=== PATIENT | male | born 1945 | race Caucasian/White ===

== ENCOUNTER → 2016-12-24 | Outpatient (CLI) | payer OTHER ==
[~2016-12-24] MED LIST: ALBU1NEB10 INH; AMLO2.5T PO; ASPI81TA28 PO; ATOR-26 PO; BISA10SU5 RE; CHOL1TAB42 PO; CLC6 PO; DOCU100C31 PO; FIBE1CHW PO; FLUO20CA35 PO; FLUO40CA8 PO; FLUV100T2 PO; GLIP2.5T11 PO; HYDR-4716 PO; LACT10CA3 PO; LAMO200T38 PO; LISI5TAB PO; MAGN250T3 PO; METO-217 PO; MULT-506 PO; NRN600 PO; OLAN1TAB64 PO; OXGN; PANT1TAB48 PO; SULF800T23 PO; TIMO1SOL6 OP; TIOTCAP INH
--- NOTE | 2016-12-24 14:16 | DIAGNOSTIC IMAGING REPORT ---
CHEST 2 VIEWS ROUTINE HISTORY: 71 years-old Male J43.9 Pulmonary [id number] emphysema. COMPARISON: Chest radiograph 12/01/2014 TECHNIQUE: PA and lateral views of the chest FINDINGS: Cardiac silhouette is mildly enlarged, unchanged. There is atherosclerosis of the aorta. No pneumothorax, pleural effusion, focal airspace consolidation or overt pulmonary edema. Lungs are mildly hyperinflated and hyperlucent suggesting emphysema. The bones of the chest are grossly intact. IMPRESSION: No acute cardiopulmonary process. The above report was generated using voice recognition software. It may contain grammatical, syntax or spelling errors. Electronically signed by: Trever Sequeira M.D. 12/24/2016 2:15 PM Dictated Date/Time: 12/24/2016 2:14 PM
== END | disposition home or self-care (01) ==
LOC: C.RAD1850 13:46
PROVIDERS: ATTEND Physician Assistant
DX: J43.9 Emphysema, unspecified (principal)

== ENCOUNTER → 2017-01-21 | Outpatient (CLI) | payer OTHER ==
[~2017-01-21] MED LIST changes: +LAMO200T35 PO; -LAMO200T38 PO; +PANT1TAB3 PO; -PANT1TAB48 PO
[2017-01-21 15:46] LABS: BLOOD UREA NITROGEN 27 mg/dl (7-18); BUN/CREATININE RATIO 21.6 (10-20); CREATININE 1.26 mg/dl (0.60-1.40)
[2017-01-21 15:50] LABS: PROSTATE SPECIFIC ANTIGEN 0.144 ng/ml (0.000-4.000)
== END | disposition home or self-care (01) ==
LOC: C.LAB 14:26
PROVIDERS: ATTEND Urology
DX: N40.1 Benign prostatic hyperplasia with lower urinary tract symptoms (principal); N40.0 Benign prostatic hyperplasia without lower urinary tract symptoms; N39.0 Urinary tract infection, site not specified; N28.1 Cyst of kidney, acquired

== ENCOUNTER 2017-08-26 16:17 | Inpatient (IN) | payer MEDICARE, OTHER ==
[~2017-08-26] VITALS: Ht 185.4 cm; Wt 94.1 kg
--- NOTE | 2017-08-26 16:30 | EMERGENCY ROOM VISIT NOTE ---
History Report prepared by Norberto: Radha Baird Under the Supervision of: Dr. Ana Alejandre D.O. 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 He was brought to the ED via EMS. EMS reports the patient's family was trying to help him into the car to get him to the hospital when he fell over, landing on his back. He reports he has fallen in the past from confusion due to his history of schizoaffective disorder. The patient states he has experienced difficulty breathing since waking this morning. He is 86% on room air in the ED and has a history of emphysema and COPD. He notes he wears 3L NC at home. He has a Spiriva inhaler at home that he uses in the morning. He also admits to a recent intermittently productive cough and the chills. He denies any recent abdominal pain or diarrhea, but states he had diarrhea last week. He denies any recent sick contacts. 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 A total of 10 systems reviewed and were otherwise negative. Past Medical & Surgical Medical Problems: (1) C. difficile diarrhea (2) CAD (coronary artery disease) (3) COPD, severe (4) Diabetes (5) Dyslipidemia (6) GERD (gastroesophageal reflux disease) (7) Gout (8) Hypoxia (9) Neurogenic bladder (10) Schizoaffective disorder (11) SIRS (systemic inflammatory response syndrome) Surgical Problems: (1) History of appendectomy (2) Hx of cardiac catheterization (3) Hx of cataract surgery Family History Diabetes mellitus FH: lung disease FH: stroke FHx: heart disease Social History Smoking Status: Former Smoker Alcohol Use: none Drug Use: none Marital Status: Housing Status: lives with significant other Occupation Status: disabled Current/Historical Medications Scheduled Amlodipine (Norvasc), 5 MG PO DAILY Aspirin (Aspirin Ec), 81 MG PO QPM Atorvastatin (Lipitor), 80 MG PO QPM Finasteride (Finasteride), 5 MG PO QAM Fluoxetine (Prozac), 20 MG PO QAM Fluoxetine (Prozac), 40 MG PO QAM Gabapentin (Gabapentin), 600 MG PO BID Home O2 Therapy (Oxygen), 3 LITER NA UD Lactobacillus-Inulin (Culturelle), 1 CAP PO QAM Lamotrigine (Lamictal), 200 MG PO QAM Lisinopril (Prinivil), 5 MG PO QAM Losartan Potassium (Losartan Potassium), 25 MG PO QAM Magnesium (Magnesium 250 mg), 250 MG PO BID Metoprolol Tartrate (Lopressor), 25 MG PO QPM Olanzapine (Zyprexa), 30 MG PO QPM Pantoprazole (Protonix), 40 MG PO QAM Tamsulosin HCl (Tamsulosin HCl), 0.4 MG PO QPM Timolol Maleate (Timolol 0.5% Oph Soln 15 Ml), 1 DROP OPB QAM Tiotropium [place] (Spiriva Respimat), 1 DOSE INH QAM Scheduled PRN Albuterol Sulf (Proventil 0.083% 2.5MG/3ML), 3 ML INH 3-4 X DAILY PRN for SOB/ Wheezing Allergies Coded Allergies: No Known Allergies (Unverified , 08/26/17) Physical Exam Vital Signs Date Time Temp Pulse Resp B/P (MAP) Pulse Ox O2 Delivery O2 Flow Rate FiO2 08/26/17 17:51 39.5 08/26/17 16:47 76 08/26/17 16:38 37.2 72 26 198/94 96 Nasal Cannula 4.0 08/26/17 16:38 86 Room Air 08/26/17 16:26 37.2 78 26 206/87 86 Room Air Physical Exam GENERAL: alert, ill appearing, tremulous, well nourished, no distress, non- toxic EYE EXAM: normal conjunctiva, PERRL and EOM's grossly intact OROPHARYNX: no exudate, no erythema, lips, buccal mucosa, and tongue normal and mucous membranes are dry NECK: supple, no nuchal rigidity, no adenopathy, non-tender LUNGS: Clear to auscultation. Normal chest wall mechanics. No wheezes, rhonchi or rails. HEART: no murmurs, S1 normal and S2 normal ABDOMEN: abdomen soft, non-tender, normo-active bowel sounds, no masses, no rebound or guarding. BACK: Back is symmetrical on inspection and there is no deformity, no midline tenderness, no CVA tenderness. SKIN: no rashes and no bruising UPPER EXTREMITIES: upper extremities are grossly normal. LOWER EXTREMITIES: Trace bilateral pitting edema. NEURO EXAM: Normal sensorium, cranial nerves II-XII grossly intact, normal speech, no gross weakness of arms, no gross weakness of legs. Medical Decision & Procedures ER Provider Diagnostic Interpretation: Radiology results have been interpreted by the radiologist and reviewed by me. CHEST ONE VIEW PORTABLE HISTORY: 72 years-old Male fever acute fever COMPARISON: Chest radiographs 12/24/2016 TECHNIQUE: Portable AP view of the chest FINDINGS: Cardiac silhouette is enlarged. Calcification of the aorta. There is mild pulmonary vascular congestion without overt pulmonary edema. Prominence of the mediastinum is noted. There is no pneumothorax, pleural effusion or overt pulmonary edema. Subsegmental right basilar opacities. Degenerative changes of the shoulders and spine. IMPRESSION: 1. Cardiomegaly with mild pulmonary vascular congestion. 2. Subsegmental right basilar opacities suggest atelectasis or pneumonitis. The above report was generated using voice recognition software. It may contain grammatical, syntax or spelling errors. Electronically signed by: Trever Sequeira M.D. 08/26/2017 4:52 PM Laboratory Results 08/26/17 17:33 Red Blood Count 4.67, Mean Corpuscular Volume 84.6, Mean Corpuscular Hemoglobin 27.2, Mean Corpuscular Hemoglobin Concent 32.2, Mean Platelet Volume 9.8, Neutrophils (%) (Auto) 88.6, Lymphocytes (%) (Auto) 4.9, Monocytes (%) (Auto) 4.4, Eosinophils (%) (Auto) 1.7, Basophils (%) (Auto) 0.2, Neutrophils # (Auto) 9.58, Lymphocytes # (Auto) 0.53, Monocytes # (Auto) 0.47, Eosinophils # (Auto) 0.18, Basophils # (Auto) 0.02 08/26/17 17:33 Test 08/26/17 16:44 08/26/17 17:33 08/26/17 17:40 Urine Color YELLOW Urine Appearance CLOUDY (CLEAR) Urine pH 8.0 (4.5-7.5) Urine Specific [place] 1.019 (1.000-1.030) Urine Protein 2+ (NEG) Urine Glucose (UA) TRACE (NEG) Urine Ketones NEG (NEG) Urine Occult Blood TRACE (NEG) Urine Nitrite NEG (NEG) Urine Bilirubin NEG (NEG) Urine Urobilinogen NEG (NEG) Urine Leukocyte Esterase NEG (NEG) Urine WBC (Auto) 1-5 /hpf (0-5) Urine RBC (Auto) 0-4 /hpf (0-4) Urine Hyaline Casts (Auto) 1-5 /lpf (0-5) Urine Epithelial Cells (Auto) 5-10 /lpf (0-5) Urine Bacteria (Auto) NEG (NEG) White Blood Count 10.80 K/uL (4.8-10.8) Red Blood Count 4.67 M/uL (4.7-6.1) Hemoglobin 12.7 g/dL (14.0-18.0) Hematocrit 39.5 % (42-52) Mean Corpuscular Volume 84.6 fL (80-100) Mean Corpuscular Hemoglobin 27.2 pg (25-34) Mean Corpuscular Hemoglobin Concent 32.2 g/dl (32-36) Platelet Count 167 K/uL (130-400) Mean Platelet Volume 9.8 fL (7.4-10.4) Neutrophils (%) (Auto) 88.6 % Lymphocytes (%) (Auto) 4.9 % Monocytes (%) (Auto) 4.4 % Eosinophils (%) (Auto) 1.7 % Basophils (%) (Auto) 0.2 % Neutrophils # (Auto) 9.58 K/uL (1.4-6.5) Lymphocytes # (Auto) 0.53 K/uL (1.2-3.4) Monocytes # (Auto) 0.47 K/uL (0.11-0.59) Eosinophils # (Auto) 0.18 K/uL (0-0.5) Basophils # (Auto) 0.02 K/uL (0-0.2) RDW Standard Deviation 50.4 fL (36.4-46.3) RDW Coefficient of Variation 16.5 % (11.5-14.5) Immature Granulocyte % (Auto) 0.2 % Immature Granulocyte # (Auto) 0.02 K/uL (0.00-0.02) Prothrombin Time 10.7 SECONDS (9.0-12.0) Prothromb Time International Ratio 1.0 (0.9-1.1) Activated Partial Thromboplast Time 26.1 SECONDS (21.0-31.0) Partial Thromboplastin Ratio 1.0 Anion Gap 7.0 mmol/L (3-11) Est Creatinine Clear Calc Drug Dose 65.7 ml/min Estimated GFR () 65.8 Estimated GFR (Non- 56.8 BUN/Creatinine Ratio 19.4 (10-20) Calcium Level 9.5 mg/dl (8.5-10.1) Magnesium Level 2.3 mg/dl (1.8-2.4) Total Bilirubin 0.6 mg/dl (0.2-1) Aspartate Amino Transf (AST/SGOT) 43 U/L (15-37) Alanine Aminotransferase (ALT/SGPT) 42 U/L (12-78) Alkaline Phosphatase 141 U/L (45-117) Total Protein 8.3 gm/dl (6.4-8.2) Albumin 3.5 gm/dl (3.4-5.0) Globulin 4.8 gm/dl (2.5-4.0) Albumin/Globulin Ratio 0.7 (0.9-2) Bedside Lactic Acid Venous 0.72 mmol/L (0.90-1.70) Laboratory results per my review. Medications Administered Medications (Trade) Dose Ordered Sig/Nancy Route Start Time Stop Time Status Last Admin Dose Admin Sodium Chloride 1,000 ml @ 999 mls/hr Q1H1M STAT IV 08/26/17 16:36 08/26/17 17:36 DC 08/26/17 16:36 999 MLS/HR Vancomycin HCl 2250 mg/Sodium Chloride 545 ml @ 200 mls/hr 1800 ONCE IV 08/26/17 18:00 08/26/17 20:43 DC 08/26/17 18:09 200 MLS/HR Cefepime HCl 1000 mg/Dextrose 111 ml @ 200 mls/hr NOW STAT IV 08/26/17 17:43 08/26/17 18:16 DC 08/26/17 18:04 200 MLS/HR Acetaminophen (Tylenol Tab) 1,000 mg NOW STAT PO 08/26/17 17:44 08/26/17 17:45 DC 08/26/17 17:56 1,000 MG Albuterol/ Ipratropium (Duoneb) 3 ml NOW STAT INH 08/26/17 18:27 08/26/17 18:28 DC 08/26/17 19:01 3 ML Methylprednisolone Sodium Succinate (Solu-Medrol IV) 60 mg NOW STAT IV 08/26/17 18:30 08/26/17 18:31 DC 08/26/17 19:01 60 MG ECG Per My Interpretation Indication: weakness Rate (beats per minute): 73 Rhythm: sinus rhythm Findings: no acute ischemic change, other (Artifact noted, normal axis, normal intervals) ED Course 1619: The patient was evaluated in room C7. A complete history and physical exam was performed. 1635: I spoke to the patients . She states he has had shaking chills all morning. He has been falling more than usual and was unable to get up earlier today. He has been more confused today and stating things that do not make sense. This is usually indicative of a severe infection, like a UTI or pneumonia in the patient, both of which he has had before. 1636: NSS 1000 ml @ 999 mls/hr IV. 1740: I reevaluated the patient. He is still hypertensive and is now febrile. IV team has gotten a line. 1743: Cefepime HCl 1000 mg/Dextrose 111 ml @ 200 mls/hr IV. 1744: Tylenol 1000 mg PO. 1800: Vancomycin HCl 2250 mg/Sodium Chloride 545 ml @ 200 mls/hr IV. 1825: I reevaluated the patient. He is updated on his results so far. 1827: DuoNeb 3 ml INH. 1830: Solu-Medrol 60 mg IV. 1832: I discussed the patients case with Angie Carrington PA-C, [facility] Hospitalist. The patient will be further evaluated. 1835: I reevaluated the patient. I discussed my recommendation he remain in the hospital for further evaluation and management and he and his verbalized complete understanding and agreement. Medical Decision Differential Diagnosis includes but is not limited to dehydration, stroke, anemia, hypoglycemia, hyponatremia, hypernatremia, urinary tract infection, pneumonia, bronchitis, sepsis, gastroenteritis, additional abdominal pathology, metabolic abnormalities and infections. Patient here ill-appearing on presentation with productive sounding cough, and requiring slightly more oxygen at 4 L/min than his usual home O2 of 3 L/min. Patient's tremors I feel most likely Reiger's, as he eventually developed a fever. While patient's labs are reassuring, and concern that this may be the early evolution of bacteremia/sepsis. No focal consolidation noted on chest x- ray, although patient with prior history of COPD/emphysema and at risk for respiratory infection. Urine unremarkable. Patient with no other GI symptoms to warrant additional GI imaging at this time. Do not suspect acute vascular pathology. Patient's describes transient confusion earlier today which could be secondary to his infection also. I do not suspect CVA. I do not suspect meningitis/encephalitis. Patient without any headaches, dizziness, vision changes. Patient with increased generalized weakness and fatigue today, complains of worsening shortness of breath and cough. Patient hemodynamically stable throughout, hypertension noted although improved. IV fluids were ordered and cultures drawn. Broad-spectrum antibiotics ordered at this time given unclear etiology of fever and likely evolving infection. Rapid strep negative. No recent skin changes and no evidence of sacral decubitus ulcer noted on exam. Patient and made aware of all results were agreeable with plan. Medication Reconcilliation Current Medication List: was personally reviewed by me Blood Pressure Screening Patient's blood pressure: Elevated blood pressure Blood pressure disposition: Referred to PCP (The patients elevated blood pressure will be further managed by the inpatient hospital medicine team) Consults Time Called: 1831 Consulting Physician: [facility] Returned Call: 1831 I discussed the patients case with Angie Carrington [facility]C, [facility]. The patient will be further evaluated. Impression Primary Impression: Fever Additional Impressions: Cough Dehydration Fall Hypertension Generalized weakness Scribe Attestation The scribe's documentation has been prepared under my direction and personally reviewed by me in its entirety. I confirm that the note above accurately reflects all work, treatment, procedures, and medical decision making performed by me. Departure Information Dispostion Being Evaluated By Hospitalist Referrals Clau Batista DO (PCP) Problem Qualifiers Primary Impression: Fever Fever type: unspecified Qualified Codes: R50.9 - Fever, unspecified Additional Impressions: Fall Encounter type: initial encounter Qualified Codes: W19.XXXA - Unspecified fall, initial encounter Hypertension Hypertension type: essential hypertension Qualified Codes: I10 - Essential ( primary) hypertension
[2017-08-26] MEDS ORDERED: SODIUM CHLORIDE 0.9% 1000ML 1,000 ML IV STA (16:36)
--- NOTE | 2017-08-26 16:53 | DIAGNOSTIC IMAGING REPORT ---
CHEST ONE VIEW PORTABLE HISTORY: 72 years-old Male fever acute fever COMPARISON: Chest radiographs 12/24/2016 TECHNIQUE: Portable AP view of the chest FINDINGS: Cardiac silhouette is enlarged. Calcification of the aorta. There is mild pulmonary vascular congestion without overt pulmonary edema. Prominence of the mediastinum is noted. There is no pneumothorax, pleural effusion or overt pulmonary edema. Subsegmental right basilar opacities. Degenerative changes of the shoulders and spine. IMPRESSION: 1. Cardiomegaly with mild pulmonary vascular congestion. 2. Subsegmental right basilar opacities suggest atelectasis or pneumonitis. The above report was generated using voice recognition software. It may contain grammatical, syntax or spelling errors. Electronically signed by: Trever Sequeira M.D. 08/26/2017 4:52 PM Dictated Date/Time: 08/26/2017 4:50 PM
[2017-08-26] MEDS ORDERED: LPR25 PO (17:11)
[2017-08-26] MEDS ORDERED: TIOT1SPR INH (17:11)
[2017-08-26] MEDS ORDERED: CZR25 PO (17:11)
[2017-08-26] MEDS ORDERED: FLM4 PO (17:11)
[2017-08-26] MEDS ORDERED: PRS5 PO (17:11)
[2017-08-26] MEDS ORDERED: TMPOPS15 OPB (17:11)
[2017-08-26] MEDS ORDERED: ALBINS/ INH (17:11)
[2017-08-26] MEDS ORDERED: CEFEPIME IV 1,000 MG in DEXTROSE 5% 100ML 100 ML IV STA (17:43)
[2017-08-26] MEDS ORDERED: ACETAMINOPHEN 500 MG TAB PO STA (17:44)
[2017-08-26] MEDS ORDERED: VANCOMYCIN CONSULT ACTIVE PRN ×2 (17:45→19:52)
[2017-08-26 17:47] LABS: BASO % 0.2 %; BASO ABS # 0.02 K/uL (0-0.2); EOS % 1.7 %; EOS ABS # 0.18 K/uL (0-0.5); HEMATOCRIT 39.5 % (42-52); HEMOGLOBIN 12.7 g/dL (14.0-18.0); IG# 0.02 K/uL (0.00-0.02); LYMPH % 4.9 %; LYMPH ABS # 0.53 K/uL (1.2-3.4); MEAN CELL VOLUME 84.6 fL (80-100); MEAN CORPUSCULAR HEMOGLOBIN 27.2 pg (25-34); MEAN CORPUSCULAR HGB CONC 32.2 g/dl (32-36); MEAN PLATELET VOLUME 9.8 fL (7.4-10.4); MONO % 4.4 %; MONO ABS # 0.47 K/uL (0.11-0.59); NEUT % 88.6 %; NEUT ABS # 9.58 K/uL (1.4-6.5); PLATELET COUNT 167 K/uL (130-400); RED CELL DISTRIBUTION WIDTH CV 16.5 % (11.5-14.5); RED CELL DISTRIBUTION WIDTH SD 50.4 fL (36.4-46.3)
[2017-08-26 17:56] LABS: PTT PATIENT 26.1 SECONDS (21.0-31.0)
[2017-08-26] MEDS ORDERED: VANCOMYCIN IV 2,250 MG in SODIUM CHLORIDE 0.9% 500ML 500 ML IV ONE (18:00)
[2017-08-26 18:07] LABS: ALBUMIN 3.5 gm/dl (3.4-5.0); CALCIUM 9.5 mg/dl (8.5-10.1); CREATININE 1.25 mg/dl (0.60-1.40); POTASSIUM 3.9 mmol/L (3.5-5.1); TOTAL PROTEIN 8.3 gm/dl (6.4-8.2)
[2017-08-26] MEDS ORDERED: ALBUT/IPRATROP 3MG/0.5MG NEB 3 ML VIAL INH STA (18:27)
--- NOTE | 2017-08-26 18:28 | DIAGNOSTIC IMAGING REPORT ---
HEAD WITHOUT CONTRAST (CT) CLINICAL HISTORY: 72 years-old Male with trauma. Acute head injury with trauma TECHNIQUE: Multiple axial CT images of the head were obtained without contrast. A dose lowering technique was utilized adhering to the principles of ALARA. CT DOSE: 1289.87 mGy.cm COMPARISON: CT head 11/03/2014. FINDINGS: No acute intracranial hemorrhage, midline shift, intracranial mass, hydrocephalus, territorial ischemia or abnormal extra-axial collection. Age-related involutional changes. Moderate degree of low-attenuation about the white matter suggests chronic microvascular ischemic changes. The calvarium is intact. Mild polypoid mucosal thickening of the right maxillary sinus. Soft tissues and orbits are within normal limits. IMPRESSION: No acute intracranial abnormality or calvarial fracture. The above report was generated using voice recognition software. It may contain grammatical, syntax or spelling errors. Electronically signed by: Trever Sequeira M.D. 08/26/2017 6:27 PM Dictated Date/Time: 08/26/2017 6:25 PM
[2017-08-26] MEDS ORDERED: METHYLPREDNISOLONE 125 MG VIAL IV STA (18:30)
--- NOTE | 2017-08-26 18:32 | DIAGNOSTIC IMAGING REPORT ---
CERVICAL SPINE W/O CLINICAL HISTORY: 72 years-old Male with trauma. Acute neck pain status post trauma with fall COMPARISON: CT head of same day. TECHNIQUE: Multiple axial CT images of the cervical spine were obtained without contrast. A dose lowering technique was utilized adhering to the principles of ALARA. FINDINGS: Mildly demineralized appearance of the bones. Reversal the normal cervical lordosis with kyphotic curvature centered at C3-C4. 3 mm anterolisthesis C3 on C4 is likely on a degenerative basis. Partial bony fusion of the facets at T2-C3 and C3-C4. Severe multilevel intervertebral disc space narrowing, facet arthropathy with spondylitic spurring and posterior annular disc bulging. These changes result in varying degrees of neuroforaminal narrowing. There is no definite high-grade central canal stenosis. Evaluation of the central canal and neuroforamina is better assessed by MRI. No acute fracture or subluxation is identified. The mastoid air cells and middle ear cavities appear clear. Atherosclerosis about the bilateral carotid vasculature. Imaged lung apices are clear with emphysematous changes. Enlarged heterogeneous thyroid suggests multinodular morphology. Soft tissues are within normal limits. IMPRESSION: No acute cervical spine fracture or subluxation. The above report was generated using voice recognition software. It may contain grammatical, syntax or spelling errors. Electronically signed by: Trever Sequeira M.D. 08/26/2017 6:30 PM Dictated Date/Time: 08/26/2017 6:27 PM
[2017-08-26] MEDS ORDERED: POLYETHYLENE (MIRALAX) 17 GM PACK PO PRN (19:30)
[2017-08-26] MEDS ORDERED: ONDANSETRON INJ 2 MG/ML 2 ML VIAL IV PRN (19:30)
[2017-08-26] MEDS ORDERED: NITROGLYCERIN 0.4 MG SL PER TAB CHARGE SL PRN (19:30)
[2017-08-26] MEDS ORDERED: ACETAMINOPHEN 325 MG TAB PO PRN (19:30)
[2017-08-26] MEDS ORDERED: AMLO5TAB3 PO (19:42)
[2017-08-26 19:56] VITALS: Ht 185.4 cm; Wt 94.1 kg
[2017-08-26] MEDS: ALBUT/IPRATROP 3MG/0.5MG NEB 3 ML VIAL INH SCH (20:00)
[2017-08-26] MEDS ORDERED: CARBOHYDRATES FOR HYPOGLYCEMIA PO PRN (20:30)
[2017-08-26] MEDS ORDERED: DEXTROSE 50% 50 ML SYR IV PRN (20:30)
[2017-08-26] MEDS ORDERED: GLUCOSE 10 TABS/TUBE PO PRN (20:30)
[2017-08-26] MEDS ORDERED: GLUCAGON FOR INJ 1 MG VIAL SQ PRN (20:30)
[2017-08-26] MEDS ORDERED: GLUCOSE 40% GEL 15 GM TUBE PO PRN (20:30)
--- NOTE | 2017-08-26 20:41 | History and Physical ---
History & Physical Date & Time of Service: Aug 26, 2017 at 19:45 Chief Complaint: Confusion, Fall, Sob Primary Care Physician: Clau Batista DO History of Present Illness Source: patient, spouse, clinic records, hospital records Pt is 72 y/o M with PMH COPD on 3L O2, HTN, dyslipidemia, DM II, CAD S/P stents x 2, MUKUL, CKD II, BPH, schizoaffective disorder presented to ER with complaint of weakness and chills. Reports this morning with generalized weakness, fatigue , chills, and rigors. Some nausea no vomiting. He states was feeling so weak today that he fell. Denies any injury. States yesterday started with cough productive of beige colored mucus. Reports some shortness of breath today. Patient states has not had to use albuterol nebulizers. Follows with [facility] pulmonology. States this afternoon noticed patient with some confusion which is new. Reported history sepsis and pneumonia in the past. Reported history MRSA. Denies insect bite, rashes, ill contacts, recent travel. Denies diaphoresis, D/C, PARIKH, dizziness, syncope, vision changes, neck pain, CP, orthopnea, palpitations, hematemesis, sore throat, choking, otalgia, rhinorrhea, abdominal pain, paresthesias, extremity edema, urinary symptoms, weight loss. Past Medical/Surgical History Medical Problems: (1) C. difficile diarrhea Status: Resolved (2) CAD (coronary artery disease) Permanent Comment: s/p PTCA in 1997 and 2000 1997 - stent placed but details unknown 2000 - stent to LAD Status: Chronic (3) COPD, severe Status: Chronic (4) Diabetes Status: Chronic (5) Dyslipidemia Status: Chronic (6) GERD (gastroesophageal reflux disease) Status: Chronic (7) Gout Status: Chronic (8) Neurogenic bladder Status: Chronic (9) Schizoaffective disorder Status: Chronic Surgical Problems: (1) History of appendectomy Status: Chronic (2) Hx of cardiac catheterization Permanent Comment: stents x 2 Status: Resolved (3) Hx of cataract surgery Status: Chronic Family History Diabetes mellitus FH: lung disease FH: stroke FHx: heart disease Social History Smoking Status: Former Smoker (Smoked 3 PPD x 40 years, quit 2004) Smokeless Tobacco Use: No Alcohol Use: none Drug Use: none Marital Status: Housing status: lives with family, long term Occupational Status: disabled Immunizations History of Influenza Vaccine: Yes Influenza Vaccine Date: Oct 26, 2014 History of Tetanus Vaccine?: Yes Tetanus Immunization Date: Nov 15, 2008 History of Pneumococcal: Yes Pneumococcal Date: June 12, 2014 Allergies Coded Allergies: No Known Allergies (Unverified , 08/26/17) Home Medications Scheduled Amlodipine (Norvasc), 5 MG PO DAILY Aspirin (Aspirin Ec), 81 MG PO QPM Atorvastatin (Lipitor), 80 MG PO QPM Finasteride (Finasteride), 5 MG PO QAM Fluoxetine (Prozac), 20 MG PO QAM Fluoxetine (Prozac), 40 MG PO QAM Gabapentin (Gabapentin), 600 MG PO BID Home O2 Therapy (Oxygen), 3 LITER NA UD Lactobacillus-Inulin (Culturelle), 1 CAP PO QAM Lamotrigine (Lamictal), 200 MG PO QAM Lisinopril (Prinivil), 5 MG PO QAM Losartan Potassium (Losartan Potassium), 25 MG PO QAM Magnesium (Magnesium 250 mg), 250 MG PO BID Metoprolol Tartrate (Lopressor), 25 MG PO QPM Olanzapine (Zyprexa), 30 MG PO QPM Pantoprazole (Protonix), 40 MG PO QAM Tamsulosin HCl (Tamsulosin HCl), 0.4 MG PO QPM Timolol Maleate (Timolol 0.5% Oph Soln 15 Ml), 1 DROP OPB QAM Tiotropium [place] (Spiriva Respimat), 1 DOSE INH QAM Scheduled PRN Albuterol Sulf (Proventil 0.083% 2.5MG/3ML), 3 ML INH 3-4 X DAILY PRN for SOB/ Wheezing Review of Systems See HPI for pertinent positives & negatives. All other systems reviewed and were otherwise negative Physical Exam Vital Signs Date Time Temp Pulse Resp B/P (MAP) Pulse Ox O2 Delivery O2 Flow Rate FiO2 08/26/17 17:51 39.5 08/26/17 16:47 76 08/26/17 16:38 37.2 72 26 198/94 96 Nasal Cannula 4.0 08/26/17 16:38 86 Room Air 08/26/17 16:26 37.2 78 26 206/87 86 Room Air General Appearance: + pertinent finding (Overweight, ill appearing, appears uncomfortable) Head: normocephalic, atraumatic Eyes: normal inspection, PERRL, EOMI, sclerae normal ENT: hearing grossly normal, pharynx normal, + pertinent finding (dry mucous membranes) Neck: supple, trachea midline Respiratory/Chest: + pertinent finding (Resp: 26, no accessory muscle usage, able to speak in sentences, coarse breath sounds & rhonchi throughout,) Cardiovascular: regular rate, rhythm, no murmur, normal peripheral pulses Abdomen/GI: normal bowel sounds, non tender, soft Back: no CVA tenderness Extremities/Musculoskelatal: no calf tenderness, normal capillary refill, no pedal edema Neurologic/Psych: alert (lethargic, oriented to person, place, confused on time ) Skin: + pertinent finding (hot, dry) Diagnostics Laboratory Results Results Past 24 Hours Test 08/26/17 16:44 08/26/17 17:33 08/26/17 17:40 Range/Units Urine Color YELLOW Urine Appearance CLOUDY CLEAR Urine pH 8.0 4.5-7.5 Urine Specific [place] 1.019 1.000-1.030 Urine Protein 2+ NEG Urine Glucose (UA) TRACE NEG Urine Ketones NEG NEG Urine Occult Blood TRACE NEG Urine Nitrite NEG NEG Urine Bilirubin NEG NEG Urine Urobilinogen NEG NEG Urine Leukocyte Esterase NEG NEG Urine WBC (Auto) 1-5 0-5 /hpf Urine RBC (Auto) 0-4 0-4 /hpf Urine Hyaline Casts (Auto) 1-5 0-5 /lpf Urine Epithelial Cells (Auto) 5-10 0-5 /lpf Urine Bacteria (Auto) NEG NEG White Blood Count 10.80 4.8-10.8 K/uL Red Blood Count 4.67 4.7-6.1 M/uL Hemoglobin 12.7 14.0-18.0 g/dL Hematocrit 39.5 42-52 % Mean Corpuscular Volume 84.6 80-100 fL Mean Corpuscular Hemoglobin 27.2 25-34 pg Mean Corpuscular Hemoglobin Concent 32.2 32-36 g/dl Platelet Count 167 130-400 K/uL Mean Platelet Volume 9.8 7.4-10.4 fL Neutrophils (%) (Auto) 88.6 % Lymphocytes (%) (Auto) 4.9 % Monocytes (%) (Auto) 4.4 % Eosinophils (%) (Auto) 1.7 % Basophils (%) (Auto) 0.2 % Neutrophils # (Auto) 9.58 1.4-6.5 K/uL Lymphocytes # (Auto) 0.53 1.2-3.4 K/uL Monocytes # (Auto) 0.47 0.11-0.59 K/uL Eosinophils # (Auto) 0.18 0-0.5 K/uL Basophils # (Auto) 0.02 0-0.2 K/uL RDW Standard Deviation 50.4 36.4-46.3 fL RDW Coefficient of Variation 16.5 11.5-14.5 % Immature Granulocyte % (Auto) 0.2 % Immature Granulocyte # (Auto) 0.02 0.00-0.02 K/uL Prothrombin Time 10.7 9.0-12.0 SECONDS Prothromb Time International Ratio 1.0 0.9-1.1 Activated Partial Thromboplast Time 26.1 21.0-31.0 SECONDS Partial Thromboplastin Ratio 1.0 Sodium Level 137 136-145 mmol/L Potassium Level 3.9 3.5-5.1 mmol/L Chloride Level 105 98-107 mmol/L Carbon Dioxide Level 25 21-32 mmol/L Anion Gap 7.0 3-11 mmol/L Blood Urea Nitrogen 24 7-18 mg/dl Creatinine 1.25 0.60-1.40 mg/dl Est Creatinine Clear Calc Drug Dose 65.7 ml/min Estimated GFR () 65.8 Estimated GFR (Non- 56.8 BUN/Creatinine Ratio 19.4 10-20 Random Glucose 118 70-99 mg/dl Calcium Level 9.5 8.5-10.1 mg/dl Magnesium Level 2.3 1.8-2.4 mg/dl Total Bilirubin 0.6 0.2-1 mg/dl Aspartate Amino Transf (AST/SGOT) 43 15-37 U/L Alanine Aminotransferase (ALT/SGPT) 42 12-78 U/L Alkaline Phosphatase 141 45-117 U/L Total Protein 8.3 6.4-8.2 gm/dl Albumin 3.5 3.4-5.0 gm/dl Globulin 4.8 2.5-4.0 gm/dl Albumin/Globulin Ratio 0.7 0.9-2 Bedside Lactic Acid Venous 0.72 0.90-1.70 mmol/L Microbiology Results 7/19/18 Blood Culture, Received Pending 08/26/17 Blood Culture, Received Pending 08/26/17 Group A Streptococcus Screen - Final, Resulted SPECIMEN NEGATIVE FOR GROUP A BETA ST... 08/26/17 Group A Streptococcus Screen (MARLEN), Resulted Pending Diagnostic Radiology CXR: IMPRESSION: 1. Cardiomegaly with mild pulmonary vascular congestion. 2. Subsegmental right basilar opacities suggest atelectasis or pneumonitis. CT HEAD: IMPRESSION: No acute intracranial abnormality or calvarial fracture. CT C SPINE: IMPRESSION: No acute cervical spine fracture or subluxation. Impression Assessment and Plan Pt is 72 y/o M with PMH COPD on 3L O2, HTN, dyslipidemia, DM II, CAD S/P stents x 2, MUKUL, CKD II, BPH, schizoaffective disorder presented to ER with complaint of weakness and chills, rigors, cough today. SIRS DEHYDRATION Possible pneumonia In ER temp to 39.5C, P: 78, R: 26, BP: 206/87 down to 163/70. Initially 86% on RA, pt is 3L oxygen dependent, up to 90-96% on 4L. WBC: 10.8, POC lactic acid: 0.72, UA unremarkable, CXR:Cardiomegaly with mild pulmonary vascular congestion , Subsegmental right basilar opacities suggest atelectasis or pneumonitis. Patient was given DuoNeb, 1L NSS, cefepime, vancomycin, solumedrol 60mg IV, Tylenol -Pending blood cultures -IVF -Cefepime, vancomycin -Supplemental O2 per protocol -DuoNeb's -Solu-Medrol 40 mg IV twice daily -cbc, prp in am COPD - OXYGEN DEPENDENT Possible COPD exacerbation 3L oxygen NC continuous at home -supplemental O2 -solumedrol 40mg BID -consider pulmonology consult if no improvements GENERALIZED WEAKNESS/FALL fall secondary to weakness probable secondary to underlying illness. CT head and c-spine no acute changes -PT/OT CAD S/P STENT X 2 Denies CP -continue ASA, statin, metoprolol DM II Not on meds currently diet controlled -HA1c in am -BSG AC HS -Novolog sliding scale per protocol HTN Pt initially BP: 206/87 down to 163/70 -med list includes both lisinopril and losartan -hold lisinopril, continue losartan, amlodipine, metoprolol with holding parameters SCHIZOAFFECTIVE DISORDER Mood stable -Lamictal level pending -continue Prozac, Lamictal, Zyprexa MUKUL Pt reports in past used bipap, now uses CPAP HS CKD II Cr: 1.2 (approximate baseline) -monitor renal functions -avoid nephrotoxic agents when possible CHRONIC ANEMIA Hgb: 12.7 (at baseline) -monitor H&H DYSLIPIDEMIA -continue statin GERD -continue PPI BPH -continue flomax, finasteride BLE NEUROPATHY -continue gabapentin DVT Prophylaxis -heparin SQ Admit tele Full Code as per discussion with pt and Follows with Dr Batista for routine care Pt was seen with Dr Garcia. See addendum Attending addendum: The patient was seen and examined in ER He has multiple medical problems as mentioned above including COPD, history of MRSA, sleep apnea, schizoaffective disorder and chronic kidney disease He was noted to have weakness, fall and shortness of breath Was found to have temperature of more than 39F in the ER and chest x-ray did show possible basilar pneumonia He was feeling better during my examination On examination Minimal shortness of breath at rest Hemodynamically stable Chest-decreased breath sounds both sites with bibasilar crackles and wheezing anteriorly Heart-regular Abdomen-benign, nontender, bowel sounds present Extremities-no edema [employer] CRATING-alert, awake and oriented Generally weak but no focal neuro deficit Admission labs and imaging studies reviewed Has pneumonia and possible exacerbation of COPD Broad-spectrum antibiotics were started in the ER and will continue for now Agree with assessment and plan as outlined above. Dr. Darrick Garcia Resuscitation Status VTE Prophylaxis Will order VTE Prophylaxis: Yes Additional Copies To Clau Batista,DO
[2017-08-26] MEDS ORDERED: METOPROLOL TARTRATE 25 MG TAB PO SCH (21:00)
--- NOTE | 2017-08-26 21:14 | Pharmacy Progress Note ---
Pharmacy Abx Initial Consult Date of Service Aug 26, 2017. Pharmacy Dosing Scope Date of Consult: 08/26/17 Consultation requested by: Angie Calle [facility] is consulted to initiate Vancomycin IV dosing therapy, order appropriate labs and adjust drug dose/frequency. Subjective The patient is a 72 year old male admitted on Aug 26, 2017 at 19:29. Objective Height (Feet): 6 Height (Inches): 1.00 Weight (Kilograms): 100.700 Vital Signs (Past 12Hrs) Vital Signs Past 12 Hours Date Time Temp Pulse Resp B/P (MAP) Pulse Ox O2 Delivery O2 Flow Rate FiO2 08/26/17 20:04 37.2 67 24 106/66 91 08/26/17 19:56 Nasal Cannula 08/26/17 17:51 39.5 08/26/17 16:47 76 08/26/17 16:38 37.2 72 26 198/94 96 Nasal Cannula 4.0 08/26/17 16:38 86 Room Air 08/26/17 16:26 37.2 78 26 206/87 86 Room Air Lab Results (24Hrs) Laboratory Tests (24 Hours) Test 08/26/17 17:33 White Blood Count 10.80 K/uL (4.8-10.8) Red Blood Count 4.67 M/uL (4.7-6.1) L Hemoglobin 12.7 g/dL (14.0-18.0) L Hematocrit 39.5 % (42-52) L Mean Corpuscular Volume 84.6 fL (80-100) Mean Corpuscular Hemoglobin 27.2 pg (25-34) Mean Corpuscular Hemoglobin Concent 32.2 g/dl (32-36) Platelet Count 167 K/uL (130-400) Mean Platelet Volume 9.8 fL (7.4-10.4) Neutrophils (%) (Auto) 88.6 % Lymphocytes (%) (Auto) 4.9 % Monocytes (%) (Auto) 4.4 % Eosinophils (%) (Auto) 1.7 % Basophils (%) (Auto) 0.2 % Neutrophils # (Auto) 9.58 K/uL (1.4-6.5) H Lymphocytes # (Auto) 0.53 K/uL (1.2-3.4) L Monocytes # (Auto) 0.47 K/uL (0.11-0.59) Eosinophils # (Auto) 0.18 K/uL (0-0.5) Basophils # (Auto) 0.02 K/uL (0-0.2) Micro Results Date/Time Source Procedure Growth Status 08/26/17 17:33 Blood Blood Culture Pending Received 08/26/17 17:18 Blood Blood Culture Pending Received 08/26/17 00:00 Throat Group A Streptococcus Screen - Final SPECIMEN NEGATIVE FOR GROUP A BETA ST... Resulted 08/26/17 00:00 Throat Group A Streptococcus Screen (MARLEN) Pending Resulted Assessment & Plan Assessment 72 year old male with possible Pneumonia. Plan Vancomycin IV * Loading dose: 2250 mg (22.5 mg/kg) IV x 1 given in ED * Maintenance dose: Vancomycin 1500 mg IV (15 mg/kg) every 18 hours * Estimated P'kinetics: ke = 0.058 /hr, t1/2 = 12 hrs, Vd = 0.7 L/kg * Goal trough level for Pneumonia: 15 to 20 mcg/mL * Trough level ordered for 08/28/17 before dose at 1800 Pharmacy will continue to follow and will adjust dose/frequency as necessary. Thank you.
[2017-08-26] MEDS: INSULIN ASPART 100 UNITS/ML 3 ML PEN SC SCH (21:44)
[2017-08-26] MEDS: TAMSULOSIN HCL 0.4 MG CAP PO SCH (22:35)
[2017-08-26] MEDS: HEPARIN SOD 5000 UNIT/0.5 ML CARP SQ SCH (22:35)
[2017-08-26] MEDS: ASPIRIN 81 MG ECTAB PO SCH (22:36)
[2017-08-26] MEDS: GABAPENTIN 600 MG TAB PO SCH (22:36)
[2017-08-26] MEDS: ATORVASTATIN 40 MG TAB PO SCH (22:36)
[2017-08-26] MEDS: OLANZAPINE 10 MG TAB PO SCH (22:37)
[2017-08-26 22:55] VITALS: PULSE 58; O2SAT 92
[2017-08-27] VITALS (12 sets, daily range): BP systolic 119–153; BP diastolic 69–76; PULSE 47–58; TEMP 36.3–36.7; O2SAT 92–96
[2017-08-27] MEDS: CEFEPIME IV 2,000 MG in SYRINGE 7.5 ML IV SCH ×2 (05:23→17:47)
[2017-08-27] MEDS: METHYLPREDNISOLONE IV 40 MG in SYRINGE 0 ML IV SCH ×2 (05:23→17:46)
[2017-08-27] MEDS: HEPARIN SOD 5000 UNIT/0.5 ML CARP SQ SCH ×3 (05:28→20:52)
[2017-08-27] MEDS: SODIUM CHLORIDE 0.9% 1000ML 1,000 ML IV SCH ×2 (05:43→09:05)
[2017-08-27] MEDS: VANCOMYCIN IV 1,500 MG in SODIUM CHLORIDE 0.9% 500ML 500 ML IV SCH (05:43)
[2017-08-27 07:01] LABS: HEMATOCRIT 37.3 % (42-52); HEMOGLOBIN 11.9 g/dL (14.0-18.0); IG# 0.03 K/uL (0.00-0.02); LYMPH % 3.8 %; LYMPH ABS # 0.48 K/uL (1.2-3.4); MEAN CORPUSCULAR HEMOGLOBIN 27.1 pg (25-34); MEAN CORPUSCULAR HGB CONC 31.9 g/dl (32-36); MEAN PLATELET VOLUME 9.8 fL (7.4-10.4); MONO % 3.4 %; MONO ABS # 0.42 K/uL (0.11-0.59); NEUT % 92.6 %; PLATELET COUNT 176 K/uL (130-400); RED CELL DISTRIBUTION WIDTH CV 16.6 % (11.5-14.5); RED CELL DISTRIBUTION WIDTH SD 51.5 fL (36.4-46.3); WHITE BLOOD COUNT 12.53 K/uL (4.8-10.8)
[2017-08-27] MEDS: ALBUT/IPRATROP 3MG/0.5MG NEB 3 ML VIAL INH SCH ×4 (07:16→19:03)
[2017-08-27 07:23] LABS: HEMOGLOBIN A1C 6.5 % (4.5-5.6)
[2017-08-27] MEDS: TIMOLOL MALEATE 0.5% OP SOLN 5 ML BTL OPB SCH (07:33)
[2017-08-27] MEDS: LOSARTAN POTASSIUM 25 MG TAB PO SCH (07:34)
[2017-08-27] MEDS: PANTOprazole SOD 40 MG TAB PO SCH (07:34)
[2017-08-27] MEDS: GABAPENTIN 600 MG TAB PO SCH ×2 (07:34→20:45)
[2017-08-27] MEDS: MAGNESIUM OXIDE 400 MG TAB PO SCH ×2 (07:34→20:45)
[2017-08-27] MEDS: FLUOXETINE HCL 20 MG CAP PO SCH (07:35)
[2017-08-27] MEDS: FINASTERIDE 5 MG TAB PO SCH (07:35)
[2017-08-27] MEDS: AMLODIPINE BESYLATE 5 MG TAB PO SCH (07:35)
[2017-08-27 07:36] LABS: CALCIUM 9.2 mg/dl (8.5-10.1); CREATININE 1.24 mg/dl (0.60-1.40); POTASSIUM 3.5 mmol/L (3.5-5.1)
[2017-08-27] MEDS: INSULIN ASPART 100 UNITS/ML 3 ML PEN SC SCH ×4 (07:43→20:54)
[2017-08-27] MEDS ORDERED: LISINOPRIL 5 MG TAB PO SCH (09:00)
[2017-08-27] MEDS ORDERED: FLUOXETINE HCL 20 MG CAP PO SCH (09:00)
--- NOTE | 2017-08-27 10:27 | Progress Note ---
Internal Med Progress Note Date of Service: Aug 27, 2017. Provider Documentation: SUBJECTIVE: Seen and examined at bedside States SOB is improving Still has cough with brownish expectoration Confusion seemed to have resolved Has generalized weakness and tires easily Denies chest pain, dizziness Reports chronic bradycardia No other complaints Fever resolved OBJECTIVE: Vital Signs-as noted below Physical Exam: General Appearance:Moderately built and nourished, no apparent distress Head: normocephalic, Atraumatic Eyes: normal inspection, EOMI, PERRL Neck: supple, Trachea midline Respiratory/Chest: Decreased breath sounds, CTA Cardiovascular: S1, S2, No murmur, +Bradycardia Abdomen/GI:Soft, Non tender, Bowel sounds present Extremities/Musculoskelatal:normal inspection, no edema Neurologic/Psych:AAOX3, grossly no focal neurological deficits Skin: normal color, warm Lab data as noted below. ASSESSMENT & PLAN: Patient is a 72 yr male with PMH COPD on 3L O2 at baseline, HTN, dyslipidemia, DM II, CAD S/P stents x 2, MUKUL, CKD II, BPH, schizoaffective disorder presented to ER with complaint of weakness and chills, rigors, cough. SIRS Possible Sepsis Dehydration Pneumonia/Bronchitis Mild COPD exacerbation Chronic Hypoxic respiratory failure Continue cefepime, vancomycin Continue solumedrol, Nebs Normal Lactate levels Blood cultures pending Gentle IVF Continue supplemental O2 Generalized weakness/Fall secondary to above Imaging: No acute findings PT/OT CAD S/P Stent X 2 Denies CP continue ASA, statin metoprolol held 2/2 bradycardia (Discussed with Cardiology) Bradycardia likely multifactorial: 2/2 conduction abnormalities noted on prior ECHO, respiratory issues and BB DM II Diet controlled HA1c:6.5 Continue ISS Monitor BGs HTN continue losartan, amlodipine metoprolol held Lisinopril discontinued as patient already on losartan Schizoaffective Disorder Mood stable Lamictal level pending continue Prozac, Lamictal, Zyprexa MUKUL CPAP QHS CKD II Cr: 1.2 (approximate baseline) monitor renal functions avoid nephrotoxic agents when possible Chronic Anemia Hgb at baseline monitor H&H Dyslipidemia continue statin GERD continue PPI BPH continue flomax, finasteride Peripheral Neuropathy continue gabapentin DVT Px Heparin SQ Code Status Full Code Disposition: Monitor in Telemetry Follows with Dr Batista for routine care Vital Signs: Date Time Temp Pulse Resp B/P (MAP) Pulse Ox O2 Delivery O2 Flow Rate FiO2 7/20/18 11:34 36.3 52 19 119/69 (86) 96 Nasal Cannula 3.0 08/27/17 11:21 53 16 92 Nasal Cannula 3.0 08/27/17 08:00 Nasal Cannula 3.0 08/27/17 07:52 36.7 51 18 135/76 (95) 94 Nasal Cannula 3.0 08/27/17 07:16 55 14 95 BiPAP/CPAP 4.0 08/27/17 05:17 47 93 4.0 08/27/17 03:09 36.5 49 20 150/75 (100) 95 CPAP 08/27/17 01:54 53 93 4.0 08/27/17 00:10 36.7 53 17 123/69 (87) 92 Room Air 08/27/17 00:01 CPAP 4.0 08/26/17 22:55 58 92 4.0 08/26/17 20:04 37.2 67 24 106/66 91 08/26/17 19:56 Nasal Cannula 08/26/17 17:51 39.5 08/26/17 16:47 76 08/26/17 16:38 37.2 72 26 198/94 96 Nasal Cannula 4.0 08/26/17 16:38 86 Room Air 08/26/17 16:26 37.2 78 26 206/87 86 Room Air Lab Results: Results Past 24 Hours Test 08/26/17 16:44 08/26/17 17:33 08/26/17 17:40 08/26/17 20:49 Range/Units Urine Color YELLOW Urine Appearance CLOUDY CLEAR Urine pH 8.0 4.5-7.5 Urine Specific [place] 1.019 1.000-1.030 Urine Protein 2+ NEG Urine Glucose (UA) TRACE NEG Urine Ketones NEG NEG Urine Occult Blood TRACE NEG Urine Nitrite NEG NEG Urine Bilirubin NEG NEG Urine Urobilinogen NEG NEG Urine Leukocyte Esterase NEG NEG Urine WBC (Auto) 1-5 0-5 /hpf Urine RBC (Auto) 0-4 0-4 /hpf Urine Hyaline Casts (Auto) 1-5 0-5 /lpf Urine Epithelial Cells (Auto) 5-10 0-5 /lpf Urine Bacteria (Auto) NEG NEG White Blood Count 10.80 4.8-10.8 K/uL Red Blood Count 4.67 4.7-6.1 M/uL Hemoglobin 12.7 14.0-18.0 g/dL Hematocrit 39.5 42-52 % Mean Corpuscular Volume 84.6 80-100 fL Mean Corpuscular Hemoglobin 27.2 25-34 pg Mean Corpuscular Hemoglobin Concent 32.2 32-36 g/dl Platelet Count 167 130-400 K/uL Mean Platelet Volume 9.8 7.4-10.4 fL Neutrophils (%) (Auto) 88.6 % Lymphocytes (%) (Auto) 4.9 % Monocytes (%) (Auto) 4.4 % Eosinophils (%) (Auto) 1.7 % Basophils (%) (Auto) 0.2 % Neutrophils # (Auto) 9.58 1.4-6.5 K/uL Lymphocytes # (Auto) 0.53 1.2-3.4 K/uL Monocytes # (Auto) 0.47 0.11-0.59 K/uL Eosinophils # (Auto) 0.18 0-0.5 K/uL Basophils # (Auto) 0.02 0-0.2 K/uL RDW Standard Deviation 50.4 36.4-46.3 fL RDW Coefficient of Variation 16.5 11.5-14.5 % Immature Granulocyte % (Auto) 0.2 % Immature Granulocyte # (Auto) 0.02 0.00-0.02 K/uL Prothrombin Time 10.7 9.0-12.0 SECONDS Prothromb Time International Ratio 1.0 0.9-1.1 Activated Partial Thromboplast Time 26.1 21.0-31.0 SECONDS Partial Thromboplastin Ratio 1.0 Sodium Level 137 136-145 mmol/L Potassium Level 3.9 3.5-5.1 mmol/L Chloride Level 105 98-107 mmol/L Carbon Dioxide Level 25 21-32 mmol/L Anion Gap 7.0 3-11 mmol/L Blood Urea Nitrogen 24 7-18 mg/dl Creatinine 1.25 0.60-1.40 mg/dl Est Creatinine Clear Calc Drug Dose 65.7 ml/min Estimated GFR () 65.8 Estimated GFR (Non- 56.8 BUN/Creatinine Ratio 19.4 10-20 Random Glucose 118 70-99 mg/dl Calcium Level 9.5 8.5-10.1 mg/dl Magnesium Level 2.3 1.8-2.4 mg/dl Total Bilirubin 0.6 0.2-1 mg/dl Aspartate Amino Transf (AST/SGOT) 43 15-37 U/L Alanine Aminotransferase (ALT/SGPT) 42 12-78 U/L Alkaline Phosphatase 141 45-117 U/L Total Protein 8.3 6.4-8.2 gm/dl Albumin 3.5 3.4-5.0 gm/dl Globulin 4.8 2.5-4.0 gm/dl Albumin/Globulin Ratio 0.7 0.9-2 Bedside Lactic Acid Venous 0.72 0.90-1.70 mmol/L Bedside Glucose 136 70-99 mg/dl Test 08/27/17 06:38 08/27/17 07:29 08/27/17 11:22 Range/Units White Blood Count 12.53 4.8-10.8 K/uL Red Blood Count 4.39 4.7-6.1 M/uL Hemoglobin 11.9 14.0-18.0 g/dL Hematocrit 37.3 42-52 % Mean Corpuscular Volume 85.0 80-100 fL Mean Corpuscular Hemoglobin 27.1 25-34 pg Mean Corpuscular Hemoglobin Concent 31.9 32-36 g/dl Platelet Count 176 130-400 K/uL Mean Platelet Volume 9.8 7.4-10.4 fL Neutrophils (%) (Auto) 92.6 % Lymphocytes (%) (Auto) 3.8 % Monocytes (%) (Auto) 3.4 % Eosinophils (%) (Auto) 0.0 % Basophils (%) (Auto) 0.0 % Neutrophils # (Auto) 11.60 1.4-6.5 K/uL Lymphocytes # (Auto) 0.48 1.2-3.4 K/uL Monocytes # (Auto) 0.42 0.11-0.59 K/uL Eosinophils # (Auto) 0.00 0-0.5 K/uL Basophils # (Auto) 0.00 0-0.2 K/uL RDW Standard Deviation 51.5 36.4-46.3 fL RDW Coefficient of Variation 16.6 11.5-14.5 % Immature Granulocyte % (Auto) 0.2 % Immature Granulocyte # (Auto) 0.03 0.00-0.02 K/uL Sodium Level 139 136-145 mmol/L Potassium Level 3.5 3.5-5.1 mmol/L Chloride Level 108 98-107 mmol/L Carbon Dioxide Level 27 21-32 mmol/L Anion Gap 4.0 3-11 mmol/L Blood Urea Nitrogen 25 7-18 mg/dl Creatinine 1.24 0.60-1.40 mg/dl Est Creatinine Clear Calc Drug Dose 65.5 ml/min Estimated GFR () 66.4 Estimated GFR (Non- 57.3 BUN/Creatinine Ratio 20.3 10-20 Random Glucose 187 70-99 mg/dl Estimated Average Glucose 140 mg/dl Hemoglobin A1c 6.5 4.5-5.6 % Calcium Level 9.2 8.5-10.1 mg/dl Magnesium Level 2.6 1.8-2.4 mg/dl Bedside Glucose 170 195 70-99 mg/dl Microbiology Results 08/26/17 Blood Culture, Received Pending 08/26/17 Blood Culture, Received Pending 08/26/17 MRSA DNA Surveillance Screen - Final, Complete Specimen Negative for MRSA by DNA Probe
--- NOTE | 2017-08-27 11:52 | Clinical Documentation Query ---
CLINICAL DOCUMENTATION QUERY Dr. FOOTE, In your clinical opinion is this patient being managed for: ( x ) early Sepsis, POA ( ) SIRS due to a noninfectious source (please identify source) ( ) Not Agree ( ) Other explanation of clinical findings (No explanation is considered a No Response) ( ) Unable to determine ( ) Need to Discuss (Phone CDS or qliq) (No discussion is considered a No Response) The medical record reflects the following clinical findings, treatment, and risk factors. Clinical Indicators: 72 yo male presenting with pneumonia/bronchitis. Pt reported he was experiencing chills at home and rigors documented by ER provider. Family had reported pt also with confusion prior to ER visit. Pt developed temp of 39.5 and was tachypneic. H/P and progress notes indicate SIRS. Treatment:1L NSS bolus, IV vancomycin, IV cefepime, APAP, nebs, IV solumedrol, blood cultures, monitor labs, O2 support Risk Factors: age, COPD, DM II, MUKUL, CKD stage II With ICD 10 coding rules, SIRS with an identified infectious source is no longer synonymous with Sepsis. The only 2 coding options for SIRS are: SIRS due to a noninfectious source SIRS due to a noninfectious source with acute organ dysfunction In your clinical opinion is this patient being managed for: (x ) Chronic hypoxic respiratory failure ( ) Not Agree ( ) Other explanation of clinical findings (No explanation is considered a No Response) ( ) Unable to determine ( ) Need to Discuss (Phone CDS or qliq) (No discussion is considered a No Response) The medical record reflects the following clinical findings, treatment, and risk factors. Clinical Indicators: 72 yo male presenting with increased dyspnea, found to have mild COPD exac, pneumonia/bronchitis. Documentation indicates pt wears chronic home O2 support. Treatment: chronic management includes proventil, O2 support, and spiriva Risk Factors: COPD, MUKUL, CAD Please clarify and document your clinical opinion in the progress notes and discharge summary. Terms such as "probable", "suspected", "likely", "questionable", "possible", or "still to be ruled out" are acceptable. IF IN AGREEMENT, YOU MUST DOCUMENT ABOVE DIAGNOSTIC STATEMENT IN DAILY PROGRESS NOTES AND DISCHARGE SUMMARY. This document is not part of the patient's record. Thank You, Yudi Lynne RN [phone]
[2017-08-27] MEDS: ASPIRIN 81 MG ECTAB PO SCH (20:44)
[2017-08-27] MEDS: TAMSULOSIN HCL 0.4 MG CAP PO SCH (20:44)
[2017-08-27] MEDS: ATORVASTATIN 40 MG TAB PO SCH (20:45)
[2017-08-27] MEDS: OLANZAPINE 10 MG TAB PO SCH (20:46)
[2017-08-28] VITALS (11 sets, daily range): BP systolic 136–171; BP diastolic 68–82; PULSE 57–75; TEMP 36.5–37.1; O2SAT 91–95
[2017-08-28] MEDS: VANCOMYCIN IV 1,500 MG in SODIUM CHLORIDE 0.9% 500ML 500 ML IV SCH (00:27)
[2017-08-28] MEDS: CEFEPIME IV 2,000 MG in SYRINGE 7.5 ML IV SCH ×2 (05:56→17:11)
[2017-08-28] MEDS: HEPARIN SOD 5000 UNIT/0.5 ML CARP SQ SCH ×3 (06:00→21:02)
[2017-08-28] MEDS: METHYLPREDNISOLONE IV 40 MG in SYRINGE 0 ML IV SCH (06:04)
[2017-08-28 06:17] LABS: HEMATOCRIT 35.8 % (42-52); HEMOGLOBIN 11.8 g/dL (14.0-18.0); IG# 0.04 K/uL (0.00-0.02); LYMPH % 4.1 %; LYMPH ABS # 0.57 K/uL (1.2-3.4); MEAN CELL VOLUME 84.8 fL (80-100); MEAN PLATELET VOLUME 10.2 fL (7.4-10.4); MONO % 5.8 %; MONO ABS # 0.81 K/uL (0.11-0.59); NEUT % 89.8 %; NEUT ABS # 12.47 K/uL (1.4-6.5); PLATELET COUNT 198 K/uL (130-400); RED CELL DISTRIBUTION WIDTH CV 16.8 % (11.5-14.5); RED CELL DISTRIBUTION WIDTH SD 51.6 fL (36.4-46.3); WHITE BLOOD COUNT 13.89 K/uL (4.8-10.8)
[2017-08-28] MEDS: ALBUT/IPRATROP 3MG/0.5MG NEB 3 ML VIAL INH SCH ×4 (06:52→19:22)
[2017-08-28 06:56] LABS: CALCIUM 9.2 mg/dl (8.5-10.1); CREATININE 1.16 mg/dl (0.60-1.40)
[2017-08-28] MEDS: TIMOLOL MALEATE 0.5% OP SOLN 5 ML BTL OPB SCH (08:24)
[2017-08-28] MEDS: LOSARTAN POTASSIUM 25 MG TAB PO SCH (08:24)
[2017-08-28] MEDS: GABAPENTIN 600 MG TAB PO SCH ×2 (08:24→20:56)
[2017-08-28] MEDS: PANTOprazole SOD 40 MG TAB PO SCH (08:24)
[2017-08-28] MEDS: FINASTERIDE 5 MG TAB PO SCH (08:25)
[2017-08-28] MEDS: AMLODIPINE BESYLATE 5 MG TAB PO SCH (08:27)
[2017-08-28] MEDS: MAGNESIUM OXIDE 400 MG TAB PO SCH ×2 (08:27→20:57)
[2017-08-28] MEDS: FLUOXETINE HCL 20 MG CAP PO SCH (08:27)
[2017-08-28] MEDS: INSULIN ASPART 100 UNITS/ML 3 ML PEN SC SCH ×4 (08:36→20:59)
--- NOTE | 2017-08-28 10:47 | Progress Note ---
Internal Med Progress Note Date of Service: Aug 28, 2017. Provider Documentation: SUBJECTIVE: Seen and examined at bedside Doing much better today SOB, cough improving Confusion resolved Denies chest pain, dizziness No other complaints OBJECTIVE: Vital Signs-as noted below Physical Exam: General Appearance:Moderately built and nourished, no apparent distress Head: normocephalic, Atraumatic Eyes: normal inspection, EOMI, PERRL Neck: supple, Trachea midline Respiratory/Chest: Decreased breath sounds, CTA Cardiovascular: S1, S2, No murmur Abdomen/GI:Soft, Non tender, Bowel sounds present Extremities/Musculoskelatal:normal inspection, no edema Neurologic/Psych:AAOX3, grossly no focal neurological deficits Skin: normal color, warm Lab data as noted below. ASSESSMENT & PLAN: Patient is a 72 yr male with PMH COPD on 3L O2 at baseline, HTN, dyslipidemia, DM II, CAD S/P stents x 2, MUKUL, CKD II, BPH, schizoaffective disorder presented to ER with complaint of weakness and chills, rigors, cough. SIRS Possible Sepsis Dehydration Pneumonia/Bronchitis Mild COPD exacerbation Chronic Hypoxic respiratory failure Continue cefepime, vancomycin DC solumedrol Start Prednisone Continue Nebs Normal Lactate levels Blood cultures: No growth DC IVF Continue supplemental O2 Generalized weakness/Fall secondary to above Imaging: No acute findings PT/OT CAD S/P Stent X 2 Denies CP continue ASA, statin Discontinue metoprolol 2/2 bradycardia (Discussed with Cardiology) Bradycardia likely multifactorial: 2/2 conduction abnormalities noted on prior ECHO, respiratory issues and BB DM II Diet controlled HA1c:6.5 Continue ISS Monitor BGs HTN continue losartan, amlodipine metoprolol discontinued Lisinopril discontinued as patient already on losartan Schizoaffective Disorder Mood stable Lamictal level pending continue Prozac, Lamictal, Zyprexa MUKUL CPAP QHS CKD II Cr: 1.2 (approximate baseline) monitor renal functions avoid nephrotoxic agents when possible Chronic Anemia Hgb at baseline monitor H&H Dyslipidemia continue statin GERD continue PPI BPH continue flomax, finasteride Peripheral Neuropathy continue gabapentin DVT Px Heparin SQ Code Status Full Code Disposition: Monitor in Telemetry Follows with Dr Batista for routine care Vital Signs: Date Time Temp Pulse Resp B/P (MAP) Pulse Ox O2 Delivery O2 Flow Rate FiO2 08/28/17 08:30 Nasal Cannula 3.0 08/28/17 07:43 36.5 64 20 156/68 (97) 91 Nasal Cannula 3.0 08/28/17 06:52 57 16 92 Nasal Cannula 3.0 08/28/17 04:00 Nasal Cannula 4.0 08/28/17 03:35 36.8 66 20 162/78 (106) 93 Nasal Cannula 4.0 08/28/17 00:08 36.5 58 20 156/75 (102) 91 Nasal Cannula 4.0 08/27/17 20:35 Nasal Cannula 3.0 08/27/17 20:05 36.6 56 18 146/72 (96) 92 Nasal Cannula 3.0 08/27/17 19:05 58 16 92 Nasal Cannula 2.0 08/27/17 15:43 36.4 54 20 153/71 (98) 93 Nasal Cannula 2.0 08/27/17 15:20 55 16 94 Nasal Cannula 2.5 08/27/17 11:34 36.3 52 19 119/69 (86) 96 Nasal Cannula 3.0 08/27/17 11:21 53 16 92 Nasal Cannula 3.0 Lab Results: Results Past 24 Hours Test 08/27/17 11:22 08/27/17 16:22 08/27/17 20:51 08/28/17 05:53 Range/Units Bedside Glucose 195 199 184 70-99 mg/dl White Blood Count 13.89 4.8-10.8 K/uL Red Blood Count 4.22 4.7-6.1 M/uL Hemoglobin 11.8 14.0-18.0 g/dL Hematocrit 35.8 42-52 % Mean Corpuscular Volume 84.8 80-100 fL Mean Corpuscular Hemoglobin 28.0 25-34 pg Mean Corpuscular Hemoglobin Concent 33.0 32-36 g/dl Platelet Count 198 130-400 K/uL Mean Platelet Volume 10.2 7.4-10.4 fL Neutrophils (%) (Auto) 89.8 % Lymphocytes (%) (Auto) 4.1 % Monocytes (%) (Auto) 5.8 % Eosinophils (%) (Auto) 0.0 % Basophils (%) (Auto) 0.0 % Neutrophils # (Auto) 12.47 1.4-6.5 K/uL Lymphocytes # (Auto) 0.57 1.2-3.4 K/uL Monocytes # (Auto) 0.81 0.11-0.59 K/uL Eosinophils # (Auto) 0.00 0-0.5 K/uL Basophils # (Auto) 0.00 0-0.2 K/uL RDW Standard Deviation 51.6 36.4-46.3 fL RDW Coefficient of Variation 16.8 11.5-14.5 % Immature Granulocyte % (Auto) 0.3 % Immature Granulocyte # (Auto) 0.04 0.00-0.02 K/uL Sodium Level 142 136-145 mmol/L Potassium Level 3.5-5.1 mmol/L Chloride Level 111 98-107 mmol/L Carbon Dioxide Level 25 21-32 mmol/L Anion Gap 6.0 3-11 mmol/L Blood Urea Nitrogen 29 7-18 mg/dl Creatinine 1.16 0.60-1.40 mg/dl Est Creatinine Clear Calc Drug Dose 70.1 ml/min Estimated GFR () 72.0 Estimated GFR (Non- 62.1 BUN/Creatinine Ratio 24.7 10-20 Random Glucose 160 70-99 mg/dl Calcium Level 9.2 8.5-10.1 mg/dl Test 08/28/17 07:16 08/28/17 07:35 Range/Units Potassium Level 3.8 3.5-5.1 mmol/L Bedside Glucose 172 70-99 mg/dl
[2017-08-28] MEDS ORDERED: VANCOMYCIN TROUGH ONE (17:30)
[2017-08-28] MEDS: ATORVASTATIN 40 MG TAB PO SCH (20:56)
[2017-08-28] MEDS: OLANZAPINE 10 MG TAB PO SCH (20:57)
[2017-08-28] MEDS: ASPIRIN 81 MG ECTAB PO SCH (20:58)
[2017-08-28] MEDS: TAMSULOSIN HCL 0.4 MG CAP PO SCH (20:58)
[2017-08-29] VITALS (10 sets, daily range): BP systolic 151–179; BP diastolic 74–91; PULSE 58–69; TEMP 36.3–37.1; O2SAT 90–94
[2017-08-29 06:23] LABS: BASO % 0.1 %; BASO ABS # 0.01 K/uL (0-0.2); EOS % 0.1 %; EOS ABS # 0.01 K/uL (0-0.5); HEMATOCRIT 35.8 % (42-52); HEMOGLOBIN 11.4 g/dL (14.0-18.0); IG# 0.07 K/uL (0.00-0.02); LYMPH % 8.8 %; LYMPH ABS # 1.04 K/uL (1.2-3.4); MEAN CELL VOLUME 84.8 fL (80-100); MEAN CORPUSCULAR HGB CONC 31.8 g/dl (32-36); MEAN PLATELET VOLUME 10.4 fL (7.4-10.4); MONO % 8.2 %; MONO ABS # 0.96 K/uL (0.11-0.59); NEUT % 82.2 %; NEUT ABS # 9.67 K/uL (1.4-6.5); PLATELET COUNT 211 K/uL (130-400); RED CELL DISTRIBUTION WIDTH CV 17.1 % (11.5-14.5); RED CELL DISTRIBUTION WIDTH SD 52.4 fL (36.4-46.3); WHITE BLOOD COUNT 11.76 K/uL (4.8-10.8)
[2017-08-29] MEDS: HEPARIN SOD 5000 UNIT/0.5 ML CARP SQ SCH ×3 (06:32→20:57)
[2017-08-29] MEDS: CEFEPIME IV 2,000 MG in SYRINGE 7.5 ML IV SCH ×2 (06:33→17:01)
[2017-08-29] MEDS: ALBUT/IPRATROP 3MG/0.5MG NEB 3 ML VIAL INH SCH ×4 (06:55→19:05)
[2017-08-29 07:03] LABS: CREATININE 1.15 mg/dl (0.60-1.40)
[2017-08-29] MEDS: TIMOLOL MALEATE 0.5% OP SOLN 5 ML BTL OPB SCH (07:52)
[2017-08-29] MEDS: FINASTERIDE 5 MG TAB PO SCH (07:53)
[2017-08-29] MEDS: FLUOXETINE HCL 20 MG CAP PO SCH (07:54)
[2017-08-29] MEDS: LOSARTAN POTASSIUM 25 MG TAB PO SCH (07:54)
[2017-08-29] MEDS: GABAPENTIN 600 MG TAB PO SCH ×2 (07:54→20:49)
[2017-08-29] MEDS: PANTOprazole SOD 40 MG TAB PO SCH (07:54)
[2017-08-29] MEDS: MAGNESIUM OXIDE 400 MG TAB PO SCH ×2 (07:54→20:48)
[2017-08-29] MEDS: AMLODIPINE BESYLATE 5 MG TAB PO SCH (07:54)
[2017-08-29] MEDS: INSULIN ASPART 100 UNITS/ML 3 ML PEN SC SCH ×4 (08:06→20:52)
--- NOTE | 2017-08-29 11:23 | Progress Note ---
Internal Med Progress Note Date of Service: Aug 29, 2017. Provider Documentation: SUBJECTIVE: Seen and examined at bedside Feels tired SOB, cough improved Denies chest pain, dizziness, nausea No other complaints OBJECTIVE: Vital Signs-as noted below Physical Exam: General Appearance:Moderately built and nourished, no apparent distress Head: normocephalic, Atraumatic Eyes: normal inspection, EOMI, PERRL Neck: supple, Trachea midline Respiratory/Chest: Decreased breath sounds, Basal Rhonchi Cardiovascular: S1, S2, No murmur Abdomen/GI:Soft, Non tender, Bowel sounds present Extremities/Musculoskelatal:normal inspection, no edema Neurologic/Psych:AAOX3, grossly no focal neurological deficits Skin: normal color, warm Lab data as noted below. ASSESSMENT & PLAN: Patient is a 72 yr male with PMH COPD on 3L O2 at baseline, HTN, dyslipidemia, DM II, CAD S/P stents x 2, MUKUL, CKD II, BPH, schizoaffective disorder presented to ER with complaint of weakness and chills, rigors, cough. SIRS Possible Sepsis Dehydration Pneumonia/Bronchitis Mild COPD exacerbation Chronic Hypoxic respiratory failure Continue cefepime vancomycin discontinued DC solumedrol Continue Prednisone Day # 1 Continue Nebs Normal Lactate levels Blood cultures: No growth Continue supplemental O2 Generalized weakness/Fall secondary to above Imaging: No acute findings PT/OT CAD S/P Stent X 2 Denies CP continue ASA, statin Discontinue metoprolol 2/2 bradycardia (Discussed with Cardiology) Bradycardia likely multifactorial: 2/2 conduction abnormalities noted on prior ECHO, respiratory issues and BB DM II Diet controlled HA1c:6.5 Continue ISS Monitor BGs HTN continue losartan, amlodipine metoprolol discontinued Lisinopril discontinued as patient already on losartan Schizoaffective Disorder Mood stable Lamictal level pending continue Prozac, Lamictal, Zyprexa MUKUL CPAP QHS CKD II Cr: 1.2 (approximate baseline) monitor renal functions avoid nephrotoxic agents when possible Chronic Anemia Hgb at baseline monitor H&H Dyslipidemia continue statin GERD continue PPI BPH continue Flomax, finasteride Peripheral Neuropathy continue gabapentin DVT Px Heparin SQ Code Status Full Code Disposition: Monitor in Telemetry Follows with Dr Batista for routine care May need Rehab Placement Vital Signs: Date Time Temp Pulse Resp B/P (MAP) Pulse Ox O2 Delivery O2 Flow Rate FiO2 08/29/17 11:08 63 20 92 Nasal Cannula 3.0 08/29/17 08:00 Nasal Cannula 3.0 08/29/17 07:53 36.4 69 18 172/79 (110) 90 Nasal Cannula 3.0 08/29/17 06:55 63 20 92 Nasal Cannula 3.0 08/29/17 03:30 36.3 58 16 153/78 (103) 93 Nasal Cannula 3.0 08/28/17 23:30 36.5 58 20 167/77 (107) 92 Nasal Cannula 3.0 08/28/17 20:07 Nasal Cannula 3.0 08/28/17 19:35 36.5 61 18 171/81 (111) 93 08/28/17 19:22 62 20 95 Nasal Cannula 3.0 08/28/17 16:05 37.1 61 18 162/82 (108) 91 08/28/17 15:13 58 16 94 Nasal Cannula 3.0 08/28/17 11:57 36.9 75 18 136/75 (95) 92 Nasal Cannula Lab Results: Results Past 24 Hours Test 08/28/17 11:42 08/28/17 16:36 08/28/17 20:23 08/29/17 06:03 Range/Units Bedside Glucose 223 144 142 70-99 mg/dl White Blood Count 11.76 4.8-10.8 K/uL Red Blood Count 4.22 4.7-6.1 M/uL Hemoglobin 11.4 14.0-18.0 g/dL Hematocrit 35.8 42-52 % Mean Corpuscular Volume 84.8 80-100 fL Mean Corpuscular Hemoglobin 27.0 25-34 pg Mean Corpuscular Hemoglobin Concent 31.8 32-36 g/dl Platelet Count 211 130-400 K/uL Mean Platelet Volume 10.4 7.4-10.4 fL Neutrophils (%) (Auto) 82.2 % Lymphocytes (%) (Auto) 8.8 % Monocytes (%) (Auto) 8.2 % Eosinophils (%) (Auto) 0.1 % Basophils (%) (Auto) 0.1 % Neutrophils # (Auto) 9.67 1.4-6.5 K/uL Lymphocytes # (Auto) 1.04 1.2-3.4 K/uL Monocytes # (Auto) 0.96 0.11-0.59 K/uL Eosinophils # (Auto) 0.01 0-0.5 K/uL Basophils # (Auto) 0.01 0-0.2 K/uL RDW Standard Deviation 52.4 36.4-46.3 fL RDW Coefficient of Variation 17.1 11.5-14.5 % Immature Granulocyte % (Auto) 0.6 % Immature Granulocyte # (Auto) 0.07 0.00-0.02 K/uL Sodium Level 143 136-145 mmol/L Potassium Level 3.5-5.1 mmol/L Chloride Level 108 98-107 mmol/L Carbon Dioxide Level 29 21-32 mmol/L Anion Gap 6.0 3-11 mmol/L Blood Urea Nitrogen 27 7-18 mg/dl Creatinine 1.15 0.60-1.40 mg/dl Est Creatinine Clear Calc Drug Dose 70.7 ml/min Estimated GFR () 72.8 Estimated GFR (Non- 62.8 BUN/Creatinine Ratio 23.6 10-20 Random Glucose 108 70-99 mg/dl Calcium Level 9.0 8.5-10.1 mg/dl Test 08/29/17 07:27 08/29/17 07:34 Range/Units Potassium Level 4.0 3.5-5.1 mmol/L Chemistry Specimen Hemolysis Bedside Glucose 111 70-99 mg/dl
[2017-08-29] MEDS: TAMSULOSIN HCL 0.4 MG CAP PO SCH (20:45)
[2017-08-29] MEDS: OLANZAPINE 10 MG TAB PO SCH (20:46)
[2017-08-29] MEDS: ATORVASTATIN 40 MG TAB PO SCH (20:48)
[2017-08-29] MEDS: ASPIRIN 81 MG ECTAB PO SCH (20:51)
[2017-08-30] VITALS (13 sets, daily range): BP systolic 153–186; BP diastolic 81–104; PULSE 51–72; TEMP 36.4–37; O2SAT 92–98
[2017-08-30] MEDS: CEFEPIME IV 2,000 MG in SYRINGE 7.5 ML IV SCH (05:59)
[2017-08-30] MEDS: HEPARIN SOD 5000 UNIT/0.5 ML CARP SQ SCH ×3 (06:00→20:45)
[2017-08-30] MEDS: ALBUT/IPRATROP 3MG/0.5MG NEB 3 ML VIAL INH SCH ×4 (07:23→19:16)
[2017-08-30] MEDS: MAGNESIUM OXIDE 400 MG TAB PO SCH ×2 (07:40→20:38)
[2017-08-30] MEDS: AMLODIPINE BESYLATE 5 MG TAB PO SCH (07:40)
[2017-08-30] MEDS: PANTOprazole SOD 40 MG TAB PO SCH (07:41)
[2017-08-30] MEDS: LOSARTAN POTASSIUM 25 MG TAB PO SCH (07:41)
[2017-08-30] MEDS: FINASTERIDE 5 MG TAB PO SCH (07:42)
[2017-08-30] MEDS: FLUOXETINE HCL 20 MG CAP PO SCH (07:42)
[2017-08-30] MEDS: GABAPENTIN 600 MG TAB PO SCH ×2 (07:43→20:40)
[2017-08-30] MEDS: TIMOLOL MALEATE 0.5% OP SOLN 5 ML BTL OPB SCH (07:44)
[2017-08-30] MEDS: INSULIN ASPART 100 UNITS/ML 3 ML PEN SC SCH ×4 (07:46→20:45)
[2017-08-30 08:03] LABS: HEMATOCRIT 38.5 % (42-52); HEMOGLOBIN 12.4 g/dL (14.0-18.0); MEAN CELL VOLUME 84.2 fL (80-100); MEAN CORPUSCULAR HEMOGLOBIN 27.1 pg (25-34); MEAN CORPUSCULAR HGB CONC 32.2 g/dl (32-36); MEAN PLATELET VOLUME 9.8 fL (7.4-10.4); PLATELET COUNT 188 K/uL (130-400); RED CELL DISTRIBUTION WIDTH CV 16.7 % (11.5-14.5); RED CELL DISTRIBUTION WIDTH SD 51.2 fL (36.4-46.3); WHITE BLOOD COUNT 8.22 K/uL (4.8-10.8)
[2017-08-30 08:40] LABS: CALCIUM 9.5 mg/dl (8.5-10.1); CREATININE 1.09 mg/dl (0.60-1.40); POTASSIUM 3.8 mmol/L (3.5-5.1)
[2017-08-30] MEDS ORDERED: AMLODIPINE BESYLATE 5 MG TAB PO ONE (10:45)
--- NOTE | 2017-08-30 10:53 | Progress Note ---
Internal Med Progress Note Date of Service: Aug 30, 2017. Provider Documentation: SUBJECTIVE: Seen and examined at bedside Feels sleepy this morning as he could not sleep well overnight SOB, cough improved BP elevated this morning Denies chest pain, dizziness, nausea No other complaints OBJECTIVE: Vital Signs-as noted below Physical Exam: General Appearance:Moderately built and nourished, no apparent distress Head: normocephalic, Atraumatic Eyes: normal inspection, EOMI, PERRL Neck: supple, Trachea midline Respiratory/Chest: Decreased breath sounds, Scattered Rhonchi Cardiovascular: S1, S2, No murmur Abdomen/GI:Soft, Non tender, Bowel sounds present Extremities/Musculoskelatal:normal inspection, no edema Neurologic/Psych:AAOX3, grossly no focal neurological deficits Skin: normal color, warm Lab data as noted below. ASSESSMENT & PLAN: Patient is a 72 yr male with PMH COPD on 3L O2 at baseline, HTN, dyslipidemia, DM II, CAD S/P stents x 2, MUKUL, CKD II, BPH, schizoaffective disorder presented to ER with complaint of weakness and chills, rigors, cough. SIRS Possible Sepsis Dehydration Pneumonia/Bronchitis Mild COPD exacerbation Chronic Hypoxic respiratory failure Continue cefepime>> switch to PO Abx today vancomycin discontinued Received solumedrol for 2 days Continue Prednisone Day # 2/3 Continue Nebs Normal Lactate levels Blood cultures: No growth Continue supplemental O2 Leukocytosis normalized Generalized weakness/Fall secondary to above Imaging: No acute findings PT/OT CAD S/P Stent X 2 Denies CP continue ASA, statin Discontinue metoprolol 2/2 bradycardia (Discussed with Cardiology) Bradycardia likely multifactorial: 2/2 conduction abnormalities noted on prior ECHO, respiratory issues and BB DM II Diet controlled HA1c:6.5 Continue ISS Monitor BGs HTN continue losartan, amlodipine Increase Amlodipine to 10mg daily for better BP control Lisinopril discontinued as patient already on losartan Schizoaffective Disorder Mood stable Lamictal level pending continue Prozac, Lamictal, Zyprexa MUKUL CPAP QHS CKD II Cr: 1.2 (approximate baseline) monitor renal functions avoid nephrotoxic agents when possible Chronic Anemia Hgb at baseline monitor H&H Dyslipidemia continue statin GERD continue PPI BPH continue Flomax, finasteride Peripheral Neuropathy continue gabapentin DVT Px Heparin SQ Code Status Full Code Disposition: Follows with Dr Batista for routine care Need Rehab Placement central services tech consulted Vital Signs: Date Time Temp Pulse Resp B/P (MAP) Pulse Ox O2 Delivery O2 Flow Rate FiO2 08/30/17 09:08 169/90 (116) 08/30/17 07:47 36.5 61 18 173/97 (122) 94 Nasal Cannula 3.0 08/30/17 07:23 62 16 93 Nasal Cannula 3.0 08/30/17 03:30 36.5 58 20 174/90 (118) 92 Nasal Cannula 3.0 08/29/17 23:45 36.6 59 20 171/83 (112) 92 Nasal Cannula 3.0 08/29/17 20:06 Nasal Cannula 3.0 08/29/17 19:22 36.5 63 18 163/91 (115) 94 08/29/17 19:05 63 16 94 Nasal Cannula 3.0 08/29/17 15:24 36.5 61 20 179/82 (114) 92 08/29/17 15:05 63 18 92 Nasal Cannula 3.0 08/29/17 11:54 37.1 61 18 151/74 (99) 90 Nasal Cannula 08/29/17 11:08 63 20 92 Nasal Cannula 3.0 Lab Results: Results Past 24 Hours Test 08/29/17 11:38 08/29/17 16:10 08/29/17 20:08 08/30/17 07:11 Range/Units Bedside Glucose 182 161 150 70-99 mg/dl White Blood Count 8.22 4.8-10.8 K/uL Red Blood Count 4.57 4.7-6.1 M/uL Hemoglobin 12.4 14.0-18.0 g/dL Hematocrit 38.5 42-52 % Mean Corpuscular Volume 84.2 80-100 fL Mean Corpuscular Hemoglobin 27.1 25-34 pg Mean Corpuscular Hemoglobin Concent 32.2 32-36 g/dl RDW Standard Deviation 51.2 36.4-46.3 fL RDW Coefficient of Variation 16.7 11.5-14.5 % Platelet Count 188 130-400 K/uL Mean Platelet Volume 9.8 7.4-10.4 fL Sodium Level 140 136-145 mmol/L Potassium Level 3.8 3.5-5.1 mmol/L Chloride Level 104 98-107 mmol/L Carbon Dioxide Level 29 21-32 mmol/L Anion Gap 6.0 3-11 mmol/L Blood Urea Nitrogen 25 7-18 mg/dl Creatinine 1.09 0.60-1.40 mg/dl Est Creatinine Clear Calc Drug Dose 68.2 ml/min Estimated GFR () 77.6 Estimated GFR (Non- 67.0 BUN/Creatinine Ratio 22.9 10-20 Random Glucose 111 70-99 mg/dl Calcium Level 9.5 8.5-10.1 mg/dl Test 08/30/17 07:22 Range/Units Bedside Glucose 127 70-99 mg/dl
[2017-08-30] MEDS: ASPIRIN 81 MG ECTAB PO SCH (20:39)
[2017-08-30] MEDS: CEFUROXIME AXETIL 500 MG TAB PO SCH (20:39)
[2017-08-30] MEDS: DOXYCYCLINE HYCLATE 100 MG CAP PO SCH (20:39)
[2017-08-30] MEDS: ATORVASTATIN 40 MG TAB PO SCH (20:40)
[2017-08-30] MEDS: OLANZAPINE 10 MG TAB PO SCH (20:41)
[2017-08-30] MEDS: TAMSULOSIN HCL 0.4 MG CAP PO SCH (20:42)
[2017-08-31] VITALS (9 sets, daily range): BP systolic 146–174; BP diastolic 78–100; PULSE 52–75; TEMP 36.7; O2SAT 93–96
[2017-08-31] MEDS: HEPARIN SOD 5000 UNIT/0.5 ML CARP SQ SCH (05:30)
[2017-08-31] MEDS: ALBUT/IPRATROP 3MG/0.5MG NEB 3 ML VIAL INH SCH ×2 (06:57→11:11)
[2017-08-31] MEDS: TIMOLOL MALEATE 0.5% OP SOLN 5 ML BTL OPB SCH (08:29)
[2017-08-31] MEDS: LOSARTAN POTASSIUM 25 MG TAB PO SCH (08:31)
[2017-08-31] MEDS: FINASTERIDE 5 MG TAB PO SCH (08:31)
[2017-08-31] MEDS: FLUOXETINE HCL 20 MG CAP PO SCH (08:33)
[2017-08-31] MEDS: GABAPENTIN 600 MG TAB PO SCH (08:33)
[2017-08-31] MEDS: CEFUROXIME AXETIL 500 MG TAB PO SCH (08:33)
[2017-08-31] MEDS: DOXYCYCLINE HYCLATE 100 MG CAP PO SCH (08:33)
[2017-08-31] MEDS: MAGNESIUM OXIDE 400 MG TAB PO SCH (08:33)
[2017-08-31] MEDS: PANTOprazole SOD 40 MG TAB PO SCH (08:33)
[2017-08-31] MEDS: INSULIN ASPART 100 UNITS/ML 3 ML PEN SC SCH (08:40)
[2017-08-31] MEDS ORDERED: AMLODIPINE BESYLATE 5 MG TAB PO SCH (09:00)
[2017-08-31] MEDS ORDERED: LOSARTAN POTASSIUM 25 MG TAB PO ONE (09:30)
--- NOTE | 2017-08-31 09:31 | Progress Note ---
Internal Med Progress Note Date of Service: Aug 31, 2017. Provider Documentation: SUBJECTIVE: Seen and examined at bedside Doing well Denies SOB cough much improved Denies chest pain, dizziness, nausea, headache No other complaints OBJECTIVE: Vital Signs-as noted below Physical Exam: General Appearance:Moderately built and nourished, no apparent distress Head: normocephalic, Atraumatic Eyes: normal inspection, EOMI, PERRL Neck: supple, Trachea midline Respiratory/Chest: Decreased breath sounds, CTA Cardiovascular: S1, S2, No murmur Abdomen/GI:Soft, Non tender, Bowel sounds present Extremities/Musculoskelatal:normal inspection, no edema Neurologic/Psych:AAOX3, grossly no focal neurological deficits Skin: normal color, warm Lab data as noted below. ASSESSMENT & PLAN: Patient is a 72 yr male with PMH COPD on 3L O2 at baseline, HTN, dyslipidemia, DM II, CAD S/P stents x 2, MUKUL, CKD II, BPH, schizoaffective disorder presented to ER with complaint of weakness and chills, rigors, cough. SIRS Possible Sepsis Dehydration Pneumonia/Bronchitis Mild COPD exacerbation Chronic Hypoxic respiratory failure Continue cefepime>> switched to PO Abx Day # 2 vancomycin discontinued Received solumedrol for 2 days Continue Prednisone Day # 3/3 Continue Nebs Normal Lactate levels Blood cultures: No growth Continue supplemental O2 Leukocytosis normalized Generalized weakness/Fall secondary to above Imaging: No acute findings PT/OT CAD S/P Stent X 2 Denies CP continue ASA, statin Discontinue metoprolol 2/2 bradycardia (Discussed with Cardiology) Bradycardia likely multifactorial: 2/2 conduction abnormalities noted on prior ECHO, respiratory issues and BB DM II Diet controlled HA1c:6.5 Continue ISS Monitor BGs HTN continue losartan, amlodipine Increase Amlodipine to 10mg daily Losartan dose increased to 50mg daily Metoprolol discontinued as per Cardiology recommendations Schizoaffective Disorder Mood stable Lamictal level pending continue Prozac, Lamictal, Zyprexa MUKUL CPAP QHS CKD II Cr: 1.2 (approximate baseline) monitor renal functions avoid nephrotoxic agents when possible Chronic Anemia Hgb at baseline monitor H&H Dyslipidemia continue statin GERD continue PPI BPH continue Flomax, finasteride Peripheral Neuropathy continue gabapentin DVT Px Heparin SQ Code Status Full Code Disposition: Follows with your PCP Dr Batista for routine care on 09/03/17 at 12:55pm Complete the antibiotic course as prescribed Check your blood pressure daily as advised and discuss with your PCP for further blood pressure medications adjustment as needed Seek immediate medical attention if your symptoms reoccur or worsen Medication Changes: Your Metoprolol is discontinued as per Cardiology Recommendations Your Amlodipine dose is increased from 5mg to 10mg daily Your Losartan is increased from 25mg to 50mg daily Vital Signs: Date Time Temp Pulse Resp B/P (MAP) Pulse Ox O2 Delivery O2 Flow Rate FiO2 08/31/17 08:38 70 146/78 (100) 08/31/17 07:03 36.7 61 16 174/100 (124) 96 Room Air 08/31/17 06:57 71 16 93 Nasal Cannula 3.0 08/31/17 03:30 52 95 148/89 (108) 95 3.0 08/31/17 01:00 94 Nasal Cannula 3.0 08/31/17 00:00 55 20 171/91 (117) 95 Nasal Cannula 3.0 08/30/17 23:10 36.4 51 18 186/104 (131) 95 Nasal Cannula 3.0 08/30/17 19:16 66 16 94 Nasal Cannula 3.0 08/30/17 17:58 64 18 170/93 (118) 08/30/17 16:00 Nasal Cannula 3.0 08/30/17 15:45 37.0 61 20 183/84 (117) 96 Nasal Cannula 3.0 08/30/17 13:31 36.5 65 16 153/81 (105) 93 Nasal Cannula 3.0 08/30/17 13:15 98 Nasal Cannula 3.0 08/30/17 12:37 36.8 68 18 98 08/30/17 12:02 36.5 69 18 156/94 (114) 92 Nasal Cannula 2.0 08/30/17 11:18 72 16 95 Nasal Cannula 3.0 Lab Results: Results Past 24 Hours Test 08/30/17 11:28 08/30/17 16:15 08/30/17 20:14 08/31/17 08:16 Range/Units Bedside Glucose 149 219 182 147 70-99 mg/dl
[2017-08-31] MEDS ORDERED: DXY100 PO (09:37)
[2017-08-31] MEDS ORDERED: CEFU1TAB35 PO (09:37)
[2017-08-31] MEDS ORDERED: AMLO10TA3 PO (09:37)
[2017-08-31] MEDS ORDERED: CZR50 PO (09:37)
--- NOTE | 2017-08-31 09:39 | Discharge Summary ---
Discharge Summary Date of Service Aug 31, 2017. Discharge Summary Admission Date: Aug 26, 2017 at 19:29 Discharge Date: Aug 31, 2017 Discharge Disposition: Home with services Principal Diagnosis: Pneumonia Procedures: CT head: No acute intracranial abnormality or calvarial fracture. CT C-spine: No acute cervical spine fracture or subluxation. CXR: 1. Cardiomegaly with mild pulmonary vascular congestion. 2. Subsegmental right basilar opacities suggest atelectasis or pneumonitis. Consultations: None Pending Studies/Follow-Up: Follows with your PCP Dr Batista for routine care on 09/03/17 at 12:55pm Complete the antibiotic course as prescribed Check your blood pressure daily as advised and discuss with your PCP for further blood pressure medications adjustment as needed Seek immediate medical attention if your symptoms reoccur or worsen Medication Changes: Your Metoprolol is discontinued as per Cardiology Recommendations Your Amlodipine dose is increased from 5mg to 10mg daily Your Losartan is increased from 25mg to 50mg daily Medication Reconciliation New Medications: Amlodipine (Norvasc) 10 Mg Tab 10 MG PO DAILY for 30 Days, #30 TAB Losartan Potassium (Losartan Potassium) 50 Mg Tab 50 MG PO QPM for 30 Days, #30 TABS Cefuroxime Axetil (Cefuroxime Axetil) 500 Mg Tab 500 MG PO BID for 3 Days, #6 TAB Doxycycline Hyclate (Doxycycline Hyclate) 100 Mg Cap 100 MG PO BID for 3 Days, #6 CAP Continued Medications: Albuterol Sulf (Proventil 0.083% 2.5MG/3ML) 2.5 Mg/3 Ml Nebu 3 ML INH 3-4 X DAILY PRN for SOB/Wheezing Aspirin (Aspirin Ec) 81 Mg Tab 81 MG PO QPM Atorvastatin (Lipitor) 80 Mg Tab 80 MG PO QPM Finasteride (Finasteride) 5 Mg Tab 5 MG PO QAM Fluoxetine (Prozac) 20 Mg Cap 20 MG PO QAM WITH 40MG CAP FOR 60MG DOSE Fluoxetine (Prozac) 40 Mg Cap 40 MG PO QAM WITH 20MG CAP FOR 60MG DOSE Gabapentin (Gabapentin) 600 Mg Tab 600 MG PO BID Home O2 Therapy (Oxygen) Gas 3 LITER NA UD 3L@ALL TIMES/CPAP HS Lactobacillus-Inulin (Culturelle) 1 Cap Cap 1 CAP PO QAM Lamotrigine (Lamictal) 200 Mg Tab 200 MG PO QAM Magnesium (Magnesium 250 mg) 1 Tab Tab 250 MG PO BID Olanzapine (Zyprexa) 15 Mg Tab 30 MG PO QPM Pantoprazole (Protonix) 40 Mg Tab 40 MG PO QAM Tamsulosin HCl (Tamsulosin HCl) 0.4 Mg Cap 0.4 MG PO QPM Timolol Maleate (Timolol 0.5% Oph Soln 15 Ml) 15 Ml Soln 1 DROP OPB QAM Tiotropium [place] (Spiriva Respimat) 2.5 Mcg/Act Spr 1 DOSE INH QAM Discontinued Medications: Amlodipine (Norvasc) 5 Mg Tab 5 MG PO DAILY, TAB Lisinopril (Prinivil) 5 Mg Tab 5 MG PO QAM Losartan Potassium (Losartan Potassium) 25 Mg Tab 25 MG PO QAM Metoprolol Tartrate (Lopressor) 25 Mg Tab 25 MG PO QPM Admission Information HPI (per Admitting provider): Pt is 72 y/o M with PMH COPD on 3L O2, HTN, dyslipidemia, DM II, CAD S/P stents x 2, MUKUL, CKD II, BPH, schizoaffective disorder presented to ER with complaint of weakness and chills. Reports this morning with generalized weakness, fatigue , chills, and rigors. Some nausea no vomiting. He states was feeling so weak today that he fell. Denies any injury. States yesterday started with cough productive of beige colored mucus. Reports some shortness of breath today. Patient states has not had to use albuterol nebulizers. Follows with [facility] pulmonology. States this afternoon noticed patient with some confusion which is new. Reported history sepsis and pneumonia in the past. Reported history MRSA. Denies insect bite, rashes, ill contacts, recent travel. Denies diaphoresis, D/C, PARIKH, dizziness, syncope, vision changes, neck pain, CP, orthopnea, palpitations, hematemesis, sore throat, choking, otalgia, rhinorrhea, abdominal pain, paresthesias, extremity edema, urinary symptoms, weight loss. Physical Exam (per Admitting): General Appearance: + pertinent finding (Overweight, ill appearing, appears uncomfortable) Head: normocephalic, atraumatic Eyes: normal inspection, PERRL, EOMI, sclerae normal ENT: hearing grossly normal, pharynx normal, + pertinent finding (dry mucous membranes) Neck: supple, trachea midline Respiratory/Chest: + pertinent finding (Resp: 26, no accessory muscle usage , able to speak in sentences, coarse breath sounds & rhonchi throughout,) Cardiovascular: regular rate, rhythm, no murmur, normal peripheral pulses Abdomen/GI: normal bowel sounds, non tender, soft Back: no CVA tenderness Extremities/Musculoskelatal: no calf tenderness, normal capillary refill, no pedal edema Neurologic/Psych: alert (lethargic, oriented to person, place, confused on time) Skin: + pertinent finding (hot, dry) Hospital Course Patient is a 72 yr male with PMH COPD on 3L O2 at baseline, HTN, dyslipidemia, DM II, CAD S/P stents x 2, MUKUL, CKD II, BPH, schizoaffective disorder presented to ER with complaint of weakness and chills, rigors, cough. SIRS Possible Sepsis Dehydration Pneumonia/Bronchitis Mild COPD exacerbation Chronic Hypoxic respiratory failure Continue cefepime>> switched to PO Abx Day # 2 vancomycin discontinued Received solumedrol for 2 days Continue Prednisone Day # 3/3 Continue Nebs Normal Lactate levels Blood cultures: No growth Continue supplemental O2 Leukocytosis normalized Generalized weakness/Fall secondary to above Imaging: No acute findings PT/OT CAD S/P Stent X 2 Denies CP continue ASA, statin Discontinue metoprolol 2/2 bradycardia (Discussed with Cardiology) Bradycardia likely multifactorial: 2/2 conduction abnormalities noted on prior ECHO, respiratory issues and BB DM II Diet controlled HA1c:6.5 Continue ISS Monitor BGs HTN continue losartan, amlodipine Increase Amlodipine to 10mg daily Losartan dose increased to 50mg daily Metoprolol discontinued as per Cardiology recommendations Schizoaffective Disorder Mood stable Lamictal level pending continue Prozac, Lamictal, Zyprexa MUKUL CPAP QHS CKD II Cr: 1.2 (approximate baseline) monitor renal functions avoid nephrotoxic agents when possible Chronic Anemia Hgb at baseline monitor H&H Dyslipidemia continue statin GERD continue PPI BPH continue Flomax, finasteride Peripheral Neuropathy continue gabapentin DVT Px Heparin SQ Code Status Full Code Disposition: Follows with your PCP Dr Batista for routine care on 09/03/17 at 12:55pm Complete the antibiotic course as prescribed Check your blood pressure daily as advised and discuss with your PCP for further blood pressure medications adjustment as needed Seek immediate medical attention if your symptoms reoccur or worsen Medication Changes: Your Metoprolol is discontinued as per Cardiology Recommendations Your Amlodipine dose is increased from 5mg to 10mg daily Your Losartan is increased from 25mg to 50mg daily Total time spent on discharge = 35 minutes This includes examination of the patient, discharge planning, medication reconciliation, and communication with other providers. Discharge Instructions Discharge Instructions Date of Service Aug 31, 2017. Admission Reason for Admission: Hypoxia Discharge Discharge Diagnosis / Problem: Pneumonia Discharge Goals Goal(s): Decrease discomfort, Improve function Activity Recommendations Activity Limitations: resume your previous activity Exercise/Sports Limitations: as tolerated . Instructions / Follow-Up Instructions / Follow-Up Follows with your PCP Dr Batista for routine care on 09/03/17 at 12:55pm Complete the antibiotic course as prescribed Check your blood pressure daily as advised and discuss with your PCP for further blood pressure medications adjustment as needed Seek immediate medical attention if your symptoms reoccur or worsen Medication Changes: Your Metoprolol is discontinued as per Cardiology Recommendations Your Amlodipine dose is increased from 5mg to 10mg daily Your Losartan is increased from 25mg to 50mg daily Current Hospital Diet Patient's current hospital diet: Diabetes Type 2 Diet, AHA Diet (Heart Healthy) Discharge Diet Recommended Diet: AHA Diet (Heart Healthy), Diabetes Type 2 Diet Pending Studies Studies pending at discharge: no Laboratory Results Hemoglobin A1c Test 08/27/17 06:38 Range/Units Estimated Average Glucose 140 mg/dl Hemoglobin A1c 6.5 H 4.5-5.6 % Medical Emergencies . Who to Call and When: Medical Emergencies: If at any time you feel your situation is an emergency, please call 911 immediately. . Non-Emergent Contact Non-Emergency issues call your: Primary Care Provider Call Non-Emergent contact if: you have a fever, your pain is not controlled, your pain is worsening, your pain is unusual for you, your pain is concerning you, you have any medication questions Seek immediate medical attention if your symptoms reoccur or worsen . . "Provider Documentation" section prepared by Benton Howell. . <Electronically signed by Benton Howell MD> Signed: 08/31/17 0938 Signed: The status of this report is Signed * If report status is Draft, the document has not been finalized by the responsible provider.
[2017-09-01] MEDS ORDERED: LOSARTAN POTASSIUM 50 MG TAB PO SCH (21:00)
== END 2017-08-31 12:39 | disposition home or self-care (01) | DRG 871 ==
LOC: EDBD 16:17 → C.EDC 16:18 → UNDOADMIN 19:29 → C.2T 19:29 → ENRESERV 19:38 → C.MED 08-30 10:55 → ENRESERV 08-30 11:36
PROVIDERS: ADMIT Internal Medicine; ATTEND Internal Medicine
DX: A41.9 Sepsis, unspecified organism (principal); J18.9 Pneumonia, unspecified organism; J44.1 Chronic obstructive pulmonary disease with (acute) exacerbation; J96.11 Chronic respiratory failure with hypoxia; F25.9 Schizoaffective disorder, unspecified; I25.10 Atherosclerotic heart disease of native coronary artery without angina pectoris; E11.42 Type 2 diabetes mellitus with diabetic polyneuropathy; E78.5 Hyperlipidemia, unspecified; Z83.3 Family history of diabetes mellitus; E86.0 Dehydration; I12.9 Hypertensive chronic kidney disease with stage 1 through stage 4 chronic kidney disease, or unspecified chronic kidney disease; N18.2 Chronic kidney disease, stage 2 (mild); N40.0 Benign prostatic hyperplasia without lower urinary tract symptoms; K21.9 Gastro-esophageal reflux disease without esophagitis; Z99.81 Dependence on supplemental oxygen; D64.9 Anemia, unspecified; E11.21 Type 2 diabetes mellitus with diabetic nephropathy; Z86.14 Personal history of Methicillin resistant Staphylococcus aureus infection

== ENCOUNTER 2019-01-26 21:28 | Inpatient (IN) ==
[2019-01-26] MEDS ORDERED: SODIUM CHLORIDE 0.9% 500 ML IV SCH (22:30)
--- NOTE | 2019-01-26 22:53 | XRay Report ---
XR chest 1V portable CLINICAL HISTORY: 73 years-old Male presenting with weakness. TECHNIQUE: Portable upright AP view of the chest was obtained. COMPARISON: 01/10/2019. FINDINGS: Atherosclerosis of the aortic arch. Prominence of the thoracic aorta as on prior exam. Cardiac silhou ette mildly enlarged. Heterogeneity of lung markings. No new focal opacity. No large effusion or pneu mothorax. Degenerative changes of the thoracic spine. Upper abdomen normal. IMPRESSION: 1. Mild cardiomegaly. 2. Underlying chronic lung disease consistent with known emphysema. 3. No other convincing evidence of acute cardiopulmonary disease. ACT 112: Negative or not required by law. Electronically signed by: Rick Amborcio M.D. 01/26/2019 10:52 PM
[2019-01-26 23:02] LABS: Alanine Aminotransferase 26 U/L (12-78); Albumin Globulin Ratio 0.7 (0.9-2); Albumin Level 3.1 gm/dl (3.4-5.0); Alkaline Phosphatase 119 U/L (45-117); BUN Creatinine Ratio 20.2 (10-20); Bilirubin,Total 0.4 mg/dl (0.2-1); Blood Urea Nitrogen 31 mg/dl (7-18); Calcium 9.6 mg/dl (8.5-10.1); Carbon Dioxide 26 mmol/L (21-32); Chloride 110 mmol/L (98-107); Est GFR (African American) 51.2; Est GFR (Non-African American) 44.1; Globulin 4.7 gm/dl (2.5-4.0); Glucose 260 mg/dl (70-99); Sodium 140 mmol/L (136-145); Thyroid Stimulating Hormone 0.415 uIu/ml (0.300-4.500); Total Protein 7.8 gm/dl (6.4-8.2); Troponin I < 0.015 ng/ml (0-0.045)
[2019-01-26 23:19] LABS: Appearance Urine Clear (Clear); Bilirubin Urine Negative (Negative); Blood Urine Negative (Negative); Color Urine Yellow; Glucose Urine UA 3+ (Negative); Ketones Urine Negative (Negative); Leukocyte Esterase Urine Negative (Negative); Nitrite Urine Negative (Negative); Protein Urine 1+ (Negative); Specific Gravity Urine 1.015 (1.000-1.030); Urobilinogen Urine Negative (Negative)
[2019-01-26 23:49] LABS: Bacteria Urine Negative (Negative); Epithelial Cell Urine 0-5 /lpf (0-5); Hyaline Casts Urine 0-5 /lpf (0-5); RBC Urine 0-4 /hpf (0-4); WBC Urine 0-5 /hpf (0-5)
[2019-01-27 00:03] LABS: Basophils # (auto) 0.01 K/uL (0-0.2); Basophils % (auto) 0.2 %; Hematocrit (blood only) 41.4 % (42-52); Hemoglobin 13.4 g/dL (14.0-18.0); Lymphocytes # (auto) 0.52 K/uL (1.2-3.4); Lymphocytes % (auto) 8.2 %; Mean Corpuscular Hemoglobin 28.3 pg (25-34); Mean Corpuscular Hgb Conc 32.4 g/dL (32-36); Mean Corpuscular Volume 87.3 fL (80-100); Mean Platelet Volume 9.6 fL (7.4-10.4); Monocytes # (auto) 0.06 K/uL (0.11-0.59); Neutrophils # (auto) 5.72 K/uL (1.4-6.5); Neutrophils % (auto) 90.6 %; Platelet Count 267 K/uL (130-400); RDW Coefficient of Variation 16.3 % (11.5-14.5); RDW Standard Deviation 52.5 fL (36.4-46.3); Red Blood Count 4.74 M/uL (4.7-6.1); White Blood Count 6.31 K/uL (4.8-10.8)
--- NOTE | 2019-01-27 00:17 | History & Physical Report ---
Date of Service January 27, 2019 Assessment & Plan (1) Acute CVA (cerebrovascular accident): ? ASA failure Rule out A. fib/flutter as predisposing arrhythmia Hypertension, elevated secondary to above COPD exacerbation, suboptimal response to initial outpatient Rx chronic resp failure 2 to COPD on home O2, oxygenation seems to be at baseline Past tobacco abuse ARF secondary to illness chronic right-sided heart failure as per records (55 to 59%, TTE 2019 ), patient euvolemic CAD status post stent hyperlipidemia on statin Rx DM2 on oral meds, elevated BSG given recent outpatient steroid Rx Well-controlled as of recent outpatient hemoglobin A1c of 14 January 2019 schizoaffective disorder, stable as per patient hx neurogenic bladder on chronic Black catheter. chronic anemia, hemoglobin at baseline Medical telemetry Neurochecks Add Plavix to aspirin for secondary stroke prophylaxis for possible ASA failure MRI/MRA of the brain, TTE, carotid Dopplers for stroke work-up Neurology consult RE CVA Permissive hypertension for now Solu-Medrol 1 dose now for COPD exacerbation complete outpatient doxycycline, prednisone course prescribed by [facility] Inpatient follow-up evaluation by Pulmonology if without improvement Monitor for response to IV fluids, hold home losartan until creatinine at baseline Basal insulin, ISS BG goal [id number], carb count coverage PT OT eval DVT prophylaxis. Heparin subcu Full code Patient's requesting updates from providers. Ms. Christal Medel, contact #[phone]. History of Present Illness Chief Complaint: Forgetfulness, possible stroke Primary Care Provider: Clau Batista, History obtained from patient, family, and records. Medical history significant for chronic right-sided heart failure as per records (55 to 59%, TTE 2019 ), CAD status post stent, hypertension, hyperlipidemia, chronic resp failure 2 to COPD on home O2, MUKUL, DM2 on oral meds, schizoaffective disorder, neurogenic bladder on chronic Black catheter. Chronic anemia(baseline hemoglobin 12), past tobacco abuse, hx MRSA Recent admission August 2017 for pneumonia. The last 2 days patient noted worsening junky cough, S OB symptoms without chest pain. Denies aspiration, fever, chills. No known sick contacts. Patient scheduled outpatient [facility] dude ranch manager appointment for respiratory symptoms. Yesterday morning prior to dude ranch manager appointment, patient noted to be forgetful by . Patient did not know name of pulmonology provider which is unusual as per patient . Patient prescribed doxycycline and prednisone course for bronchitis symptoms as per patient . Minimal improvement in breathing symptoms despite initial doses of medications. Patient's son (practicing sugar cane planter from [place]) recommended ER evaluation to get checked out for stroke with forgetfulness symptoms. MEDICAL HISTORY: As above. SURGERIES: He has had an appendectomy, cataract surgery. FAMILY HISTORY: heart disease, stroke, dementia PERSONAL AND SOCIAL HISTORY: Remote tobacco use. 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 Allergies Allergy/AdvReac Type Severity Reaction Status Date / Time No Known Allergies Allergy Verified 01/26/19 14:20 Home Medications Home Medications Medication Instructions Recorded Confirmed Type albuterol sulfate 2.5 mg/3 mL 2.5 mg INHALATION Q6H PRN #4 ml 09/07/18 01/26/19 History (0.083 %) solution for nebulization amlodipine 10 mg tablet 10 mg PO QAM tab 09/07/18 01/26/19 History atorvastatin 80 mg tablet 80 mg PO QPM tab 09/07/18 01/26/19 History fluoxetine 60 mg tablet 60 mg PO QAM tab 09/07/18 01/26/19 History ipratropium-albuterol 0.5 mg-3 3 ml INHALATION QID #120 ml 09/07/18 01/26/19 History mg(2.5 mg base)/3 mL nebulization soln lamotrigine 200 mg tablet 200 mg PO QAM tab 09/07/18 01/26/19 History losartan 50 mg tablet 50 mg PO QPM tab 09/07/18 01/26/19 History magnesium oxide 400 mg (241.3 mg 400 mg PO BID tab 09/07/18 01/26/19 History magnesium) tablet pantoprazole 40 mg tablet,delayed 40 mg PO QPM #30 tab 09/07/18 01/26/19 History release timolol maleate 0.5 % once daily 1 drp OPB QAM ml 09/07/18 01/26/19 History eye drops gabapentin 600 mg tablet 600 mg PO BID tab 12/20/18 01/26/19 History albuterol sulfate 90 mcg/actuation 2 puffs INH Q4H PRN #18 gm 12/27/18 01/26/19 Rx aerosol inhaler lactobacillus combination no.4 3,000 mmu cells PO QAM 01/02/19 01/26/19 History [Probiotic] tiotropium bromide [Spiriva 2 puff INHALATION QAM 01/02/19 01/26/19 History Respimat] finasteride 5 mg tablet 5 mg PO QAM #90 tab 01/17/19 01/26/19 Rx tamsulosin 0.4 mg capsule 0.4 mg PO QPM #90 cap 01/17/19 01/26/19 Rx aspirin [Aspir-81] 81 mg PO DAILY 01/26/19 01/26/19 History doxycycline hyclate 100 mg capsule 100 mg PO BID #28 cap 01/26/19 01/26/19 Rx olanzapine [Zyprexa] 30 mg PO DAILY 01/26/19 01/26/19 History prednisone 10 mg tablet See Rx Instructions PO DAILY #20 01/26/19 01/26/19 Rx tab Past Med/Surg History Medical History Anxiety BPH (benign prostatic hyperplasia) BPH loc w urin obs/LUTS CAD (coronary artery disease) (Chronic) "s/p PTCA in 1997 and 2000 1997 - stent placed but details unknown 2000 - stent to LAD" Chronic kidney disease F/U DR VELASQUEZ [employer] [facility] [place] Chronic obstructive pulmonary disease EMPHYSEMA -- SEVERE, ON 2L O2 Diabetes mellitus, type 2 BORDERLINE-DIET MANAGED Hyperlipidemia Hypertension On home oxygen therapy 2-3 L/MIN NC CONT/WITH BIPAP HS Osteoarthritis Schizo affective schizophrenia Sleep apnea BIPAP/OXYGEN SOB (shortness of breath) on exertion Surgical History History of appendectomy History of cardiac cath 1 STENT EACH TIME [facility]-F/U DR VILLA History of colonoscopy Family History Other No significant family history Social History Preferred Language: Tunisian Communication Ability: Effective 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 Operator Required: No Beliefs That Will Affect Care: None Current Living Situation: Spouse Feels Safe at Home: Yes Smoking Status: Former smoker Do You Dip or Chew Tobacco: No ; Second Hand Exposure: No ; Hx Alcohol Use: No Hx Substance Use: No Review of Systems Review of Systems: As per HPI, all 10 systems reviewed, all other ROS negative Physical Exam Physical Exam: GENERAL: Comfortable, no respiratory distress SKIN: Pallor, warm HEENT: Pale palpebral conjunctivae, no ptosis, dry buccal mucosa, nasal cannula in place NECK : Supple, short neck, no tenderness CHEST : Decreased breath sounds, expiratory wheezes, no tenderness HEART : RRR, no obvious murmurs ABDOMEN: Some distention, nontender EXTREMITIES : No LE swelling/tenderness, no other conspicuous deformities noted NEUROLOGIC : Coherent, no facial asymmetry, mild hearing impairment, no other gross focality Results & Data Vital Signs (Past 12 Hours) Vital Signs Temp Pulse Resp BP Pulse Ox 01/26/19 22:17 95 01/26/19 21:34 36.6 C 71 20 152/81 H 95 Laboratory Results Laboratory Results WBC Cancelled 01/26/19 Unknown RBC Cancelled 01/26/19 Unknown Hgb Cancelled 01/26/19 Unknown Hct Cancelled 01/26/19 Unknown MCV Cancelled 01/26/19 Unknown MCH Cancelled 01/26/19 Unknown MCHC Cancelled 01/26/19 Unknown RDW Std Deviation Cancelled 01/26/19 Unknown RDW Coeff of Hermes Cancelled 01/26/19 Unknown Plt Count Cancelled 01/26/19 Unknown MPV Cancelled 01/26/19 Unknown Immature Gran % (Auto) Cancelled 01/26/19 Unknown Neut % (Auto) Cancelled 01/26/19 Unknown Lymph % (Auto) Cancelled 01/26/19 Unknown [place] % (Auto) Cancelled 01/26/19 Unknown Eos % (Auto) Cancelled 01/26/19 Unknown Baso % (Auto) Cancelled 01/26/19 Unknown Immature Gran # (Auto) Cancelled 01/26/19 Unknown Neut # (Auto) Cancelled 01/26/19 Unknown Lymph # (Auto) Cancelled 01/26/19 Unknown [place] # (Auto) Cancelled 01/26/19 Unknown Eos # (Auto) Cancelled 01/26/19 Unknown Baso # (Auto) Cancelled 01/26/19 Unknown Absolute Nucleated RBC Cancelled 01/26/19 Unknown Nucleated RBC % (auto) Cancelled 01/26/19 Unknown Neutrophils % (Manual) Cancelled 01/26/19 Unknown Band Neutrophils % Cancelled 01/26/19 Unknown Lymphocytes % (Manual) Cancelled 01/26/19 Unknown Prolymphocyte % Cancelled 01/26/19 Unknown Reactive Lymphs % (Man) Cancelled 01/26/19 Unknown Monocytes % (Manual) Cancelled 01/26/19 Unknown Eosinophils % (Manual) Cancelled 01/26/19 Unknown Basophils % (Manual) Cancelled 01/26/19 Unknown Metamyelocytes % (Man) Cancelled 01/26/19 Unknown Myelocytes % (Man) Cancelled 01/26/19 Unknown Promyelocytes % (Man) Cancelled 01/26/19 Unknown Blast Cells % (Manual) Cancelled 01/26/19 Unknown Plasma Cell % (Manual) Cancelled 01/26/19 Unknown Other Cells % Cancelled 01/26/19 Unknown Nucleated RBC % Cancelled 01/26/19 Unknown Neutrophils # (Manual) Cancelled 01/26/19 Unknown Band Neutrophils # Cancelled 01/26/19 Unknown Total Absolute Neuts Cancelled 01/26/19 Unknown Lymphocytes # (Manual) Cancelled 01/26/19 Unknown Prolymphocyte # Cancelled 01/26/19 Unknown Reactive Lymphs # Cancelled 01/26/19 Unknown Total Abs Lymphocytes Cancelled 01/26/19 Unknown Monocytes # (Manual) Cancelled 01/26/19 Unknown Eosinophils # (Manual) Cancelled 01/26/19 Unknown Basophils # (Manual) Cancelled 01/26/19 Unknown Metamyelocytes # (Man) Cancelled 01/26/19 Unknown Myelocytes # (Manual) Cancelled 01/26/19 Unknown Promyelocytes # (Man) Cancelled 01/26/19 Unknown Blast Cells # (Man) Cancelled 01/26/19 Unknown Plasma Cell # (Manual) Cancelled 01/26/19 Unknown Other Cells # Cancelled 01/26/19 Unknown Nucleated RBCs # (Man) Cancelled 01/26/19 Unknown Hypersegmented Neuts Cancelled 01/26/19 Unknown Hyposegmented Neuts Cancelled 01/26/19 Unknown Hypogranular Neuts Cancelled 01/26/19 Unknown Large Granular Lymphs Cancelled 01/26/19 Unknown # Lrg Granular Lymphs Cancelled 01/26/19 Unknown Hairy Cells Cancelled 01/26/19 Unknown Smudge Cells Cancelled 01/26/19 Unknown Toxic Granulation Cancelled 01/26/19 Unknown Toxic Vacuolation Cancelled 01/26/19 Unknown Dohle Bodies Cancelled 01/26/19 Unknown Ruma Rods Cancelled 01/26/19 Unknown Platelet Estimate Cancelled 01/26/19 Unknown Hypogranular Platelets Cancelled 01/26/19 Unknown Clumped Platelets Cancelled 01/26/19 Unknown Giant Platelets Cancelled 01/26/19 Unknown Platelet Satelliting Cancelled 01/26/19 Unknown RBC Morphology Cancelled 01/26/19 Unknown Polychromasia Cancelled 01/26/19 Unknown Hypochromasia Cancelled 01/26/19 Unknown Poikilocytosis Cancelled 01/26/19 Unknown Basophilic Stippling Cancelled 01/26/19 Unknown Anisocytosis Cancelled 01/26/19 Unknown Microcytosis Cancelled 01/26/19 Unknown Macrocytosis Cancelled 01/26/19 Unknown Spherocytes Cancelled 01/26/19 Unknown Pappenheimer Bodies Cancelled 01/26/19 Unknown Sickle Cells Cancelled 01/26/19 Unknown Target Cells Cancelled 01/26/19 Unknown Tear Drop Cells Cancelled 01/26/19 Unknown Ovalocytes Cancelled 01/26/19 Unknown Stomatocytes Cancelled 01/26/19 Unknown [place] Bodies Cancelled 01/26/19 Unknown Echinocytes Cancelled 01/26/19 Unknown Acanthocytes (Spur) Cancelled 01/26/19 Unknown Rouleaux Cancelled 01/26/19 Unknown RBC Agglutinates Cancelled 01/26/19 Unknown Schistocytes Cancelled 01/26/19 Unknown RBC Morph Comment Cancelled 01/26/19 Unknown Sezary Cell Cancelled 01/26/19 Unknown PT Cancelled 01/26/19 Unknown INR Cancelled 01/26/19 Unknown Sodium 140 mmol/L (136-145) 01/26/19 Unknown Potassium mmol/L (3.5-5.1) 01/26/19 Unknown Chloride 110 mmol/L (98-107) H 01/26/19 Unknown Carbon Dioxide 26 mmol/L (21-32) 01/26/19 Unknown Anion Gap 4.0 (3-11) 01/26/19 Unknown BUN 31 mg/dl (7-18) H 01/26/19 Unknown Creatinine 1.53 mg/dl (0.6-1.4) H 01/26/19 Unknown Est Cr Clr Drug Dosing Not Reportable 01/26/19 Unknown Est GFR ( Amer) 51.2 01/26/19 Unknown Est GFR (Non-Af Amer) 44.1 01/26/19 Unknown BUN/Creatinine Ratio 20.2 (10-20) H 01/26/19 Unknown Glucose 260 mg/dl (70-99) H 01/26/19 Unknown Calcium 9.6 mg/dl (8.5-10.1) 01/26/19 Unknown Total Bilirubin 0.4 mg/dl (0.2-1) 01/26/19 Unknown AST U/L (15-37) 01/26/19 Unknown ALT 26 U/L (12-78) 01/26/19 Unknown Alkaline Phosphatase 119 U/L (45-117) H 01/26/19 Unknown Troponin I < 0.015 ng/ml (0-0.045) 01/26/19 Unknown Total Protein 7.8 gm/dl (6.4-8.2) 01/26/19 Unknown Albumin 3.1 gm/dl (3.4-5.0) L 01/26/19 Unknown Globulin 4.7 gm/dl (2.5-4.0) H 01/26/19 Unknown Albumin/Globulin Ratio 0.7 (0.9-2) L 01/26/19 Unknown TSH 0.415 uIu/ml (0.300-4.500) 01/26/19 Unknown Urine Color Yellow 01/26/19 22:40 Urine Appearance Clear (Clear) 01/26/19 22:40 Urine pH 7.0 (4.5-7.5) 01/26/19 22:40 Ur Specific [place] 1.015 (1.000-1.030) 01/26/19 22:40 Urine Protein 1+ (Negative) H 01/26/19 22:40 Urine Glucose (UA) 3+ (Negative) H 01/26/19 22:40 Urine Ketones Negative (Negative) 01/26/19 22:40 Urine Blood Negative (Negative) 01/26/19 22:40 Urine Nitrite Negative (Negative) 01/26/19 22:40 Urine Bilirubin Negative (Negative) 01/26/19 22:40 Urine Urobilinogen Negative (Negative) 01/26/19 22:40 Ur Leukocyte Esterase Negative (Negative) 01/26/19 22:40 Urine RBC 0-4 /hpf (0-4) 01/26/19 22:40 Urine WBC 0-5 /hpf (0-5) 01/26/19 22:40 Ur Epithelial Cells 0-5 /lpf (0-5) 01/26/19 22:40 Urine Bacteria Negative (Negative) 01/26/19 22:40 Hyaline Casts 0-5 /lpf (0-5) 01/26/19 22:40 Influenza Type A Ag Neg for Influ A (Neg) 01/26/19 23:37 Influenza Type B Ag Neg for Influ B (Neg) 01/26/19 23:[address] head initial read decreased density and loss of bernard-white matter differentiation posterior medial left temporal lobe and occipital lobe along the posterior cerebral artery distribution suggesting subacute infarct. Chest x-ray : 1. Mild cardiomegaly. 2. Underlying chronic lung disease consistent with known emphysema. 3. No other convincing evidence of acute cardiopulmonary disease. EKG as per my interpretation : Rate 65, NSR, 1 AVB, LAD, LAFB, no ischemia
[2019-01-27 00:19] LABS: Prothrombin Time 10.4 Seconds (9.0-12.0)
[2019-01-27] MEDS ORDERED: INSULIN GLARGINE SOLOSTAR 100 UNITS/ML 3 ML PEN SC STA (00:19)
[2019-01-27 00:24] LABS: Potassium 3.8 mmol/L (3.5-5.1)
[2019-01-27] MEDS ORDERED: CLOPIDOGREL BISULFATE 75 MG TAB PO STA (00:24)
[2019-01-27 00:29] LABS: Magnesium 2.7 mg/dl (1.8-2.4)
[2019-01-27] MEDS ORDERED: ALBUT/IPRATROP 3MG/0.5MG NEB 3 ML VIAL NEB STA (00:32)
--- NOTE | 2019-01-27 00:52 | Emergency Department Note ---
Entered by Ubaldo Farah acting as a scribe for Morris Celis DO History of Present Illness General Chief complaint: Neuro Symptoms/Deficit Stated complaint: SEVERE MEMORY LOSS Source: patient and family History of Present Illness Onset (ago): hour(s) (earlier today) Location: head Pain Consistency: + other (episode) Quality: + other (confusion) Associated symptoms: + cough and + other (-vision problems; -rhinorrhea; - abdominal pain; -urinary symptoms ); no chest pain, no headaches, no shortness of breath and no weakness The patient is a 73 year old male, with past medical history of BPH, CAD, COPD, and diabetes, who presents to the Emergency Room with complaints of an episode of confusion that began earlier today, according to the patient's family. The family member states that the patient could not remember any of his regular doctors this morning, which the family member reports was very abnormal for him. She also notes the patient kept asking what was for supper multiple times, and she states he could not remember his sister in law's name. The family member notes the patient has been making sense with conversations, but she states the patient has not been able to remember certain things today. The family member also notes the patient has been coughing more than usual. The patient knows the year and month currently. The patient denies headache, vision problems, chest pain, rhinorrhea, abdominal pain, urinary symptoms, weakness, or shortness of breath. The patient states he is is always on 3 L of oxygen. Home Medications Home Medications Medication Instructions Recorded Confirmed Type albuterol sulfate 2.5 mg/3 mL 2.5 mg INHALATION Q6H PRN #4 ml 09/07/18 01/26/19 History (0.083 %) solution for nebulization amlodipine 10 mg tablet 10 mg PO QAM tab 09/07/18 01/26/19 History atorvastatin 80 mg tablet 80 mg PO QPM tab 09/07/18 01/26/19 History fluoxetine 60 mg tablet 60 mg PO QAM tab 09/07/18 01/26/19 History ipratropium-albuterol 0.5 mg-3 3 ml INHALATION QID #120 ml 09/07/18 01/26/19 History mg(2.5 mg base)/3 mL nebulization soln lamotrigine 200 mg tablet 200 mg PO QAM tab 09/07/18 01/26/19 History losartan 50 mg tablet 50 mg PO QPM tab 09/07/18 01/26/19 History magnesium oxide 400 mg (241.3 mg 400 mg PO BID tab 09/07/18 01/26/19 History magnesium) tablet pantoprazole 40 mg tablet,delayed 40 mg PO QPM #30 tab 09/07/18 01/26/19 History release timolol maleate 0.5 % once daily 1 drp OPB QAM ml 09/07/18 01/26/19 History eye drops gabapentin 600 mg tablet 600 mg PO BID tab 12/20/18 01/26/19 History albuterol sulfate 90 mcg/actuation 2 puffs INH Q4H PRN #18 gm 12/27/18 01/26/19 Rx aerosol inhaler lactobacillus combination no.4 3,000 mmu cells PO QAM 01/02/19 01/26/19 History [Probiotic] tiotropium bromide [Spiriva 2 puff INHALATION QAM 01/02/19 01/26/19 History Respimat] finasteride 5 mg tablet 5 mg PO QAM #90 tab 01/17/19 01/26/19 Rx tamsulosin 0.4 mg capsule 0.4 mg PO QPM #90 cap 01/17/19 01/26/19 Rx aspirin [Aspir-81] 81 mg PO DAILY 01/26/19 01/26/19 History doxycycline hyclate 100 mg capsule 100 mg PO BID #28 cap 01/26/19 01/26/19 Rx olanzapine [Zyprexa] 30 mg PO DAILY 01/26/19 01/26/19 History prednisone 10 mg tablet See Rx Instructions PO DAILY #20 01/26/19 01/26/19 Rx tab Allergies Allergy/AdvReac Type Severity Reaction Status Date / Time No Known Allergies Allergy Verified 01/26/19 14:20 Past Med/Surg History Medical History Anxiety BPH (benign prostatic hyperplasia) BPH loc w urin obs/LUTS CAD (coronary artery disease) (Chronic) "s/p PTCA in 1997 and 2000 1997 - stent placed but details unknown 2000 - stent to LAD" Chronic kidney disease F/U DR VELASQUEZ [employer] [facility] Chronic obstructive pulmonary disease EMPHYSEMA -- SEVERE, ON 2L O2 Diabetes mellitus, type 2 BORDERLINE-DIET MANAGED Hyperlipidemia Hypertension On home oxygen therapy 2-3 L/MIN NC CONT/WITH BIPAP HS Osteoarthritis Schizo affective schizophrenia Sleep apnea BIPAP/OXYGEN SOB (shortness of breath) on exertion Surgical History History of appendectomy History of cardiac cath 1 STENT EACH TIME [facility]-F/U DR VILLA History of colonoscopy Family History Other No significant family history Social History Preferred Language: German Communication Ability: Effective Youth Care Specialist Required: No Beliefs That Will Affect Care: None Current Living Situation: Spouse Feels Safe at Home: Yes Smoking Status: Former smoker Second Hand Exposure: No ; Hx Alcohol Use: No Hx Substance Use: No Review of Systems See HPI for pertinent positives & negatives. and A total of 10 systems reviewed and were otherwise negative Physical Exam Vital Signs Vital Signs - 24 hr 01/26/19 21:34 01/26/19 21:53 01/26/19 22:17 Temperature 36.6 C Temperature Source Oral Pulse Rate 71 69 Pulse Rate [Apical] Pulse Rate from SpO2 Sensor 68 Respiratory Rate 20 22 Respiratory Effort / Characteristics Non-Labored Spontaneous Respiratory Depth Normal Blood Pressure 152/81 H 149/78 H Blood Pressure [Right Arm] Blood Pressure Mean 104 107 Blood Pressure Mean [Right Arm] Pulse Oximetry 95 96 95 Oxygen Delivery Method Room Air Oxymask Oxygen Flow Rate 3 Sepsis Action Taken by Nursing No Action Required 01/27/19 00:31 Temperature Temperature Source Pulse Rate Pulse Rate [Apical] 67 Pulse Rate from SpO2 Sensor Respiratory Rate 21 Respiratory Effort / Characteristics Respiratory Depth Blood Pressure Blood Pressure [Right Arm] 144/78 H Blood Pressure Mean Blood Pressure Mean [Right Arm] 100 Pulse Oximetry 95 Oxygen Delivery Method Nasal Cannula Oxygen Flow Rate 3 Sepsis Action Taken by Nursing GENERAL: sitting up in bed, on nasal cannula EYE EXAM: normal conjunctiva, PERRL and EOM's grossly intact OROPHARYNX: no exudate, no erythema, lips, buccal mucosa, and tongue normal and mucous membranes are moist NECK: supple, no nuchal rigidity, no adenopathy, non-tender LUNGS: Coarse lung sounds at the bases. Normal chest wall mechanics HEART: no murmurs, S1 normal and S2 normal ABDOMEN: abdomen soft, non-tender, normo-active bowel sounds, no masses, no toma ound or guarding. BACK: Back is symmetrical on inspection and there is no deformity, no midline tenderness, no CVA tenderness. SKIN: no rashes and no bruising UPPER EXTREMITIES: upper extremities are grossly normal. LOWER EXTREMITIES: No pitting edema. NEURO EXAM: Normal sensorium, cranial nerves II-XII intact, normal speech, no weakness of arms, no weakness of legs. No drift. Finger to nose intact. Gross sensation intact. Course Course ED COURSE: Vital signs were reviewed and showed hypertensive. The patients medical record was reviewed The above diagnostic studies were performed and reviewed. ED treatments and interventions as stated above. 2205: The patient was evaluated in room A12B. A complete history and physical examination was performed. 2129: I discussed the patient's case with Dr. Amor Hospitalist. Dr. Flower will further evaluate the patient. 2134: I updated the patient and the patient's family member on the patient's case. Based on the patients age, coexisting illnesses, exam and lab findings the decision to treat as an inpatient was made. The patient remained stable while under my care. The patient will be evaluated for further management. Consultations Consultation #1: I discussed the patient's case with Dr. Amor Hospitalist. Dr. Flower will further evaluate the patient. Time: 21:30 Administered Medications Discontinued Medications Clopidogrel Bisulfate (Plavix) 75 mg PO NOW STA Stop: 01/27/19 00:25 Last Admin: 01/27/19 00:37 Dose: 75 mg Documented by: [id number] Sodium Chloride (Nss) 500 mls @ 999 mls/hr IV .Q31M CIPRIANO Stop: 01/26/19 23:00 Last Admin: 01/27/19 00:37 Dose: 999 mls/hr Documented by: [id number] Insulin Glargine (Lantus Solostar Pen) 20 units SC NOW STA Stop: 01/27/19 00:20 Last Admin: 01/27/19 00:37 Dose: 20 units Documented by: [id number] Cosigned by: [id number] Methylprednisolone (Solumedrol) 20 mg IV NOW STA Stop: 01/27/19 00:19 Last Admin: 01/27/19 00:38 Dose: 20 mg Documented by: [id number] Medical Decision Making Differential Diagnosis Differential Diagnosis includes but is not limited to ischemic Stroke, hemorrhagic stroke, bells palsy, mass, neoplasm, migraine headache, seizure, subarachnoid hemorrhage, TIA, and transient global amnesia. Medical Records Attestation: I reviewed the patient's medical records. Home Medications Current Medication List: was personally reviewed by me Laboratory Data Attestation: I reviewed the patient's lab results. Result diagrams: 01/26/19 Unknown 01/26/19 Unknown Lab Results 01/26/19 01/26/19 01/26/19 Range/Units 22:40 23:37 23:52 WBC (4.8-10.8) K/uL RBC (4.7-6.1) M/uL Hgb (14.0-18.0) g/dL Hct (42-52) % MCV (80-100) fL MCH (25-34) pg MCHC (32-36) g/dL RDW Std Deviation (36.4-46.3) fL RDW Coeff of Hermes (11.5-14.5) % Plt Count (130-400) K/uL MPV (7.4-10.4) fL Immature Gran % (Auto) % Neut % (Auto) % Lymph % (Auto) % Snyder % (Auto) % Eos % (Auto) % Baso % (Auto) % Immature Gran # (Auto) (0.00-0.02) K/uL Neut # (Auto) (1.4-6.5) K/uL Lymph # (Auto) (1.2-3.4) K/uL Snyder # (Auto) (0.11-0.59) K/uL Eos # (Auto) (0-0.5) K/uL Baso # (Auto) (0-0.2) K/uL Absolute Nucleated RBC Nucleated RBC % (auto) Neutrophils % (Manual) Band Neutrophils % Lymphocytes % (Manual) Prolymphocyte % Reactive Lymphs % (Man) Monocytes % (Manual) Eosinophils % (Manual) Basophils % (Manual) Metamyelocytes % (Man) Myelocytes % (Man) Promyelocytes % (Man) Blast Cells % (Manual) Plasma Cell % (Manual) Other Cells % Nucleated RBC % Neutrophils # (Manual) Band Neutrophils # Total Absolute Neuts Lymphocytes # (Manual) Prolymphocyte # Reactive Lymphs # Total Abs Lymphocytes Monocytes # (Manual) Eosinophils # (Manual) Basophils # (Manual) Metamyelocytes # (Man) Myelocytes # (Manual) Promyelocytes # (Man) Blast Cells # (Man) Plasma Cell # (Manual) Other Cells # Nucleated RBCs # (Man) Hypersegmented Neuts Hyposegmented Neuts Hypogranular Neuts Large Granular Lymphs # Lrg Granular Lymphs Hairy Cells Smudge Cells Toxic Granulation Toxic Vacuolation Dohle Bodies Ruma Rods Platelet Estimate Hypogranular Platelets Clumped Platelets Giant Platelets Platelet Satelliting RBC Morphology Polychromasia Hypochromasia Poikilocytosis Basophilic Stippling Anisocytosis Microcytosis Macrocytosis Spherocytes Pappenheimer Bodies Sickle Cells Target Cells Tear Drop Cells Ovalocytes Stomatocytes Hogan-Aldine Bodies Echinocytes Acanthocytes (Spur) Rouleaux RBC Agglutinates Schistocytes RBC Morph Comment Sezary Cell PT (9.0-12.0) Seconds INR (0.9-1.1) Sodium (136-145) mmol/L Potassium 3.8 (3.5-5.1) mmol/L Chloride (98-107) mmol/L Carbon Dioxide (21-32) mmol/L Anion Gap (3-11) BUN (7-18) mg/dl Creatinine (0.6-1.4) mg/dl Est Cr Clr Drug Dosing Est GFR ( Amer) Est GFR (Non-Af Amer) BUN/Creatinine Ratio (10-20) Glucose (70-99) mg/dl Calcium (8.5-10.1) mg/dl Magnesium 2.7 H (1.8-2.4) mg/dl Total Bilirubin (0.2-1) mg/dl AST 14 L (15-37) U/L ALT (12-78) U/L Alkaline Phosphatase (45-117) U/L Troponin I (0-0.045) ng/ml Total Protein (6.4-8.2) gm/dl Albumin (3.4-5.0) gm/dl Globulin (2.5-4.0) gm/dl Albumin/Globulin Ratio (0.9-2) TSH (0.300-4.500) uIu/ml Urine Color Yellow Urine Appearance Clear (Clear) Urine pH 7.0 (4.5-7.5) Ur Specific Gibbon 1.015 (1.000-1.030) Urine Protein 1+ H (Negative) Urine Glucose (UA) 3+ H (Negative) Urine Ketones Negative (Negative) Urine Blood Negative (Negative) Urine Nitrite Negative (Negative) Urine Bilirubin Negative (Negative) Urine Urobilinogen Negative (Negative) Ur Leukocyte Esterase Negative (Negative) Urine RBC 0-4 (0-4) /hpf Urine WBC 0-5 (0-5) /hpf Ur Epithelial Cells 0-5 (0-5) /lpf Urine Bacteria Negative (Negative) Hyaline Casts 0-5 (0-5) /lpf Influenza Type A Ag Neg for Influ A (Neg) Influenza Type B Ag Neg for Influ B (Neg) 01/26/19 01/26/19 01/26/19 Range/Units 23:52 23:52 Unknown WBC 6.31 Cancelled (4.8-10.8) K/uL RBC 4.74 Cancelled (4.7-6.1) M/uL Hgb 13.4 L Cancelled (14.0-18.0) g/dL Hct 41.4 L Cancelled (42-52) % MCV 87.3 Cancelled (80-100) fL MCH 28.3 Cancelled (25-34) pg MCHC 32.4 Cancelled (32-36) g/dL RDW Std Deviation 52.5 H Cancelled (36.4-46.3) fL RDW Coeff of Hermes 16.3 H Cancelled (11.5-14.5) % Plt Count 267 Cancelled (130-400) K/uL MPV 9.6 Cancelled (7.4-10.4) fL Immature Gran % (Auto) 0.0 Cancelled % Neut % (Auto) 90.6 Cancelled % Lymph % (Auto) 8.2 Cancelled % Snyder % (Auto) 1.0 Cancelled % Eos % (Auto) 0.0 Cancelled % Baso % (Auto) 0.2 Cancelled % Immature Gran # (Auto) 0.00 Cancelled (0.00-0.02) K/uL Neut # (Auto) 5.72 Cancelled (1.4-6.5) K/uL Lymph # (Auto) 0.52 L Cancelled (1.2-3.4) K/uL Snyder # (Auto) 0.06 L Cancelled (0.11-0.59) K/uL Eos # (Auto) 0.00 Cancelled (0-0.5) K/uL Baso # (Auto) 0.01 Cancelled (0-0.2) K/uL Absolute Nucleated RBC Cancelled Nucleated RBC % (auto) Cancelled Neutrophils % (Manual) Cancelled Band Neutrophils % Cancelled Lymphocytes % (Manual) Cancelled Prolymphocyte % Cancelled Reactive Lymphs % (Man) Cancelled Monocytes % (Manual) Cancelled Eosinophils % (Manual) Cancelled Basophils % (Manual) Cancelled Metamyelocytes % (Man) Cancelled Myelocytes % (Man) Cancelled Promyelocytes % (Man) Cancelled Blast Cells % (Manual) Cancelled Plasma Cell % (Manual) Cancelled Other Cells % Cancelled Nucleated RBC % Cancelled Neutrophils # (Manual) Cancelled Band Neutrophils # Cancelled Total Absolute Neuts Cancelled Lymphocytes # (Manual) Cancelled Prolymphocyte # Cancelled Reactive Lymphs # Cancelled Total Abs Lymphocytes Cancelled Monocytes # (Manual) Cancelled Eosinophils # (Manual) Cancelled Basophils # (Manual) Cancelled Metamyelocytes # (Man) Cancelled Myelocytes # (Manual) Cancelled Promyelocytes # (Man) Cancelled Blast Cells # (Man) Cancelled Plasma Cell # (Manual) Cancelled Other Cells # Cancelled Nucleated RBCs # (Man) Cancelled Hypersegmented Neuts Cancelled Hyposegmented Neuts Cancelled Hypogranular Neuts Cancelled Large Granular Lymphs Cancelled # Lrg Granular Lymphs Cancelled Hairy Cells Cancelled Smudge Cells Cancelled Toxic Granulation Cancelled Toxic Vacuolation Cancelled Dohle Bodies Cancelled Ruma Rods Cancelled Platelet Estimate Cancelled Hypogranular Platelets Cancelled Clumped Platelets Cancelled Giant Platelets Cancelled Platelet Satelliting Cancelled RBC Morphology Cancelled Polychromasia Cancelled Hypochromasia Cancelled Poikilocytosis Cancelled Basophilic Stippling Cancelled Anisocytosis Cancelled Microcytosis Cancelled Macrocytosis Cancelled Spherocytes Cancelled Pappenheimer Bodies Cancelled Sickle Cells Cancelled Target Cells Cancelled Tear Drop Cells Cancelled Ovalocytes Cancelled Stomatocytes Cancelled Hogan-Aldine Bodies Cancelled Echinocytes Cancelled Acanthocytes (Spur) Cancelled Rouleaux Cancelled RBC Agglutinates Cancelled Schistocytes Cancelled RBC Morph Comment Cancelled Sezary Cell Cancelled PT 10.4 (9.0-12.0) Seconds INR 1.0 (0.9-1.1) Sodium (136-145) mmol/L Potassium (3.5-5.1) mmol/L Chloride (98-107) mmol/L Carbon Dioxide (21-32) mmol/L Anion Gap (3-11) BUN (7-18) mg/dl Creatinine (0.6-1.4) mg/dl Est Cr Clr Drug Dosing Est GFR ( Amer) Est GFR (Non-Af Amer) BUN/Creatinine Ratio (10-20) Glucose (70-99) mg/dl Calcium (8.5-10.1) mg/dl Magnesium (1.8-2.4) mg/dl Total Bilirubin (0.2-1) mg/dl AST (15-37) U/L ALT (12-78) U/L Alkaline Phosphatase (45-117) U/L Troponin I (0-0.045) ng/ml Total Protein (6.4-8.2) gm/dl Albumin (3.4-5.0) gm/dl Globulin (2.5-4.0) gm/dl Albumin/Globulin Ratio (0.9-2) TSH (0.300-4.500) uIu/ml Urine Color Urine Appearance (Clear) Urine pH (4.5-7.5) Ur Specific Gibbon (1.000-1.030) Urine Protein (Negative) Urine Glucose (UA) (Negative) Urine Ketones (Negative) Urine Blood (Negative) Urine Nitrite (Negative) Urine Bilirubin (Negative) Urine Urobilinogen (Negative) Ur Leukocyte Esterase (Negative) Urine RBC (0-4) /hpf Urine WBC (0-5) /hpf Ur Epithelial Cells (0-5) /lpf Urine Bacteria (Negative) Hyaline Casts (0-5) /lpf Influenza Type A Ag (Neg) Influenza Type B Ag (Neg) 01/26/19 01/26/19 Range/Units Unknown Unknown WBC (4.8-10.8) K/uL RBC (4.7-6.1) M/uL Hgb (14.0-18.0) g/dL Hct (42-52) % MCV (80-100) fL MCH (25-34) pg MCHC (32-36) g/dL RDW Std Deviation (36.4-46.3) fL RDW Coeff of Hermes (11.5-14.5) % Plt Count (130-400) K/uL MPV (7.4-10.4) fL Immature Gran % (Auto) % Neut % (Auto) % Lymph % (Auto) % Snyder % (Auto) % Eos % (Auto) % Baso % (Auto) % Immature Gran # (Auto) (0.00-0.02) K/uL Neut # (Auto) (1.4-6.5) K/uL Lymph # (Auto) (1.2-3.4) K/uL Snyder # (Auto) (0.11-0.59) K/uL Eos # (Auto) (0-0.5) K/uL Baso # (Auto) (0-0.2) K/uL Absolute Nucleated RBC Nucleated RBC % (auto) Neutrophils % (Manual) Band Neutrophils % Lymphocytes % (Manual) Prolymphocyte % Reactive Lymphs % (Man) Monocytes % (Manual) Eosinophils % (Manual) Basophils % (Manual) Metamyelocytes % (Man) Myelocytes % (Man) Promyelocytes % (Man) Blast Cells % (Manual) Plasma Cell % (Manual) Other Cells % Nucleated RBC % Neutrophils # (Manual) Band Neutrophils # Total Absolute Neuts Lymphocytes # (Manual) Prolymphocyte # Reactive Lymphs # Total Abs Lymphocytes Monocytes # (Manual) Eosinophils # (Manual) Basophils # (Manual) Metamyelocytes # (Man) Myelocytes # (Manual) Promyelocytes # (Man) Blast Cells # (Man) Plasma Cell # (Manual) Other Cells # Nucleated RBCs # (Man) Hypersegmented Neuts Hyposegmented Neuts Hypogranular Neuts Large Granular Lymphs # Lrg Granular Lymphs Hairy Cells Smudge Cells Toxic Granulation Toxic Vacuolation Dohle Bodies Ruma Rods Platelet Estimate Hypogranular Platelets Clumped Platelets Giant Platelets Platelet Satelliting RBC Morphology Polychromasia Hypochromasia Poikilocytosis Basophilic Stippling Anisocytosis Microcytosis Macrocytosis Spherocytes Pappenheimer Bodies Sickle Cells Target Cells Tear Drop Cells Ovalocytes Stomatocytes Edison-Aldine Bodies Echinocytes Acanthocytes (Spur) Rouleaux RBC Agglutinates Schistocytes RBC Morph Comment Sezary Cell PT Cancelled (9.0-12.0) Seconds INR Cancelled (0.9-1.1) Sodium 140 (136-145) mmol/L Potassium (3.5-5.1) mmol/L Chloride 110 H (98-107) mmol/L Carbon Dioxide 26 (21-32) mmol/L Anion Gap 4.0 (3-11) BUN 31 H (7-18) mg/dl Creatinine 1.53 H (0.6-1.4) mg/dl Est Cr Clr Drug Dosing Not Reportable Est GFR ( Amer) 51.2 Est GFR (Non-Af Amer) 44.1 BUN/Creatinine Ratio 20.2 H (10-20) Glucose 260 H (70-99) mg/dl Calcium 9.6 (8.5-10.1) mg/dl Magnesium (1.8-2.4) mg/dl Total Bilirubin 0.4 (0.2-1) mg/dl AST (15-37) U/L ALT 26 (12-78) U/L Alkaline Phosphatase 119 H (45-117) U/L Troponin I < 0.015 (0-0.045) ng/ml Total Protein 7.8 (6.4-8.2) gm/dl Albumin 3.1 L (3.4-5.0) gm/dl Globulin 4.7 H (2.5-4.0) gm/dl Albumin/Globulin Ratio 0.7 L (0.9-2) TSH 0.415 (0.300-4.500) uIu/ml Urine Color Urine Appearance (Clear) Urine pH (4.5-7.5) Ur Specific Gibbon (1.000-1.030) Urine Protein (Negative) Urine Glucose (UA) (Negative) Urine Ketones (Negative) Urine Blood (Negative) Urine Nitrite (Negative) Urine Bilirubin (Negative) Urine Urobilinogen (Negative) Ur Leukocyte Esterase (Negative) Urine RBC (0-4) /hpf Urine WBC (0-5) /hpf Ur Epithelial Cells (0-5) /lpf Urine Bacteria (Negative) Hyaline Casts (0-5) /lpf Influenza Type A Ag (Neg) Influenza Type B Ag (Neg) Imaging Data Radiologist's Impression: Radiology results as stated below per my review and the radiologist's interpretation: XR chest 1V portable CLINICAL HISTORY: 73 years-old Male presenting with weakness. TECHNIQUE: Portable upright AP view of the chest was obtained. COMPARISON: 01/10/2019. FINDINGS: Atherosclerosis of the aortic arch. Prominence of the thoracic aorta as on prior exam. Cardiac silhouette mildly enlarged. Heterogeneity of lung markings. No new focal opacity. No large effusion or pneumothorax. Degenerative changes of the thoracic spine. Upper abdomen normal. IMPRESSION: 1. Mild cardiomegaly. 2. Underlying chronic lung disease consistent with known emphysema. 3. No other convincing evidence of acute cardiopulmonary disease. ACT 112: Negative or not required by law. Electronically signed by: Rick Ambrocio M.D. 01/26/2019 10:[address] HEAD: Comparison to August 26, 2017. The paranasal sinuses and mastoid air cells are normally aerated. There is no skull fracture or scalp hematoma. There is a normal gyral pattern of the brain. There is no mass lesion or midline shift. There is decreased density and loss of bernard-white matter differentiation in the posterior medial left temporal lobe and occipital lobe along the posterior cerebra artery distribution suggesting subacute infarct in that region. This is new. No intracranial hemorrhage is seen. ECG Data Attestation: I personally reviewed and interpreted this ECG as follows: Indication: + altered mental status Rate (beats per minute): 95 Rhythm: + sinus rhythm ECG Intervals/blocks: + Normal QT-c ECG [place]: + Normal ECG Findings: no PVCs Blood Pressure Blood Pressure Findings: Elevated blood pressure Blood Pressure Disposition: further management by hospitalist MARII Narrative Patient is a 73-year-old male who presents the ER for some intermittent confusion over the past 24 hours. Chronically wears 3 L nasal cannula for COPD. IV was established blood work was obtained. Labs show no significant leukocytosis or anemia. INR was unremarkable. BMP with a creatinine 1.53. Glucose was elevated to 60. LFTs bilirubin and troponin was negative. TSH unremarkable. UA was negative. Influenza was negative. Chest x-ray without any acute infiltrate. CT of the head showed subacute stroke. Patient family were updated bedside. Further work-up was warranted and when patient was discussed with the hospitalist. Patient and family were updated in regards to this. Impression & Plan Acute CVA (cerebrovascular accident), Acute confusion, Hyperglycemia Discharge Plan Visit Data Chief Complaint: Neuro Symptoms/Deficit Stated Complaint: SEVERE MEMORY LOSS ED Provider: Morris Celis Discharge Problem: Acute CVA (cerebrovascular accident), Acute confusion, Hyperglycemia Patient Disposition: Being Evaluated by Hospitalist Forms Stand Alone Forms: My [facility] Prescriptions Prescriptions: No Action finasteride 5 mg tablet 5 mg PO QAM Qty: 90 RF: 3 tamsulosin 0.4 mg capsule 0.4 mg PO QPM Qty: 90 RF: 3 losartan 50 mg tablet 50 mg PO QPM RF: 0 albuterol sulfate 2.5 mg /3 mL (0.083 %) solution for nebulization 2.5 mg inhalation Q6H PRN (Reason: Wheezing) Qty: 4 RF: 0 amlodipine 10 mg tablet 10 mg PO QAM RF: 0 atorvastatin 80 mg tablet 80 mg PO QPM RF: 0 fluoxetine 60 mg tablet 60 mg PO QAM RF: 0 ipratropium-albuterol 0.5 mg-3 mg(2.5 mg base)/3 mL solution for nebulization 3 ml inhalation QID Qty: 120 RF: 0 lamotrigine 200 mg tablet 200 mg PO QAM RF: 0 magnesium oxide 400 mg (241.3 mg magnesium) tablet 400 mg PO BID RF: 0 pantoprazole 40 mg tablet,delayed release (DR/EC) 40 mg PO QPM Qty: 30 RF: 0 timolol maleate 0.5 % drops, once daily 1 drp OPB QAM RF: 0 gabapentin 600 mg tablet 600 mg PO BID RF: 0 doxycycline hyclate 100 mg capsule 100 mg PO BID Qty: 28 RF: 0 prednisone 10 mg tablet See Rx Instructions PO DAILY Qty: 20 RF: 0 albuterol sulfate [Ventolin HFA] 90 mcg/actuation HFA aerosol inhaler 2 puffs INH Q4H PRN (Reason: increased cough, shortness of breath or wheezing) Qty: 18 RF: 5 Spiriva Respimat 2.5 mcg/actuation Mist 2 puff INHALATION QAM RF: 0 Probiotic 3 billion cell Capsule 3,000 mmu cells PO QAM RF: 0 aspirin [Aspir-81] 81 mg Tablet,Delayed Release (Dr/Ec) 81 mg PO DAILY RF: 0 olanzapine [Zyprexa] 15 mg tablet 30 mg PO DAILY RF: 0 Referrals Referrals: Clau Batista, DO [Primary Care Provider] - The scribe's documentation has been prepared under my direction and personally reviewed by me in its entirety. I confirm that the note above accurately reflects all work, treatment, procedures, and medical decision making performed by me.
[2019-01-27] MEDS ORDERED: SODIUM CHLORIDE 0.9% 1000ML 1,000 ML IV ONE (02:01)
[2019-01-27] MEDS ORDERED: PHARMACIST DISCHARGE MED REC CONSULT PRN (02:01)
[2019-01-27] MEDS ORDERED: CARBOHYDRATES FOR HYPOGLYCEMIA PO PRN (02:01)
[2019-01-27] MEDS ORDERED: GLUCOSE 10 TABS/TUBE PO PRN (02:01)
[2019-01-27] MEDS ORDERED: GLUCOSE 40% GEL 15 GM TUBE PO PRN (02:01)
[2019-01-27] MEDS ORDERED: ACETAMINOPHEN 325 MG TAB PO PRN (02:01)
[2019-01-27] MEDS ORDERED: GLUCAGON FOR INJ 1 MG VIAL SQ PRN (02:01)
[2019-01-27] MEDS ORDERED: DEXTROSE 50% 50 ML SYRINGE IV PRN (02:01)
[2019-01-27] MEDS ORDERED: NITROGLYCERIN SL 0.4 MG/TAB TAB SL PRN (02:01)
[2019-01-27] MEDS: INSULIN ASPART 100 UNITS/ML 3 ML PEN SC SCH ×5 (03:01→20:30)
[2019-01-27] MEDS: HEPARIN SOD 5,000 UNIT/0.5 ML VIAL SQ SCH ×3 (06:08→20:34)
[2019-01-27 06:59] LABS: Basophils # (auto) 0.01 K/uL (0-0.2); Basophils % (auto) 0.2 %; Hematocrit (blood only) 38.1 % (42-52); Hemoglobin 12.3 g/dL (14.0-18.0); Immature Granulocytes # (auto) 0.02 K/uL (0.00-0.02); Immature Granulocytes % (auto) 0.3 %; Lymphocytes # (auto) 0.42 K/uL (1.2-3.4); Lymphocytes % (auto) 6.3 %; Mean Corpuscular Hemoglobin 28.4 pg (25-34); Mean Corpuscular Hgb Conc 32.3 g/dL (32-36); Mean Platelet Volume 9.1 fL (7.4-10.4); Monocytes # (auto) 0.12 K/uL (0.11-0.59); Monocytes % (auto) 1.8 %; Neutrophils # (auto) 6.05 K/uL (1.4-6.5); Neutrophils % (auto) 91.4 %; Platelet Count 249 K/uL (130-400); RDW Coefficient of Variation 16.1 % (11.5-14.5); RDW Standard Deviation 52.1 fL (36.4-46.3); Red Blood Count 4.33 M/uL (4.7-6.1); White Blood Count 6.62 K/uL (4.8-10.8)
[2019-01-27] MEDS ORDERED: XOPENEX/ATROVENT 1.25mg/0.5MG NEB COMBO NEB SCH (07:00)
[2019-01-27 07:01] LABS: Base Excess VBG 0.7 mEq/L; Oxygen Saturation VBG 83.8 %; pH VBG 7.4 (7.36-7.41)
[2019-01-27] MEDS: IPRATROPIUM BROMIDE NEB SOLN 0.02% 2.5 ML VIAL INH SCH ×3 (07:08→19:09)
[2019-01-27] MEDS: LEVALBUTEROL 1.25MG/0.5ML NEB INH SCH ×3 (07:08→19:09)
--- NOTE | 2019-01-27 07:09 | CT Scan Report ---
CT SCAN OF THE BRAIN WITHOUT IV CONTRAST CLINICAL HISTORY: Generalized weakness. COMPARISON STUDY: CT of the brain dated 08/26/2017. TECHNIQUE: Unenhanced axial CT scan of the brain is performed from the vertex to the skull base. A do se lowering technique was utilized adhering to the principles of ALARA. CT DOSE: 614.27 mGy.cm FINDINGS: Brain parenchyma: There are age-related involutional changes noting mild to moderate subcortical and periventricular microangiopathic change. There is no hemorrhage or mass effect. There is loss of gra y-white matter differentiation the left occipital lobe. No extra-axial fluid collection is seen. Ventricles, sulci, cisterns: Prominent secondary to involutional change. Intracranial vasculature: There is atherosclerotic calcification of the cavernous carotid arteries. Calvarium: Unremarkable. Sinuses and mastoids: The visualized paranasal sinuses are clear. The mastoid air cells are well pneu matized. Orbits: The bony orbits are grossly intact. There are bilateral ocular lens implants. IMPRESSION: 1. There is loss of bernard-white matter differentiation in the left occipital lobe. Findings are concer jacob for acute to subacute ischemia. 2. No hemorrhage or mass effect is identified. ACT 112: Positive. There are findings on this exam that require communication between the performing entity and the patient following Patient Test Result Information Act ([place] Act 112) guidelines. Electronically signed by: Benedict Helton M.D. 01/27/2019 7:07 AM
[2019-01-27 07:29] LABS: BUN Creatinine Ratio 19.8 (10-20); Calcium 9.6 mg/dl (8.5-10.1); Est GFR (African American) 62.9; Est GFR (Non-African American) 54.3; Potassium 3.7 mmol/L (3.5-5.1)
[2019-01-27] MEDS: lamoTRIgine 100 MG TAB PO SCH (07:59)
[2019-01-27] MEDS: GABAPENTIN 600 MG TAB PO SCH ×2 (07:59→20:30)
[2019-01-27] MEDS: FLUOXETINE HCL 20 MG CAP PO SCH (07:59)
[2019-01-27] MEDS: FINASTERIDE 5 MG TAB PO SCH (08:00)
[2019-01-27] MEDS: ASPIRIN 81 MG ECTAB PO SCH (08:00)
[2019-01-27] MEDS: OLANZapine 10 MG TAB PO SCH (08:00)
[2019-01-27] MEDS: DOXYCYCLINE HYCLATE 100 MG CAP PO SCH ×2 (08:01→20:33)
[2019-01-27] MEDS: predniSONE 10 MG TABLET PO SCH (08:01)
[2019-01-27] MEDS: TIMOLOL MALEATE 0.5% OP SOLN 5 ML BTL OPB SCH (08:02)
[2019-01-27] MEDS ORDERED: NON-FORMULARY MEDICATION (Lactobacillus Combination No.4 [Probiotic] 3,000 mmu cells) PO SCH (09:00)
[2019-01-27] MEDS ORDERED: AMLODIPINE BESYLATE 5 MG TAB PO SCH (09:00)
--- NOTE | 2019-01-27 09:41 | Magnetic Resonance Report ---
Brain MRA HISTORY: Memory difficulties. TECHNIQUE: 3-D [id number] MRA of the brain was performed without contrast. COMPARISON STUDY: Head CT 01/26/2019. FINDINGS: There is abrupt cut off within a branch of the distal left GOODYEAR WELTER best seen on image 111 of th e 3-D [id number] sequences. This corresponds to patient's left GOODYEAR WELTER territory infarct as seen on t he same day brain MRI. There is a 3.3 mm saccular aneurysm extending laterally from the cavernous seg ment of the right internal carotid artery. Severely hypoplastic distal right vertebral artery. Howeve r, distal vertebral arteries, basilar artery, internal carotid arteries, bilateral ACAs, and bilatera l MCAs are patent. The right GOODYEAR WELTER appears patent. IMPRESSION: 1. Focal occlusion within a branch of the distal left GOODYEAR WELTER corresponding to the patient's known left P CA territory infarct. 2. A 3.3 mm aneurysm at the catheter segment of the right internal carotid artery. 3. Severely hypoplastic distal right vertebral artery. ACT 112: Negative or not required by law. Electronically signed by: Reggie Rawls M.D. 01/27/2019 9:39 AM
--- NOTE | 2019-01-27 09:43 | Magnetic Resonance Report ---
Brain MRI WITHOUT CONTRAST HISTORY: Stroke symptoms. Forgetfulness. TECHNIQUE: Multiplanar multisequence MRI of the brain was performed without the use of contrast. COMPARISON STUDY: Head CT 01/26/2019. FINDINGS: There is no mass, hematoma, or midline shift. The paranasal sinuses are clear. The mastoid air cells are clear. The ventricles and sulci demonstrate moderate age-related involutional changes. Scattered foci of T2 hyperintensity seen within the periventricular and subcortical white matter are nonspecific but suggestive of moderate microvascular ischemic changes. The major vascular flow voids at the skull base are well-maintained. There is a 5.4 x 2.1 cm area of restricted diffusion involving the left medial temporal/occipital lobes consistent with an acute THEATER PROJECTIONIST territory infarct. There is as sociated cytotoxic edema at this location. IMPRESSION: Acute left THEATER PROJECTIONIST territory infarct. ACT 112: Negative or not required by law. Electronically signed by: Reggie Rawls M.D. 01/27/2019 9:42 AM
--- NOTE | 2019-01-27 10:10 | Ultrasound Report ---
CAROTID ARTERY ULTRASOUND CLINICAL HISTORY: Stroke. COMPARISON STUDY: Carotid ultrasound May 16, 2010. TECHNIQUE: Real-time, grayscale, and color Doppler sonography of the carotid and vertebral arteries w as performed. Images were viewed in the transverse and longitudinal planes. FINDINGS: There is moderate atherosclerotic plaque. Velocity measurements are listed below. COMMON CAROTID PEAK SYSTOLIC VELOCITY (CM/S): RIGHT 54 LEFT 6 ICA PEAK SYSTOLIC VELOCITY (CM/S): RIGHT 68 LEFT 72 Systolic ratios between the internal to common carotid arteries are normal. Flow within the right vertebral artery is diminished. Elevated peak systolic velocity of 260 cm/s wit hin the right external carotid artery is noted. Blood pressure in the right arm measured 140/80. Blood pressure in the left arm measured 145/80. IMPRESSION: 1. No evidence for hemodynamically significant stenosis within the bilateral cervical internal caroti d arteries. 2. Diminished flow within the right vertebral artery. 3. Evidence for a stenosis within the proximal right external carotid artery. ACT 112: Negative or not required by law. Electronically signed by: Hossein Mccoy M.D. 01/27/2019 10:09 AM
[2019-01-27] MEDS ORDERED: MICONAZOLE NITRATE POWDER 43 GM EXT PRN (11:24)
--- NOTE | 2019-01-27 14:13 | Neurology Consultation ---
Date of Consultation January 27, 2019 Assessment & Plan (1) Acute CVA (cerebrovascular accident): 1. MRI brain acute DAM OPERATOR stroke 2. CTA head/neck ordered- reviewed 3. PT/OT speech for discharge needs 4. optimize HTN, DM, HLD, LDL <70 5. continue aspirin 81 mg add plavix 75 mg x 3 weeks then stop aspirin and continue plavix for a lifetime 6. TTE if not done 7. outpatient follow up for saccular ANR with neurovascular 8. ZIO as outpatient will seen in our office 4-6 weeks after follow up Gabrielle MOSLEY (2) Acute confusion: Supervising Physician Co-Signing Physician Notes I have seen and discussed above patient with Dr Gabrielle Nichole, neurology. Patient seen and examined. History of multiple vascular risk factors. Sudden confusion by report. Patient serves currently as the chief historian. He de nied any visual symptoms. There was some headache thereafter. He is otherwise been well. MRI showed a left DAM OPERATOR infarction. No high-grade stenosis other than left DAM OPERATOR occlusion. 3 mm saccular aneurysm in the cavernous segment of the right internal carotid artery. Echocardiography shows mildly enlarged left atrium. EKG did not reveal atrial fibrillation. Examination is notable quite yet patient is awake and alert normal speech and language repetition naming three-step commands are normal. No visual field cut no visual extinction mild flattening left nasolabial fold. Symmetric strength in the upper and lower. Impression left DAM OPERATOR infarction this is often site of embolic infarction plan she was already on aspirin and Plavix use dual antiplatelet therapy for 21 days and then continue Plavix. Recommend Ziopatch as an outpatient to rule out atrial fibrillation. Optimization of vascular risk factors. ERIKA Nichole MD History of Present Illness Reason for Consultation: stroke Requesting Physician: Gypsy Gutiérrez DO Attending Physician: Gypsy Gutiérrez DO History of Present Illness Pj is a 73 year old male with PMH- BPH, CAD, COPD, HLD, GERD, OA, jamal izoaffective disorder, who presents to [facility] ED with complaints of an episode of confusion. He could not remember any of his regular doctors this morning, which the family member reports was very abnormal for him. She also notes the patient kept asking what was for supper multiple times, and she states he could not remember his sister in law's name. He does have some memory issues but more than normal today. He has been coughing more than usual. He had a severe headache prior to the event. He has emphysema and is always on 3 L of oxygen. His and son are bedside and provide some of the information. denies CP, increased SOB, abdominal pain, one sided weakness, numbness tingling slurred speech, bowel or bladder issues, +vision changes but not specific when talking about it. Allergies Allergy/AdvReac Type Severity Reaction Status Date / Time No Known Allergies Allergy Verified 01/26/19 14:20 Home Medications Home Medications Medication Instructions Recorded Confirmed Type albuterol sulfate 2.5 mg/3 mL 2.5 mg INHALATION Q6H PRN #4 ml 09/07/18 01/26/19 History (0.083 %) solution for nebulization amlodipine 10 mg tablet 10 mg PO QAM tab 09/07/18 01/26/19 History atorvastatin 80 mg tablet 80 mg PO QPM tab 09/07/18 01/26/19 History fluoxetine 60 mg tablet 60 mg PO QAM tab 09/07/18 01/26/19 History ipratropium-albuterol 0.5 mg-3 3 ml INHALATION QID #120 ml 09/07/18 01/26/19 History mg(2.5 mg base)/3 mL nebulization soln lamotrigine 200 mg tablet 200 mg PO QAM tab 09/07/18 01/26/19 History losartan 50 mg tablet 50 mg PO QPM tab 09/07/18 01/26/19 History magnesium oxide 400 mg (241.3 mg 400 mg PO BID tab 09/07/18 01/26/19 History magnesium) tablet pantoprazole 40 mg tablet,delayed 40 mg PO QPM #30 tab 09/07/18 01/26/19 History release timolol maleate 0.5 % once daily 1 drp OPB QAM ml 09/07/18 01/26/19 History eye drops gabapentin 600 mg tablet 600 mg PO BID tab 12/20/18 01/26/19 History albuterol sulfate 90 mcg/actuation 2 puffs INH Q4H PRN #18 gm 12/27/18 01/26/19 Rx aerosol inhaler lactobacillus combination no.4 3,000 mmu cells PO QAM 01/02/19 01/26/19 History [Probiotic] tiotropium bromide [Spiriva 2 puff INHALATION QAM 01/02/19 01/26/19 History Respimat] finasteride 5 mg tablet 5 mg PO QAM #90 tab 01/17/19 01/26/19 Rx tamsulosin 0.4 mg capsule 0.4 mg PO QPM #90 cap 01/17/19 01/26/19 Rx aspirin [Aspir-81] 81 mg PO DAILY 01/26/19 01/26/19 History doxycycline hyclate 100 mg capsule 100 mg PO BID #28 cap 01/26/19 01/26/19 Rx olanzapine [Zyprexa] 30 mg PO DAILY 01/26/19 01/26/19 History prednisone 10 mg tablet See Rx Instructions PO DAILY #20 01/26/19 01/26/19 Rx tab Patient History Medical History Anxiety BPH (benign prostatic hyperplasia) BPH loc w urin obs/LUTS CAD (coronary artery disease) (Chronic) "s/p PTCA in 1997 and 2000 1997 - stent placed but details unknown 2000 - stent to LAD" Chronic kidney disease F/U [facility] Chronic obstructive pulmonary disease EMPHYSEMA -- SEVERE, ON 2L O2 Diabetes mellitus, type 2 BORDERLINE-DIET MANAGED Hyperlipidemia Hypertension On home oxygen therapy 2-3 L/MIN NC CONT/WITH BIPAP HS Osteoarthritis Schizo affective schizophrenia Sleep apnea BIPAP/OXYGEN SOB (shortness of breath) on exertion Surgical History History of appendectomy History of cardiac cath 1 STENT EACH TIME [facility]-F/U DR VILLA History of colonoscopy Family History Other No significant family history Social History Preferred Language: Chinese Communication Ability: Effective Product Architect Required: No Beliefs That Will Affect Care: None Current Living Situation: Spouse Feels Safe at Home: Yes Smoking Status: Former smoker Do You Dip or Chew Tobacco: No ; Second Hand Exposure: No ; Hx Alcohol Use: No Hx Substance Use: No Physical Exam Physical Exam: Physical Exam: Constitutional: appearance nourished, obese 4L O2 Ears, Nose, Mouth and Throat: mucous membranes moist, no injection and skin normal, eyes normal Cardiovascular: normal S-1 and S-2 and regular rate and rhythm Respiratory: course breath sounds Musculoskeletal: mild peripheral edema and distant distal pulses Skin: no stigmata of neurocutaneous disease noted and normal and intact Eyes: extraocular muscles intact (EOMI) and pupils equal, round and reactive to light (PERRL), gross peripheral vision intact NEUROLOGIC EXAMINATION: Mental status: Alert and interactive Oriented to [place], president Price Oriented to person Speech fluent with no evidence of aphasia Cranial Nerves smile eye brow raise symmetric Reflexes: Deep tendon reflexes were symmetrical and graded 2/5. Sensory: to light cool touch intact Coordination: finger to nose no bi pass, rapid hand movements bilaterally slow, heel to michel intact Gait/Stance: Posture normal. sitting in bedside chair Motor: Negative for pronator drift of out stretched arms with eyes closed. Strength: hand senior training and development rep biceps triceps deltoids 5/5 hip flex plantar flex ext 5/5 Results & Data Vital Signs (Past 12 Hours) Vital Signs Temp Pulse Pulse Resp BP BP Pulse Ox 01/27/19 12:57 66 18 98 01/27/19 12:00 36.7 C 64 20 168/82 H 98 01/27/19 07:25 36.9 C 64 20 150/79 H 99 01/27/19 07:16 68 01/27/19 07:09 59 L 18 94 01/27/19 04:46 36.6 C 66 18 166/87 H 99 01/27/19 02:25 65 Laboratory Results Abnormal lab results 01/26/19 01/26/19 01/26/19 Range/Units 22:40 23:52 23:52 RBC (4.7-6.1) M/uL Hgb 13.4 L (14.0-18.0) g/dL Hct 41.4 L (42-52) % RDW Std Deviation 52.5 H (36.4-46.3) fL RDW Coeff of Hermes 16.3 H (11.5-14.5) % Lymph # (Auto) 0.52 L (1.2-3.4) K/uL Mckean # (Auto) 0.06 L (0.11-0.59) K/uL Chloride (98-107) mmol/L BUN (7-18) mg/dl Creatinine (0.6-1.4) mg/dl BUN/Creatinine Ratio (10-20) Glucose (70-99) mg/dl POC Glucose (70-99) Magnesium 2.7 H (1.8-2.4) mg/dl AST 14 L (15-37) U/L Alkaline Phosphatase (45-117) U/L Albumin (3.4-5.0) gm/dl Globulin (2.5-4.0) gm/dl Albumin/Globulin Ratio (0.9-2) Urine Protein 1+ H (Negative) Urine Glucose (UA) 3+ H (Negative) 01/26/19 01/27/19 01/27/19 Range/Units Unknown 02:06 06:50 RBC 4.33 L (4.7-6.1) M/uL Hgb 12.3 L (14.0-18.0) g/dL Hct 38.1 L (42-52) % RDW Std Deviation 52.1 H (36.4-46.3) fL RDW Coeff of Hermes 16.1 H (11.5-14.5) % Lymph # (Auto) 0.42 L (1.2-3.4) K/uL Mckean # (Auto) (0.11-0.59) K/uL Chloride 110 H (98-107) mmol/L BUN 31 H (7-18) mg/dl Creatinine 1.53 H (0.6-1.4) mg/dl BUN/Creatinine Ratio 20.2 H (10-20) Glucose 260 H (70-99) mg/dl POC Glucose 222 H (70-99) Magnesium (1.8-2.4) mg/dl AST (15-37) U/L Alkaline Phosphatase 119 H (45-117) U/L Albumin 3.1 L (3.4-5.0) gm/dl Globulin 4.7 H (2.5-4.0) gm/dl Albumin/Globulin Ratio 0.7 L (0.9-2) Urine Protein (Negative) Urine Glucose (UA) (Negative) 01/27/19 01/27/19 01/27/19 Range/Units 06:50 07:54 07:55 RBC (4.7-6.1) M/uL Hgb (14.0-18.0) g/dL Hct (42-52) % RDW Std Deviation (36.4-46.3) fL RDW Coeff of Hermes (11.5-14.5) % Lymph # (Auto) (1.2-3.4) K/uL Mckean # (Auto) (0.11-0.59) K/uL Chloride 112 H (98-107) mmol/L BUN 26 H (7-18) mg/dl Creatinine (0.6-1.4) mg/dl BUN/Creatinine Ratio (10-20) Glucose 243 H (70-99) mg/dl POC Glucose 300 H 219 H (70-99) Magnesium (1.8-2.4) mg/dl AST (15-37) U/L Alkaline Phosphatase (45-117) U/L Albumin (3.4-5.0) gm/dl Globulin (2.5-4.0) gm/dl Albumin/Globulin Ratio (0.9-2) Urine Protein (Negative) Urine Glucose (UA) (Negative) 01/27/19 Range/Units 11:46 RBC (4.7-6.1) M/uL Hgb (14.0-18.0) g/dL Hct (42-52) % RDW Std Deviation (36.4-46.3) fL RDW Coeff of Hermes (11.5-14.5) % Lymph # (Auto) (1.2-3.4) K/uL Mckean # (Auto) (0.11-0.59) K/uL Chloride (98-107) mmol/L BUN (7-18) mg/dl Creatinine (0.6-1.4) mg/dl BUN/Creatinine Ratio (10-20) Glucose (70-99) mg/dl POC Glucose 179 H (70-99) Magnesium (1.8-2.4) mg/dl AST (15-37) U/L Alkaline Phosphatase (45-117) U/L Albumin (3.4-5.0) gm/dl Globulin (2.5-4.0) gm/dl Albumin/Globulin Ratio (0.9-2) Urine Protein (Negative) Urine Glucose (UA) (Negative) Diagnostic Findings CXR- Mild cardiomegaly. Underlying chronic lung disease consistent with known emphysema. No other convincing evidence of acute cardiopulmonary disease. carotid doppler- No evidence for hemodynamically significant stenosis within the bilateral cervical internal carotid arteries. Diminished flow within the right vertebral artery. Evidence for a stenosis within the proximal right external carotid artery. MRI brain-Acute left DAM OPERATOR territory infarct. CT head-. There is loss of bernard-white matter differentiation in the left occipital lobe. Findings are concerning for acute to subacute ischemia. No hemorrhage or mass effect is identified. CTA neck- Atherosclerosis with mild stenoses of the origins of the bilateral ICAs, left greater than right, unlikely to be hemodynamically significant. CTA head- Redemonstration of the occluded branch of the distal left DAM OPERATOR with an associated left DAM OPERATOR territory infarct. A 3 mm saccular aneurysm extending later ally from the cavernous segment of the right internal carotid artery.
[2019-01-27] MEDS ORDERED: OPTIRAY 320 125ml IV PRN (15:39)
--- NOTE | 2019-01-27 15:51 | CT Scan Report ---
HEAD CTA HISTORY: Left MEDIA MARKETING COORDINATOR territory infarct. TECHNIQUE: Multiaxial CT images of the head were performed following the intravenous administration o f contrast to evaluate the major cerebral vessels. Maximum intensity projection images were also obta ined. A dose lowering technique was utilized adhering to the principles of ALARA. COMPARISON: Brain MRI 01/27/2019. FINDINGS: Redemonstration of the hypodensity within the left medial temporal/occipital lobe consisten t with the MEDIA MARKETING COORDINATOR territory infarct. There is again noted focal occlusion within a branch of the distal left MEDIA MARKETING COORDINATOR best seen on axial image 111. This corresponds to the site of infarct. There is a 3 mm saccu lar aneurysm extending laterally from the cavernous segment of the right internal carotid artery. The re is a severely hypoplastic right vertebral artery which is not well visualized. The distal left sneha tebral artery, basilar artery, right MEDIA MARKETING COORDINATOR, bilateral MCAs, and bilateral ACAs are widely patent. The m ajor dural venous sinuses are patent. Moderate calcified plaque within the bilateral carotid siphons without significant stenosis. IMPRESSION: 1. Redemonstration of the occluded branch of the distal left MEDIA MARKETING COORDINATOR with an associated left MEDIA MARKETING COORDINATOR territor y infarct. 2. A 3 mm saccular aneurysm extending laterally from the cavernous segment of the right internal vela tid artery. ACT 112: Negative or not required by law. Electronically signed by: Reggie Rawls M.D. 01/27/2019 3:50 PM
--- NOTE | 2019-01-27 15:51 | CT Scan Report ---
CT angio neck with con CLINICAL HISTORY: 73 years-old Male presenting with posterior circulation stroke. TECHNIQUE: Multidetector CT angiography of the neck was performed after the administration of intrave nous contrast. 3-D volumetric and/or maximum intensity projection (MIP) images were subsequently edgardo nstructed for review. IV contrast: 119 mL of Optiray 320. One or more dose lowering techniques were u sed consistent with the principles of ALARA (as low as reasonably achievable), including automatic ex posure control, mA or kV adjustment to individual patient size, and/or use of iterative reconstructio n. Stenosis measurements were based on NASCET-like criteria (distal lumen diameter as the denominator for stenosis measurement). COMPARISON: Carotid Doppler from earlier today. CT DOSE (mGy.cm): The estimated cumulative dose is 595.83 mGy.cm. FINDINGS: [employer] Pump Tender topogram: Unremarkable. Aortic arch: Atherosclerosis of the three-vessel aortic arch with patent origins of the branch vessel s. Tortuosity of the branch vessels could suggest chronic hypertension. Innominate artery: Atherosclerosis without significant stenosis. Right subclavian artery: Atherosclerosis without significant stenosis. Right common carotid artery: Patent. Right internal and external carotid arteries: Calcified and noncalcified atherosclerotic plaque at th e carotid bifurcation. Less than 25% stenosis of the origin of the right ICA. The remainder of the co urses widely patent. External carotid artery with less than 50% stenosis of the proximal portion. Left common carotid artery: Patent. Left internal and external carotid arteries: Largely calcified atherosclerotic plaque at the bifurcat ion with less than 50% narrowing of the origin of the internal carotid artery. The remainder of the c ourse of the left ICA is widely patent. No evidence of significant stenosis of the external carotid a rtery. Left subclavian artery: Atherosclerosis without significant stenosis. Vertebral arteries: Left dominant vertebral artery. Origins and courses of the bilateral vertebral ar teries patent. Other: Limited intracranial evaluation within normal limits. Soft tissues of the neck normal allowing for the phase of contrast. Degenerative changes of the cervical spine. Emphysema. IMPRESSION: 1. Atherosclerosis with mild stenoses of the origins of the bilateral ICAs, left greater than right, unlikely to be hemodynamically significant. ACT 112: Negative or not required by law. Electronically signed by: Rick Ambrocio M.D. 01/27/2019 3:50 PM
--- NOTE | 2019-01-27 16:41 | Hospitalist Progress Note ---
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 Plavix started out of concern for aspirin failure. Neurology consult. PT/OT to assess. No speech difficulties. TTE peding. (2) Acute renal failure: 2/2 acute illness, improved to baseline after IVF administration. (3) COPD exacerbation: cont prednisone taper and abx per outpatient pulmonary recommendations. He is improved clinically. (4) Dependence on continuous supplemental oxygen: continues on baseline oxygen supplementation (5) DMII (diabetes mellitus, type 2): controlled on basal bolus insulin while hospitalized. (6) BPH loc w urin obs/LUTS: cont medical therapy per home regimen. (7) DVT prophylaxis: heparin Full Code Dispo-pending PT/OT recommendations. Gypsy [facility]utiérrez [facility] Pt is doing well and is able to answer questions appropriately but has some selective amnesia No other stroke like symptoms outside of this--tolerating po, no swallowing issues, no headache, chronic blurry vision, no issues with gait. is at bedside and states that he is not improved from yesterday The patient thinks he is here for his lungs Review of Systems Review of Systems: All systems reviewed & are unremarkable except as noted in HPI & below Physical Exam Physical Exam: CONSTITUTIONAL: WNWD, vitals as above, generally well- appearing EYES: EOMI bilaterally, PERRL, normal conjunctivae, no scleral icterus ENT: MMM RESPIRATORY: clear to auscultation bilaterally, no crackles, rales or wheezes, normal respiratory effort CARDIOVASCULAR: regular rate and rhythm, S1 and 2 heard without murmurs, gallops or rubs, no JVD, no peripheral edema GASTROINTESTINAL: soft, nontender, nondistended MUSCULOSKELETAL: strength 5/5 throughout, head is normocephalic and atraumatic SKIN: warm and dry NEUROLOGIC: CN 2-12 intact, +chronic sensory deficit in both feet, normal cognition, normal speech, no tremor, finger to nose test intact, FESTUS intact PSYCHIATRIC: alert cooperative and oriented to person, place and time. Results & Data Vital Signs (Past 12 Hours) Vital Signs Temp Pulse Pulse Pulse Resp BP BP 01/27/19 15:11 36.3 C L 63 18 155/79 H 01/27/19 12:57 66 18 01/27/19 12:00 36.7 C 64 20 168/82 H 01/27/19 07:25 36.9 C 64 20 150/79 H 01/27/19 07:16 68 01/27/19 07:09 59 L 18 01/27/19 04:46 36.6 C 66 18 166/87 H Pulse Ox 01/27/19 15:11 98 01/27/19 12:57 98 01/27/19 12:00 98 01/27/19 07:25 99 01/27/19 07:16 01/27/19 07:09 94 01/27/19 04:46 99 Laboratory Results Short CBC 01/26/19 01/26/19 01/27/19 Range/Units 23:52 Unknown 06:50 WBC 6.31 Cancelled 6.62 (4.8-10.8) K/uL Hgb 13.4 L Cancelled 12.3 L (14.0-18.0) g/dL Hct 41.4 L Cancelled 38.1 L (42-52) % Plt Count 267 Cancelled 249 (130-400) K/uL BMP 01/26/19 01/26/19 01/27/19 23:52 Unknown 06:50 Sodium 140 142 Potassium 3.8 3.7 Chloride 110 H 112 H Carbon Dioxide 26 25 BUN 31 H 26 H Creatinine 1.53 H 1.29 Glucose 260 H 243 H Calcium 9.6 9.6 Cardiac Enzymes 01/26/19 Range/Units Unknown Troponin I < 0.015 (0-0.045) ng/ml Liver Function 01/26/19 01/26/19 Range/Units 23:52 Unknown Total Bilirubin 0.4 (0.2-1) mg/dl AST 14 L (15-37) U/L ALT 26 (12-78) U/L Alkaline Phosphatase 119 H (45-117) U/L Albumin 3.1 L (3.4-5.0) gm/dl Urine 01/26/19 Range/Units 22:40 Urine Color Yellow Urine Appearance Clear (Clear) Urine pH 7.0 (4.5-7.5) Ur Specific [place] 1.015 (1.000-1.030) Urine Protein 1+ H (Negative) Urine Glucose (UA) 3+ H (Negative) Medications Administered Current Inpatient Medications Acetaminophen (Tylenol) 650 mg PO Q4H PRN PRN Reason: Pain or Fever Stop: 02/26/19 02:00 Aspirin (Ecotrin Ectab) 81 mg PO DAILY [facility] Stop: 02/26/19 08:59 Last Admin: 01/27/19 08:00 Dose: 81 mg Documented by: Atorvastatin Calcium (Lipitor) 80 mg PO QPM [facility] Stop: 02/26/19 20:59 Clopidogrel Bisulfate (Plavix) 75 mg PO QAM [facility] Stop: 02/27/19 08:59 Dextrose (Dextrose 50%) 25 - 50 ml IV UD PRN; Protocol PRN Reason: Hypoglycemia Protocol Stop: 02/26/19 02:00 Doxycycline Hyclate (Vibramycin) 100 mg PO BID [facility] Stop: 02/03/19 08:59 Last Admin: 01/27/19 08:01 Dose: 100 mg Documented by: Finasteride (Proscar) 5 mg PO QAM [facility] Stop: 02/26/19 08:59 Last Admin: 01/27/19 08:00 Dose: 5 mg Documented by: Fluoxetine HCl (Prozac) 60 mg PO QAM [facility] Stop: 02/26/19 08:59 Last Admin: 01/27/19 07:59 Dose: 60 mg Documented by: Gabapentin (Neurontin) 600 mg PO BID [facility] Stop: 02/26/19 08:59 Last Admin: 01/27/19 07:59 Dose: 600 mg Documented by: Glucagon (Glucagen) 1 mg SQ UD PRN; Protocol PRN Reason: Hypoglycemia Protocol Stop: 02/26/19 02:00 Glucose (Dex4 Glucose) 4 - 8 tabs PO UD PRN; Protocol PRN Reason: Hypoglycemia Protocol Stop: 02/26/19 02:00 Glucose (Glucose 40%) 15 - 30 gm PO UD PRN; Protocol PRN Reason: Hypoglycemia Protocol Stop: 02/26/19 02:00 Heparin Sodium (Porcine) (Heparin Sodium (Porcine)) 5,000 units SQ Q8 [facility] Stop: 02/26/19 05:59 Last Admin: 01/27/19 14:27 Dose: 5,000 units Documented by: Sodium Chloride (Nss 1000ml) 1,000 mls @ 60 mls/hr IV .[id number] ONE Stop: 01/27/19 18:40 Last Admin: 01/27/19 02:14 Dose: 60 mls/hr Documented by: Insulin Aspart (Novolog Flexpen) 0 units SC ACHS [facility] Stop: 02/26/19 02:00 Last Admin: 01/27/19 17:27 Dose: 4 units Documented by: Insulin Glargine (Lantus Solostar Pen) 20 units SQ BID [facility] Stop: 02/26/19 20:59 Ioversol (Optiray 320 125ml) 119 ml IV ONCE PRN PRN Reason: Interaction Checking Stop: 01/31/19 15:38 Last Admin: 01/27/19 15:39 Dose: 119 ml Documented by: Ipratropium Vance (Atrovent 0.02% 0.5mg/2.5ml) 0.5 mg INH Q6R [facility] Stop: 02/26/19 06:59 Last Admin: 01/27/19 12:57 Dose: 0.5 mg Documented by: Lamotrigine (Lamictal) 200 mg PO QAM [facility] Stop: 02/26/19 08:59 Last Admin: 01/27/19 07:59 Dose: 200 mg Documented by: Levalbuterol HCl (Xopenex 1.25mg/0.5ml Neb) 1.25 mg INH Q6R [facility] Stop: 02/26/19 06:59 Last Admin: 01/27/19 12:57 Dose: 1.25 mg Documented by: Miconazole Nitrate (Desenex) 1 appln EXT PRN PRN PRN Reason: Affected Skin Folds Stop: 02/26/19 11:23 Miscellaneous (Carbohydrates For Hypoglycemia) 15 - 30 gm PO UD PRN PRN Reason: Hypoglycemia Protocol Stop: 02/26/19 02:00 Miscellaneous Information (Pharmacist Discharge Med Rec Consult) 1 ea N/A UD PRN PRN Reason: Consult Stop: 02/26/19 02:00 Nitroglycerin (Nitrostat) 0.4 mg SL UD PRN PRN Reason: Chest Pain Stop: 02/26/19 02:00 Olanzapine (Zyprexa) 30 mg PO DAILY [facility] Stop: 02/26/19 08:59 Last Admin: 01/27/19 08:00 Dose: 30 mg Documented by: Pantoprazole Sodium (Protonix) 40 mg PO QPM [facility] Stop: 02/26/19 20:59 Prednisone (Prednisone) 40 mg PO DAILY [facility]; Taper Stop: 02/03/19 08:59 Last Admin: 12/20/19 08:01 Dose: 40 mg Documented by: Tamsulosin HCl (Flomax) 0.4 mg PO QPM [facility] Stop: 02/26/19 20:59 Timolol Maleate (Timoptic 0.5% Oph) 1 drops OPB QAM [facility] Stop: 02/26/19 08:59 Last Admin: 01/27/19 08:02 Dose: 1 drops Documented by:
[2019-01-27] MEDS: INSULIN GLARGINE SOLOSTAR 100 UNITS/ML 3 ML PEN SQ SCH (20:29)
[2019-01-27] MEDS ORDERED: ATORVASTATIN 40 MG TAB PO SCH (21:00)
[2019-01-27] MEDS ORDERED: TAMSULOSIN HCL 0.4 MG CAP PO SCH (21:00)
[2019-01-27] MEDS ORDERED: PANTOprazole 40 MG TAB PO SCH (21:00)
[2019-01-28] MEDS: IPRATROPIUM BROMIDE NEB SOLN 0.02% 2.5 ML VIAL INH SCH ×3 (00:48→13:30)
[2019-01-28] MEDS: LEVALBUTEROL 1.25MG/0.5ML NEB INH SCH ×3 (00:48→13:30)
[2019-01-28] MEDS: HEPARIN SOD 5,000 UNIT/0.5 ML VIAL SQ SCH ×2 (06:14→13:53)
[2019-01-28] MEDS: predniSONE 10 MG TABLET PO SCH (08:00)
[2019-01-28] MEDS: DOXYCYCLINE HYCLATE 100 MG CAP PO SCH (08:01)
[2019-01-28] MEDS: FINASTERIDE 5 MG TAB PO SCH (08:01)
[2019-01-28] MEDS: OLANZapine 10 MG TAB PO SCH (08:04)
[2019-01-28] MEDS: FLUOXETINE HCL 20 MG CAP PO SCH (08:04)
[2019-01-28] MEDS: ASPIRIN 81 MG ECTAB PO SCH (08:04)
[2019-01-28] MEDS: lamoTRIgine 100 MG TAB PO SCH (08:04)
[2019-01-28] MEDS: GABAPENTIN 600 MG TAB PO SCH (08:04)
[2019-01-28] MEDS: TIMOLOL MALEATE 0.5% OP SOLN 5 ML BTL OPB SCH (08:05)
[2019-01-28] MEDS: INSULIN GLARGINE SOLOSTAR 100 UNITS/ML 3 ML PEN SQ SCH (08:07)
[2019-01-28] MEDS: INSULIN ASPART 100 UNITS/ML 3 ML PEN SC SCH ×3 (08:08→17:21)
[2019-01-28] MEDS ORDERED: INSULIN GLARGINE SOLOSTAR 100 UNITS/ML 3 ML PEN SQ SCH (09:00)
[2019-01-28] MEDS ORDERED: CLOPIDOGREL BISULFATE 75 MG TAB PO SCH (09:00)
--- NOTE | 2019-01-28 10:48 | Progress Note ---
DATE: 01/28/2019 SUBJECTIVE: I am seeing Mr. Medel in followup of the left CONCESSIONIST infarction. CTA of the head shows an occlusion of the left CONCESSIONIST. Echo showed mild left atrial enlargement. CTA of the head additionally showed a 3 millimeter saccular aneurysm extending laterally from the cavernous segment of the right internal carotid artery. The patient has had no recurrent events. PHYSICAL EXAMINATION: He is awake and alert and oriented x3, no right/left confusion. Normal extraocular motility. No reproducible field cut, although I do have the sense that in the right eye supero and inferotemporarily there may be some decreased vision. Normal facial symmetry. Speech and language are normal. There is symmetric strength. There is a mild tremor with intention. IMPRESSION: Left CONCESSIONIST infarction. PLAN: Continue dual antiplatelet therapy with aspirin and Plavix for 21 days and then Plavix alone. The patient will need a Zio patch as an outpatient to rule out atrial fibrillation. He will need to see vascular neurosurgery for further evaluation of the right internal carotid aneurysm, 3 mm, saccular. The patient should see us in followup in the office in 2-3 weeks.
[2019-01-28] MEDS ORDERED: AMLODIPINE BESYLATE 5 MG TAB PO STA (16:31)
[2019-01-28] MEDS ORDERED: STROKE PATIENT DISCHARGE STA (16:37)
--- NOTE | 2019-01-28 16:37 | Discharge Summary ---
Date of Service January 28, 2019 Admission HPI Per Admitting Provider History obtained from patient, family, and records. Medical history significant for chronic right-sided heart failure as per records (55 to 59%, TTE 2018 ), CAD status post stent, hypertension, hyperlipidemia, chronic resp failure 2 to COPD on home O2, MUKUL, DM2 on oral meds, schizoaffective disorder, neurogenic bladder on chronic Black catheter. Chronic anemia(baseline hemoglobin 12), past tobacco abuse, hx MRSA Recent admission August 2017 for pneumonia. The last 2 days patient noted worsening junky cough, S OB symptoms without chest pain. Denies aspiration, fever, chills. No known sick contacts. Patient scheduled outpatient [facility] relationship consultant appointment for respiratory symptoms. Yesterday morning prior to relationship consultant appointment, patient noted to be forgetful by . Patient did not know name of pulmonology provider which is unusual as per patient . Patient prescribed doxycycline and prednisone course for bronchitis symptoms as per patient . Minimal improvement in breathing symptoms despite initial doses of medications. Patient's son (practicing clicking machine operator from [place]) recommended ER evaluation to get checked out for stroke with forgetfulness symptoms. MEDICAL HISTORY: As above. SURGERIES: He has had an appendectomy, cataract surgery. FAMILY HISTORY: heart disease, stroke, dementia PERSONAL AND SOCIAL HISTORY: Remote tobacco use. 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 Hypertension Discharge Data Allergies Allergy/AdvReac Type Severity Reaction Status Date / Time No Known Allergies Allergy Verified 01/26/19 14:20 Consultations 01/26/19 23:35 ED Decision to Admit Stat 01/27/19 02:01 Consult Case Management - Discharge Planning Routine Consult Neurology Routine Ordered Studies 01/26/19 22:17 CT head/brain wo con Urgent 01/27/19 02:01 MR angio head wo con Routine MR brain wo con Routine US carotid doppler BI Routine 01/27/19 14:34 CT angio head w con Routine CT angio neck with con Routine Hospital Course (1) Acute CVA (cerebrovascular accident): (2) 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 His acute memory loss prompted the ER visit after he was seen for a COPD exacerbation and started on prednisone and antibiotic therapy. An initial head CT revealed an acute stroke in the left occipital lobe. A brain MRI was ordered confirming an acute left WORLD TRAVEL COUNSELOR territory infarct. Carotid Doppler ultrasound was negative for hemodynamically significant stenosis within the bilateral cervical internal carotid arteries. Diminished flow with thin the right vertebral artery was seen and evidence for stenosis within the proximal right external carotid artery was seen. Head and neck CTA was performed revealing an occluded branch of the distal left WORLD TRAVEL COUNSELOR with an associated left WORLD TRAVEL COUNSELOR territory infarct and a 3 mm saccular aneurysm extending laterally from the cavernous segment of the right internal carotid artery. A brain MRA revealed focal occlusion within a branch of the distal left WORLD TRAVEL COUNSELOR corresponding to the patient's known left WORLD TRAVEL COUNSELOR territory infarct in addition to confirmation of th e 3.3 mm aneurysm at the catheter segment of the right internal carotid artery. A severely hypoplastic distal right vertebral artery was noted. Neurology was consulted and recommended continuation of dual antiplatelet therapy for 21 days with continuation of Plavix thereafter. An outpatient ZIO patch was also recommended as an outpatient to rule out atrial fibrillation. It should be noted that telemetry did not reveal evidence of an arrhythmia while he was hospitalized. He will also need vascular neurosurgery for further evaluation of the right internal carotid aneurysm that is 3 mm and saccular. Close neurology follow-up was recommended in the office in 2 3 weeks time. An echocardiogram was performed revealing ejection fraction 60 to 65% with no evidence of intra- atrial shunt seen after injection of contrast. At time of discharge he was hemodynamically stable and afebrile and tolerating p.o. without difficulty swallowing. He still had some evidence of memory loss but was improving. He was evaluated by physical therapy and felt safe to return home. Physical exam revealed no focal neurologic deficit and was otherwise unremarkable. He was sent home in stable condition with close primary care follow-up recommended. His creatinine was 1.53 on admission and resolved to 1.29 after IV fluid administration. This was closer to his baseline of 1.2. With contrast given for imaging studies, primary care doctor may elect to recheck lab work in 1 week out of concern for developing contrast-induced nephropathy. The patient was encouraged to stay hydrated. Total Time Total Time Spent Total Time Spent (In Minutes): 60 Total Time Includes: Examination of the Patient, Discharge Planning, Medication Reconciliation and Communication With Other Providers Discharge Plan Discharge Items Patient Disposition: Home - Self-Care Reason For Visit: STROKE Discharge Diagnosis: acute stroke Condition on Discharge: Good Activity: Resume your previous activity Non-emergency contact: Primary Care Provider Call non-emergency contact if: you have any medication questions, your symptoms worsen, your pain is not controlled, your pain is worsening, your pain is unusual for you, your pain is concerning for you and you have a fever Follow-up/Referrals: Clau Batista, [Primary Care Provider] - Diet: Carb Consistent or DM2 and Low Sodium (2gm) Addtl Attending Provider Instructions: Please take all medications as instructed on discharge list below. Please continue dual antiplatelet therapy with aspirin and Plavix for 21 days, then continue Plavix alone. You will need a ZIO patch as an outpatient to rule out atrial fibrillation. This is an event monitor that can be prescribed by your primary care doctor on follow-up. You need a referral to a vascular neurosurgeon for further evaluation of your right internal carotid aneurysm which is 3 mm and saccular. Please follow-up with Dr. Gabrielle Nichole in [facility] neurology in 2 to 3 weeks. Regarding your prednisone taper, you are on Day 3, and received 30mg today. Please continue with 30mg tomorrow (01/29) and decrease to 20mg (01/30) and so on with the original taper prescribed. It is recommended that you see your primary care doctor within one week of discharge from the hospital. Someone will contact you after the weekend to help you set this up. This appointment will be important to monitor your blood pressure and ensure it improved after adding your blood pressure medications back after discharge, and to order the event monitor. It was a pleasure taking care of you! Please call if you have any questions or problems. You can reach a [facility] hospitalist on duty at [facility] 24 hours a day by calling [phone]. Take care of yourself. Gypsy Gutiérrez DO [facility] Hospitalist Pending Studies at Discharge: No Stand-Alone Forms: Medications to Prevent Stroke, My [facility], Smoking Cessation Medications and DC Order Prescriptions: New clopidogrel 75 mg Tablet 75 mg PO QAM Qty: 30 RF: 1 Continued finasteride 5 mg tablet 5 mg PO QAM Qty: 90 RF: 3 tamsulosin 0.4 mg capsule 0.4 mg PO QPM Qty: 90 RF: 3 losartan 50 mg tablet 50 mg PO QPM RF: 0 albuterol sulfate 2.5 mg /3 mL (0.083 %) solution for nebulization 2.5 mg inhalation Q6H PRN (Reason: Wheezing) Qty: 4 RF: 0 amlodipine 10 mg tablet 10 mg PO QAM RF: 0 atorvastatin 80 mg tablet 80 mg PO QPM RF: 0 fluoxetine 60 mg tablet 60 mg PO QAM RF: 0 ipratropium-albuterol 0.5 mg-3 mg(2.5 mg base)/3 mL solution for nebulization 3 ml inhalation QID Qty: 120 RF: 0 lamotrigine 200 mg tablet 200 mg PO QAM RF: 0 magnesium oxide 400 mg (241.3 mg magnesium) tablet 400 mg PO BID RF: 0 pantoprazole 40 mg tablet,delayed release (DR/EC) 40 mg PO QPM Qty: 30 RF: 0 timolol maleate 0.5 % drops, once daily 1 drp OPB QAM RF: 0 gabapentin 600 mg tablet 600 mg PO BID RF: 0 doxycycline hyclate 100 mg capsule 100 mg PO BID Qty: 28 RF: 0 prednisone 10 mg tablet See Rx Instructions PO DAILY Qty: 20 RF: 0 albuterol sulfate [Ventolin HFA] 90 mcg/actuation HFA aerosol inhaler 2 puffs INH Q4H PRN (Reason: increased cough, shortness of breath or wheezing) Qty: 18 RF: 5 Spiriva Respimat 2.5 mcg/actuation Mist 2 puff INHALATION QAM RF: 0 Probiotic 3 billion cell Capsule 3,000 mmu cells PO QAM RF: 0 aspirin [Aspir-81] 81 mg Tablet,Delayed Release (Dr/Ec) 81 mg PO DAILY RF: 0 olanzapine [Zyprexa] 15 mg tablet 30 mg PO DAILY RF: 0 Discharge Orders: Discharge Order (Routine); Ordered 01/28/19 Ordered By: Gypsy Gutiérrez Admission Data Admit Date/Time: 01/27/19 00:23 Attending Provider: Gypsy Gutiérrez Admit Provider: Johnny Flower Primary Care Provider: Clau Batista Other Providers: Johnny Flower ; Gabrielle Shipley ; Pj Layne ; Gabrielle Nichole ; Sin Arrieta Other Interventions: Discharge Summary Assessment (RN) Last Done: 01/28/19 17:48 DC Date/Time DO NOT enter until pt leaves facility: 01/28/19 18:40
--- NOTE | 2019-01-28 19:10 | Pharmacy Report ---
Pharmacist Stroke Counseling - Date of Service January 28, 2019 - Scope: Pharmacy has been consulted to provide medication discharge counseling for this patient admitted with ischemic stroke as per the Pharmacist Discharge Counseling for Stroke Patients Protocol. - Medications on Discharge: Home Medications Medication Instructions Recorded Confirmed albuterol sulfate 2.5 mg/3 mL 2.5 mg INHALATION Q6H PRN #4 ml 09/07/18 01/26/19 (0.083 %) solution for nebulization amlodipine 10 mg tablet 10 mg PO QAM tab 09/07/18 01/26/19 atorvastatin 80 mg tablet 80 mg PO QPM tab 09/07/18 01/26/19 fluoxetine 60 mg tablet 60 mg PO QAM tab 09/07/18 01/26/19 ipratropium-albuterol 0.5 mg-3 3 ml INHALATION QID #120 ml 09/07/18 01/26/19 mg(2.5 mg base)/3 mL nebulization soln lamotrigine 200 mg tablet 200 mg PO QAM tab 09/07/18 01/26/19 losartan 50 mg tablet 50 mg PO QPM tab 09/07/18 01/26/19 magnesium oxide 400 mg (241.3 mg 400 mg PO BID tab 09/07/18 01/26/19 magnesium) tablet pantoprazole 40 mg tablet,delayed 40 mg PO QPM #30 tab 09/07/18 01/26/19 release timolol maleate 0.5 % once daily 1 drp OPB QAM ml 09/07/18 01/26/19 eye drops gabapentin 600 mg tablet 600 mg PO BID tab 12/20/18 01/26/19 Probiotic 3,000 mmu cells PO QAM 01/02/19 01/26/19 Spiriva Respimat 2 puff INHALATION QAM 01/02/19 01/26/19 aspirin [Aspir-81] 81 mg PO DAILY 01/26/19 01/26/19 olanzapine [Zyprexa] 30 mg PO DAILY 01/26/19 01/26/19 New Rx's Medication Instructions Recorded albuterol sulfate 90 mcg/actuation 2 puffs INH Q4H PRN #18 gm 12/27/18 aerosol inhaler finasteride 5 mg tablet 5 mg PO QAM #90 tab 01/17/19 tamsulosin 0.4 mg capsule 0.4 mg PO QPM #90 cap 01/17/19 doxycycline hyclate 100 mg capsule 100 mg PO BID #28 cap 01/26/19 prednisone 10 mg tablet See Rx Instructions PO DAILY #20 01/26/19 tab clopidogrel 75 mg PO QAM #30 tab 01/28/19 - Action: The above medications, specifically ones for stroke treatment/prophylaxis, have been reviewed in detail with the patient and/or patient medical center representative(s) prior to discharge. This includes indication, common adverse reactions, drug interactions, and medication administration. Medication counseling has been employed using the teach-back method to ensure understanding. - Outcome: The patient and/or patient medical center representative(s) have demonstrated understanding of the medications. Please note, they are aware that the pharmacist will call them within 72 hours post-discharge to confirm that the appropriate medications are being taken and answer any further medication related questions the patient might have at that time. Contact information Individual to be contacted: Patient and Christal Relationship to patient (if applicable): Phone number: [phone] Best time to call: Anytime Additional comments: Discussed moderate interaction of Prozac with Plavix in detail with physician and patient/. stated that Prozac is the only med that has worked well for them and they are not motivated to switch to anything else. Counselled patient to monitor for s/sx of bleeding- if occurs may need to change Prozac to a non-SSRI option. Also counselled patient to not use Prilosec (currently taking Protonix) while on Plavix. Discussed that aspirin + plavix combo is only for 21 days- then continue on plavix monotherapy. Thank you for allowing pharmacy to be involved in the care of this patient. Please call [phone] or [phone] with any additional questions
--- NOTE | 2019-01-31 11:47 | Pharmacy Report ---
Pharmacist Post D/C Phone Note - Phone Note: Date of phone call: January 31, 2019. Individual with whom pharmacist spoke to: GURPREET Orlando ANDERSEN The following questions were reviewed during the phone call with responses listed below each: Can you tell me the medications that you are currently taking as well as when and how you take each medication? -See Table Below When have you missed any doses of your medications? - NONE What side effects are you having from your medications, specifically, the new medications you were started on? - NONE What questions do you have about your medications? - NONE What problems are you having obtaining your medications? - NONE When is your next appointment with your primary care doctor? - UNCERTAIN Additional comments: - PATIENT NOT SUPER TALKATIVE - HE DOES NOT FEEL WELL. WENT THROUGH BASICS OF HIS MEDICATIONS. DENIES BRUISING AND BLEEDING. As per the Pharmacist Discharge Counseling for Stroke Patients Protocol, this phone call has been completed within 72 hours of discharge. Thank you for allowing us to be involved in the care of this patient. - Home Medications: Home Medications Medication Instructions Recorded Confirmed albuterol sulfate 2.5 mg/3 mL 2.5 mg INHALATION Q6H PRN #4 ml 09/07/18 01/26/19 (0.083 %) solution for nebulization amlodipine 10 mg tablet 10 mg PO QAM tab 09/07/18 01/26/19 atorvastatin 80 mg tablet 80 mg PO QPM tab 09/07/18 01/26/19 fluoxetine 60 mg tablet 60 mg PO QAM tab 09/07/18 01/26/19 ipratropium-albuterol 0.5 mg-3 3 ml INHALATION QID #120 ml 09/07/18 01/26/19 mg(2.5 mg base)/3 mL nebulization soln lamotrigine 200 mg tablet 200 mg PO QAM tab 09/07/18 01/26/19 losartan 50 mg tablet 50 mg PO QPM tab 09/07/18 01/26/19 magnesium oxide 400 mg (241.3 mg 400 mg PO BID tab 09/07/18 01/26/19 magnesium) tablet pantoprazole 40 mg tablet,delayed 40 mg PO QPM #30 tab 09/07/18 01/26/19 release timolol maleate 0.5 % once daily 1 drp OPB QAM ml 09/07/18 01/26/19 eye drops gabapentin 600 mg tablet 600 mg PO BID tab 12/20/18 01/26/19 Probiotic 3,000 mmu cells PO QAM 01/02/19 01/26/19 Spiriva Respimat 2 puff INHALATION QAM 01/02/19 01/26/19 aspirin [Aspir-81] 81 mg PO DAILY 01/26/19 01/26/19 olanzapine [Zyprexa] 30 mg PO DAILY 01/26/19 01/26/19 New Rx's Medication Instructions Recorded albuterol sulfate 90 mcg/actuation 2 puffs INH Q4H PRN #18 gm 12/27/18 aerosol inhaler finasteride 5 mg tablet 5 mg PO QAM #90 tab 01/17/19 tamsulosin 0.4 mg capsule 0.4 mg PO QPM #90 cap 01/17/19 doxycycline hyclate 100 mg capsule 100 mg PO BID #28 cap 01/26/19 prednisone 10 mg tablet See Rx Instructions PO DAILY #20 01/26/19 tab clopidogrel 75 mg PO QAM #30 tab 01/28/19
== END 2019-01-28 18:40 | disposition home or self-care (01) | DRG 65 ==
LOC: ED 21:28 → 2N 01-27 00:23

== ENCOUNTER 2019-09-17 22:31 | Inpatient (IN) ==
--- NOTE | 2019-09-17 23:00 | Emergency Department Note ---
Impression & Plan Pneumonia, Hypoxia, Fever ED Provider Note NAME: GURPREET ANDERSEN AGE: 74 SEX: M : 1945 ARRIVES VIA: Ambulance INFORMANT: Patient, ED PROVIDER(S): Shaun Falk DO CHIEF COMPLAINT: Fever HPI: The patient is a 74-year-old male who presented to the emergency department for an evaluation of fever and difficulty breathing. The patient is scheduled for surgery tomorrow on his left knee. He was starting to have difficulty ramona thing over the course of the last week. He did have a COVID-19 swab done 4 days ago in preparation for his surgery which was negative. The patient started having worsening shortness of breath this evening. He does have a history of using supplemental oxygen and he started increasing his oxygen concentration without relief of his symptoms. He has had a minimally productive cough over the course the last week. He did not take any medication for fever but was noted to have a fever of 101 prior to arrival. The patient has a history of COPD. He also has a history of CVA in the past. The patient states his symptoms are much worsened with any ambulation or movement. The patient notices no calf tenderness or swelling. He notices no chest pain. He notices no abdominal pain or vomiting. He is had no dysuria or frequency. ROS: See above HPI for pertinent positives & negatives. A total of 10 systems reviewed and were otherwise negative. PAST MEDICAL HISTORY: See Below PAST SURGICAL HISTORY: See Below FAMILY HISTORY: See Below SOCIAL HISTORY: See Below HOME MEDICATIONS: See Below ALLERGIES: See Below VITALS: See Below PHYSICAL EXAMINATION: GENERAL: Patient is awake alert in no acute distress patient is resting comfortably and showing no signs of anxiety EYES: The conjunctivae are clear. The pupils are round and reactive. EARS, NOSE, MOUTH AND THROAT: The nose is without any evidence of any deformity. NECK: The neck is nontender and supple. RESPIRATORY: Shallow and diminished respirations were noted throughout. There was mild conversational dyspnea noted. CARDIOVASCULAR: Regular rate and rhythm noted there no murmurs rubs or gallops normal S1 normal S2. GASTROINTESTINAL: The abdomen is soft. Abdomen is nontender. MUSCULOSKELETAL/EXTREMITIES: There is no evidence of gross deformity full range of motion is noted in the hips and shoulders. SKIN: There is no obvious evidence of any rash. There is no calf tenderness, no significant pedal edema was noted. NEUROLOGIC: Patient is awake alert and oriented x3. MEDICAL DECISION MAKING: The patient is a 74-year-old male who presented to the emergency department by ambulance for an evaluation of cough and fever. The patient has been experiencing cough for the last week. He was noted to have a fever at home tonight. He was increasing his oxygen at home without relief of his symptoms. The patient was treated with increased supplemental oxygen as well as IV antibiotics in the emergency department. He was reevaluated multiple times. I discussed the patient's laboratory and radiographic studies with him. My interpretation of his chest x-ray appears to be consistent with a right lower lobe infiltrate. I discussed his case with the on-call [facility]. They have agreed to evaluate the patient in the emergency department for further management and disposition. Triage Nursing notes reviewed. Prior medical records reviewed Vital Signs: reviewed and remarkable for hypoxia and bradycardia. Differential diagnosis: Viral syndrome, otitis, pharyngitis, pneumonia, influenza, meningitis, urinary tract infection, sepsis, bacteremia, as well as other pathologies. ER treatment provided: See below Diagnostics interpreted by me: ECG: EKG was obtained in the emergency department. My interpretation is sinus r hythm at 57 bpm. There was no ectopy. There is no acute ST segment abnormalities noted. Early transition was noted. This was compared to a tracing from January 282018. No significant changes were noted. Cardiac Monitoring: An order was placed for continuous cardiac monitoring. The monitor shows a rate of 72 with sinus rhythm. Laboratory studies: As stated above and show below. Imaging studies: See below Consultation(s): [id number]: I discussed this case with Dr. Brooks who is on for the [facility] group. He will evaluate the patient in the emergency department for further management and disposition. 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 - residual memory issues Anxiety BPH loc w urin obs/LUTS CAD (coronary artery disease) s/p cardiac stents (1997, 2000) Carotid aneurysm, right LEBRON 3mm aneurysm- follows with neurosurgery Chronic kidney disease follows with [facility] nephrology Chronic obstructive pulmonary disease + emphysema, O2 2-3L continuous Hyperlipidemia Hypertension Osteoarthritis Schizo affective schizophrenia Sleep apnea BIPAP + 3L O2 HS Urinary incontinence Uses [place] catheter qHS Surgical History History of appendectomy History of cardiac cath 1997/1999 1 STENT EACH TIME [facility] History of cataract surgery History of colonoscopy History of dental surgery History of heart artery stent x 2 Status post placement of implantable loop recorder Family History Other No family history of adverse response to anesthesia No significant family history Social History Smoking Status: Former smoker Tobacco Type: Cigarettes Second Hand Exposure: No; Hx Alcohol Use: No Hx Substance Use: No Preferred Language: Syriac Communication Ability: Effective Creative 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: No Beliefs That Will Affect Care: Mu-Ism Mu-Ism Beliefs: evangelical Current Living Situation: Spouse Feels Safe at Home: Yes Allergies Allergies Allergy/AdvReac Type Severity Reaction Status Date / Time No Known Allergies Allergy Verified 09/17/19 23:31 Home Meds Home Medications Medication Instructions Recorded Confirmed albuterol sulfate 2.5 mg INHALATION Q6H PRN #4 ml 09/07/18 08/14/19 amlodipine 10 mg tablet 10 mg PO QAM tab 09/07/18 08/14/19 atorvastatin 80 mg tablet 80 mg PO QPM tab 09/07/18 08/14/19 fluoxetine 60 mg tablet 60 mg PO QAM tab 09/07/18 08/14/19 ipratropium 0.5 mg-albuterol 3 mg 3 ml INHALATION QID PRN #120 ml 09/07/18 08/14/19 (2.5 mg base)/3 mL nebulization soln lamotrigine 200 mg tablet 200 mg PO QAM tab 09/07/18 08/14/19 losartan 50 mg tablet 50 mg PO QPM tab 09/07/18 08/14/19 magnesium oxide 400 mg (241.3 mg 400 mg PO BID tab 09/07/18 08/14/19 magnesium) tablet pantoprazole 40 mg tablet,delayed 40 mg PO QPM #30 tab 09/07/18 08/14/19 release timolol maleate 0.5 % once daily 1 drp OPB QAM ml 09/07/18 08/14/19 eye drops gabapentin 600 mg tablet 600 mg PO BID tab 12/20/18 08/14/19 Probiotic 3,000 mmu cells PO QAM 01/02/19 08/14/19 olanzapine [Zyprexa] 30 mg PO QPM 01/26/19 08/14/19 clopidogrel 75 mg tablet 75 mg PO QPM 08/02/19 08/14/19 Previous Rx's Medication Instructions Recorded albuterol sulfate 90 mcg/actuation 2 puffs INH Q4H PRN #18 gm 12/27/18 aerosol inhaler finasteride 5 mg tablet 5 mg PO QAM #90 tab 01/17/19 tamsulosin 0.4 mg capsule 0.4 mg PO QPM #90 cap 01/17/19 Oxygen Home #1 ea 03/09/19 tiotropium bromide 2.5 2 puff INHALATION QAM #1 inhaler 09/14/19 mcg/actuation mist for inhalation Results & Data (ED) Vital Signs Vital Signs - 24 hr 09/17/19 22:37 09/17/19 22:38 09/17/19 22:54 Temperature 37.1 C Temperature Source Oral Pulse Rate 57 L 60 Pulse Rate from SpO2 Sensor 57 L Pulse Rhythm Regular Pulse Strength Normal Respiratory Rate 17 22 22 Respiratory Effort / Characteristics Spontaneous Labored Short of Breath Spontaneous Labored Respiratory Depth Normal Respiratory Pattern Regular Blood Pressure 118/63 118/63 Blood Pressure Mean 82 81 Blood Pressure Position Lying Pulse Oximetry 94 94 94 Oxygen Delivery Method Non-rebreather Non-rebreather Non-rebreather Oxygen Flow Rate 10 10 Sepsis Recent Fever Within 48 Hours Yes Sepsis New/Unexplained Change in Mental Status No Sepsis Action Taken by Nursing No Action Required 09/17/19 23:00 09/17/19 23:30 Temperature Temperature Source Pulse Rate 56 L 55 L Pulse Rate from SpO2 Sensor 53 L 55 L Pulse Rhythm Pulse Strength Respiratory Rate 20 12 Respiratory Effort / Characteristics Respiratory Depth Respiratory Pattern Blood Pressure 120/62 117/62 Blood Pressure Mean 84 82 Blood Pressure Position Pulse Oximetry 95 97 Oxygen Delivery Method Non-rebreather Non-rebreather Oxygen Flow Rate 10 10 Sepsis Recent Fever Within 48 Hours Sepsis New/Unexplained Change in Mental Status Sepsis Action Taken by Alf Medications Current Medication List: was personally reviewed by me Laboratory Data Attestation: I reviewed the patient's lab results. Result diagrams: 09/17/19 22:53 09/17/19 22:53 Lab Results 09/17/19 09/17/19 09/17/19 Range/Units 22:53 22:53 22:53 WBC 11.61 H (4.8-10.8) K/uL RBC 4.07 L (4.7-6.1) M/uL Hgb 11.5 L (14.0-18.0) g/dL Hct 36.3 L (42-52) % MCV 89.2 (80-100) fL MCH 28.3 (25-34) pg MCHC 31.7 L (32-36) g/dL RDW Std Deviation 53.6 H (36.4-46.3) fL RDW Coeff of Hermes 16.4 H (11.5-14.5) % Plt Count 185 (130-400) K/uL MPV 9.7 (7.4-10.4) fL Immature Gran % (Auto) 0.2 % Neut % (Auto) 84.4 % Lymph % (Auto) 6.3 % Wharton % (Auto) 7.7 % Eos % (Auto) 1.3 % Baso % (Auto) 0.1 % Neut # (Auto) 9.81 H (1.4-6.5) K/uL Lymph # (Auto) 0.73 L (1.2-3.4) K/uL Wharton # (Auto) 0.89 H (0.11-0.59) K/uL Eos # (Auto) 0.15 (0-0.5) K/uL Baso # (Auto) 0.01 (0-0.2) K/uL Immature Gran # (Auto) 0.02 (0.00-0.02) K/uL PT 11.1 (9.0-12.0) Seconds INR 1.1 (0.9-1.1) APTT 24.8 (21.0-31.0) Seconds PTT Ratio 0.9 VBG pH (7.36-7.41) VBG pCO2 (38-50) mmHg VBG pO2 mmHg VBG HCO3 mmol/L VBG O2 Saturation % VBG Base Excess mEq/L Sodium 141 (136-145) mmol/L Potassium 3.9 (3.5-5.1) mmol/L Chloride 108 H (98-107) mmol/L Carbon Dioxide 26 (21-32) mmol/L Anion Gap 7.0 (3-11) BUN 41 H (7-18) mg/dl Creatinine 1.91 H (0.6-1.4) mg/dl Est Cr Clr Drug Dosing 38.1 ml/min Est GFR ( Amer) 38.9 Est GFR (Non-Af Amer) 33.5 BUN/Creatinine Ratio 21.6 H (10-20) Glucose 152 H (70-99) mg/dl Lactate (0.4-2.0) mmol/L Calcium 9.5 (8.5-10.1) mg/dl Magnesium 2.8 H (1.8-2.4) mg/dl Total Bilirubin 0.4 (0.2-1) mg/dl AST 17 (15-37) U/L ALT 36 (12-78) U/L Alkaline Phosphatase 114 (45-117) U/L Troponin I < 0.015 (0-0.045) ng/ml Total Protein 7.5 (6.4-8.2) gm/dl Albumin 3.4 (3.4-5.0) gm/dl Globulin 4.1 H (2.5-4.0) gm/dl Albumin/Globulin Ratio 0.8 L (0.9-2) 09/17/19 09/17/19 Range/Units 22:53 22:53 WBC (4.8-10.8) K/uL RBC (4.7-6.1) M/uL Hgb (14.0-18.0) g/dL Hct (42-52) % MCV (80-100) fL MCH (25-34) pg MCHC (32-36) g/dL RDW Std Deviation (36.4-46.3) fL RDW Coeff of Hermes (11.5-14.5) % Plt Count (130-400) K/uL MPV (7.4-10.4) fL Immature Gran % (Auto) % Neut % (Auto) % Lymph % (Auto) % Wharton % (Auto) % Eos % (Auto) % Baso % (Auto) % Neut # (Auto) (1.4-6.5) K/uL Lymph # (Auto) (1.2-3.4) K/uL Wharton # (Auto) (0.11-0.59) K/uL Eos # (Auto) (0-0.5) K/uL Baso # (Auto) (0-0.2) K/uL Immature Gran # (Auto) (0.00-0.02) K/uL PT (9.0-12.0) Seconds INR (0.9-1.1) APTT (21.0-31.0) Seconds PTT Ratio VBG pH 7.40 (7.36-7.41) VBG pCO2 43 (38-50) mmHg VBG pO2 65 mmHg VBG HCO3 26 mmol/L VBG O2 Saturation 90.6 % VBG Base Excess 0.9 mEq/L Sodium (136-145) mmol/L Potassium (3.5-5.1) mmol/L Chloride (98-107) mmol/L Carbon Dioxide (21-32) mmol/L Anion Gap (3-11) BUN (7-18) mg/dl Creatinine (0.6-1.4) mg/dl Est Cr Clr Drug Dosing ml/min Est GFR ( Amer) Est GFR (Non-Af Amer) BUN/Creatinine Ratio (10-20) Glucose (70-99) mg/dl Lactate 1.2 (0.4-2.0) mmol/L Calcium (8.5-10.1) mg/dl Magnesium (1.8-2.4) mg/dl Total Bilirubin (0.2-1) mg/dl AST (15-37) U/L ALT (12-78) U/L Alkaline Phosphatase (45-117) U/L Troponin I (0-0.045) ng/ml Total Protein (6.4-8.2) gm/dl Albumin (3.4-5.0) gm/dl Globulin (2.5-4.0) gm/dl Albumin/Globulin Ratio (0.9-2) Administered Medications Piperacillin Sod/Tazobactam Sod (Zosyn) 4.5 gm in 120 mls @ 240 mls/hr IV NOW ONE Stop: 09/17/19 23:57 Last Admin: 09/17/19 23:34 Dose: 240 mls/hr Documented by: [id number] Imaging Data Attestation: I personally reviewed and interpreted this imaging study as follows: My Impression: 1 view chest x-ray was obtained. My interpretation is elevation of the diaphragm with poor and story effort. There was atelectasis and infiltrative process noted at the right base. This was compared to a previous chest x-ray on January 26, 2019. The infiltrative process appears new. Blood Pressure Blood Pressure Findings: Normal blood pressure Discharge Plan Visit Data Chief Complaint: Shortness of Breath/Dyspnea Stated Complaint: SOB ED Provider: Shaun Falk Discharge Problem: Pneumonia, Hypoxia, Fever Patient Disposition: Being Evaluated by Hospitalist Condition: Good Forms Stand Alone Forms: My [facility] Prescriptions Prescriptions: No Action (DME) Oxygen Home Liters Per Minute See Rx Instructions .ROUTE .MEDSUPPLY Qty: 1 RF: 0 Spiriva Respimat 2.5 mcg/actuation mist 2 puff INHALATION QAM Qty: 1 RF: 5 clopidogrel [Plavix] 75 mg tablet 75 mg PO QPM RF: 0 finasteride 5 mg tablet 5 mg PO QAM Qty: 90 RF: 3 tamsulosin 0.4 mg capsule 0.4 mg PO QPM Qty: 90 RF: 3 losartan 50 mg tablet 50 mg PO QPM RF: 0 albuterol sulfate 2.5 mg /3 mL (0.083 %) solution for nebulization 2.5 mg inhalation Q6H PRN (Reason: Wheezing) Qty: 4 RF: 0 amlodipine 10 mg tablet 10 mg PO QAM RF: 0 atorvastatin 80 mg tablet 80 mg PO QPM RF: 0 fluoxetine 60 mg tablet 60 mg PO QAM RF: 0 ipratropium-albuterol 0.5 mg-3 mg(2.5 mg base)/3 mL solution for nebulization 3 ml inhalation QID PRN (Reason: sob) Qty: 120 RF: 0 lamotrigine 200 mg tablet 200 mg PO QAM RF: 0 magnesium oxide 400 mg (241.3 mg magnesium) tablet 400 mg PO BID RF: 0 pantoprazole 40 mg tablet,delayed release (DR/EC) 40 mg PO QPM Qty: 30 RF: 0 timolol maleate 0.5 % drops, once daily 1 drp OPB QAM RF: 0 gabapentin 600 mg tablet 600 mg PO BID RF: 0 albuterol sulfate [Ventolin HFA] 90 mcg/actuation HFA aerosol inhaler 2 puffs INH Q4H PRN (Reason: increased cough, shortness of breath or wheezing) Qty: 18 RF: 5 Probiotic 3 billion cell Capsule 3,000 mmu cells PO QAM RF: 0 olanzapine [Zyprexa] 15 mg tablet 30 mg PO QPM RF: 0 Referrals Referrals: Clau Batista, [Primary Care Provider] -
[2019-09-17 23:05] LABS: Basophils # (auto) 0.01 K/uL (0-0.2); Basophils % (auto) 0.1 %; Eosinophils # (auto) 0.15 K/uL (0-0.5); Eosinophils % (auto) 1.3 %; Hematocrit (blood only) 36.3 % (42-52); Hemoglobin 11.5 g/dL (14.0-18.0); Immature Granulocytes # (auto) 0.02 K/uL (0.00-0.02); Immature Granulocytes % (auto) 0.2 %; Lymphocytes # (auto) 0.73 K/uL (1.2-3.4); Lymphocytes % (auto) 6.3 %; Mean Corpuscular Hemoglobin 28.3 pg (25-34); Mean Corpuscular Hgb Conc 31.7 g/dL (32-36); Mean Corpuscular Volume 89.2 fL (80-100); Mean Platelet Volume 9.7 fL (7.4-10.4); Monocytes # (auto) 0.89 K/uL (0.11-0.59); Monocytes % (auto) 7.7 %; Neutrophils # (auto) 9.81 K/uL (1.4-6.5); Neutrophils % (auto) 84.4 %; Platelet Count 185 K/uL (130-400); RDW Coefficient of Variation 16.4 % (11.5-14.5); RDW Standard Deviation 53.6 fL (36.4-46.3); Red Blood Count 4.07 M/uL (4.7-6.1); White Blood Count 11.61 K/uL (4.8-10.8)
[2019-09-17 23:10] LABS: Base Excess VBG 0.9 mEq/L; HCO3 VBG 26 mmol/L; Oxygen Saturation VBG 90.6 %; PCO2 VBG 43 mmHg (38-50); PO2 VBG 65 mmHg
[2019-09-17 23:15] LABS: INR 1.1 (0.9-1.1); Partial Thromboplastin Ratio 0.9; Partial Thromboplastin Time 24.8 Seconds (21.0-31.0); Prothrombin Time 11.1 Seconds (9.0-12.0)
[2019-09-17 23:21] LABS: Alanine Aminotransferase 36 U/L (12-78); Albumin Level 3.4 gm/dl (3.4-5.0); Aspartate Aminotransferase 17 U/L (15-37); BUN Creatinine Ratio 21.6 (10-20); Blood Urea Nitrogen 41 mg/dl (7-18); Calcium 9.5 mg/dl (8.5-10.1); Carbon Dioxide 26 mmol/L (21-32); Chloride 108 mmol/L (98-107); Creatinine Clr Calc Pharmacy 38.1 ml/min; Est GFR (African American) 38.9; Est GFR (Non-African American) 33.5; Glucose 152 mg/dl (70-99); Magnesium 2.8 mg/dl (1.8-2.4); Potassium 3.9 mmol/L (3.5-5.1); Sodium 141 mmol/L (136-145)
[2019-09-17 23:26] LABS: Albumin Globulin Ratio 0.8 (0.9-2); Alkaline Phosphatase 114 U/L (45-117); Bilirubin,Total 0.4 mg/dl (0.2-1); Globulin 4.1 gm/dl (2.5-4.0); Total Protein 7.5 gm/dl (6.4-8.2); Troponin I < 0.015 ng/ml (0-0.045)
[2019-09-17] MEDS ORDERED: PIPERACILLIN/TAZOBACTAM 4.5 GM/120 ML BAG IV ONE (23:28)
[2019-09-17] MEDS ORDERED: PIPERACILL/TAZOBAC CONSULT ACTIVE PRN (23:28)
[2019-09-18] MEDS ORDERED: LEVALBUTEROL 1.25MG/0.5ML NEB INH PRN (02:07)
[2019-09-18] MEDS ORDERED: XOPENEX/ATROVENT 1.25mg/0.5MG NEB COMBO NEB PRN (02:07)
[2019-09-18] MEDS ORDERED: ALBUTEROL HFA 8 GM INHALER INH PRN (02:07)
[2019-09-18] MEDS ORDERED: IPRATROPIUM BROMIDE NEB SOLN 0.02% 2.5 ML VIAL INH PRN (02:07)
[2019-09-18] MEDS ORDERED: ACETAMINOPHEN 325 MG TAB PO PRN (02:07)
[2019-09-18] MEDS ORDERED: NITROGLYCERIN SL 0.4 MG/TAB TAB SL PRN (02:07)
--- NOTE | 2019-09-18 02:22 | History and Physical Report ---
DATE OF ADMISSION: 09/18/2019 CHIEF COMPLAINT: Shortness of breath. 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 diff infection, who lives with his at home. The patient is having osteoarthritis of the left knee and is ambulating with a walker. There is a plan for surgery tomorrow and he recently had a dobutamine stress test and was seen by cardiology for preop. The patient today was complaining of shortness of breath and cough, it started today, and with calix-colored phlegm and checked temperature, it was 100 degrees, and he has a history of pneumonias and sepsis from pneumonia and so he was brought him to the hospital. The patient is currently sleeping. As per the , the patient when asleep he is very difficult to arouse. Tried to arouse him and it was difficult to arouse him. All the history was got from the . There was no complaint of any chest pain or nausea, no vomiting, no abdominal pain, no complaints of headache. Vision is okay. No runny nose, no sore throat, no loss of sense of smell or taste. No exposure to COVID .Recently and he was tested for SARS-CoV-2 PCR in the [facility] on 09/13/2019 for planned knee surgery and it came back negative. No diarrhea or constipation. Normal bladder movements. No rash seen. Currently hemodynamically stable. As per he was saturating 85% on room air on 3 liters at home, so he was placed on nonrebreather when he came in. ALLERGIES: No known drug allergies. PAST MEDICAL HISTORY: As mentioned above. PAST SURGICAL HISTORY: Cardiac recorder implant, colonoscopy, coronary artery dilatation, appendectomy, bilateral cataract surgery. MEDICATIONS: The patient is on atorvastatin 80 mg p.o. daily, amlodipine 10 mg p.o. daily, DuoNebs p.r.n., Plavix 75 mg p.o. daily, Cozaar 50 mg p.o. daily, Protonix 40 mg p.o. daily, timolol instill 1 drop into each eye once daily, Proscar 5 mg p.o. daily, Flomax 0.4 mg p.o. daily, magnesium 250 mg p.o. b.i.d., Tylenol 650 mg p.o. p.r.n., Prozac 60 mg p.o. daily, gabapentin 600 mg p.o. b.i.d., probiotic 1 capsule p.o. daily, olanzapine 30 mg p.o. daily, Spiriva HandiHaler 1 puff daily, ProAir HFA 2 puffs every 4 hours p.r.n., oxygen 3 liters all the time, Lamictal 200 mg p.o. daily. FAMILY HISTORY: Significant for brother has arthritis; mother has dementia, stroke; sister has arthritis and heart disorder; father has lung disorder. SOCIAL HISTORY: Lives with his . Smoked an average 3 packs a day for 40 years, quit in 2004. No alcohol use, no drug use. REVIEW OF SYSTEMS: As per HPI. Rest of the review of systems negative. PHYSICAL EXAMINATION: GENERAL: The patient is of moderate build, currently drowsy. VITAL SIGNS: Temperature 37.1, pulse 56, respiratory rate 16, blood pressure 106/61, oxygen 93% on 4 liters. HEENT: Pupils equal, round, reactive to light. NECK: No neck masses seen. No JVD. CARDIOVASCULAR: S1, S2 heard. Regular rate and rhythm, no murmur, no gallop. RESPIRATORY SYSTEM: Normal AP diameter. No accessory muscle use. No wheezing, no crackles. ABDOMEN: Soft, bowel sounds present, nontender. No distention. CENTRAL NERVOUS SYSTEM: Currently drowsy, difficult to arouse, but moves extremities on touch stimuli. EXTREMITIES: No edema, no erythema. LABORATORY DATA: WBC 11.6, hemoglobin 11.5, hematocrit 36.3, platelets 185. PT 11.1, INR 1.1, APTT 24.8. Venous blood gases, pH of 7.4, pCO2 of 43, pO2 of 65, bicarbonate 26. Sodium 141, potassium 3.9, chloride 108, bicarbonate 26, BUN 41, creatinine 1.9, serum glucose 152. Lactate 1.2, calcium 9.5, magnesium 2.8, total bilirubin 0.4, AST 17, ALT 36, alkaline phosphatase 114. Troponin I less than 0.015. Procalcitonin 0.1. IMAGING DATA: Chest x-ray, questionable possible right lower lobe infiltrate. EKG: Sinus bradycardia with first-degree AV block at the rate of 57, no significant change was found. ASSESSMENT AND PLAN: This is a 74-year-old male who presents with worsening shortness of breath, increasing oxygen requirement and possible pneumonia on chest x-ray. 1. Shortness of breath, hypoxia, possibly secondary to pneumonia. We will get a chest CT scan to get a better picture. Will empirically starting on IV Zosyn and doxycycline. Will Follow the cultures.Will Follow the response. 2. Chronic respiratory failure, history of severe chronic obstructive pulmonary disease, on oxygen 3 liters all the time and BiPAP at bedtime, which we will continue. His ABGs are okay. 3. History of type 2 diabetes, not on any medications. Placed on diabetic diet and follow the blood sugars, follow HbA1c levels. 4. Hyperlipidemia, on statin. 5. History of right-sided heart failure,Cor pulmonale not on any diuretics. We will monitor for any volume overload, on losartan. 6. 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 Follows with neurology. 7. History of schizoaffective disorder, on Lamictal and Zyprexa. 8. Benign prostatic hypertrophy, on Flomax. 9. Hypertension, on amlodipine, losartan. We will monitor the blood pressure. 10. Depression, on Prozac. 11. Severe osteoarthritis. There is a plan for left knee replacement tomorrow, which will be held for his possible pneumonia. 12. History of coronary artery disease status post stent to LAD in 2000 as per the cardiology notes, on Plavix, statin. Recent dobutamine stress test was okay. 13. Obstructive sleep apnea on BiPAP. 14. Acute kidney injury on chronic kidney disease stage III, baseline creatinine 1.35, currently creatinine of 1.9. Avoid nephrotoxic agents. We will follow the labs in a.m. We will give gentle fluids. Will stop fluids in am. 15. Deep venous thrombosis prophylaxis, Lovenox. DISPOSITION: Closely monitor in the tele floor. Level 1 full code. PT and OT prior to discharge. Social service to help with discharge planning. Addendum: Bradycardia and HB type 1 Mobitz? on monitor. EKG junctional rhythm. Will do serial CE, echo and cardio consult,. MTDD
[2019-09-18] MEDS: DOXYCYCLINE HYCLATE 100 MG in DEXTROSE 5% 100 ML IV SCH ×2 (03:21→14:17)
[2019-09-18] MEDS: POTASSIUM CHLORIDE 10 MEQ in SODIUM CHLORIDE 0.9% 1000ML 1,000 ML IV SCH ×2 (03:21→16:11)
[2019-09-18] MEDS: PIPERACILLIN/TAZOBACTAM 3.375 GM in DEXTROSE 5% 100 ML IV SCH ×3 (05:31→21:18)
[2019-09-18 05:54] LABS: Basophils # (auto) 0.02 K/uL (0-0.2); Basophils % (auto) 0.2 %; Eosinophils # (auto) 0.11 K/uL (0-0.5); Eosinophils % (auto) 1.1 %; Hematocrit (blood only) 39.6 % (42-52); Hemoglobin 12.4 g/dL (14.0-18.0); Immature Granulocytes # (auto) 0.03 K/uL (0.00-0.02); Immature Granulocytes % (auto) 0.3 %; Lymphocytes # (auto) 0.93 K/uL (1.2-3.4); Lymphocytes % (auto) 9.5 %; Mean Corpuscular Hemoglobin 27.9 pg (25-34); Mean Corpuscular Hgb Conc 31.3 g/dL (32-36); Mean Corpuscular Volume 89.2 fL (80-100); Mean Platelet Volume 9.6 fL (7.4-10.4); Monocytes # (auto) 0.62 K/uL (0.11-0.59); Monocytes % (auto) 6.3 %; Neutrophils # (auto) 8.12 K/uL (1.4-6.5); Neutrophils % (auto) 82.6 %; Platelet Count 181 K/uL (130-400); RDW Coefficient of Variation 16.2 % (11.5-14.5); RDW Standard Deviation 53.5 fL (36.4-46.3); Red Blood Count 4.44 M/uL (4.7-6.1); White Blood Count 9.83 K/uL (4.8-10.8)
[2019-09-18 06:23] LABS: BUN Creatinine Ratio 22.4 (10-20); Blood Urea Nitrogen 41 mg/dl (7-18); Carbon Dioxide 30 mmol/L (21-32); Chloride 107 mmol/L (98-107); Creatinine Clr Calc Pharmacy 40.2 ml/min; Est GFR (African American) 40.6; Est GFR (Non-African American) 35.1; Glucose 123 mg/dl (70-99); Potassium 4.1 mmol/L (3.5-5.1); Sodium 141 mmol/L (136-145)
[2019-09-18 06:27] LABS: Troponin I < 0.015 ng/ml (0-0.045)
[2019-09-18 07:20] LABS: Estimated Average Glucose 128 mg/dl; Hemoglobin A1C 6.1 % (4.5-5.6)
--- NOTE | 2019-09-18 08:00 | CT Scan Report ---
CT SCAN OF THE CHEST WITHOUT IV CONTRAST CLINICAL HISTORY: Pneumonia. COMPARISON STUDY: Chest CT scans dated 12/21/2018 and 07/13/2014. Chest x-ray dated 09/17/2019. TECHNIQUE: CT scan of the thorax was performed from the thoracic inlet to the upper abdomen. Images are reviewed in the axial, sagittal, and coronal planes. IV contrast was not administered for this ex amination as per the referring clinician. A dose lowering technique was utilized adhering to the gianna zazueta of DENISSE. The examination is degraded by motion artifact, as well as by streak artifact from the arms which could not be elevated above the chest. CT DOSE: 1074.94 mGy.cm FINDINGS: Thyroid: Enlarged and heterogeneous. Thoracic aorta: There is atherosclerotic calcification of the thoracic aorta, which is normal in mino julia and demonstrates standard 3-vessel arch anatomy. Heart: The heart is enlarged and without pericardial effusion. The coronary arteries are densely calc ified. The pulmonary trunk is dilated measuring 3.6 cm in diameter. This suggests pulmonary artery hy pertension. Lungs and pleural spaces: There is chronic volume loss in the right lung. Dense airspace consolidatio n is seen at the right lung base. No significant pleural effusion is identified. Atelectasis is seen at the left lung base. Evaluation of the lungs is degraded by motion artifact. Debris fills the right lower lobe bronchus. The trachea is clear. Foci of parenchymal scarring are seen throughout both dorcas gs. Emphysematous change is noted. Mediastinum: There is mild rightward shift of mediastinum secondary to volume loss in the right lung. Scattered subcentimeter mediastinal lymph nodes are not pathologically enlarged by size criteria. Norma: Not well assessed without IV contrast. Axillae: There is no axillary lymphadenopathy. Upper abdomen: Partially visualized upper abdominal viscera is within normal limits. Skeletal structures: The skeletal structures are osteopenic. Degenerative change and hyperkyphosis ar e noted in the thoracic spine. There is a mild chronic superior endplate compression deformity of T5. Arthritic change is seen in the shoulders. No lytic or blastic bony lesions are seen. IMPRESSION: 1. Streak and motion degraded examination. 2. Cardiomegaly and emphysema. 3. There is dense airspace consolidation throughout the right lower lobe with debris filling the righ t lower lobe bronchus. The appearance is typical for pneumonia/aspiration pneumonitis. Clinical corre lation will be required and radiographic follow-up to resolution is recommended. 4. Additional findings as above. ACT 112: Negative or not required by law. Electronically signed by: Benedict Helton M.D. 09/18/2019 7:59 AM
--- NOTE | 2019-09-18 08:11 | XRay Report ---
XR chest 1V portable CLINICAL HISTORY: SEPSIS dyspnea COMPARISON STUDY: 01/26/2019 FINDINGS: Small parenchymal infiltrate right base. Lungs otherwise appear clear. Mild stable cardiome cem. IMPRESSION: Infiltrate right base. ACT 112: Negative or not required by law. The above report was generated using voice recognition software. It may contain grammatical, syntax or spelling errors. Electronically signed by: Reji Merchant M.D. 09/18/2019 8:10 AM
--- NOTE | 2019-09-18 08:30 | Cardiology Consultation ---
Date of Consultation September 18, 2019 Assessment & Plan (1) Acute and chronic respiratory failure: -Secondary to right sided pneumonia confirmed on chest CT and underlying severe oxygen depedenet COPD -currently tolerating BIPAP -recommend pulm consult -continue antibiotics and steroids (2) Pneumonia: (3) Sinus bradycardia: Sinus bradycardia on EKG's Telemetry reviewed, demonstrating sinus bradycardia and NSR without pauses at this time Gamal Christine noted during presumed sleep Apparently patient has a implantable loop records. [employer] attempted to interrogate without success. This is followed in [place] by a different cardiology group. We are trying to obtain information for interrogation Avoid AV shavonne blocking agents (4) CAD (coronary artery disease): No acute ischemic EKG changes Negative cardiac enzymes Recent outpatient dobutamine stress echo in August 2019 was negative for inducible ischemia at 81% MPHR with preserved LV systolic function and no significant valvular disease Continue home medications including Plavix (initiated in place of ASA in 2018 post CVA), amlodipine, atorvastatin. No AV shavonne blocking agents Case discussed with Dr. Harrington. Will follow during hospitalization. Nurse left message for patient's to verify what cardiology clinic in [place] follows his implantable recorder and training personnel supervisor information. Supervising Physician Co-Signing Physician Notes Patient was seen and personally examined twice today earlier this morning and this afternoon. Using BiPAP for oxygenation. Patient will respond and answer questions with some accuracy but intermittently confused Patient initially referred due to EKG suggesting significant conduction abnormalities not confirmed by telemetry and repeat EKG Patient does have sinus rhythm with marked first-degree AV block and short episodes of type I Mobitz second-degree AV block last night I would consider the patient to have borderline inappropriate bradycardia given degree of illness and respiratory distress with resting heart rates in the 50s and 60 EKGs and enzymes do not suggest myocardial ischemia with recent stress testing negative for ischemia Would continue telemetry and treat underlying pulmonary issues, will continue to follow patient History of Present Illness Reason for Consultation: Sinus bradycardia Requesting Physician: Dr. Vivar Attending Physician: Dr. Harrington History of Present Illness Patient is a complex 74 year old male who was admitted to [facility] for acute respiratory distress with hypoxia, right sided pneumonia, confirmed on chest CT. He was started don antibiotics, steroids, and BiPAP. EKG demonstrated sinus bradycardia with long first degree AV block on EKG. cardiology was consulted due to bradycardia. Telemetry reviewed overnight. HR's predominantly 55-70 without pauses. He had several episodes of 2nd degree Mobitz type I throughout the night during sleeping hours. History includes ASCVD status post PCI on 2 different occasions, in 1997 and in 2000. He describes angioplasty, records noting stent placement to the LAD in 2000. Anatomy otherwise unknown. LV systolic function preserved. Additional problems include severe oxygen-dependent chronic obstructive pulmonary disease, right heart failure, cor pulmonale, obstructive sleep apnea treated with BiPAP therapy, hypertension, dyslipidemia, type 2 diabetes mellitus, stage III chronic kidney disease, vitamin-D deficiency. Patient also with frequent, recurrent urinary tract infections. In Jan 2019, patient admitted for acute CVA. Started on Plavix, ASA discontinued. He underwent outpatient ZIO monitor which demonstrated sinus bradycardia, with 2 pauses of 3.3 seconds (no symptoms) and several episodes of Mobitz type I during presumed sleep. He then underwent implantable loop recorder in [place], followed by cardiology group where patient's son is a media specialist. Unfortunately we do not have these records, but trying to obtain. He recently was evaluated at [facility] cardiology office with Christian Posadas PA-C for preop evaluation prior to undergoing left total knee replacement. He subsequently underwent dobutamine stress echo which was negative for inducible ischemia at 81% MPHR with normal LV systolic function and no significant valvular heart disease and moderate LVH. At time of consult, patient reports feeling poorly. He is currently on BiPAP and difficult to obtain significant information. He was to have knee surgery today, now postponed. He reports he has a implantable recorder in place, but then tells me it was removed. He denies chest pain. He reports worsening cough and SOB x3 days prior to admission. He reports ongoing SOB this morning. Allergies Allergy/AdvReac Type Severity Reaction Status Date / Time No Known Allergies Allergy Verified 09/18/19 00:10 Home Medications Home Medications Medication Instructions Recorded Confirmed Type amlodipine 10 mg tablet 10 mg PO QAM tab 09/07/18 09/18/19 History atorvastatin 80 mg tablet 80 mg PO QPM tab 09/07/18 09/18/19 History fluoxetine 60 mg tablet 60 mg PO QAM tab 09/07/18 09/18/19 History lamotrigine 200 mg tablet 200 mg PO QAM tab 09/07/18 09/18/19 History losartan 50 mg tablet 50 mg PO QPM tab 09/07/18 09/18/19 History magnesium oxide 400 mg (241.3 mg 400 mg PO BID tab 09/07/18 09/18/19 History magnesium) tablet pantoprazole 40 mg tablet,delayed 40 mg PO QPM #30 tab 09/07/18 09/18/19 History release timolol maleate 0.5 % once daily 1 drp OPB QAM ml 09/07/18 09/18/19 History eye drops gabapentin 600 mg tablet 600 mg PO BID tab 12/20/18 09/18/19 History albuterol sulfate 90 mcg/actuation 2 puffs INH Q4H PRN #18 gm 12/27/18 09/18/19 Rx aerosol inhaler Probiotic 3,000 mmu cells PO QAM 01/02/19 09/18/19 History finasteride 5 mg tablet 5 mg PO QAM #90 tab 01/17/19 09/18/19 Rx tamsulosin 0.4 mg capsule 0.4 mg PO QPM #90 cap 01/17/19 09/18/19 Rx olanzapine [Zyprexa] 30 mg PO QPM 01/26/19 09/18/19 History Oxygen Home #1 ea 03/09/19 08/09/19 Rx clopidogrel 75 mg tablet 75 mg PO QPM 08/02/19 09/18/19 History tiotropium bromide 2.5 2 puff INHALATION QAM #1 inhaler 09/14/19 09/18/19 Rx mcg/actuation mist for inhalation Patient History Medical History Acute left [employer]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 [employer]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 - residual memory issues Anxiety BPH loc w urin obs/LUTS CAD (coronary artery disease) s/p cardiac stents (1997, 2000) Carotid aneurysm, right LEBRON 3mm aneurysm- follows with neurosurgery Chronic kidney disease follows with [facility] nephrology Chronic obstructive pulmonary disease + emphysema, O2 2-3L continuous Hyperlipidemia Hypertension Osteoarthritis Schizo affective schizophrenia Sleep apnea BIPAP + 3L O2 HS Urinary incontinence Uses [place] catheter qHS Surgical History History of appendectomy History of cardiac cath 1 STENT EACH TIME [facility]/U [facility] History of cataract surgery History of colonoscopy History of dental surgery History of heart artery stent x 2 Status post placement of implantable loop recorder Family History Other No family history of adverse response to anesthesia No significant family history Social History Smoking Status: Former smoker Tobacco Type: Cigarettes Second Hand Exposure: No; Hx Alcohol Use: No Hx Substance Use: No Preferred Language: Kyrgyz Communication Ability: Effective Electrical And Radio Mock Up Mechanic Required: No Beliefs That Will Affect Care: Spiritual marital status: Current Living Situation: Spouse Other Information That Helps Us Care for You: No Feels Safe at Home: Yes Safety Concerns: Feels Safe At This Time Review of Systems Review of Systems: Other (Limited ROS performed due to patient currently on BIPAP) Physical Exam Constitutional: + acute distress, + ill appearing and + obese Respiratory: + respiratory distress Auscultation: + diminished lung sounds and + rhonchi Cardiovascular: Rate/Rhythm: regular rate and regular rhythm Heart Sounds: + murmur (II/ systolic murmur) Vessels: no JVD Extremities: + edema (trace ankle and pretibial edema) Results & Data ([facility]) Vital Signs (Past 12 Hours) Vital Signs Temp Pulse Pulse Pulse Resp BP BP 09/18/19 07:49 37.3 C 67 19 166/82 H 09/18/19 07:17 86 23 09/18/19 03:32 36.6 C 48 L 16 104/58 L 09/18/19 03:00 53 L 17 09/18/19 01:45 36.7 C 54 L 21 137/77 09/18/19 01:00 55 L 16 95/56 L 09/18/19 00:34 56 L 16 09/18/19 00:30 54 L 12 112/57 L 09/18/19 00:15 56 L 20 106/61 09/17/19 23:30 55 L 12 117/62 09/17/19 23:00 56 L 20 120/62 09/17/19 22:54 22 09/17/19 22:38 37.1 C 60 22 118/63 09/17/19 22:37 57 L 17 118/63 Pulse Ox 09/18/19 07:49 100 09/18/19 07:17 93 09/18/19 03:32 95 09/18/19 03:00 94 09/18/19 01:45 93 09/18/19 01:00 95 09/18/19 00:34 93 09/18/19 00:30 95 09/18/19 00:15 93 09/17/19 23:30 97 09/17/19 23:00 95 09/17/19 22:54 94 09/17/19 22:38 94 09/17/19 22:37 94 Laboratory Results 09/18/19 09/18/19 09/18/19 Range/Units 05:21 05:21 05:21 WBC 9.83 (4.8-10.8) K/uL RBC 4.44 L (4.7-6.1) M/uL Hgb 12.4 L (14.0-18.0) g/dL Hct 39.6 L (42-52) % MCV 89.2 (80-100) fL MCH 27.9 (25-34) pg MCHC 31.3 L (32-36) g/dL RDW Std Deviation 53.5 H (36.4-46.3) fL RDW Coeff of Hermes 16.2 H (11.5-14.5) % Plt Count 181 (130-400) K/uL MPV 9.6 (7.4-10.4) fL Immature Gran % (Auto) 0.3 % Neut % (Auto) 82.6 % Lymph % (Auto) 9.5 % Wells % (Auto) 6.3 % Eos % (Auto) 1.1 % Baso % (Auto) 0.2 % Neut # (Auto) 8.12 H (1.4-6.5) K/uL Lymph # (Auto) 0.93 L (1.2-3.4) K/uL Wells # (Auto) 0.62 H (0.11-0.59) K/uL Eos # (Auto) 0.11 (0-0.5) K/uL Baso # (Auto) 0.02 (0-0.2) K/uL Immature Gran # (Auto) 0.03 H (0.00-0.02) K/uL PT (9.0-12.0) Seconds INR (0.9-1.1) APTT (21.0-31.0) Seconds PTT Ratio VBG pH (7.36-7.41) VBG pCO2 (38-50) mmHg VBG pO2 mmHg VBG HCO3 mmol/L VBG O2 Saturation % VBG Base Excess mEq/L Sodium 141 (136-145) mmol/L Potassium 4.1 (3.5-5.1) mmol/L Chloride 107 (98-107) mmol/L Carbon Dioxide 30 (21-32) mmol/L Anion Gap 4.0 (3-11) BUN 41 H (7-18) mg/dl Creatinine 1.84 H (0.6-1.4) mg/dl Est Cr Clr Drug Dosing 40.2 ml/min Est GFR ( Amer) 40.6 Est GFR (Non-Af Amer) 35.1 BUN/Creatinine Ratio 22.4 H (10-20) Glucose 123 H (70-99) mg/dl Estimat Average Glucose 128 mg/dl Hemoglobin A1c 6.1 H (4.5-5.6) % Lactate (0.4-2.0) mmol/L Calcium 10.0 (8.5-10.1) mg/dl Magnesium 3.0 H (1.8-2.4) mg/dl Total Bilirubin (0.2-1) mg/dl AST (15-37) U/L ALT (12-78) U/L Alkaline Phosphatase (45-117) U/L Troponin I < 0.015 (0-0.045) ng/ml Total Protein (6.4-8.2) gm/dl Albumin (3.4-5.0) gm/dl Globulin (2.5-4.0) gm/dl Albumin/Globulin Ratio (0.9-2) Procalcitonin (0-0.5) ng/ml 09/17/19 09/17/19 09/17/19 Range/Units 22:53 22:53 22:53 WBC (4.8-10.8) K/uL RBC (4.7-6.1) M/uL Hgb (14.0-18.0) g/dL Hct (42-52) % MCV (80-100) fL MCH (25-34) pg MCHC (32-36) g/dL RDW Std Deviation (36.4-46.3) fL RDW Coeff of Hermes (11.5-14.5) % Plt Count (130-400) K/uL MPV (7.4-10.4) fL Immature Gran % (Auto) % Neut % (Auto) % Lymph % (Auto) % Wells % (Auto) % Eos % (Auto) % Baso % (Auto) % Neut # (Auto) (1.4-6.5) K/uL Lymph # (Auto) (1.2-3.4) K/uL Wells # (Auto) (0.11-0.59) K/uL Eos # (Auto) (0-0.5) K/uL Baso # (Auto) (0-0.2) K/uL Immature Gran # (Auto) (0.00-0.02) K/uL PT (9.0-12.0) Seconds INR (0.9-1.1) APTT (21.0-31.0) Seconds PTT Ratio VBG pH 7.40 (7.36-7.41) VBG pCO2 43 (38-50) mmHg VBG pO2 65 mmHg VBG HCO3 26 mmol/L VBG O2 Saturation 90.6 % VBG Base Excess 0.9 mEq/L Sodium (136-145) mmol/L Potassium (3.5-5.1) mmol/L Chloride (98-107) mmol/L Carbon Dioxide (21-32) mmol/L Anion Gap (3-11) BUN (7-18) mg/dl Creatinine (0.6-1.4) mg/dl Est Cr Clr Drug Dosing ml/min Est GFR ( Amer) Est GFR (Non-Af Amer) BUN/Creatinine Ratio (10-20) Glucose (70-99) mg/dl Estimat Average Glucose mg/dl Hemoglobin A1c (4.5-5.6) % Lactate 1.2 (0.4-2.0) mmol/L Calcium (8.5-10.1) mg/dl Magnesium (1.8-2.4) mg/dl Total Bilirubin (0.2-1) mg/dl AST (15-37) U/L ALT (12-78) U/L Alkaline Phosphatase (45-117) U/L Troponin I (0-0.045) ng/ml Total Protein (6.4-8.2) gm/dl Albumin (3.4-5.0) gm/dl Globulin (2.5-4.0) gm/dl Albumin/Globulin Ratio (0.9-2) Procalcitonin 0.10 (0-0.5) ng/ml 09/17/19 09/17/19 09/17/19 Range/Units 22:53 22:53 22:53 WBC 11.61 H (4.8-10.8) K/uL RBC 4.07 L (4.7-6.1) M/uL Hgb 11.5 L (14.0-18.0) g/dL Hct 36.3 L (42-52) % MCV 89.2 (80-100) fL MCH 28.3 (25-34) pg MCHC 31.7 L (32-36) g/dL RDW Std Deviation 53.6 H (36.4-46.3) fL RDW Coeff of Hermes 16.4 H (11.5-14.5) % Plt Count 185 (130-400) K/uL MPV 9.7 (7.4-10.4) fL Immature Gran % (Auto) 0.2 % Neut % (Auto) 84.4 % Lymph % (Auto) 6.3 % Wells % (Auto) 7.7 % Eos % (Auto) 1.3 % Baso % (Auto) 0.1 % Neut # (Auto) 9.81 H (1.4-6.5) K/uL Lymph # (Auto) 0.73 L (1.2-3.4) K/uL Wells # (Auto) 0.89 H (0.11-0.59) K/uL Eos # (Auto) 0.15 (0-0.5) K/uL Baso # (Auto) 0.01 (0-0.2) K/uL Immature Gran # (Auto) 0.02 (0.00-0.02) K/uL PT 11.1 (9.0-12.0) Seconds INR 1.1 (0.9-1.1) APTT 24.8 (21.0-31.0) Seconds PTT Ratio 0.9 VBG pH (7.36-7.41) VBG pCO2 (38-50) mmHg VBG pO2 mmHg VBG HCO3 mmol/L VBG O2 Saturation % VBG Base Excess mEq/L Sodium 141 (136-145) mmol/L Potassium 3.9 (3.5-5.1) mmol/L Chloride 108 H (98-107) mmol/L Carbon Dioxide 26 (21-32) mmol/L Anion Gap 7.0 (3-11) BUN 41 H (7-18) mg/dl Creatinine 1.91 H (0.6-1.4) mg/dl Est Cr Clr Drug Dosing 38.1 ml/min Est GFR ( Amer) 38.9 Est GFR (Non-Af Amer) 33.5 BUN/Creatinine Ratio 21.6 H (10-20) Glucose 152 H (70-99) mg/dl Estimat Average Glucose mg/dl Hemoglobin A1c (4.5-5.6) % Lactate (0.4-2.0) mmol/L Calcium 9.5 (8.5-10.1) mg/dl Magnesium 2.8 H (1.8-2.4) mg/dl Total Bilirubin 0.4 (0.2-1) mg/dl AST 17 (15-37) U/L ALT 36 (12-78) U/L Alkaline Phosphatase 114 (45-117) U/L Troponin I < 0.015 (0-0.045) ng/ml Total Protein 7.5 (6.4-8.2) gm/dl Albumin 3.4 (3.4-5.0) gm/dl Globulin 4.1 H (2.5-4.0) gm/dl Albumin/Globulin Ratio 0.8 L (0.9-2) Procalcitonin (0-0.5) ng/ml Diagnostic Findings Telemetry reviewed: Sinus bradycardia and NSR with long first degree AV block. Several episodes of 2nd degree Mobitz I between 4-4:30 AM, during sleep. Implantable Loop - Trying to obtain information regarding training personnel supervisor. EKG Sinus bradycardia with 1st degree A-V block Otherwise normal ECG When compared with ECG of 28-JAN-2019 15:58, No significant change was found Chest xray: IMPRESSION: Infiltrate right base. Chest CT report reviewed dated 09/17: 1. Streak and motion degraded examination. 2. Cardiomegaly and emphysema. 3. There is dense airspace consolidation throughout the right lower lobe with debris filling the right lower lobe bronchus. The appearance is typical for pneumonia/aspiration pneumonitis. Clinical correlation will be required and radiographic follow-up to resolution is recommended. 4.Additional findings as above. Dobutamine stress echo report reviewed dated September 07, 2019 Interpretation Summary The examination is adequate to evaluate the referral indication. The stress echo is negative for inducible ischemia. The low heart rate response to stress reduces the sensitivity of this test for the detection of coronary artery disease or ischemia. There is a mildly blunted heart rate response to the maximum dose dobutamine/atropine stress protocol achieving 81% age predicted maximum heart rate. Blood pressure response was hypertensive No symptoms were noted. The stress EKG response showed no evidence of ischemia. Sinus bradycardia was noted at rest. The left ventricular wall motion with stress is normal. The left ventricular ejection fraction increases normally with stress. The LV wall thickness is moderately increased (concentric). The qualitative LV ejection fraction is 50-54% (normal). Moderate aortic valve sclerosis is present. Medications Administered Current Inpatient Medications Acetaminophen (Tylenol) 650 mg PO Q4H PRN PRN Reason: Pain or Fever Stop: 10/18/19 02:06 Albuterol (Ventolin Hfa) 2 puffs INH Q4H PRN PRN Reason: increased cough, shortness of Stop: 10/18/19 02:06 Amlodipine Besylate (Norvasc) 10 mg PO QAM CIPRIANO Stop: 10/18/19 08:59 Atorvastatin Calcium (Lipitor) 80 mg PO QPM CIP[facility]ANO Stop: 10/18/19 20:59 Clopidogrel Bisulfate (Plavix) 75 mg PO QPM CIPRIANO Stop: 10/18/19 20:59 Enoxaparin Sodium (Lovenox) 40 mg SQ Q24H [facility]IP[facility]ANO Stop: 10/18/19 08:59 Finasteride (Proscar) 5 mg PO QAM CIPRIANO Stop: 10/18/19 08:59 Fluoxetine HCl (Prozac) 60 mg PO QAM CIPRIANO Stop: 10/18/19 08:59 Gabapentin (Neurontin) 600 mg PO BID CIPRIANO Stop: 10/18/19 08:59 Doxycycline Hyclate 100 mg/ (Dextrose) 110 mls @ 50 mls/hr IV Q12H CIPRIANO Stop: 09/25/19 02:59 Last Infusion: 09/18/19 05:33 Dose: Infused Documented by: Potassium Chloride 10 meq/ (Sodium Chloride) 1,005 mls @ 75 mls/hr IV .[id number] [facility] Stop: 10/18/19 02:29 Last Admin: 09/18/19 03:21 Dose: 75 mls/hr Documented by: Piperacillin Sod/Tazobactam (Sod 3.375 gm/ Dextrose) 115 mls @ 28.75 mls/hr IV Q8H [facility]; Protocol Stop: 09/25/19 05:59 Last Admin: 09/18/19 05:31 Dose: 28.8 mls/hr Documented by: Ipratropium Plummer (Atrovent 0.02% 0.5mg/2.5ml) 0.5 mg INH Q4H PRN PRN Reason: Shortness Of Breath Or Wheezing Stop: 10/18/19 02:06 Lactobacillus Acidophilus (Floranex) 4 tab PO QAM [facility] Stop: 10/18/19 08:59 Lamotrigine (Lamictal) 200 mg PO QAM [facility] Stop: 10/18/19 08:59 Levalbuterol HCl (Xopenex 1.25mg/0.5ml Neb) 1.25 mg INH Q4H PRN PRN Reason: Shortness Of Breath Or Wheezing Stop: 10/18/19 02:06 Losartan Potassium (Cozaar) 50 mg PO QPM [facility] Stop: 10/18/19 20:59 Magnesium Oxide (Mag-Ox) 400 mg PO BID [facility] Stop: 10/18/19 08:59 Miscellaneous Information (Consult) 1 ea N/A UD PRN PRN Reason: Consult Stop: 10/17/19 23:27 Nitroglycerin (Nitrostat) 0.4 mg SL UD PRN PRN Reason: Chest Pain Stop: 10/18/19 02:06 Olanzapine (Zyprexa) 30 mg PO QPM [facility] Stop: 10/18/19 20:59 Pantoprazole Sodium (Protonix) 40 mg PO QPM [facility] Stop: 10/18/19 20:59 Tamsulosin HCl (Flomax) 0.4 mg PO QPM [facility] Stop: 10/18/19 20:59 Timolol Maleate (Timoptic 0.5% Oph) 1 [facility] Stop: 10/18/19 08:59 Umeclidinium Plummer (Incruse Ellipta) 1 puffs INH QAM [facility] Stop: 10/18/19 08:59 (1) Pneumonia Laterality: right Lung location: lower lobe of lung Pneumonia type: due to unspecified organism Qualified Code(s): J18.9 - Pneumonia, unspecified organism
[2019-09-18] MEDS: ENOXAPARIN INJ 40 MG/0.4 ML SYR SQ SCH (09:48)
[2019-09-18] MEDS: GABAPENTIN 600 MG TAB PO SCH ×2 (09:49→21:20)
[2019-09-18] MEDS: MAGNESIUM OXIDE 400 MG TAB PO SCH ×2 (09:49→21:19)
[2019-09-18] MEDS: FINASTERIDE 5 MG TAB PO SCH (09:50)
[2019-09-18] MEDS: FLUOXETINE HCL 20 MG CAP PO SCH (09:50)
[2019-09-18] MEDS: lamoTRIgine 100 MG TAB PO SCH (09:50)
[2019-09-18] MEDS: UMECLIDINIUM BROMIDE 62.5MCG/BLISTER 7 PUFFS/INHALER INH SCH (09:51)
[2019-09-18] MEDS: LACTOBACILLUS ACIDOPHILUS (FLORANEX) TAB PO SCH (09:51)
[2019-09-18] MEDS: TIMOLOL MALEATE 0.5% OP SOLN 5 ML BTL OPB SCH (09:52)
[2019-09-18] MEDS: AMLODIPINE BESYLATE 5 MG TAB PO SCH (09:52)
[2019-09-18] MEDS: INSULIN ASPART 100 UNITS/ML 3 ML PEN SC SCH ×2 (17:29→21:17)
[2019-09-18 18:00] LABS: Appearance Urine Clear (Clear); Bacteria Urine Automated Negative (Negative); Bilirubin Urine Negative (Negative); Blood Urine Negative (Negative); Cast Urine Automated 0 /lpf (0-5); Color Urine Yellow; Glucose Urine UA Negative (Negative); Ketones Urine Trace (Negative); Leukocyte Esterase Urine Negative (Negative); Nitrite Urine Negative (Negative); Protein Urine 1+ (Negative); RBC Urine Automated 0-4 /hpf (0-4); Specific Gravity Urine 1.027 (1.000-1.030); Urobilinogen Urine Negative (Negative)
--- NOTE | 2019-09-18 19:13 | Electrocardiogram Report ---
Test Reason : Blood Pressure : / mmHG Vent. Rate : 057 BPM Atrial Rate : 058 BPM P-R Int : 416 ms QRS Dur : 110 ms QT Int : 416 ms P-R-T Axes : 000 062 039 degrees QTc Int : 404 ms Sinus bradycardia with 1st degree A-V block Otherwise normal ECG When compared with ECG of 28-JAN-2019 15:58, No significant change was found Confirmed by Darius Hdez ([id number]) on 09/18/2019 7:13:30 PM Referred By: REFERRED SELF Confirmed By:Darius Hdez
--- NOTE | 2019-09-18 19:19 | Electrocardiogram Report ---
Test Reason : Blood Pressure : / mmHG Vent. Rate : 054 BPM Atrial Rate : 053 BPM P-R Int : 000 ms QRS Dur : 106 ms QT Int : 430 ms P-R-T Axes : 000 065 -18 degrees QTc Int : 407 ms Poor data quality, interpretation may be adversely affected Junctional rhythm vs sinus rhythm with 1st degree AV block Nonspecific T wave abnormality Abnormal ECG When compared with ECG of 17-SEP-2019 22:38, Artifact is now present Confirmed by Darius Hdez ([id number]) on 09/18/2019 7:19:11 PM Referred By: REFERRED SELF Confirmed By:Darius Hdez
--- NOTE | 2019-09-18 21:12 | Communication Note ---
Date of Service: September 18, 2019 Admitted early this morning with RLL pneumonia. Rechecked about 13:10. Pt states that he feels better. Wearing BiPAP. Still has low grade temp. Occasional cough. No chest pain. VS @ 10:58 - temp 37.7, HR 60, RR 20, BP 135/70 Lungs- rhonchi right base, mild wheezing Heart- RRR A/P: Resp failure Secondary to pneumonia. Continue BiPAP. RLL pneumonia Continue piperacillin / tazobactam. Bradycardia Noted to have SB with first degree heart block as well as Mobitz type 1 second degree heart block during the night. Cardiology consulted. DM type 2 BSG's. Insulin coverage.
[2019-09-18] MEDS: ATORVASTATIN 40 MG TAB PO SCH (21:20)
[2019-09-18] MEDS: OLANZapine 10 MG TAB PO SCH (21:21)
[2019-09-18] MEDS: LOSARTAN POTASSIUM 50 MG TAB PO SCH (21:22)
[2019-09-18] MEDS: PANTOprazole 40 MG TAB PO SCH (21:22)
[2019-09-18] MEDS: CLOPIDOGREL BISULFATE 75 MG TAB PO SCH (21:22)
[2019-09-18] MEDS: TAMSULOSIN HCL 0.4 MG CAP PO SCH (21:59)
[2019-09-19] MEDS: DOXYCYCLINE HYCLATE 100 MG in DEXTROSE 5% 100 ML IV SCH ×2 (01:56→14:58)
[2019-09-19] MEDS: POTASSIUM CHLORIDE 10 MEQ in SODIUM CHLORIDE 0.9% 1000ML 1,000 ML IV SCH ×2 (05:42→18:33)
[2019-09-19] MEDS: PIPERACILLIN/TAZOBACTAM 3.375 GM in DEXTROSE 5% 100 ML IV SCH ×3 (05:43→21:32)
[2019-09-19 05:51] LABS: Basophils # (auto) 0.02 K/uL (0-0.2); Basophils % (auto) 0.2 %; Eosinophils # (auto) 0.11 K/uL (0-0.5); Hematocrit (blood only) 32.3 % (42-52); Hemoglobin 10.3 g/dL (14.0-18.0); Immature Granulocytes # (auto) 0.01 K/uL (0.00-0.02); Immature Granulocytes % (auto) 0.1 %; Lymphocytes # (auto) 0.93 K/uL (1.2-3.4); Lymphocytes % (auto) 8.2 %; Mean Corpuscular Hemoglobin 28.5 pg (25-34); Mean Corpuscular Hgb Conc 31.9 g/dL (32-36); Mean Corpuscular Volume 89.2 fL (80-100); Mean Platelet Volume 9.7 fL (7.4-10.4); Monocytes # (auto) 0.87 K/uL (0.11-0.59); Monocytes % (auto) 7.6 %; Neutrophils # (auto) 9.44 K/uL (1.4-6.5); Neutrophils % (auto) 82.9 %; Platelet Count 147 K/uL (130-400); RDW Coefficient of Variation 16.4 % (11.5-14.5); RDW Standard Deviation 54.1 fL (36.4-46.3); Red Blood Count 3.62 M/uL (4.7-6.1); White Blood Count 11.38 K/uL (4.8-10.8)
[2019-09-19 06:27] LABS: BUN Creatinine Ratio 20.9 (10-20); Creatinine Clr Calc Pharmacy 51.7 ml/min; Est GFR (African American) 54.7; Est GFR (Non-African American) 47.2; Magnesium 2.8 mg/dl (1.8-2.4); Potassium 3.8 mmol/L (3.5-5.1)
[2019-09-19] MEDS: INSULIN ASPART 100 UNITS/ML 3 ML PEN SC SCH ×4 (07:55→20:51)
[2019-09-19] MEDS: LACTOBACILLUS ACIDOPHILUS (FLORANEX) TAB PO SCH (07:57)
[2019-09-19] MEDS: FLUOXETINE HCL 20 MG CAP PO SCH (07:58)
[2019-09-19] MEDS: GABAPENTIN 600 MG TAB PO SCH ×2 (07:58→20:24)
[2019-09-19] MEDS: lamoTRIgine 100 MG TAB PO SCH (07:59)
[2019-09-19] MEDS: UMECLIDINIUM BROMIDE 62.5MCG/BLISTER 7 PUFFS/INHALER INH SCH (07:59)
[2019-09-19] MEDS: MAGNESIUM OXIDE 400 MG TAB PO SCH ×2 (07:59→20:24)
[2019-09-19] MEDS: ENOXAPARIN INJ 40 MG/0.4 ML SYR SQ SCH (08:00)
[2019-09-19] MEDS: TIMOLOL MALEATE 0.5% OP SOLN 5 ML BTL OPB SCH (08:00)
[2019-09-19] MEDS: FINASTERIDE 5 MG TAB PO SCH (08:00)
[2019-09-19] MEDS: AMLODIPINE BESYLATE 5 MG TAB PO SCH (08:00)
--- NOTE | 2019-09-19 11:37 | Cardiology Progress Note ---
Date of Service September 19, 2019 Assessment & Plan (1) Acute and chronic respiratory failure: -Secondary to right sided pneumonia confirmed on chest CT and underlying severe oxygen depedenet COPD -currently tolerating BIPAP -continue antibiotics and steroids -respiratory status seems to be improving this morning with ongoing therapies (2) Pneumonia: (3) Sinus bradycardia: Sinus bradycardia on EKG's on admission Telemetry reviewed, demonstrating sinus bradycardia and NSR without pauses. Gamal I noted during presumed sleep on one occassion Apparently patient has a implantable loop recorder. [employer] attempted to interrogate without success. This is followed in [place] by a different cardiology group. We are trying to obtain information for interrogation Avoid AV shavonne blocking agents Telemetry reviewed and reveals NSR with HRs in the 60's. no recurrent bradyarrhythmias (4) CAD (coronary artery disease): No acute ischemic EKG changes Negative cardiac enzymes Recent outpatient dobutamine stress echo in August 2019 was negative for inducible ischemia at 81% MPHR with preserved LV systolic function and no significant valvular disease Continue home medications including Plavix (initiated in place of ASA in 2019 post CVA), amlodipine, atorvastatin. No AV shavonne blocking agents Case discussed with Dr. Caal. Will follow during hospitalization. We are attempting to gather information regarding implantable loop recorder and operation manager. Son is apparently a telecommunications officer in [place]. Supervising Physician Co-Signing Physician Notes Supervising Physician Attestation: I have personally performed a history and physical examination on the patient. I agree with the physician assistant teacher primary's findings and plan as documented with the following additions. Subjective: Patient resting comfortably on BiPAP Assessment and Plan: Heart rates stable -Continue antibiotic therapy for suspected pneumonia. Caution noted with signi ficant administration of IV fluids, including Zosyn and doxycycline. -Considerations include reducing fluid volume being administered by administering the doxycycline orally if able to swallow, and perhaps transitioning his Zosyn to cefepime as this is less volume. -When to keep track of his intake and output summary, and keep his I/ Os even with diuretics as necessary. DVT prophylaxis: on DVT prophylaxis dose lovenox. Kalpesh Caal, DO Subjective Patient evaluated this morning. Difficult to awaken from sleep. Not currently using BIPAP but only [place]. Denies acute complaints. Reports SOB improving. Has difficulty staying awake for further questions. Review of Systems Review of Systems: All systems reviewed & are unremarkable except as noted in HPI & below Physical Exam Constitutional: WD/WN, vitals as above + obese; no acute distress Respiratory: no respiratory distress Auscultation: + diminished lung sounds and + rhonchi; no rales and no wheezes Cardiovascular: Rate/Rhythm: regular rate and regular rhythm Heart Sounds: + murmur (II/ systolic murmur) Vessels: no JVD Extremities: + edema (trace ankle and pretibial edema) Musculoskeletal: no cyanosis or clubbing, extremities motor strength 5/5 Psychiatric: Orientation: alert and oriented x 3 Results & Data Vital Signs (Past 12 Hours) Vital Signs Temp Pulse Pulse Resp BP BP Pulse Ox 09/19/19 11:02 36.4 C L 64 20 157/74 H 98 09/19/19 10:52 59 L 22 97 09/19/19 10:26 62 09/19/19 07:07 37.0 C 61 19 125/65 91 09/19/19 03:40 60 30 H 96 09/19/19 03:21 37.5 C 58 L 18 118/64 96 (1) Pneumonia Laterality: right Lung location: lower lobe of lung Pneumonia type: due to unspecified organism Qualified Code(s): J18.9 - Pneumonia, unspecified organism
[2019-09-19] MEDS ORDERED: predniSONE 20 MG TAB PO ONE (18:45)
--- NOTE | 2019-09-19 18:59 | Hospitalist Progress Note ---
Date of Service September 19, 2019 Assessment & Plan (1) Pneumonia: Patient is a 74 yr male who presents with worsening shortness of breath, increasing oxygen requirement and pneumonia on chest x-ray. Acute on chronic hypoxic respiratory failure Chronic oxygen dependency--3 liters at baseline H/O Severe COPD --CT Chest:Streak and motion degraded examination. Cardiomegaly and emphysema. There is dense airspace consolidation throughout the right lower lobe with debris filling the right lower lobe bronchus. The appearance is typical for pneumonia/aspiration pneumonitis. Clinical correlation will be required and radiographic follow-up to resolution is recommended. --COVID PCR Negative --Blood Cx:pending --Continue Zosyn, Doxy --Continue supplemental oxygen, BiPAP nightly --Start prednisone --Nebs PRN Bradycardia Mobitz I at times Has implantable loop recorder Needs interrogation Avoid AV shavonne blocking agents Appreciate cardiology input KELLEN on CKD III Baseline Cr ~1.4 Monitor renal function Consider to hold losartan if renal function worsens Receiving IV fluids--decrease Monitor DM II HbA1C: 6.1 Not on any medications ISS while hospitalized Hyperlipidemia on statin H/O Right-sided heart failure H/O Cor pulmonale Not on any diuretics Monitor volume status while on IV fluids H/O left BODY DIE MA[employer]ER stroke Continue Plavix, statin H/O Schizoaffective disorder H/O Depression on Lamictal, Zyprexa, fluoxetine BPH: on Flomax HTN: Continue amlodipine, losartan Severe osteoarthritis Planned for left knee replacement CAD S/P stent to LAD in 2000 Continue Plavix, statin Obstructive sleep apnea on BiPAP at bedtime DVT Px: Heparin SQ Code Status Full Code Disposition PT/OT prior to discharge Admission and Anticipated Discharge Date Admission Date: September 18, 2019 Subjective Patient is seen and examined at bedside Reports cough with expectoration Denies chest pain, shortness of breath On BiPAP and difficulty awakening this morning No family at bedside Review of Systems Review of Systems: All systems reviewed & are unremarkable except as noted in HPI & below Physical Exam Physical Exam: Physical Exam: Vitals signs as noted above General Appearance:Moderately built and nourished, no apparent distress Head: normocephalic, Atraumatic Eyes: normal inspection, EOMI Neck: supple, Trachea midline Respiratory/Chest: Decreased breath sounds, Scattered Rhonchi, No accessory muscle use Cardiovascular: S1, S2, No murmur Abdomen/GI:Soft, Non tender, Bowel sounds present Extremities/Musculoskelatal:normal inspection, Trace pedal edema Neurologic/Psych:AAOX3, grossly no focal neurological deficits Skin: normal color, warm Results & Data Results & Data ([facility]) Vital Signs (Past 12 Hours) Vital Signs Temp Pulse Pulse Resp BP BP Pulse Ox 09/19/19 15:51 36.3 C L 62 18 147/75 H 100 09/19/19 15:25 62 09/19/19 13:37 60 16 97 09/19/19 11:02 36.4 C L 64 20 157/74 H 98 09/19/19 10:52 59 L 22 97 09/19/19 10:26 62 09/19/19 07:07 37.0 C 61 19 125/65 91 Laboratory Results Short CBC 09/19/19 Range/Units 05:34 WBC 11.38 H (4.8-10.8) K/uL Hgb 10.3 L (14.0-18.0) g/dL Hct 32.3 L (42-52) % Plt Count 147 (130-400) K/uL BMP 09/19/19 05:34 Sodium 142 Potassium 3.8 Chloride 110 H Carbon Dioxide 27 BUN 30 H Creatinine 1.44 H D Glucose 102 H Calcium 9.0 (1) Pneumonia Laterality: right Lung location: lower lobe of lung Pneumonia type: due to unspecified organism Qualified Code(s): J18.9 - Pneumonia, unspecified organism
[2019-09-19] MEDS: ATORVASTATIN 40 MG TAB PO SCH (20:23)
[2019-09-19] MEDS: TAMSULOSIN HCL 0.4 MG CAP PO SCH (20:23)
[2019-09-19] MEDS: LOSARTAN POTASSIUM 50 MG TAB PO SCH (20:24)
[2019-09-19] MEDS: PANTOprazole 40 MG TAB PO SCH (20:25)
[2019-09-19] MEDS: CLOPIDOGREL BISULFATE 75 MG TAB PO SCH (20:25)
[2019-09-19] MEDS: OLANZapine 10 MG TAB PO SCH (20:25)
[2019-09-20] MEDS: DOXYCYCLINE HYCLATE 100 MG in DEXTROSE 5% 100 ML IV SCH (03:30)
[2019-09-20] MEDS: PIPERACILLIN/TAZOBACTAM 3.375 GM in DEXTROSE 5% 100 ML IV SCH (06:09)
[2019-09-20] MEDS: HEPARIN SOD 5,000 UNIT/0.5 ML VIAL SQ SCH ×3 (06:10→20:57)
[2019-09-20 07:22] LABS: Basophils # (auto) 0.01 K/uL (0-0.2); Basophils % (auto) 0.1 %; Eosinophils # (auto) 0.01 K/uL (0-0.5); Eosinophils % (auto) 0.1 %; Hematocrit (blood only) 32.9 % (42-52); Hemoglobin 10.1 g/dL (14.0-18.0); Immature Granulocytes # (auto) 0.01 K/uL (0.00-0.02); Immature Granulocytes % (auto) 0.1 %; Lymphocytes # (auto) 0.56 K/uL (1.2-3.4); Lymphocytes % (auto) 6.1 %; Mean Corpuscular Hemoglobin 27.4 pg (25-34); Mean Corpuscular Hgb Conc 30.7 g/dL (32-36); Mean Corpuscular Volume 89.4 fL (80-100); Mean Platelet Volume 9.9 fL (7.4-10.4); Monocytes # (auto) 0.52 K/uL (0.11-0.59); Monocytes % (auto) 5.7 %; Neutrophils % (auto) 87.9 %; Platelet Count 153 K/uL (130-400); RDW Coefficient of Variation 16.5 % (11.5-14.5); RDW Standard Deviation 54.5 fL (36.4-46.3); Red Blood Count 3.68 M/uL (4.7-6.1); White Blood Count 9.11 K/uL (4.8-10.8)
[2019-09-20 07:45] LABS: BUN Creatinine Ratio 17.6 (10-20); Calcium 8.5 mg/dl (8.5-10.1); Creatinine Clr Calc Pharmacy 60.1 ml/min; Est GFR (African American) 65.5; Est GFR (Non-African American) 56.5; Potassium 4.1 mmol/L (3.5-5.1)
[2019-09-20] MEDS: UMECLIDINIUM BROMIDE 62.5MCG/BLISTER 7 PUFFS/INHALER INH SCH (10:14)
[2019-09-20] MEDS: predniSONE 20 MG TAB PO SCH (10:15)
[2019-09-20] MEDS: lamoTRIgine 100 MG TAB PO SCH (10:15)
[2019-09-20] MEDS: AMLODIPINE BESYLATE 5 MG TAB PO SCH (10:15)
[2019-09-20] MEDS: FINASTERIDE 5 MG TAB PO SCH (10:15)
[2019-09-20] MEDS: FLUOXETINE HCL 20 MG CAP PO SCH (10:15)
[2019-09-20] MEDS: LACTOBACILLUS ACIDOPHILUS (FLORANEX) TAB PO SCH (10:15)
[2019-09-20] MEDS: GABAPENTIN 600 MG TAB PO SCH ×2 (10:16→20:58)
[2019-09-20] MEDS: MAGNESIUM OXIDE 400 MG TAB PO SCH ×2 (10:16→20:59)
[2019-09-20] MEDS: INSULIN ASPART 100 UNITS/ML 3 ML PEN SC SCH ×4 (10:16→20:46)
[2019-09-20] MEDS: TIMOLOL MALEATE 0.5% OP SOLN 5 ML BTL OPB SCH (10:17)
--- NOTE | 2019-09-20 10:23 | Cardiology Progress Note ---
Date of Service September 20, 2019 Assessment & Plan (1) Acute and chronic respiratory failure: -Secondary to right sided pneumonia confirmed on chest CT and underlying severe oxygen dependent COPD --continue antibiotics and steroids per hospitalist. consider transition to oral antibiotics due to excessive IV fluid intake He has an underlying history of right sided HF. Currently during admission he is +3.5 L and up 4 kg. -repeat chest xray today -may need dose of IV lasix (2) Pneumonia: (3) Sinus bradycardia: Sinus bradycardia on EKG's on admission Telemetry reviewed, demonstrating sinus bradycardia and NSR without pauses. Gamal Christine noted during presumed sleep on one occasion, without recurrence. Apparently patient has a implantable loop recorder. [employer] attempted to interrogate without success. This is followed in [place] by a different cardiology group. We are trying to obtain information for interrogation Avoid AV shavonne blocking agents Telemetry reviewed and reveals NSR with HRs in the 60's. no recurrent bradyarrhythmias (4) CAD (coronary artery disease): No acute ischemic EKG changes Negative cardiac enzymes Recent outpatient dobutamine stress echo in August 2019 was negative for inducible ischemia at 81% MPHR with preserved LV systolic function and no significant valvular disease Continue home medications including Plavix (initiated in place of ASA in 2019 post CVA), amlodipine, atorvastatin. No AV shavonne blocking agents Case discussed with Dr. Caal. Will follow during hospitalization. Admission and Anticipated Discharge Date Admission Date: September 18, 2019 Supervising Physician Co-Signing Physician Notes Supervising Physician Attestation: I have personally performed a history and physical examination on the patient. I agree with the physician catering administrative assistant's findings and plan as documented with the following additions. Subjective: Patient off of BiPAP at present. Awake and oriented. Coarse breath sounds noted with inspiration Assessment and Plan: Stable heart rates with sinus bradycardia sinus rhythm in the 50s to 80 bpm range. Noted significant IV fluid intake related to antibiotic treatment, changes +3 L, 4 kg. -Renal function stable, trending toward improvement. Proceed with furosemide 20 mg x 1. Goal would be to keep his intake and out even. Zosyn has been transitioned to oral Augmentin, and doxycycline has been transitioned to oral formulation by the primary team. DVT prophylaxis: To subcutaneous heparin Kalpesh Caal, DO Subjective Patient more awake/alert this morning upon evaluation, compared to prior mornings. Reports ongoing SOB and cough, but possibly improved from yesterday. Denies chest pain. Ongoing cough reported. Denies dizziness or lightheadedness. No increased edema. Review of Systems Review of Systems: All systems reviewed & are unremarkable except as noted in HPI & below Physical Exam Constitutional: WD/WN, vitals as above + obese; no acute distress Respiratory: no respiratory distress Auscultation: + diminished lung sounds; no rales, no rhonchi and no wheezes Cardiovascular: Rate/Rhythm: regular rate and regular rhythm Heart Sounds: + murmur (II/ systolic murmur) Vessels: no JVD Extremities: + edema (t race ankle and pretibial edema) Musculoskeletal: no cyanosis or clubbing, extremities motor strength 5/5 Psychiatric: Orientation: alert and oriented x 3 Results & Data ([facility]) Vital Signs (Past 12 Hours) Vital Signs Temp Pulse Pulse Resp BP BP Pulse Ox 09/20/19 08:22 36.4 C L 61 22 161/78 H 94 09/20/19 04:17 54 L 15 94 09/20/19 03:10 36.8 C 58 L 18 117/72 97 09/20/19 00:05 36.9 C 60 16 96/53 L 94 Laboratory Results 09/20/19 09/20/19 09/20/19 Range/Units 07:45 06:48 06:48 WBC 9.11 (4.8-10.8) K/uL RBC 3.68 L (4.7-6.1) M/uL Hgb 10.1 L (14.0-18.0) g/dL Hct 32.9 L (42-52) % MCV 89.4 (80-100) fL MCH 27.4 (25-34) pg MCHC 30.7 L (32-36) g/dL RDW Std Deviation 54.5 H (36.4-46.3) fL RDW Coeff of Hermes 16.5 H (11.5-14.5) % Plt Count 153 (130-400) K/uL MPV 9.9 (7.4-10.4) fL Immature Gran % (Auto) 0.1 % Neut % (Auto) 87.9 % Lymph % (Auto) 6.1 % Grainger % (Auto) 5.7 % Eos % (Auto) 0.1 % Baso % (Auto) 0.1 % Neut # (Auto) 8.00 H (1.4-6.5) K/uL Lymph # (Auto) 0.56 L (1.2-3.4) K/uL Grainger # (Auto) 0.52 (0.11-0.59) K/uL Eos # (Auto) 0.01 (0-0.5) K/uL Baso # (Auto) 0.01 (0-0.2) K/uL Immature Gran # (Auto) 0.01 (0.00-0.02) K/uL Sodium 144 (136-145) mmol/L Potassium 4.1 (3.5-5.1) mmol/L Chloride 114 H (98-107) mmol/L Carbon Dioxide 25 (21-32) mmol/L Anion Gap 5.0 (3-11) BUN 22 H (7-18) mg/dl Creatinine 1.24 (0.6-1.4) mg/dl Est Cr Clr Drug Dosing 60.1 ml/min Est GFR ( Amer) 65.5 Est GFR (Non-Af Amer) 56.5 BUN/Creatinine Ratio 17.6 (10-20) Glucose 136 H (70-99) mg/dl POC Glucose 143 H (70-99) mg/dl Calcium 8.5 (8.5-10.1) mg/dl 09/19/19 09/19/19 09/19/19 Range/Units 20:26 16:16 11:26 WBC (4.8-10.8) K/uL RBC (4.7-6.1) M/uL Hgb (14.0-18.0) g/dL Hct (42-52) % MCV (80-100) fL MCH (25-34) pg MCHC (32-36) g/dL RDW Std Deviation (36.4-46.3) fL RDW Coeff of Hermes (11.5-14.5) % Plt Count (130-400) K/uL MPV (7.4-10.4) fL Immature Gran % (Auto) % Neut % (Auto) % Lymph % (Auto) % Grainger % (Auto) % Eos % (Auto) % Baso % (Auto) % Neut # (Auto) (1.4-6.5) K/uL Lymph # (Auto) (1.2-3.4) K/uL Grainger # (Auto) (0.11-0.59) K/uL Eos # (Auto) (0-0.5) K/uL Baso # (Auto) (0-0.2) K/uL Immature Gran # (Auto) (0.00-0.02) K/uL Sodium (136-145) mmol/L Potassium (3.5-5.1) mmol/L Chloride (98-107) mmol/L Carbon Dioxide (21-32) mmol/L Anion Gap (3-11) BUN (7-18) mg/dl Creatinine (0.6-1.4) mg/dl Est Cr Clr Drug Dosing ml/min Est GFR ( Amer) Est GFR (Non-Af Amer) BUN/Creatinine Ratio (10-20) Glucose (70-99) mg/dl POC Glucose 124 H 103 H 113 H (70-99) mg/dl Calcium (8.5-10.1) mg/dl Diagnostic Findings telemetry reviewed: NSR and sinus bradycardia ranging 55-65 bmp. NO pauses or recurrent 2nd degree AV block Mobitz I Medications Administered Current Inpatient Medications Acetaminophen (Tylenol) 650 mg PO Q4H PRN PRN Reason: Pain or Fever Stop: 10/18/19 02:06 Albuterol (Ventolin Hfa) 2 puffs INH Q4H PRN PRN Reason: increased cough, shortness of Stop: 10/18/19 02:06 [facility] Stop: 10/18/19 08:59 Last Admin: 09/20/19 10:15 Dose: 10 mg Documented by: Atorvastatin Calcium (Lipitor) 80 mg PO QPM [facility] Stop: 10/18/19 20:59 Last Admin: 09/19/19 20:23 Dose: 80 mg Documented by: Clopidogrel Bisulfate (Plavix) 75 mg PO QPM [facility] Stop: 10/18/19 20:59 Last Admin: 09/19/19 20:25 Dose: 75 mg Documented by: Finasteride (Proscar) 5 mg PO QAM [facility] Stop: 10/18/19 08:59 Last Admin: 09/20/19 10:15 Dose: 5 mg Documented by: Fluoxetine HCl (Prozac) 60 mg PO QAM [facility] Stop: 10/18/19 08:59 Last Admin: 09/20/19 10:15 Dose: 60 mg Documented by: Gabapentin (Neurontin) 600 mg PO BID [facility] Stop: 10/18/19 08:59 Last Admin: 09/20/19 10:16 Dose: 600 mg Documented by: Heparin Sodium (Porcine) (Heparin Sodium (Porcine)) 5,000 units SQ Q8 [facility] Stop: 10/20/19 05:59 Last Admin: 09/20/19 06:10 Dose: 5,000 units Documented by: Doxycycline Hyclate 100 mg/ (Dextrose) 110 mls @ 50 mls/hr IV Q12H [facility] Stop: 09/25/19 02:59 Last Infusion: 09/20/19 05:44 Dose: Infused Documented by: Piperacillin Sod/Tazobactam (Sod 3.375 gm/ Dextrose) 115 mls @ 28.75 mls/hr IV Q8H [facility]; Protocol Stop: 09/25/19 05:59 Last Admin: 09/20/19 06:09 Dose: 28.8 mls/hr Documented by: Insulin Aspart (Novolog Flexpen) 0 units SC ACHS [facility] Stop: 10/18/19 16:29 Last Admin: 09/20/19 10:16 Dose: 3 units Documented by: Ipratropium Lyons (Atrovent 0.02% 0.5mg/2.5ml) 0.5 mg INH Q4H PRN PRN Reason: Shortness Of Breath Or Wheezing Stop: 10/18/19 02:06 Lactobacillus Acidophilus (Floranex) [facility] Stop: 10/18/19 08:59 Last Admin: 09/20/19 10:15 Dose: 4 tab Documented by: Lamotrigine (Lamictal) 200 mg PO QAM [facility] Stop: 10/18/19 08:59 Last Admin: 09/20/19 10:15 Dose: 200 mg Documented by: Levalbuterol HCl (Xopenex 1.25mg/0.5ml Neb) 1.25 mg INH Q4H PRN PRN Reason: Shortness Of Breath Or Wheezing Stop: 10/18/19 02:06 Losartan Potassium (Cozaar) 50 mg PO QPM [facility] Stop: 10/18/19 20:59 Last Admin: 09/19/19 20:24 Dose: 50 mg Documented by: Magnesium Oxide (Mag-Ox) 400 mg PO BID [facility] Stop: 10/18/19 08:59 Last Admin: 09/20/19 10:16 Dose: 400 mg Documented by: Miscellaneous Information (Consult) 1 ea N/A UD PRN PRN Reason: Consult Stop: 10/17/19 23:27 Nitroglycerin (Nitrostat) 0.4 mg SL UD PRN PRN Reason: Chest Pain Stop: 10/18/19 02:06 Olanzapine (Zyprexa) 30 mg PO QPM [facility] Stop: 10/18/19 20:59 Last Admin: 09/19/19 20:25 Dose: 30 mg Documented by: Pantoprazole Sodium (Protonix) 40 mg PO QPM [facility] Stop: 10/18/19 20:59 Last Admin: 09/19/19 20:25 Dose: 40 mg Documented by: Prednisone (Prednisone) 20 mg PO DAILY [facility] Stop: 10/20/19 08:59 Last Admin: 09/20/19 10:15 Dose: 20 mg Documented by: Tamsulosin HCl (Flomax) 0.4 mg PO QPM [facility] Stop: 10/18/19 20:59 Last Admin: 09/19/19 20:23 Dose: 0.4 mg Documented by: Timolol Maleate (Timoptic 0.5% Oph) 1 drops OPB QAM [facility] Stop: 10/18/19 08:59 Last Admin: 09/20/19 10:17 Dose: 1 drops Documented by: Umeclidinium Lyons (Incruse Ellipta) 1 puffs INH QAM [facility] Stop: 10/18/19 08:59 Last Admin: 09/20/19 10:14 Dose: 1 puffs Documented by: (1) Pneumonia Laterality: right Lung location: lower lobe of lung Pneumonia type: due to unspecified organism Qualified Code(s): J18.9 - Pneumonia, unspecified organism
[2019-09-20] MEDS: POTASSIUM CHLORIDE 10 MEQ in SODIUM CHLORIDE 0.9% 1000ML 1,000 ML IV SCH (10:25)
--- NOTE | 2019-09-20 11:21 | XRay Report ---
XR chest 1V portable CLINICAL HISTORY: Pneumonia; CHF dyspnea COMPARISON STUDY: 09/17/2019 FINDINGS: Slightly progressive infiltrative change right base as well as right midlung. Left lung rem ains grossly clear. Minimal subsegmental atelectasis left midlung. Mild stable cardiomegaly. IMPRESSION: Mildly progressive interstitial infiltrate right mid and right lower lung region. ACT 112: Negative or not required by law. The above report was generated using voice recognition software. It may contain grammatical, syntax or spelling errors. Electronically signed by: Reji Merchant M.D. 09/20/2019 11:19 AM
[2019-09-20] MEDS ORDERED: FUROSEMIDE 20 MG in SYRINGE 0 ML IV ONE (15:00)
[2019-09-20] MEDS: AMOXICILLIN/CLAVULANATE 875 MG TAB PO SCH (17:07)
--- NOTE | 2019-09-20 18:11 | Hospitalist Progress Note ---
Date of Service September 20, 2019 Assessment & Plan (1) Pneumonia: Patient is a 74 yr male who presents with worsening shortness of breath, increasing oxygen requirement and pneumonia on chest x-ray. Acute on chronic hypoxic respiratory failure Chronic oxygen dependency--3 liters at baseline Right lower lobe Pneumonia H/O Severe COPD --CT Chest:Streak and motion degraded examination. Cardiomegaly and emphysema. There is dense airspace consolidation throughout the right lower lobe with debris filling the right lower lobe bronchus. The appearance is typical for pneumonia/aspiration pneumonitis. Clinical correlation will be required and radiographic follow-up to resolution is recommended. --COVID PCR Negative --Blood Cx:No growth to date --Continue Zosyn, Doxy>> transition to p.o. Augmentin, doxycycline --Continue supplemental oxygen, BiPAP nightly --Continue prednisone --Nebs PRN --CXR today showed mildly progressive interstitial infiltrate right mid and right lower lung region. --Titrate oxygen to keep sats greater than 88% --Plan to repeat chest x-ray tomorrow --Afebrile today --We will consider pulmonology eval if no improvement --Monitor volume status Bradycardia Mobitz I at times Has implantable loop recorder Needs interrogation Avoid AV shavonne blocking agents Appreciate cardiology input KELLEN on CKD III Baseline Cr ~1.4 Monitor renal function Consider to hold losartan if renal function worsens Discontinued IV fluids Monitor DM II HbA1C: 6.1 Not on any medications ISS while hospitalized Hyperlipidemia on statin H/O Right-sided heart failure H/O Cor pulmonale Not on any diuretics Monitor volume status Consider diuretics as needed H/O left UMBRELLA TIPPER HAND stroke Continue Plavix, statin H/O Schizoaffective disorder H/O Depression on Lamictal, Zyprexa, fluoxetine BPH: on Flomax HTN: Continue amlodipine, losartan Severe osteoarthritis Planned for left knee replacement CAD S/P stent to LAD in 2000 Continue Plavix, statin Obstructive sleep apnea on BiPAP at bedtime DVT Px: Heparin SQ Code Status Full Code Disposition PT/OT prior to discharge Admission and Anticipated Discharge Date Admission Date: September 18, 2019 Subjective Patient is seen and examined at bedside More alert, awake this morning Less cough Ongoing shortness of breath--unchanged Denies chest pain, dizziness, nausea, abdominal pain Discussed with family today Chest x-ray showed mildly progressive interstitial infiltrate Plan to give Lasix today Review of Systems Review of Systems: All systems reviewed & are unremarkable except as noted in HPI & below Physical Exam Physical Exam: Physical Exam: Vitals signs as noted above General Appearance:Moderately built and nourished, no apparent distress Head: normocephalic, Atraumatic Eyes: normal inspection, EOMI Neck: supple, Trachea midline Respiratory/Chest: Decreased breath sounds, Scattered Rhonchi, No accessory muscle use Cardiovascular: S1, S2, No murmur Abdomen/GI:Soft, Non tender, Bowel sounds present Extremities/Musculoskelatal:normal inspection, Trace pedal edema Neurologic/Psych:AAOX3, grossly no focal neurological deficits Skin: normal color, warm Results & Data Results & Data ([facility]) Vital Signs (Past 12 Hours) Vital Signs Temp Pulse Resp BP BP Pulse Ox 09/20/19 15:45 36.7 C 56 L 18 130/64 92 09/20/19 12:28 36.7 C 81 16 145/68 H 96 09/20/19 08:22 36.4 C L 61 22 161/78 H 94 Laboratory Results Short CBC 09/20/19 Range/Units 06:48 WBC 9.11 (4.8-10.8) K/uL Hgb 10.1 L (14.0-18.0) g/dL Hct 32.9 L (42-52) % Plt Count 153 (130-400) K/uL BMP 09/20/19 06:48 Sodium 144 Potassium 4.1 Chloride 114 H Carbon Dioxide 25 BUN 22 H Creatinine 1.24 Glucose 136 H Calcium 8.5 (1) Pneumonia Laterality: right Lung location: lower lobe of lung Pneumonia type: due to unspecified organism Qualified Code(s): J18.9 - Pneumonia, unspecified organism
[2019-09-20] MEDS: ATORVASTATIN 40 MG TAB PO SCH (20:56)
[2019-09-20] MEDS: DOXYCYCLINE HYCLATE 100 MG CAP PO SCH (20:56)
[2019-09-20] MEDS: LOSARTAN POTASSIUM 50 MG TAB PO SCH (20:57)
[2019-09-20] MEDS: TAMSULOSIN HCL 0.4 MG CAP PO SCH (20:58)
[2019-09-20] MEDS: PANTOprazole 40 MG TAB PO SCH (20:58)
[2019-09-20] MEDS: CLOPIDOGREL BISULFATE 75 MG TAB PO SCH (20:59)
[2019-09-20] MEDS: OLANZapine 10 MG TAB PO SCH (20:59)
[2019-09-21] MEDS: HEPARIN SOD 5,000 UNIT/0.5 ML VIAL SQ SCH ×3 (05:27→20:25)
[2019-09-21 06:33] LABS: Hematocrit (blood only) 33.5 % (42-52); Hemoglobin 10.3 g/dL (14.0-18.0)
[2019-09-21 07:04] LABS: BUN Creatinine Ratio 26.7 (10-20); Calcium 9.3 mg/dl (8.5-10.1); Creatinine Clr Calc Pharmacy 75.9 ml/min; Est GFR (African American) 87.1; Est GFR (Non-African American) 75.1; Potassium 3.8 mmol/L (3.5-5.1)
--- NOTE | 2019-09-21 07:29 | XRay Report ---
XR chest 1V portable CLINICAL HISTORY: Pneumonia dyspnea COMPARISON STUDY: 09/20/2019 FINDINGS: Mild stable cardiomegaly. Improved parenchymal infiltrate right lung. Persistent infiltrati ve change right midlung and medial right base. Slight improvement in aeration lateral right base. Left lung remains grossly clear. Mild stable cardiomegaly. IMPRESSION: Parenchymal infiltrate right midlung and medial right base. Mild stable cardiomegaly. Im proved aeration lateral aspect right base. ACT 112: Negative or not required by law. The above report was generated using voice recognition software. It may contain grammatical, syntax or spelling errors. Electronically signed by: Reji Merchant M.D. 09/21/2019 7:28 AM
[2019-09-21] MEDS: UMECLIDINIUM BROMIDE 62.5MCG/BLISTER 7 PUFFS/INHALER INH SCH (08:52)
[2019-09-21] MEDS: DOXYCYCLINE HYCLATE 100 MG CAP PO SCH ×2 (08:53→20:26)
[2019-09-21] MEDS: GABAPENTIN 600 MG TAB PO SCH ×2 (08:53→20:25)
[2019-09-21] MEDS: lamoTRIgine 100 MG TAB PO SCH (08:53)
[2019-09-21] MEDS: MAGNESIUM OXIDE 400 MG TAB PO SCH ×2 (08:53→20:26)
[2019-09-21] MEDS: predniSONE 20 MG TAB PO SCH (08:53)
[2019-09-21] MEDS: LACTOBACILLUS ACIDOPHILUS (FLORANEX) TAB PO SCH (08:53)
[2019-09-21] MEDS: FINASTERIDE 5 MG TAB PO SCH (08:53)
[2019-09-21] MEDS: AMLODIPINE BESYLATE 5 MG TAB PO SCH (08:53)
[2019-09-21] MEDS: AMOXICILLIN/CLAVULANATE 875 MG TAB PO SCH ×2 (08:54→17:00)
[2019-09-21] MEDS: TIMOLOL MALEATE 0.5% OP SOLN 5 ML BTL OPB SCH (08:54)
[2019-09-21] MEDS: FLUOXETINE HCL 20 MG CAP PO SCH (08:54)
[2019-09-21] MEDS: INSULIN ASPART 100 UNITS/ML 3 ML PEN SC SCH ×4 (08:55→20:29)
[2019-09-21] MEDS ORDERED: FUROSEMIDE 10 MG in SYRINGE 0 ML IV SCH (11:00)
[2019-09-21] MEDS ORDERED: POLYETHYLENE (MIRALAX) 17 GM PACK PO PRN (11:57)
[2019-09-21] MEDS ORDERED: POLYETHYLENE (MIRALAX) 17 GM PACK PO ONE (11:58)
--- NOTE | 2019-09-21 12:07 | Cardiology Progress Note ---
Date of Service September 21, 2019 Assessment & Plan (1) Acute and chronic respiratory failure: -Secondary to right sided pneumonia confirmed on chest CT and underlying severe oxygen dependent COPD --continue antibiotics and steroids per hospitalist. transitioned to oral antibiotics due to excessive IV fluid intake He has an underlying history of right sided HF. He received one dose IV lasix yesterday with 2.5 L output. He is down 1/2 kg and now 4L positive. Will give one additioanl dose of IV lasix 10 mg today. BMP in AM . (2) Pneumonia: (3) Sinus bradycardia: Sinus bradycardia on EKG's on admission Telemetry reviewed, demonstrating sinus bradycardia and NSR without pauses. Gamal Christine noted during presumed sleep on one occasion, without recurrence. Patient has a implantable loop recorder, [employer]. Unable to check device Telemetry reviewed and reveals NSR with HRs in the 60's. no recurrent bradyarrhythmias or indications for PPM at this time (4) CAD (coronary artery disease): No acute ischemic EKG changes Negative cardiac enzymes Recent outpatient dobutamine stress echo in August 2019 was negative for inducible ischemia at 81% MPHR with preserved LV systolic function and no significant valvular disease Continue home medications including Plavix (initiated in place of ASA in 2019 post CVA), amlodipine, atorvastatin. No AV shavonne blocking agents Case discussed with Dr. Harrington. Will follow Admission and Anticipated Discharge Date Admission Date: September 18, 2019 Supervising Physician Co-Signing Physician Notes Patient seen and examined agree with full assessment as above. Patient more alert today off BiPAP and conversant. No focal complaints Still with rhonchorous cough right greater than left No significant arrhythmias on telemetry Additional low-dose diuretic given to maintain negative fluid balance after large-volume fluids received Subjective Patient resting in bed, reading this morning. He is more awake and alert this morning. Not currently on BiPAP. Feels shortness of breath and cough have mildly improved from yesterday but remains present and persistent.. He denies chest pain. No dizziness, lightheadedness, syncope or near-syncope. No palpitations. No orthopnea, PND, increased lower extremity edema. Review of Systems Review of Systems: All systems reviewed & are unremarkable except as noted in HPI & below Physical Exam Constitutional: WD/WN, vitals as above + obese; no acute distress Respiratory: no respiratory distress Auscultation: + diminished lung sounds, + rhonchi and + wheezes Cardiovascular: Rate/Rhythm: regular rate and regular rhythm Heart Sounds: + murmur (II/ systolic murmur) Vessels: no JVD Extremities: + edema (trace ankle and pretibial edema) Musculoskeletal: no cyanosis or clubbing, extremities motor strength 5/5 Psychiatric: Orientation: alert and oriented x 3 Results & Data ([facility]) Vital Signs (Past 12 Hours) Vital Signs Temp Pulse Pulse Resp BP Pulse Ox 09/21/19 07:19 36.5 C 57 L 22 136/75 94 09/21/19 07:09 48 L 13 96 09/21/19 04:55 54 L 14 93 09/21/19 03:44 36.5 C 50 L 16 150/79 H 93 09/21/19 00:31 36.4 C L 61 18 145/75 H 96 Laboratory Results 09/21/19 09/21/19 09/21/19 Range/Units 11:29 07:22 06:08 Hgb 10.3 L (14.0-18.0) g/dL Hct 33.5 L (42-52) % Sodium (136-145) mmol/L Potassium (3.5-5.1) mmol/L Chloride (98-107) mmol/L Carbon Dioxide (21-32) mmol/L Anion Gap (3-11) BUN (7-18) mg/dl Creatinine (0.6-1.4) mg/dl Est Cr Clr Drug Dosing ml/min Est GFR ( Amer) Est GFR (Non-Af Amer) BUN/Creatinine Ratio (10-20) Glucose (70-99) mg/dl POC Glucose 134 H 129 H (70-99) mg/dl Calcium (8.5-10.1) mg/dl 09/21/19 09/20/19 09/20/19 Range/Units 06:08 20:07 16:10 Hgb (14.0-18.0) g/dL Hct (42-52) % Sodium 144 (136-145) mmol/L Potassium 3.8 (3.5-5.1) mmol/L Chloride 114 H (98-107) mmol/L Carbon Dioxide 25 (21-32) mmol/L Anion Gap 5.0 (3-11) BUN 26 H (7-18) mg/dl Creatinine 0.98 (0.6-1.4) mg/dl Est Cr Clr Drug Dosing 75.9 ml/min Est GFR ( Amer) 87.1 Est GFR (Non-Af Amer) 75.1 BUN/Creatinine Ratio 26.7 H (10-20) Glucose 121 H (70-99) mg/dl POC Glucose 215 H 170 H (70-99) mg/dl Calcium 9.3 (8.5-10.1) mg/dl Diagnostic Findings Telemetry reviewed demonstrating normal sinus rhythm and mild sinus bradycardia with heart rates 55-75 beats per minute. No recurrent second-degree AV block. No pauses. No significant bradycardia. Chest x-ray report reviewed dated this morning, September 21, 2019: Parenchymal infiltrate right midlung and medial right base. Mild stable cardiomegaly. Improved aeration lateral aspect right base. Medications Administered Current Inpatient Medications Acetaminophen (Tylenol) 650 mg PO Q4H PRN PRN Reason: Pain or Fever Stop: 10/18/19 02:06 Albuterol (Ventolin Hfa) 2 puffs INH Q4H PRN PRN Reason: increased cough, shortness of Stop: 10/18/19 02:06 Amlodipine Besylate (Norvasc) 10 mg PO QAM [facility] Stop: 10/18/19 08:59 Last Admin: 09/21/19 08:53 Dose: 10 mg Documented by: Amoxicillin/Clavulanate Potassium (Amoxicillin/Clavulanate 875 Mg Tab) 1 tab PO BIDM [facility] Stop: 09/27/19 16:59 Last Admin: 09/21/19 08:54 Dose: 1 tab Documented by: Atorvastatin Calcium (Lipitor) 80 mg PO QPM [facility] Stop: 10/18/19 20:59 Last Admin: 09/20/19 20:56 Dose: 80 mg Documented by: Clopidogrel Bisulfate (Plavix) 75 mg PO QPM [facility] Stop: 10/18/19 20:59 Last Admin: 09/20/19 20:59 Dose: 75 mg Documented by: Docusate Sodium (Docusate Sodium 100 Mg Cap) 100 mg PO BID [facility] Stop: 10/21/19 11:59 Doxycycline Hyclate (Doxycycline Hyclate 100 Mg Cap) 100 mg PO BID [facility] Stop: 09/25/19 09:01 Last Admin: 09/21/19 08:53 Dose: 100 mg Documented by: Finasteride (Proscar) 5 mg PO QAM [facility] Stop: 10/18/19 08:59 Last Admin: 09/21/19 08:53 Dose: 5 mg Documented by: Fluoxetine HCl (Prozac) 60 mg PO QAM [facility] Stop: 10/18/19 08:59 Last Admin: 09/21/19 08:54 Dose: 60 mg Documented by: Gabapentin (Neurontin) 600 mg PO BID [facility] Stop: 10/18/19 08:59 Last Admin: 09/21/19 08:53 Dose: 600 mg Documented by: Heparin Sodium (Porcine) (Heparin Sodium (Porcine)) 5,000 units SQ Q8 [facility] Stop: 10/20/19 05:59 Last Admin: 09/21/19 05:27 Dose: 5,000 units Documented by: Insulin Aspart (Novolog Flexpen) 0 units SC ACHS [facility] Stop: 10/18/19 16:29 Last Admin: 09/21/19 12:01 Dose: 2 units Documented by: Ipratropium Tropic (Atrovent 0.02% 0.5mg/2.5ml) 0.5 mg INH Q4H PRN PRN Reason: Shortness Of Breath Or Wheezing Stop: 10/18/19 02:06 Lactobacillus Acidophilus (Floranex) 4 tab PO [facility] Stop: 10/18/19 08:59 Last Admin: 09/21/19 08:53 Dose: 4 tab Documented by: Lamotrigine (Lamictal) 200 mg PO QAM [facility] Stop: 10/18/19 08:59 Last Admin: 09/21/19 08:53 Dose: 200 mg Documented by: Levalbuterol HCl (Xopenex 1.25mg/0.5ml Neb) 1.25 mg INH Q4H PRN PRN Reason: Shortness Of Breath Or Wheezing Stop: 10/18/19 02:06 Losartan Potassium (Cozaar) 50 mg PO QPM [facility] Stop: 10/18/19 20:59 Last Admin: 09/20/19 20:57 Dose: 50 mg Documented by: Magnesium Oxide (Mag-Ox) 400 mg PO BID [facility] Stop: 10/18/19 08:59 Last Admin: 09/21/19 08:53 Dose: 400 mg Documented by: Nitroglycerin (Nitrostat) 0.4 mg SL UD PRN PRN Reason: Chest Pain Stop: 10/18/19 02:06 Olanzapine (Zyprexa) 30 mg PO QPM [facility] Stop: 10/18/19 20:59 Last Admin: 09/20/19 20:59 Dose: 30 mg Documented by: Pantoprazole Sodium (Protonix) 40 mg PO QPM [facility] Stop: 10/18/19 20:59 Last Admin: 09/20/19 20:58 Dose: 40 mg Documented by: Polyethylene Glycol (Polyethylene (Miralax) 17 Gm Pack) 17 gm PO DAILY PRN PRN Reason: Constipation Stop: 10/21/19 11:56 Prednisone (Prednisone) 20 mg PO DAILY [facility] Stop: 10/20/19 08:59 Last Admin: 09/21/19 08:53 Dose: 20 mg Documented by: Tamsulosin HCl (Flomax) 0.4 mg PO QPM [facility] Stop: 10/18/19 20:59 Last Admin: 09/20/19 20:58 Dose: 0.4 mg Documented by: Timolol Maleate (Timoptic 0.5% Oph) [facility] Stop: 10/18/19 08:59 Last Admin: 09/21/19 08:54 Dose: 1 drops Documented by: Umeclidinium Tropic (Incruse Ellipta) 1 puffs INH QAM [facility] Stop: 10/18/19 08:59 Last Admin: 09/21/19 08:52 Dose: 1 puffs Documented by: (1) Pneumonia Laterality: right Lung location: lower lobe of lung Pneumonia type: due to unspecified organism Qualified Code(s): J18.9 - Pneumonia, unspecified organism
[2019-09-21] MEDS: DOCUSATE SODIUM 100 MG CAP PO SCH ×2 (13:15→20:24)
--- NOTE | 2019-09-21 18:08 | Hospitalist Progress Note ---
Date of Service September 21, 2019 Assessment & Plan (1) Pneumonia: Patient is a 74 yr male who presents with worsening shortness of breath, increasing oxygen requirement and pneumonia on chest x-ray. Acute on chronic hypoxic respiratory failure Chronic oxygen dependency--3 liters at baseline Right lower lobe Pneumonia H/O Severe COPD --CT Chest:Streak and motion degraded examination. Cardiomegaly and emphysema. There is dense airspace consolidation throughout the right lower lobe with debris filling the right lower lobe bronchus. The appearance is typical for pneumonia/aspiration pneumonitis. Clinical correlation will be required and radiographic follow-up to resolution is recommended. --COVID PCR Negative --Blood Cx:No growth to date --Continue Zosyn, Doxy>> transition to p.o. Augmentin, doxycycline --Continue supplemental oxygen, BiPAP nightly --Continue low dose prednisone --Nebs PRN --CXR today showed mildly progressive interstitial infiltrate right mid and right lower lung region. --Titrate oxygen to keep sats greater than 88% --Repeat chest x-ray today showed Improved aeration lateral aspect right base. --Clinically slowly Improving --Plan to continue current medications Bradycardia Mobitz I at times Has implantable loop recorder Needs interrogation as outpatient Avoid AV shavonne blocking agents Appreciate cardiology input KELLEN on CKD III Baseline Cr ~1.4 Monitor renal function Consider to hold losartan if renal function worsens Discontinued IV fluids Renal function back to baseline Monitor DM II HbA1C: 6.1 Not on any medications ISS while hospitalized Hyperlipidemia on statin H/O Right-sided heart failure H/O Cor pulmonale Not on any diuretics at home Monitor volume status Continue diuretics as needed H/O left [employer] stroke Continue Plavix, statin H/O Schizoaffective disorder H/O Depression on Lamictal, Zyprexa, fluoxetine BPH: on Flomax HTN: Continue amlodipine, losartan Severe osteoarthritis Planned for left knee replacement CAD S/P stent to LAD in 2000 Continue Plavix, statin Obstructive sleep apnea on BiPAP at bedtime DVT Px: Heparin SQ Code Status Full Code Disposition PT/OT: Needs Home Health Case management to help with discharge planning Admission and Anticipated Discharge Date Admission Date: September 18, 2019 Subjective Patient is seen and examined at bedside Feels better today still has cough with minimal expectoration Chronic dyspnea is unchanged Reports constipation No significant bradycardia on monitor Denies chest pain, nausea, abdominal pain Discussed with Cardiology today CXR today showed Improved aeration lateral aspect right base. Additional dose of lasix given today Review of Systems Review of Systems: All systems reviewed & are unremarkable except as noted in HPI & below Physical Exam Physical Exam: Physical Exam: Vitals signs as noted above General Appearance:Moderately built and nourished, no apparent distress Head: normocephalic, Atraumatic Eyes: normal inspection, EOMI Neck: supple, Trachea midline Respiratory/Chest: Decreased breath sounds, CTA Cardiovascular: S1, S2, No murmur Abdomen/GI:Soft, Non tender, Bowel sounds present Extremities/Musculoskelatal:normal inspection, Trace pedal edema Neurologic/Psych:AAOX3, grossly no focal neurological deficits Skin: normal color, warm Results & Data Results & Data ([facility]) Vital Signs (Past 12 Hours) Vital Signs Temp Pulse Pulse Resp BP Pulse Ox Pulse Ox 09/21/19 15:50 37.0 C 56 L 24 130/71 95 09/21/19 15:15 79 L 09/21/19 12:40 36.4 C L 58 L 20 136/71 92 09/21/19 07:19 36.5 C 57 L 22 136/75 94 09/21/19 07:09 48 L 13 96 Laboratory Results Short CBC 09/21/19 Range/Units 06:08 Hgb 10.3 L (14.0-18.0) g/dL Hct 33.5 L (42-52) % BMP 09/21/19 06:08 Sodium 144 Potassium 3.8 Chloride 114 H Carbon Dioxide 25 BUN 26 H Creatinine 0.98 Glucose 121 H Calcium 9.3 (1) Pneumonia Laterality: right Lung location: lower lobe of lung Pneumonia type: due to unspecified organism Qualified Code(s): J18.9 - Pneumonia, unspecified organism
[2019-09-21] MEDS: ATORVASTATIN 40 MG TAB PO SCH (20:27)
[2019-09-21] MEDS: TAMSULOSIN HCL 0.4 MG CAP PO SCH (20:27)
[2019-09-21] MEDS: CLOPIDOGREL BISULFATE 75 MG TAB PO SCH (20:27)
[2019-09-21] MEDS: OLANZapine 10 MG TAB PO SCH (20:27)
[2019-09-21] MEDS: PANTOprazole 40 MG TAB PO SCH (20:28)
[2019-09-21] MEDS: LOSARTAN POTASSIUM 50 MG TAB PO SCH (20:28)
[2019-09-22] MEDS: HEPARIN SOD 5,000 UNIT/0.5 ML VIAL SQ SCH ×3 (06:04→21:16)
[2019-09-22 07:06] LABS: Hematocrit (blood only) 32.3 % (42-52); Hemoglobin 10.6 g/dL (14.0-18.0)
[2019-09-22 07:33] LABS: BUN Creatinine Ratio 26.4 (10-20); Calcium 10.1 mg/dl (8.5-10.1); Creatinine Clr Calc Pharmacy 70.2 ml/min; Est GFR (African American) 78.3; Est GFR (Non-African American) 67.5; Potassium 3.9 mmol/L (3.5-5.1)
[2019-09-22] MEDS: INSULIN ASPART 100 UNITS/ML 3 ML PEN SC SCH ×4 (08:26→21:16)
[2019-09-22] MEDS: predniSONE 20 MG TAB PO SCH (08:27)
[2019-09-22] MEDS: FLUOXETINE HCL 20 MG CAP PO SCH (08:27)
[2019-09-22] MEDS: GABAPENTIN 600 MG TAB PO SCH ×2 (08:27→20:39)
[2019-09-22] MEDS: FINASTERIDE 5 MG TAB PO SCH (08:28)
[2019-09-22] MEDS: AMOXICILLIN/CLAVULANATE 875 MG TAB PO SCH ×2 (08:28→16:14)
[2019-09-22] MEDS: LACTOBACILLUS ACIDOPHILUS (FLORANEX) TAB PO SCH (08:28)
[2019-09-22] MEDS: UMECLIDINIUM BROMIDE 62.5MCG/BLISTER 7 PUFFS/INHALER INH SCH (08:28)
[2019-09-22] MEDS: lamoTRIgine 100 MG TAB PO SCH (08:28)
[2019-09-22] MEDS: AMLODIPINE BESYLATE 5 MG TAB PO SCH (08:28)
[2019-09-22] MEDS: TIMOLOL MALEATE 0.5% OP SOLN 5 ML BTL OPB SCH (08:29)
[2019-09-22] MEDS: MAGNESIUM OXIDE 400 MG TAB PO SCH ×2 (08:29→20:41)
[2019-09-22] MEDS: DOXYCYCLINE HYCLATE 100 MG CAP PO SCH ×2 (08:29→20:45)
[2019-09-22] MEDS: DOCUSATE SODIUM 100 MG CAP PO SCH ×3 (08:29→20:43)
--- NOTE | 2019-09-22 11:22 | Cardiology Progress Note ---
Date of Service September 22, 2019 Assessment & Plan (1) Acute and chronic respiratory failure: -Secondary to right sided pneumonia confirmed on chest CT and underlying severe oxygen dependent COPD --continue antibiotics and steroids per hospitalist. --increased cough/wheezing noted on exam, with patient reporting worsening SOB this morning. --Recommend repeat chest xray and consider neb treatment this AM. Discussed with hospitalist. -He responded to 2 doses of IV lasix over the last few days. I+Os now equal. --Monitor fluid status. (2) Pneumonia: (3) Sinus bradycardia: Sinus bradycardia on EKG's on admission Telemetry reviewed, demonstrating sinus bradycardia and NSR without pauses. Gamal Christine noted during presumed sleep on one occasion, without recurrence. Patient has a implantable loop recorder, [employer]. Unable to check device Telemetry reviewed and reveals NSR with HRs in the 60's. no recurrent bradyarrhythmias or indications for PPM at this time (4) CAD (coronary artery disease): No acute ischemic EKG changes Negative cardiac enzymes Recent outpatient dobutamine stress echo in August 2019 was negative for inducible ischemia at 81% MPHR with preserved LV systolic function and no significant valvular disease Continue home medications including Plavix (initiated in place of ASA in 2018 post CVA), amlodipine, atorvastatin. No AV shavonne blocking agents Case discussed with Dr. Harrington. No further cardiac testing recommended at this time. Will sign off. Consider pulm consult if respiratory status not improving with current therapies. Admission and Anticipated Discharge Date Admission Date: September 18, 2019 Supervising Physician Co-Signing Physician Notes Patient seen and examined, agree with assessment as above. Chest exam still with significant rhonchorous breath sounds. Volume status appears euvolemic Cardiac status stable with resting sinus bradycardia no arrhythmias Would continue treat underlying infectious process Subjective Patient sleeping upon arrival. Not using BIPAP. Awakens easily to voice. Tells me he feels poorly this morning. Having a more difficult time breathing. Increased cough and wheezing. No chest pain. He denies palpitations or dizziness. Review of Systems Review of Systems: All systems reviewed & are unremarkable except as noted in HPI & below Physical Exam Constitutional: WD/WN, vitals as above + obese; no acute distress Respiratory: no respiratory distress Auscultation: + diminished lung sounds, + rhonchi and + wheezes Cardiovascular: Rate/Rhythm: regular rate and regular rhythm Heart Sounds: + murmur (II/ systolic murmur) Vessels: no JVD Extremities: + edema (trace ankle and pretibial edema) Musculoskeletal: no cyanosis or clubbing, extremities motor strength 5/5 Psychiatric: Orientation: alert and oriented x 3 Results & Data ([facility]) Vital Signs (Past 12 Hours) Vital Signs Temp Pulse Pulse Resp BP Pulse Ox 09/22/19 07:27 36.7 C 54 L 16 130/68 91 09/22/19 03:40 36.8 C 58 L 16 155/77 H 95 09/22/19 03:05 48 L 15 94 09/22/19 00:08 36.4 C L 53 L 18 146/73 H 94 Laboratory Results 09/22/19 09/22/19 09/22/19 Range/Units 07:13 06:28 06:28 Hgb (14.0-18.0) g/dL Hct (42-52) % Sodium 142 (136-145) mmol/L Potassium 3.9 (3.5-5.1) mmol/L Chloride 109 H (98-107) mmol/L Carbon Dioxide 27 (21-32) mmol/L Anion Gap 6.0 (3-11) BUN 28 H (7-18) mg/dl Creatinine 1.07 (0.6-1.4) mg/dl Est Cr Clr Drug Dosing 70.2 ml/min Est GFR ( Amer) 78.3 Est GFR (Non-Af Amer) 67.5 BUN/Creatinine Ratio 26.4 H (10-20) Glucose 105 H (70-99) mg/dl POC Glucose 117 H (70-99) mg/dl Calcium 10.1 (8.5-10.1) mg/dl Procalcitonin 0.07 (0-0.5) ng/ml 09/22/19 09/21/19 09/21/19 Range/Units 06:28 20:04 16:34 Hgb 10.6 L (14.0-18.0) g/dL Hct 32.3 L (42-52) % Sodium (136-145) mmol/L Potassium (3.5-5.1) mmol/L Chloride (98-107) mmol/L Carbon Dioxide (21-32) mmol/L Anion Gap (3-11) BUN (7-18) mg/dl Creatinine (0.6-1.4) mg/dl Est Cr Clr Drug Dosing ml/min Est GFR ( Amer) Est GFR (Non-Af Amer) BUN/Creatinine Ratio (10-20) Glucose (70-99) mg/dl POC Glucose 209 H 269 H (70-99) mg/dl Calcium (8.5-10.1) mg/dl Procalcitonin (0-0.5) ng/ml 09/21/19 Range/Units 11:29 Hgb (14.0-18.0) g/dL Hct (42-52) % Sodium (136-145) mmol/L Potassium (3.5-5.1) mmol/L Chloride (98-107) mmol/L Carbon Dioxide (21-32) mmol/L Anion Gap (3-11) BUN (7-18) mg/dl Creatinine (0.6-1.4) mg/dl Est Cr Clr Drug Dosing ml/min Est GFR ( Amer) Est GFR (Non-Af Amer) BUN/Creatinine Ratio (10-20) Glucose (70-99) mg/dl POC Glucose 134 H (70-99) mg/dl Calcium (8.5-10.1) mg/dl Procalcitonin (0-0.5) ng/ml Diagnostic Findings Telemetry reviewed: Sinus bradycardia and NSR ranging 55-70 bpm Medications Administered Current Inpatient Medications Acetaminophen (Tylenol) 650 mg PO Q4H PRN PRN Reason: Pain or Fever Stop: 10/18/19 02:06 Albuterol (Ventolin Hfa) 2 puffs INH Q4H PRN PRN Reason: increased cough, shortness of Stop: 10/18/19 02:06 Amlodipine Besylate (Norvasc) 10 mg PO QAM [facility] Stop: 10/18/19 08:59 Last Admin: 09/22/19 08:28 Dose: 10 mg Documented by: Amoxicillin/Clavulanate Potassium (Amoxicillin/Clavulanate 875 Mg Tab) 1 tab PO BIDM [facility] Stop: 09/27/19 16:59 Last Admin: 09/22/19 08:28 Dose: 1 tab Documented by: Atorvastatin Calcium (Lipitor) 80 mg PO QPM [facility] Stop: 10/18/19 20:59 Last Admin: 09/21/19 20:27 Dose: 80 mg Documented by: Clopidogrel Bisulfate (Plavix) 75 mg PO QPM [facility] Stop: 10/18/19 20:59 Last Admin: 09/21/19 20:27 Dose: 75 mg Documented by: Docusate Sodium (Docusate Sodium 100 Mg Cap) 100 mg PO BID [facility] Stop: 10/21/19 11:59 Last Admin: 09/22/19 08:34 Dose: Not Given Documented by: Doxycycline Hyclate (Doxycycline Hyclate 100 Mg Cap) 100 mg PO BID [facility] Stop: 09/25/19 09:01 Last Admin: 09/22/19 08:29 Dose: 100 mg Documented by: Finasteride (Proscar) 5 mg PO QAM [facility] Stop: 10/18/19 08:59 Last Admin: 09/22/19 08:28 Dose: 5 mg Documented by: Fluoxetine HCl (Prozac) 60 mg PO QAM [facility] Stop: 10/18/19 08:59 Last Admin: 09/22/19 08:27 Dose: 60 mg Documented by: Gabapentin (Neurontin) 600 mg PO BID [facility] Stop: 10/18/19 08:59 Last Admin: 09/22/19 08:27 Dose: 600 mg Documented by: Heparin Sodium (Porcine) (Heparin Sodium (Porcine)) 5,000 units SQ Q8 [facility] Stop: 10/20/19 05:59 Last Admin: 09/22/19 06:04 Dose: 5,000 units Documented by: Insulin Aspart (Novolog Flexpen) 0 units SC ACHS [facility] Stop: 10/18/19 16:29 Last Admin: 09/22/19 08:26 Dose: 2 units Documented by: Ipratropium Sulphur (Atrovent 0.02% 0.5mg/2.5ml) 0.5 mg INH Q4H PRN PRN Reason: Shortness Of Breath Or Wheezing Stop: 10/18/19 02:06 Lactobacillus Acidophilus (Floranex) [facility] Stop: 10/18/19 08:59 Last Admin: 09/22/19 08:28 Dose: 4 tab Documented by: Lamotrigine (Lamictal) 200 mg PO QAM [facility] Stop: 10/18/19 08:59 Last Admin: 09/22/19 08:28 Dose: 200 mg Documented by: Levalbuterol HCl (Xopenex 1.25mg/0.5ml Neb) 1.25 mg INH Q4H PRN PRN Reason: Shortness Of Breath Or Wheezing Stop: 10/18/19 02:06 Losartan Potassium (Cozaar) 50 mg PO QPM [facility] Stop: 10/18/19 20:59 Last Admin: 09/21/19 20:28 Dose: 50 mg Documented by: Magnesium Oxide (Mag-Ox) 400 mg PO BID [facility] Stop: 10/18/19 08:59 Last Admin: 09/22/19 08:29 Dose: 400 mg Documented by: Nitroglycerin (Nitrostat) 0.4 mg SL UD PRN PRN Reason: Chest Pain Stop: 10/18/19 02:06 Olanzapine (Zyprexa) 30 mg PO QPM [facility] Stop: 10/18/19 20:59 Last Admin: 09/21/19 20:27 Dose: 30 mg Documented by: Pantoprazole Sodium (Protonix) 40 mg PO QPM [facility] Stop: 10/18/19 20:59 Last Admin: 09/21/19 20:28 Dose: 40 mg Documented by: Polyethylene Glycol (Polyethylene (Miralax) 17 Gm Pack) 17 gm PO DAILY PRN PRN Reason: Constipation Stop: 10/21/19 11:56 Prednisone (Prednisone) 20 mg PO DAILY [facility] Stop: 10/20/19 08:59 Last Admin: 09/22/19 08:27 Dose: 20 mg Documented by: Tamsulosin HCl (Flomax) 0.4 mg PO QPM [facility] Stop: 10/18/19 20:59 Last Admin: 09/21/19 20:27 Dose: 0.4 mg Documented by: Timolol Maleate (Timoptic 0.5% Oph) 1 drops [facility] [place] Stop: 10/18/19 08:59 Last Admin: 09/22/19 08:29 Dose: 1 drops Documented by: Umeclidinium Sulphur (Incruse Ellipta) 1 puffs INH QAM [facility] Stop: 10/18/19 08:59 Last Admin: 09/22/19 08:28 Dose: 1 puffs Documented by: (1) Pneumonia Laterality: right Lung location: lower lobe of lung Pneumonia type: due to unspecified organism Qualified Code(s): J18.9 - Pneumonia, unspecified organism
--- NOTE | 2019-09-22 11:38 | XRay Report ---
XR chest 1V portable CLINICAL HISTORY: SOB dyspnea COMPARISON STUDY: 09/21/2019 FINDINGS: Unchanging parenchymal infiltrate right mid and right lower lung. Minimal infiltrative ardon ges left lung base. Upper lungs are clear. IMPRESSION: Bilateral parenchymal infiltrates unchanged from the prior study. ACT 112: Negative or not required by law. The above report was generated using voice recognition software. It may contain grammatical, syntax or spelling errors. Electronically signed by: Reji Merchant M.D. 09/22/2019 11:36 AM
--- NOTE | 2019-09-22 18:18 | Hospitalist Progress Note ---
Date of Service September 22, 2019 Assessment & Plan (1) Pneumonia: Patient is a 74 yr male who presents with worsening shortness of breath, increasing oxygen requirement and pneumonia on chest x-ray. Acute on chronic hypoxic respiratory failure Chronic oxygen dependency--3 liters at baseline Right lower lobe Pneumonia H/O Severe COPD --CT Chest:Streak and motion degraded examination. Cardiomegaly and emphysema. There is dense airspace consolidation throughout the right lower lobe with debris filling the right lower lobe bronchus. The appearance is typical for pneumonia/aspiration pneumonitis. Clinical correlation will be required and radiographic follow-up to resolution is recommended. --COVID PCR Negative --Blood Cx:No growth to date --Continue Zosyn, Doxy>> transition to p.o. Augmentin, doxycycline --Continue supplemental oxygen, BiPAP nightly --Continue low dose prednisone --Nebs PRN --CXR today showed no significant change --Will get speech eval as he is high risk for aspiration -Aspiration precautions -Procalcitonin: 0.07 Bradycardia Mobitz I at times Has implantable loop recorder Needs interrogation as outpatient Avoid AV shavonne blocking agents Appreciate cardiology input KELLEN on CKD III Baseline Cr ~1.4 Monitor renal function Consider to hold losartan if renal function worsens Discontinued IV fluids Renal function back to baseline Monitor DM II HbA1C: 6.1 Not on any medications ISS while hospitalized Hyperlipidemia on statin H/O Right-sided heart failure H/O Cor pulmonale Not on any diuretics at home Monitor volume status Continue diuretics as needed 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 Continue Plavix, statin H/O Schizoaffective disorder H/O Depression on Lamictal, Zyprexa, fluoxetine BPH: on Flomax HTN: Continue amlodipine, losartan Severe osteoarthritis Planned for left knee replacement CAD S/P stent to LAD in 2000 Continue Plavix, statin Obstructive sleep apnea on BiPAP at bedtime DVT Px: Heparin SQ Code Status Full Code Disposition PT/OT: Needs Home Health Case management to help with discharge planning Admission and Anticipated Discharge Date Admission Date: September 18, 2019 Subjective Patient is seen and examined at bedside States feeling tired today Reports cough, dyspnea about the same as yesterday Had bowel movement today Denies nausea, abdominal pain, dizziness Bradycardia on monitor Offers no other complaints Review of Systems Review of Systems: All systems reviewed & are unremarkable except as noted in HPI & below Physical Exam Physical Exam: Physical Exam: Vitals signs as noted above General Appearance:Moderately built and nourished, no apparent distress Head: normocephalic, Atraumatic Eyes: normal inspection, EOMI Neck: supple, Trachea midline Respiratory/Chest: Decreased breath sounds, +Scattered Rhonchi Cardiovascular: S1, S2, No murmur Abdomen/GI:Soft, Non tender, Bowel sounds present Extremities/Musculoskelatal:normal inspection, Trace pedal edema Neurologic/Psych:AAOX3, grossly no focal neurological deficits Skin: normal color, warm Results & Data Results & Data ([facility]) Vital Signs (Past 12 Hours) Vital Signs Temp Pulse Pulse Resp BP BP Pulse Ox 09/22/19 16:00 52 L 09/22/19 15:12 36.5 C 53 L 17 126/74 94 09/22/19 11:33 36.4 C L 57 L 18 125/69 09/22/19 07:27 36.7 C 54 L 16 130/68 91 Pulse Ox 09/22/19 16:00 94 09/22/19 15:12 09/22/19 11:33 09/22/19 07:27 Laboratory Results Short CBC 09/22/19 Range/Units 06:28 Hgb 10.6 L (14.0-18.0) g/dL Hct 32.3 L (42-52) % BMP 09/22/19 06:28 Sodium 142 Potassium 3.9 Chloride 109 H Carbon Dioxide 27 BUN 28 H Creatinine 1.07 Glucose 105 H Calcium 10.1 (1) Pneumonia Laterality: right Lung location: lower lobe of lung Pneumonia type: due to unspecified organism Qualified Code(s): J18.9 - Pneumonia, unspecified organism
[2019-09-22] MEDS: PANTOprazole 40 MG TAB PO SCH (20:40)
[2019-09-22] MEDS: CLOPIDOGREL BISULFATE 75 MG TAB PO SCH (20:40)
[2019-09-22] MEDS: ATORVASTATIN 40 MG TAB PO SCH (20:42)
[2019-09-22] MEDS: TAMSULOSIN HCL 0.4 MG CAP PO SCH (20:43)
[2019-09-22] MEDS: LOSARTAN POTASSIUM 50 MG TAB PO SCH (20:44)
[2019-09-22] MEDS: OLANZapine 10 MG TAB PO SCH (20:46)
[2019-09-23] MEDS: HEPARIN SOD 5,000 UNIT/0.5 ML VIAL SQ SCH ×3 (06:27→20:49)
[2019-09-23 08:24] LABS: Hematocrit (blood only) 39.2 % (42-52); Hemoglobin 12.6 g/dL (14.0-18.0)
[2019-09-23] MEDS: predniSONE 20 MG TAB PO SCH (08:50)
[2019-09-23] MEDS: AMLODIPINE BESYLATE 5 MG TAB PO SCH (08:50)
[2019-09-23] MEDS: lamoTRIgine 100 MG TAB PO SCH (08:50)
[2019-09-23] MEDS: FLUOXETINE HCL 20 MG CAP PO SCH (08:51)
[2019-09-23] MEDS: DOXYCYCLINE HYCLATE 100 MG CAP PO SCH ×2 (08:51→20:46)
[2019-09-23] MEDS: DOCUSATE SODIUM 100 MG CAP PO SCH ×2 (08:51→20:48)
[2019-09-23] MEDS: GABAPENTIN 600 MG TAB PO SCH ×2 (08:51→20:49)
[2019-09-23] MEDS: LACTOBACILLUS ACIDOPHILUS (FLORANEX) TAB PO SCH (08:51)
[2019-09-23] MEDS: TIMOLOL MALEATE 0.5% OP SOLN 5 ML BTL OPB SCH (08:51)
[2019-09-23] MEDS: FINASTERIDE 5 MG TAB PO SCH (08:51)
[2019-09-23] MEDS: AMOXICILLIN/CLAVULANATE 875 MG TAB PO SCH ×2 (08:51→17:39)
[2019-09-23] MEDS: MAGNESIUM OXIDE 400 MG TAB PO SCH ×2 (08:51→20:46)
[2019-09-23] MEDS: INSULIN ASPART 100 UNITS/ML 3 ML PEN SC SCH ×4 (08:52→20:44)
[2019-09-23] MEDS: UMECLIDINIUM BROMIDE 62.5MCG/BLISTER 7 PUFFS/INHALER INH SCH (08:53)
[2019-09-23 08:58] LABS: BUN Creatinine Ratio 26.7 (10-20); Calcium 10.7 mg/dl (8.5-10.1); Creatinine Clr Calc Pharmacy 77.4 ml/min; Est GFR (African American) 89.3; Magnesium 2.5 mg/dl (1.8-2.4); Potassium 3.9 mmol/L (3.5-5.1)
--- NOTE | 2019-09-23 17:51 | Hospitalist Progress Note ---
Date of Service September 23, 2019 Assessment & Plan (1) Pneumonia: Patient is a 74 yr male who presents with worsening shortness of breath, increasing oxygen requirement and pneumonia on chest x-ray. Acute on chronic hypoxic respiratory failure Chronic oxygen dependency--3 liters at baseline Right lower lobe Pneumonia H/O Severe COPD --CT Chest:Streak and motion degraded examination. Cardiomegaly and emphysema. There is dense airspace consolidation throughout the right lower lobe with debris filling the right lower lobe bronchus. The appearance is typical for pneumonia/aspiration pneumonitis. Clinical correlation will be required and radiographic follow-up to resolution is recommended. --COVID PCR Negative --Blood Cx:No growth to date --Continue Zosyn, Doxy>> transition to p.o. Augmentin, doxycycline --Continue supplemental oxygen, BiPAP nightly --Continue low dose prednisone --Nebs PRN --Pending Speech Eval --Aspiration precautions --Procalcitonin: 0.07 --Clinically Improving --Continue current meds --Plan to discharge to Rehab facility as able Bradycardia Gamal I at times Has implantable loop recorder Needs interrogation as outpatient Avoid AV shavonne blocking agents Appreciate cardiology input KELLEN on CKD III Baseline Cr ~1.4 Monitor renal function Consider to hold losartan if renal function worsens Discontinued IV fluids Renal function back to baseline Monitor DM II HbA1C: 6.1 Not on any medications ISS while hospitalized Hyperlipidemia on statin H/O Right-sided heart failure H/O Cor pulmonale Not on any diuretics at home Monitor volume status Continue diuretics as needed 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 Continue Plavix, statin H/O Schizoaffective disorder H/O Depression on Lamictal, Zyprexa, fluoxetine BPH: on Flomax HTN: Continue amlodipine, losartan Severe osteoarthritis Planned for left knee replacement CAD S/P stent to LAD in 2000 Continue Plavix, statin Obstructive sleep apnea on BiPAP at bedtime DVT Px: Heparin SQ Code Status Full Code Disposition PT/OT: SNF Case management to help with discharge planning Admission and Anticipated Discharge Date Admission Date: September 18, 2019 Subjective Patient is seen and examined at bedside States feeling a lot better today Cough, shortness of breath continues to improve No new complaints Denies chest pain, nausea, abdominal pain, dizziness Patient qualifies for SNF Patient is interested to go to rehab facility Review of Systems Review of Systems: All systems reviewed & are unremarkable except as noted in HPI & below Physical Exam Physical Exam: Physical Exam: Vitals signs as noted above General Appearance:Moderately built and nourished, no apparent distress Head: normocephalic, Atraumatic Eyes: normal inspection, EOMI Neck: supple, Trachea midline Respiratory/Chest: Decreased breath sounds, +Scattered Rhonchi Cardiovascular: S1, S2, No murmur Abdomen/GI:Soft, Non tender, Bowel sounds present Extremities/Musculoskelatal:normal inspection, Trace pedal edema Neurologic/Psych:AAOX3, grossly no focal neurological deficits Skin: normal color, warm Results & Data Results & Data ([facility]) Vital Signs (Past 12 Hours) Vital Signs Temp Pulse Pulse Resp BP Pulse Ox 09/23/19 17:31 36.7 C 73 20 120/69 92 09/23/19 11:55 36.5 C 56 L 20 138/76 95 09/23/19 07:20 36.4 C L 54 L 18 174/84 H 93 Laboratory Results Short CBC 09/23/19 Range/Units 07:46 Hgb 12.6 L (14.0-18.0) g/dL Hct 39.2 L (42-52) % BMP 09/23/19 07:46 Sodium 140 Potassium 3.9 Chloride 108 H Carbon Dioxide 28 BUN 26 H Creatinine 0.96 Glucose 111 H Calcium 10.7 H (1) Pneumonia Laterality: right Lung location: lower lobe of lung Pneumonia type: due to unspecified organism Qualified Code(s): J18.9 - Pneumonia, unspecified organism
[2019-09-23] MEDS: TAMSULOSIN HCL 0.4 MG CAP PO SCH (20:46)
[2019-09-23] MEDS: LOSARTAN POTASSIUM 50 MG TAB PO SCH (20:47)
[2019-09-23] MEDS: PANTOprazole 40 MG TAB PO SCH (20:47)
[2019-09-23] MEDS: OLANZapine 10 MG TAB PO SCH (20:48)
[2019-09-23] MEDS: CLOPIDOGREL BISULFATE 75 MG TAB PO SCH (20:48)
[2019-09-23] MEDS: ATORVASTATIN 40 MG TAB PO SCH (20:49)
[2019-09-24] MEDS: HEPARIN SOD 5,000 UNIT/0.5 ML VIAL SQ SCH ×3 (06:43→20:57)
[2019-09-24] MEDS: TIMOLOL MALEATE 0.5% OP SOLN 5 ML BTL OPB SCH (08:08)
[2019-09-24 08:09] LABS: Hematocrit (blood only) 33.7 % (42-52); Hemoglobin 11.1 g/dL (14.0-18.0)
[2019-09-24] MEDS: INSULIN ASPART 100 UNITS/ML 3 ML PEN SC SCH ×4 (08:09→20:57)
[2019-09-24] MEDS: FLUOXETINE HCL 20 MG CAP PO SCH (08:10)
[2019-09-24] MEDS: DOXYCYCLINE HYCLATE 100 MG CAP PO SCH ×2 (08:10→20:55)
[2019-09-24] MEDS: predniSONE 20 MG TAB PO SCH (08:10)
[2019-09-24] MEDS: FINASTERIDE 5 MG TAB PO SCH (08:11)
[2019-09-24] MEDS: AMLODIPINE BESYLATE 5 MG TAB PO SCH (08:11)
[2019-09-24] MEDS: DOCUSATE SODIUM 100 MG CAP PO SCH ×2 (08:11→20:51)
[2019-09-24] MEDS: UMECLIDINIUM BROMIDE 62.5MCG/BLISTER 7 PUFFS/INHALER INH SCH (08:11)
[2019-09-24] MEDS: AMOXICILLIN/CLAVULANATE 875 MG TAB PO SCH ×2 (08:11→17:10)
[2019-09-24] MEDS: LACTOBACILLUS ACIDOPHILUS (FLORANEX) TAB PO SCH (08:11)
[2019-09-24] MEDS: MAGNESIUM OXIDE 400 MG TAB PO SCH ×2 (08:11→20:48)
[2019-09-24] MEDS: lamoTRIgine 100 MG TAB PO SCH (08:11)
[2019-09-24] MEDS: GABAPENTIN 600 MG TAB PO SCH ×2 (08:11→20:48)
[2019-09-24 09:40] LABS: BUN Creatinine Ratio 28.7 (10-20); Calcium 9.2 mg/dl (8.5-10.1); Est GFR (African American) 82.9; Est GFR (Non-African American) 71.6; Potassium 3.9 mmol/L (3.5-5.1)
--- NOTE | 2019-09-24 19:54 | Hospitalist Progress Note ---
Date of Service September 24, 2019 Assessment & Plan (1) Pneumonia: Patient is a 74 yr male who presents with worsening shortness of breath, increasing oxygen requirement and pneumonia on chest x-ray. Acute on chronic hypoxic respiratory failure Chronic oxygen dependency--3 liters at baseline Right lower lobe Pneumonia H/O Severe COPD --CT Chest:Streak and motion degraded examination. Cardiomegaly and emphysema. There is dense airspace consolidation throughout the right lower lobe with debris filling the right lower lobe bronchus. The appearance is typical for pneumonia/aspiration pneumonitis. Clinical correlation will be required and radiographic follow-up to resolution is recommended. --COVID PCR Negative --Blood Cx:No growth to date --Continue Zosyn, Doxy>> transition to p.o. Augmentin, doxycycline --Continue supplemental oxygen, BiPAP nightly --Continue low dose prednisone --Nebs PRN --Continue Aspiration precautions --Procalcitonin: 0.07 --Plan to discharge to SNF ----Speech Eval: Recommends regular diet, aspiration precautions --Case management consulted for discharge planning Bradycardia Mobitz I at times Has implantable loop recorder Needs interrogation as outpatient Avoid AV shavonne blocking agents Appreciate cardiology input KELLEN on CKD III Baseline Cr ~1.4 Monitor renal function Consider to hold losartan if renal function worsens Discontinued IV fluids Cr:1.02 today DM II HbA1C: 6.1 Not on any medications ISS while hospitalized Hyperlipidemia on statin H/O Right-sided heart failure H/O Cor pulmonale Not on any diuretics at home Monitor volume status Continue diuretics as needed 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 Continue Plavix, statin H/O Schizoaffective disorder H/O Depression on Lamictal, Zyprexa, fluoxetine BPH: on Flomax HTN: Continue amlodipine, losartan Severe osteoarthritis Planned for left knee replacement CAD S/P stent to LAD in 2000 Continue Plavix, statin Obstructive sleep apnea on BiPAP at bedtime DVT Px: Heparin SQ Code Status Full Code Disposition PT/OT: SNF Case management to help with discharge planning Plan to discharge once placement arranged Admission and Anticipated Discharge Date Admission Date: September 18, 2019 Subjective Patient is seen and examined at bedside Poor sleep overnight Feels tired this morning No other complaints Less Cough, SOB today Sitting in chair comfortably this morning Denies chest pain, nausea, abdominal pain, dizziness Review of Systems Review of Systems: All systems reviewed & are unremarkable except as noted in HPI & below Physical Exam Physical Exam: Physical Exam: Vitals signs as noted above General Appearance:Moderately built and nourished, no apparent distress Head: normocephalic, Atraumatic Eyes: normal inspection, EOMI Neck: supple, Trachea midline Respiratory/Chest: Decreased breath sounds, CTA Cardiovascular: S1, S2, No murmur Abdomen/GI:Soft, Non tender, Bowel sounds present Extremities/Musculoskelatal:normal inspection, Trace pedal edema Neurologic/Psych:AAOX3, grossly no focal neurological deficits Skin: normal color, warm Results & Data Results & Data ([facility]) Vital Signs (Past 12 Hours) Vital Signs Temp Pulse Pulse Resp BP Pulse Ox 09/24/19 19:39 36.8 C 60 19 92 09/24/19 15:49 36.8 C 60 18 122/59 L 98 09/24/19 15:00 51 L 09/24/19 11:51 36.7 C 55 L 18 108/66 91 09/24/19 08:13 36.4 C L 52 L 18 98/62 L 93 Laboratory Results Short CBC 09/24/19 Range/Units 07:13 Hgb 11.1 L (14.0-18.0) g/dL Hct 33.7 L (42-52) % BMP 09/24/19 07:13 Sodium 139 Potassium 3.9 Chloride 110 H Carbon Dioxide 26 BUN 29 H Creatinine 1.02 Glucose 102 H Calcium 9.2 (1) Pneumonia Laterality: right Lung location: lower lobe of lung Pneumonia type: due to unspecified organism Qualified Code(s): J18.9 - Pneumonia, unspecified organism
[2019-09-24] MEDS: TAMSULOSIN HCL 0.4 MG CAP PO SCH (20:48)
[2019-09-24] MEDS: LOSARTAN POTASSIUM 50 MG TAB PO SCH (20:48)
[2019-09-24] MEDS: ATORVASTATIN 40 MG TAB PO SCH (20:49)
[2019-09-24] MEDS: PANTOprazole 40 MG TAB PO SCH (20:54)
[2019-09-24] MEDS: OLANZapine 10 MG TAB PO SCH (20:54)
[2019-09-24] MEDS: CLOPIDOGREL BISULFATE 75 MG TAB PO SCH (20:55)
[2019-09-25] MEDS: HEPARIN SOD 5,000 UNIT/0.5 ML VIAL SQ SCH ×3 (05:52→21:19)
[2019-09-25 07:03] LABS: Basophils # (auto) 0.02 K/uL (0-0.2); Basophils % (auto) 0.3 %; Eosinophils # (auto) 0.17 K/uL (0-0.5); Eosinophils % (auto) 2.4 %; Hematocrit (blood only) 34.1 % (42-52); Immature Granulocytes # (auto) 0.05 K/uL (0.00-0.02); Immature Granulocytes % (auto) 0.7 %; Lymphocytes # (auto) 1.36 K/uL (1.2-3.4); Lymphocytes % (auto) 19.3 %; Mean Corpuscular Hemoglobin 28.1 pg (25-34); Mean Corpuscular Hgb Conc 32.3 g/dL (32-36); Mean Platelet Volume 9.4 fL (7.4-10.4); Monocytes # (auto) 0.88 K/uL (0.11-0.59); Monocytes % (auto) 12.5 %; Neutrophils # (auto) 4.57 K/uL (1.4-6.5); Neutrophils % (auto) 64.8 %; Platelet Count 251 K/uL (130-400); RDW Coefficient of Variation 16.1 % (11.5-14.5); RDW Standard Deviation 51.7 fL (36.4-46.3); Red Blood Count 3.92 M/uL (4.7-6.1); White Blood Count 7.05 K/uL (4.8-10.8)
[2019-09-25 07:23] LABS: BUN Creatinine Ratio 27.5 (10-20); Calcium 9.3 mg/dl (8.5-10.1); Creatinine Clr Calc Pharmacy 64.7 ml/min; Est GFR (African American) 71.7; Est GFR (Non-African American) 61.9; Magnesium 2.6 mg/dl (1.8-2.4)
[2019-09-25] MEDS: FLUOXETINE HCL 20 MG CAP PO SCH (08:44)
[2019-09-25] MEDS: GABAPENTIN 600 MG TAB PO SCH ×2 (08:44→20:38)
[2019-09-25] MEDS: lamoTRIgine 100 MG TAB PO SCH (08:44)
[2019-09-25] MEDS: DOXYCYCLINE HYCLATE 100 MG CAP PO SCH ×2 (08:44→20:38)
[2019-09-25] MEDS: AMLODIPINE BESYLATE 5 MG TAB PO SCH (08:45)
[2019-09-25] MEDS: LACTOBACILLUS ACIDOPHILUS (FLORANEX) TAB PO SCH (08:45)
[2019-09-25] MEDS: AMOXICILLIN/CLAVULANATE 875 MG TAB PO SCH ×2 (08:45→16:47)
[2019-09-25] MEDS: predniSONE 20 MG TAB PO SCH (08:45)
[2019-09-25] MEDS: FINASTERIDE 5 MG TAB PO SCH (08:46)
[2019-09-25] MEDS: DOCUSATE SODIUM 100 MG CAP PO SCH (08:46)
[2019-09-25] MEDS: MAGNESIUM OXIDE 400 MG TAB PO SCH ×2 (08:46→17:16)
[2019-09-25] MEDS: UMECLIDINIUM BROMIDE 62.5MCG/BLISTER 7 PUFFS/INHALER INH SCH (08:47)
[2019-09-25] MEDS: TIMOLOL MALEATE 0.5% OP SOLN 5 ML BTL OPB SCH (08:48)
[2019-09-25] MEDS: INSULIN ASPART 100 UNITS/ML 3 ML PEN SC SCH ×4 (08:50→21:19)
[2019-09-25] MEDS: predniSONE 10 MG TABLET PO SCH (10:06)
--- NOTE | 2019-09-25 14:58 | Hospitalist Progress Note ---
Date of Service September 25, 2019 Assessment & Plan (1) Pneumonia: Patient is a 74 yr male who presents with worsening shortness of breath, increasing oxygen requirement and pneumonia on chest x-ray. Acute on chronic hypoxic respiratory failure Chronic oxygen dependency--3 liters at baseline Right lower lobe Pneumonia H/O Severe COPD --CT Chest:Streak and motion degraded examination. Cardiomegaly and emphysema. There is dense airspace consolidation throughout the right lower lobe with debris filling the right lower lobe bronchus. The appearance is typical for pneumonia/aspiration pneumonitis. Clinical correlation will be required and radiographic follow-up to resolution is recommended. --COVID PCR Negative --Blood Cx:No growth to date --Continue Zosyn, Doxy>> transition to p.o. Augmentin, doxycycline --Continue supplemental oxygen, BiPAP nightly --Continue low dose prednisone --Nebs PRN --Continue Aspiration precautions --Procalcitonin: 0.07 --Plan to discharge to SNF as able ----Speech Eval: Plan for swallow eval tomorrow --Continue current management --Titrate down prednisone Bradycardia Mobitz I at times Has implantable loop recorder Needs interrogation as outpatient Avoid AV shavonne blocking agents Appreciate cardiology input KELLEN on CKD III Baseline Cr ~1.4 Monitor renal function Consider to hold losartan if renal function worsens Received IV fluids Cr:1.15 today DM II HbA1C: 6.1 Not on any medications ISS while hospitalized Hyperlipidemia on statin H/O Right-sided heart failure H/O Cor pulmonale Not on any diuretics at home Monitor volume status Continue diuretics as needed 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 Continue Plavix, statin H/O Schizoaffective disorder H/O Depression on Lamictal, Zyprexa, fluoxetine BPH: on Flomax HTN: Continue amlodipine, losartan Severe osteoarthritis Planned for left knee replacement CAD S/P stent to LAD in 2000 Continue Plavix, statin Obstructive sleep apnea on BiPAP at bedtime DVT Px: Heparin SQ Code Status Full Code Disposition PT/OT: SNF Case management to help with discharge planning Plan to discharge once placement arranged Admission and Anticipated Discharge Date Admission Date: September 18, 2019 Subjective Patient is seen and examined at bedside Feels a lot better today No new complaints Plan for swallow study tomorrow Sitting in chair comfortably this morning Cough, dyspnea continues to improve Denies chest pain, nausea, abdominal pain, dizziness Review of Systems Review of Systems: All systems reviewed & are unremarkable except as noted in HPI & below Physical Exam Physical Exam: Physical Exam: Vitals signs as noted above General Appearance:Moderately built and nourished, no apparent distress Head: normocephalic, Atraumatic Eyes: normal inspection, EOMI Neck: supple, Trachea midline Respiratory/Chest: Decreased breath sounds, CTA Cardiovascular: S1, S2, No murmur Abdomen/GI:Soft, Non tender, Bowel sounds present Extremities/Musculoskelatal:normal inspection, Trace pedal edema Neurologic/Psych:AAOX3, grossly no focal neurological deficits Skin: normal color, warm Results & Data Results & Data ([facility]) Vital Signs (Past 12 Hours) Vital Signs Temp Pulse Pulse Resp BP BP Pulse Ox 09/25/19 12:06 36.3 C L 55 L 20 102/62 92 09/25/19 08:07 36.8 C 54 L 20 132/79 91 09/25/19 03:42 50 L 18 92 09/25/19 03:27 36.7 C 51 L 19 105/67 94 Laboratory Results Short CBC 09/25/19 Range/Units 06:39 WBC 7.05 (4.8-10.8) K/uL Hgb 11.0 L (14.0-18.0) g/dL Hct 34.1 L (42-52) % Plt Count 251 (130-400) K/uL BMP 09/25/19 06:39 Sodium 141 Potassium 4.0 Chloride 110 H Carbon Dioxide 26 BUN 32 H Creatinine 1.15 Glucose 95 Calcium 9.3 (1) Pneumonia Laterality: right Lung location: lower lobe of lung Pneumonia type: due to unspecified organism Qualified Code(s): J18.9 - Pneumonia, unspecified organism
[2019-09-25] MEDS ORDERED: MICONAZOLE NITRATE POWDER 43 GM EXT PRN (19:39)
[2019-09-25] MEDS: OLANZapine 10 MG TAB PO SCH (20:36)
[2019-09-25] MEDS: PANTOprazole 40 MG TAB PO SCH (20:36)
[2019-09-25] MEDS: TAMSULOSIN HCL 0.4 MG CAP PO SCH (20:36)
[2019-09-25] MEDS: CLOPIDOGREL BISULFATE 75 MG TAB PO SCH (20:37)
[2019-09-25] MEDS: ATORVASTATIN 40 MG TAB PO SCH (20:37)
[2019-09-25] MEDS: LOSARTAN POTASSIUM 50 MG TAB PO SCH (20:38)
--- NOTE | 2019-09-25 21:50 | Communication Note ---
Date of Service: September 25, 2019 Notified by RN of episodic second-degree Mobitz type 2 AV block on the monitor, last one around 7:47 PM. Patient sleeping during episode as per RN. Will relay to AM provider.
[2019-09-25 23:10] LABS: BUN Creatinine Ratio 28.9 (10-20); Calcium 9.7 mg/dl (8.5-10.1); Est GFR (African American) 68.1; Est GFR (Non-African American) 58.8; Magnesium 2.5 mg/dl (1.8-2.4); Potassium 4.3 mmol/L (3.5-5.1)
[2019-09-26] MEDS: HEPARIN SOD 5,000 UNIT/0.5 ML VIAL SQ SCH ×4 (06:22→21:14)
[2019-09-26 07:07] LABS: Calcium 8.6 mg/dl (8.5-10.1); Creatinine Clr Calc Pharmacy 69.9 ml/min; Est GFR (African American) 78.3; Est GFR (Non-African American) 67.5; Magnesium 2.4 mg/dl (1.8-2.4); Potassium 4.1 mmol/L (3.5-5.1)
[2019-09-26] MEDS: UMECLIDINIUM BROMIDE 62.5MCG/BLISTER 7 PUFFS/INHALER INH SCH (08:47)
[2019-09-26] MEDS: TIMOLOL MALEATE 0.5% OP SOLN 5 ML BTL OPB SCH (08:47)
[2019-09-26] MEDS: AMOXICILLIN/CLAVULANATE 875 MG TAB PO SCH ×2 (08:48→17:34)
[2019-09-26] MEDS: FINASTERIDE 5 MG TAB PO SCH (08:49)
[2019-09-26] MEDS: LACTOBACILLUS ACIDOPHILUS (FLORANEX) TAB PO SCH (08:49)
[2019-09-26] MEDS: lamoTRIgine 100 MG TAB PO SCH (08:49)
[2019-09-26] MEDS: DOXYCYCLINE HYCLATE 100 MG CAP PO SCH ×2 (08:49→21:11)
[2019-09-26] MEDS: AMLODIPINE BESYLATE 5 MG TAB PO SCH (08:49)
[2019-09-26] MEDS: GABAPENTIN 600 MG TAB PO SCH ×2 (08:49→21:11)
[2019-09-26] MEDS: predniSONE 10 MG TABLET PO SCH (08:50)
[2019-09-26] MEDS: INSULIN ASPART 100 UNITS/ML 3 ML PEN SC SCH ×4 (08:50→21:14)
[2019-09-26] MEDS: FLUOXETINE HCL 20 MG CAP PO SCH (08:50)
--- NOTE | 2019-09-26 13:09 | Electrocardiogram Report ---
Test Reason : Blood Pressure : / mmHG Vent. Rate : 054 BPM Atrial Rate : 054 BPM P-R Int : 278 ms QRS Dur : 124 ms QT Int : 438 ms P-R-T Axes : 000 027 026 degrees QTc Int : 415 ms Sinus bradycardia with 1st degree A-V block Non-specific intra-ventricular conduction delay Borderline ECG When compared with ECG of 18-SEP-2019 04:45, No significant change Confirmed by Shaun Patel ([id number]) on 09/26/2019 1:09:12 PM Referred By: REFERRED SELF Confirmed By:Shaun Patel
--- NOTE | 2019-09-26 13:37 | Fluoroscopy Report ---
FL video swallow HISTORY: Suspected aspiration stroke TECHNIQUE: Video fluoroscopic evaluation of swallowing was performed in the AP and lateral projection s by the speech pathology staff. The patient is fed nectar-thick and thin liquid barium, a barium coa lucie wafer, and barium pudding. FLUOROSCOPY TIME: 2.1 minutes. NUMBER OF FLUOROSCOPY IMAGES: 0 COMPARISON STUDY: 06/24/2012 FINDINGS: There is silent aspiration when swallowing thin liquids. There is no aspiration when swallo wing nectar thick liquids or pudding. There is no aspiration when swallowing a cracker with paste. Th ere is disordered esophageal motility. IMPRESSION: 1. Penetration and silent aspiration of thin liquids. 2. Please see the speech pathologist report for detailed findings and recommendations. ACT 112: Negative or not required by law. Electronically signed by: Merrill Garcia M.D. 09/26/2019 1:36 PM
--- NOTE | 2019-09-26 16:06 | Hospitalist Progress Note ---
Date of Service September 26, 2019 Assessment & Plan (1) Pneumonia: Patient is a 74 yr male who presents with worsening shortness of breath, increasing oxygen requirement and pneumonia on chest x-ray. Acute on chronic hypoxic respiratory failure Chronic oxygen dependency--3 liters at baseline Right lower lobe Pneumonia H/O Severe COPD --CT Chest:Streak and motion degraded examination. Cardiomegaly and emphysema. There is dense airspace consolidation throughout the right lower lobe with debris filling the right lower lobe bronchus. The appearance is typical for pneumonia/aspiration pneumonitis. Clinical correlation will be required and radiographic follow-up to resolution is recommended. --COVID PCR Negative --Blood Cx:No growth to date --Continue Zosyn, Doxy>> transition to p.o. Augmentin, doxycycline --Continue supplemental oxygen, BiPAP nightly --Continue low dose prednisone --Nebs PRN --Continue Aspiration precautions --Procalcitonin: 0.07 --Speech Eval done Video swallow:Penetration and silent aspiration of thin liquids. Please see the speech pathologist report for detailed findings and recommendations. -Aspiration Precautions -Continue to taper off of prednisone --Waiting for SNF placement, Insurance Auth pending Bradycardia Mobitz I at times Has implantable loop recorder Needs interrogation as outpatient Avoid AV shavonne blocking agents Appreciate cardiology input KELLEN on CKD III Baseline Cr ~1.4 Monitor renal function Consider to hold losartan if renal function worsens Received IV fluids Cr:1.07 today DM II HbA1C: 6.1 Not on any medications ISS while hospitalized Hyperlipidemia on statin H/O Right-sided heart failure H/O Cor pulmonale Not on any diuretics at home Monitor volume status Continue diuretics as needed 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 Continue Plavix, statin H/O Schizoaffective disorder H/O Depression on Lamictal, Zyprexa, fluoxetine BPH: on Flomax HTN: Continue amlodipine, losartan Severe osteoarthritis Planned for left knee replacement CAD S/P stent to LAD in 2000 Continue Plavix, statin Obstructive sleep apnea on BiPAP at bedtime GERD Continue PPI DVT Px: Heparin SQ Code Status Full Code Disposition Waiting for SNF placement and Insurance Auth Case Management on board Admission and Anticipated Discharge Date Admission Date: September 18, 2019 Subjective Patient is seen and examined at bedside States feeling well today Had video swallow suggestive of silent aspiration with thin liquids Waiting for rehab placement Cough improved Denies chest pain, dyspnea, nausea, abdominal pain, dizziness Review of Systems Review of Systems: All systems reviewed & are unremarkable except as noted in HPI & below Physical Exam Physical Exam: Physical Exam: Vitals signs as noted above General Appearance:Moderately built and nourished, no apparent distress Head: normocephalic, Atraumatic Eyes: normal inspection, EOMI Neck: supple, Trachea midline Respiratory/Chest: Decreased breath sounds, CTA Cardiovascular: S1, S2, No murmur Abdomen/GI:Soft, Non tender, Bowel sounds present Extremities/Musculoskelatal:normal inspection, Trace pedal edema Neurologic/Psych:AAOX3, grossly no focal neurological deficits Skin: normal color, warm Results & Data Results & Data ([facility]) Vital Signs (Past 12 Hours) Vital Signs Temp Pulse Pulse Resp BP Pulse Ox 09/26/19 15:51 36.8 C 72 22 112/69 92 09/26/19 11:43 36.6 C 56 L 18 126/72 94 09/26/19 08:00 46 L 09/26/19 07:32 36.2 C L 49 L 16 132/67 96 09/26/19 04:37 36.4 C L 47 L 18 109/67 96 Laboratory Results BMP 09/25/19 09/26/19 22:25 06:04 Sodium 139 140 Potassium 4.3 4.1 Chloride 108 H 109 H Carbon Dioxide 26 26 BUN 35 H 31 H Creatinine 1.20 1.07 Glucose 130 H 93 Calcium 9.7 8.6 (1) Pneumonia Laterality: right Lung location: lower lobe of lung Pneumonia type: due to unspecified organism Qualified Code(s): J18.9 - Pneumonia, unspecified organism
[2019-09-26] MEDS: ATORVASTATIN 40 MG TAB PO SCH (21:09)
[2019-09-26] MEDS: TAMSULOSIN HCL 0.4 MG CAP PO SCH (21:09)
[2019-09-26] MEDS: LOSARTAN POTASSIUM 50 MG TAB PO SCH (21:10)
[2019-09-26] MEDS: OLANZapine 10 MG TAB PO SCH (21:10)
[2019-09-26] MEDS: PANTOprazole 40 MG TAB PO SCH (21:11)
[2019-09-26] MEDS: CLOPIDOGREL BISULFATE 75 MG TAB PO SCH (21:12)
--- NOTE | 2019-09-27 04:16 | Communication Note ---
Date of Service: September 27, 2019 Made aware by RN of intermittent episodes (totaling 13) of 2AVB Mobitz type 2 overnight as per teletypesetter monitor. Patient in deep sleep as per RN. AP Intermittent 2AVB Mobitz type 2 Will request AM provider to notify Cardiology in a.m.
[2019-09-27] MEDS: HEPARIN SOD 5,000 UNIT/0.5 ML VIAL SQ SCH ×3 (05:15→21:19)
[2019-09-27 06:15] LABS: Hematocrit (blood only) 35.4 % (42-52); Hemoglobin 11.3 g/dL (14.0-18.0); Mean Corpuscular Hemoglobin 28.2 pg (25-34); Mean Corpuscular Hgb Conc 31.9 g/dL (32-36); Mean Corpuscular Volume 88.3 fL (80-100); Mean Platelet Volume 9.9 fL (7.4-10.4); Platelet Count 226 K/uL (130-400); RDW Standard Deviation 51.8 fL (36.4-46.3); Red Blood Count 4.01 M/uL (4.7-6.1); White Blood Count 5.54 K/uL (4.8-10.8)
[2019-09-27 06:44] LABS: BUN Creatinine Ratio 25.8 (10-20); Calcium 8.9 mg/dl (8.5-10.1); Creatinine Clr Calc Pharmacy 59.3 ml/min; Est GFR (African American) 64.2; Est GFR (Non-African American) 55.4; Magnesium 2.1 mg/dl (1.8-2.4); Potassium 4.3 mmol/L (3.5-5.1)
[2019-09-27] MEDS: AMOXICILLIN/CLAVULANATE 875 MG TAB PO SCH (08:44)
[2019-09-27] MEDS: INSULIN ASPART 100 UNITS/ML 3 ML PEN SC SCH ×4 (08:44→21:19)
[2019-09-27] MEDS: lamoTRIgine 100 MG TAB PO SCH (08:45)
[2019-09-27] MEDS: FLUOXETINE HCL 20 MG CAP PO SCH (08:45)
[2019-09-27] MEDS: FINASTERIDE 5 MG TAB PO SCH (08:45)
[2019-09-27] MEDS: AMLODIPINE BESYLATE 5 MG TAB PO SCH (08:46)
[2019-09-27] MEDS: LACTOBACILLUS ACIDOPHILUS (FLORANEX) TAB PO SCH (08:46)
[2019-09-27] MEDS: GABAPENTIN 600 MG TAB PO SCH ×2 (08:46→21:20)
[2019-09-27] MEDS: predniSONE 10 MG TABLET PO SCH (08:46)
[2019-09-27] MEDS: UMECLIDINIUM BROMIDE 62.5MCG/BLISTER 7 PUFFS/INHALER INH SCH (08:46)
[2019-09-27] MEDS: TIMOLOL MALEATE 0.5% OP SOLN 5 ML BTL OPB SCH (08:47)
[2019-09-27] MEDS: DOXYCYCLINE HYCLATE 100 MG CAP PO SCH ×2 (08:47→21:19)
--- NOTE | 2019-09-27 12:28 | Communication Note ---
Date of Service: September 27, 2019 Rhythm strips reviewed from past 2 evenings. As per previous nights and early a.m. hours patient has intermittent Mobitz type I second-degree AV block. No type II second-degree AV block or higher degrees of AV block or pauses. No indications for further therapies
--- NOTE | 2019-09-27 12:59 | Hospitalist Progress Note ---
Date of Service September 27, 2019 Assessment & Plan (1) Sinus bradycardia: ISt degree AV block in monitor pt is asymptomatic not on any AV shavonne blockade has loop recorder appreciate input from cardiology : per Dr Harrington : Rhythm strips reviewed from past 2 evenings. As per previous nights and early a.m. hours patient has intermittent Mobitz type I second-degree AV block. No type II second-degree AV block or higher degrees of AV block or pauses. No indications for further therapies (2) Pneumonia: Patient is a 74 yr male who presents with worsening shortness of breath, increasing oxygen requirement and pneumonia on chest x-ray. Presented with acute on chronic hypoxic respiratory failure-possible secondary to aspiration pneumonitis Chronic oxygen dependency--3 liters at baseline Right lower lobe Pneumonia concern for aspiration H/O Severe COPD --CT Chest:Streak and motion degraded examination. Cardiomegaly and emphysema. There is dense airspace consolidation throughout the right lower lobe with d ebris filling the right lower lobe bronchus. The appearance is typical for pneumonia/aspiration pneumonitis. Clinical correlation will be required and radiographic follow-up to resolution is recommended. --COVID PCR Negative --Blood Cx:No growth to date --Was on Zosyn, Doxy>> transition to p.o. Augmentin, doxycycline 7 days treatment - --Speech Eval done Video swallow:Penetration and silent aspiration of thin liquids. Please see the speech pathologist report for detailed findings and recommendations. -Aspiration Precautions -Continue to taper off of prednisone --Waiting for rehab placement, referral made to [facility] KELLEN on CKD III Creatinine improved to baseline, resume losartan DM II HbA1C: 6.1 Not on any medications ISS while hospitalized Hyperlipidemia on statin H/O Right-sided heart failure H/O Cor pulmonale Not on any diuretics at home Stable volume status H/O left FORMULATION CHEMIST stroke Continue Plavix, statin H/O Schizoaffective disorder H/O Depression on Lamictal, Zyprexa, fluoxetine BPH: on Flomax HTN: Continue amlodipine, losartan CAD S/P stent to LAD in 2000 Continue Plavix, statin Obstructive sleep apnea on BiPAP at bedtime GERD Continue PPI DVT Px: Heparin SQ Code Status Full Code Disposition Transfer to [facility] when insurance authorization obtained Admission and Anticipated Discharge Date Admission Date: September 18, 2019 Subjective ,Patient reports of feeling much better, resolution of shortness of breath denies of any dyspnea on exertion No cough, no fever or chills On 3 L oxygen via nasal cannula which is his baseline Review of Systems Review of Systems: All systems reviewed & are unremarkable except as noted in HPI & below Physical Exam Constitutional: WD/WN, vitals as above no acute distress Eyes: + anicteric sclerae ENMT: external ear and nose normal, oropharynx normal Neck: trachea midline, no thyromegaly Respiratory: normal respiratory effort; no respiratory distress and no cough Cardiovascular: Rate/Rhythm: regular rate and regular rhythm Extremities: n o edema Gastrointestinal (Abdomen): normal bowel sounds, soft, nontender, no hepatosplenomegaly Musculoskeletal: no cyanosis or clubbing, extremities motor strength 5/5 Skin: no rashes, warm and dry Neurologic: PERRL, EOMI, accommodation nl, no face palsy, no dysarthria Results & Data Results & Data ([facility]) Vital Signs (Past 12 Hours) Vital Signs Temp Pulse Pulse Resp BP BP Pulse Ox 09/27/19 11:12 36.9 C 56 L 18 132/74 94 09/27/19 07:34 54 L 09/27/19 07:22 37.2 C 61 18 157/83 H 97 09/27/19 04:20 45 L 103/59 L 09/27/19 03:13 36.8 C 55 L 19 111/74 92 09/27/19 03:06 47 L 14 95 09/27/19 01:45 51 L (1) Pneumonia Laterality: right Lung location: lower lobe of lung Pneumonia type: due to unspecified organism Qualified Code(s): J18.9 - Pneumonia, unspecified organism
[2019-09-27] MEDS: ATORVASTATIN 40 MG TAB PO SCH (21:20)
[2019-09-27] MEDS: LOSARTAN POTASSIUM 50 MG TAB PO SCH (21:20)
[2019-09-27] MEDS: OLANZapine 10 MG TAB PO SCH (21:20)
[2019-09-27] MEDS: CLOPIDOGREL BISULFATE 75 MG TAB PO SCH (21:20)
[2019-09-27] MEDS: TAMSULOSIN HCL 0.4 MG CAP PO SCH (21:20)
[2019-09-27] MEDS: PANTOprazole 40 MG TAB PO SCH (21:21)
[2019-09-28] MEDS: HEPARIN SOD 5,000 UNIT/0.5 ML VIAL SQ SCH ×3 (04:46→20:50)
[2019-09-28] MEDS: INSULIN ASPART 100 UNITS/ML 3 ML PEN SC SCH ×4 (09:41→20:50)
[2019-09-28] MEDS: predniSONE 10 MG TABLET PO SCH (09:53)
[2019-09-28] MEDS: TIMOLOL MALEATE 0.5% OP SOLN 5 ML BTL OPB SCH (09:53)
[2019-09-28] MEDS: UMECLIDINIUM BROMIDE 62.5MCG/BLISTER 7 PUFFS/INHALER INH SCH (09:53)
[2019-09-28] MEDS: GABAPENTIN 600 MG TAB PO SCH ×2 (09:54→20:48)
[2019-09-28] MEDS: AMLODIPINE BESYLATE 5 MG TAB PO SCH (09:54)
[2019-09-28] MEDS: lamoTRIgine 100 MG TAB PO SCH (09:54)
[2019-09-28] MEDS: FINASTERIDE 5 MG TAB PO SCH (09:54)
[2019-09-28] MEDS: LACTOBACILLUS ACIDOPHILUS (FLORANEX) TAB PO SCH (09:55)
[2019-09-28] MEDS: FLUOXETINE HCL 20 MG CAP PO SCH (09:55)
[2019-09-28] MEDS: MAGNESIUM OXIDE 400 MG TAB PO SCH (18:38)
--- NOTE | 2019-09-28 18:38 | Hospitalist Progress Note ---
Date of Service September 28, 2019 Assessment & Plan (1) Sinus bradycardia: ISt degree AV block in monitor pt is asymptomatic not on any AV shavonne blockade has loop recorder appreciate input from cardiology : per Dr Harrington : Rhythm strips reviewed from past 2 evenings. As per previous nights and early a.m. hours patient has intermittent Mobitz type I second-degree AV block. No type II second-degree AV block or higher degrees of AV block or pauses. No indications for further therapies Telemetry discontinued Stable to be transferred to acute rehab when insurance authorization is available (2) Pneumonia: Patient is a 74 yr male who presents with worsening shortness of breath, increasing oxygen requirement and pneumonia on chest x-ray. Presented with acute on chronic hypoxic respiratory failure-possible secondary to aspiration pneumonitis Chronic oxygen dependency--3 liters at baseline Right lower lobe Pneumonia concern for aspiration H/O Severe COPD --CT Chest:Streak and motion degraded examination. Cardiomegaly and emphysema. There is dense airspace consolidation throughout the right lower lobe with debris filling the right lower lobe bronchus. The appearance is typical for pneumonia/aspiration pneumonitis. Clinical correlation will be required and radiographic follow-up to resolution is recommended. --COVID PCR Negative --Blood Cx:No growth to date --On p.o. Augmentin and doxycycline Complete 7 days treatment - --Speech Eval done Video swallow:Penetration and silent aspiration of thin liquids. Please see the speech pathologist report for detailed findings and recommendations. 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[employer] stroke Continue Plavix, statin H/O Schizoaffective disorder H/O Depression on Lamictal, Zyprexa, fluoxetine BPH: on Flomax HTN: Continue amlodipine, losartan CAD S/P stent to LAD in 2000 Continue Plavix, statin Obstructive sleep apnea on BiPAP at bedtime GERD Continue PPI DVT Px: Heparin SQ Code Status Full Code Disposition Transfer to [facility] when insurance authorization obtained Admission and Anticipated Discharge Date Admission Date: September 18, 2019 Subjective Doing well, shortness of breath dyspnea on exertion has improved since admission No cough no fever or chills Waiting to be transition to acute rehab Waiting for insurance authorization present at bedside Physical Exam Constitutional: WD/WN, vitals as above no acute distress Eyes: + anicteric sclerae ENMT: external ear and nose normal, oropharynx normal Neck: trachea midline, no thyromegaly Respiratory: normal respiratory effort; no respiratory distress and no cough Cardiovascular: Rate/Rhythm: regular rate and regular rhythm Extremities: no edema Gastrointestinal (Abdomen): normal bowel sounds, soft, nontender, no hepatosplenomegaly Musculoskeletal: no cyanosis or clubbing, extremities motor strength 5/5 Skin: no rashes, warm and dry Neurologic: PERRL, EOMI, accommodation nl, no face palsy, no dysarthria Results & Data Results & Data ([facility]) Vital Signs (Past 12 Hours) Vital Signs Temp Pulse Pulse Resp BP Pulse Ox 09/28/19 16:00 51 L 09/28/19 15:41 36.4 C L 50 L 16 150/77 H 96 09/28/19 08:00 52 L 09/28/19 07:00 36.4 C L 52 L 18 178/81 H 98 (1) Pneumonia Laterality: right Lung location: lower lobe of lung Pneumonia type: due to unspecified organism Qualified Code(s): J18.9 - Pneumonia, unspecified organism
[2019-09-28] MEDS: PANTOprazole 40 MG TAB PO SCH (20:47)
[2019-09-28] MEDS: LOSARTAN POTASSIUM 50 MG TAB PO SCH (20:47)
[2019-09-28] MEDS: CLOPIDOGREL BISULFATE 75 MG TAB PO SCH (20:47)
[2019-09-28] MEDS: TAMSULOSIN HCL 0.4 MG CAP PO SCH (20:48)
[2019-09-28] MEDS: ATORVASTATIN 40 MG TAB PO SCH (20:48)
[2019-09-28] MEDS: OLANZapine 10 MG TAB PO SCH (20:48)
[2019-09-29] MEDS: HEPARIN SOD 5,000 UNIT/0.5 ML VIAL SQ SCH ×2 (05:02→13:14)
[2019-09-29] MEDS: AMLODIPINE BESYLATE 5 MG TAB PO SCH (09:03)
[2019-09-29] MEDS: UMECLIDINIUM BROMIDE 62.5MCG/BLISTER 7 PUFFS/INHALER INH SCH (09:03)
[2019-09-29] MEDS: predniSONE 10 MG TABLET PO SCH (09:04)
[2019-09-29] MEDS: GABAPENTIN 600 MG TAB PO SCH (09:04)
[2019-09-29] MEDS: FINASTERIDE 5 MG TAB PO SCH (09:04)
[2019-09-29] MEDS: LACTOBACILLUS ACIDOPHILUS (FLORANEX) TAB PO SCH (09:04)
[2019-09-29] MEDS: TIMOLOL MALEATE 0.5% OP SOLN 5 ML BTL OPB SCH (09:04)
[2019-09-29] MEDS: FLUOXETINE HCL 20 MG CAP PO SCH (09:04)
[2019-09-29] MEDS: lamoTRIgine 100 MG TAB PO SCH (09:05)
[2019-09-29] MEDS: INSULIN ASPART 100 UNITS/ML 3 ML PEN SC SCH ×2 (09:12→13:14)
[2019-09-29] MEDS: MAGNESIUM OXIDE 400 MG TAB PO SCH (13:15)
--- NOTE | 2019-09-29 15:18 | Hospitalist Progress Note ---
Date of Service September 29, 2019 Assessment & Plan (1) Sinus bradycardia: ISt degree AV block in monitor pt is asymptomatic not on any AV shavonne blockade has loop recorder appreciate input from cardiology : per Dr Harrington : Rhythm strips reviewed from past 2 evenings. As per previous nights and early a.m. hours patient has intermittent Mobitz type I second-degree AV block. No type II second-degree AV block or higher degrees of AV block or pauses. No indications for further therapies Telemetry discontinued Stable to transfer to acute rehab at [facility] (2) Pneumonia: Patient is a 74 yr male who presents with worsening shortness of breath, increasing oxygen requirement and pneumonia on chest x-ray. Presented with acute on chronic hypoxic respiratory failure-possible secondary to aspiration pneumonitis Chronic oxygen dependency--3 liters at baseline Right lower lobe Pneumonia concern for aspiration H/O Severe COPD --CT Chest:Streak and motion degraded examination. Cardiomegaly and emphysema. There is dense airspace consolidation throughout the right lower lobe with debris filling the right lower lobe bronchus. The appearance is typical for pneumonia/aspiration pneumonitis. Clinical correlation will be required and radiographic follow-up to resolution is recommended. --COVID PCR Negative --Blood Cx:No growth to date --On p.o. Augmentin and doxycycline Completed 7 days treatment - --Speech Eval done Video swallow:Penetration and silent aspiration of thin liquids. Please see the speech pathologist report for detailed findings and recommendations. 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 Continue Plavix, statin H/O Schizoaffective disorder H/O Depression on Lamictal, Zyprexa, fluoxetine BPH: on Flomax HTN: Continue amlodipine, losartan CAD S/P stent to LAD in 2000 Continue Plavix, statin Obstructive sleep apnea on BiPAP at bedtime GERD Continue PPI DVT Px: Heparin SQ Code Status Full Code Disposition Transfer to [facility] today Admission and Anticipated Discharge Date Admission Date: September 18, 2019 Subjective offers no new complain no cough or sob ready to be transferred to rehab today Physical Exam Constitutional: WD/WN, vitals as above no acute distress Eyes: + anicteric sclerae ENMT: external ear and nose normal, oropharynx normal Neck: trachea midline, no thyromegaly Respiratory: normal respiratory effort; no respiratory distress and no cough Cardiovascular: Rate/Rhythm: regular rate and regular rhythm Extremities: no edema Gastrointestinal (Abdomen): normal bowel sounds, soft, nontender, no hepatosplenomegaly Musculoskeletal: no cyanosis or clubbing, extremities motor strength 5/5 Skin: no rashes, warm and dry Neurologic: PERRL, EOMI, accommodation nl, no face palsy, no dysarthria Results & Data Results & Data ([facility]) Vital Signs (Past 12 Hours) Vital Signs Temp Pulse Pulse Resp BP Pulse Ox 09/29/19 06:57 36.5 C 53 L 18 128/71 93 09/29/19 03:40 46 L 14 93 (1) Pneumonia Laterality: right Lung location: lower lobe of lung Pneumonia type: due to unspecified organism Qualified Code(s): J18.9 - Pneumonia, unspecified organism
--- NOTE | 2019-09-29 15:21 | Discharge Summary ---
Date of Service September 29, 2019 Admission HPI Per Admitting Provider DICTATED BY: Chavez Brooks MD DATE OF ADMISSION: 09/18/2019 CHIEF COMPLAINT: Shortness of breath. 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 diff infection, who lives with his at home. The patient is having osteoarthritis of the left knee and is ambulating with a walker. There is a plan for surgery tomorrow and he recently had a dobutamine stress test and was seen by cardiology for preop. The patient today was complaining of shortness of breath and cough, it started today, and with calix-colored phlegm and checked temperature, it was 100 degrees, and he has a history of pneumonias and sepsis from pneumonia and so he was brought him to the hospital. The patient is currently sleeping. As per the , the patient when asleep he is very difficult to arouse. Tried to arouse him and it was difficult to arouse him. All the history was got from the . There was no complaint of any chest pain or nausea, no vomiting, no abdominal pain, no complaints of headache. Vision is okay. No runny nose, no sore throat, no loss of sense of smell or taste. No exposure to COVID .Recently and he was tested for SARS-CoV-2 PCR in the [facility] on 09/13/2019 for planned knee surgery and it came back negative. No diarrhea or constipation. Normal bladder movements. No rash seen. Currently hemodynamically stable. As per he was saturating 85% on room air on 3 liters at home, so he was placed on nonrebreather when he came in. Principal Diagnosis Acute on chronic hypoxic respiratory failure Pneumonia Acute Kidney Injury Bradycardia Severe COPD Discharge Exam Constitutional WD/WN, vitals as above no acute distress Eyes + anicteric sclerae ENMT external ear and nose normal, oropharynx normal Neck trachea midline, no thyromegaly Respiratory normal respiratory effort; no respiratory distress and no cough Cardiovascular Rate/Rhythm: regular rate and regular rhythm Extremities: no edema Gastrointestinal (Abdomen) normal bowel sounds, soft, nontender, no hepatosplenomegaly Musculoskeletal no cyanosis or clubbing, extremities motor strength 5/5 Skin no rashes, warm and dry Neurologic PERRL, EOMI, accommodation nl, no face palsy, no dysarthria Discharge Data Allergies Allergy/AdvReac Type Severity Reaction Status Date / Time No Known Allergies Allergy Verified 09/18/19 00:10 Consultations 09/17/19 23:44 ED Decision to Admit Stat 09/18/19 02:07 Consult Case Management - Discharge Planning Routine 09/18/19 08:00 Consult Cardiology Routine Ordered Studies 09/18/19 00:42 CT chest wo con Urgent 09/26/19 13:00 FL video swallow Routine Hospital Course (1) Sinus bradycardia: ISt degree AV block in monitor pt is asymptomatic not on any AV shavonne blockade has loop recorder appreciate input from cardiology : per Dr Harrington : Rhythm strips reviewed from past 2 evenings. As per previous nights and early a.m. hours patient has intermittent Mobitz type I second-degree AV block. No type II second-degree AV block or higher degrees of AV block or pauses. No indications for further therapies Telemetry discontinued Stable to transfer to acute rehab at [facility] (2) Pneumonia: Patient is a 74 yr male who presents with worsening shortness of breath, increasing oxygen requirement and pneumonia on chest x-ray. Presented with acute on chronic hypoxic respiratory failure-possible secondary to aspiration pneumonitis Chronic oxygen dependency--3 liters at baseline Right lower lobe Pneumonia concern for aspiration H/O Severe COPD --CT Chest:Streak and motion degraded examination. Cardiomegaly and emphysema. There is dense airspace consolidation throughout the right lower lobe with debris filling the right lower lobe bronchus. The appearance is typical for pneumonia/aspiration pneumonitis. Clinical correlation will be required and radiographic follow-up to resolution is recommended. --COVID PCR Negative --Blood Cx:No growth to date --On p.o. Augmentin and doxycycline Completed 7 days treatment - --Speech Eval done Video swallow:Penetration and silent aspiration of thin liquids. Please see the speech pathologist report for detailed findings and recommendations. 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 Continue Plavix, statin H/O Schizoaffective disorder H/O Depression on Lamictal, Zyprexa, fluoxetine BPH: on Flomax HTN: Continue amlodipine, losartan CAD S/P stent to LAD in 2000 Continue Plavix, statin Obstructive sleep apnea on BiPAP at bedtime GERD Continue PPI DVT Px: Heparin SQ Code Status Full Code Disposition Transfer to [facility] today Total Time Total Time Spent Total Time Spent (In Minutes): 35 mins Total Time Includes: Examination of the Patient, Discharge Planning and Medication Reconciliation Discharge Plan Discharge Items Patient Disposition: Transfer Group Home Fac Reason For Visit: SOB, PNEUMONIA Discharge Diagnosis: Acute on chronic hypoxic respiratory failure Pneumonia Acute Kidney Injury Bradycardia Severe COPD Condition on Discharge: Good Activity: Resume your previous activity Exercise/Sports: Gradually increase as tolerated Non-emergency contact: Primary Care Provider and Lead Game Designer Call non-emergency contact if: you have any medication questions, your symptoms worsen, your pain is not controlled, your pain is worsening, your pain is unusual for you, your pain is concerning for you and you have a fever Follow-up/Referrals: Clau Batista, [Primary Care Provider] - None Diet: Carb Consistent or DM2 and Heart Healthy Addtl Attending Provider Instructions: Follow up with your Primary Care Physician in 1 week after being discharged from Rehab facility Follow up with your Lead Game Designer for evaluation of Bradycardia and Interrogation of your implantable loop recorder as advised Continue Aspiration precautions as suggested by your speech therapist Seek immediate medical attention if your symptoms reoccur or worsen Pending Studies at Discharge: No Stand-Alone Forms: My [facility] Skilled Items Patient informed of condition?: Yes DNR: No Discharge Level of Care: Skilled Communicable Disease: No Discharge Prognosis: Improving Lines: None Urinary Catheter: No Medications and DC Order Prescriptions: Continued (DME) Oxygen Home Liters Per Minute See Rx Instructions .ROUTE .MEDSUPPLY Qty: 1 RF: 0 Spiriva Respimat 2.5 mcg/actuation mist 2 puff INHALATION QAM Qty: 1 RF: 5 clopidogrel [Plavix] 75 mg tablet 75 mg PO QPM RF: 0 finasteride 5 mg tablet 5 mg PO QAM Qty: 90 RF: 3 tamsulosin 0.4 mg capsule 0.4 mg PO QPM Qty: 90 RF: 3 losartan 50 mg tablet 50 mg PO QPM RF: 0 amlodipine 10 mg tablet 10 mg PO QAM RF: 0 atorvastatin 80 mg tablet 80 mg PO QPM RF: 0 fluoxetine 60 mg tablet 60 mg PO QAM RF: 0 lamotrigine 200 mg tablet 200 mg PO QAM RF: 0 magnesium oxide 400 mg (241.3 mg magnesium) tablet 400 mg PO BID RF: 0 pantoprazole 40 mg tablet,delayed release (DR/EC) 40 mg PO QPM Qty: 30 RF: 0 timolol maleate 0.5 % drops, once daily 1 drp OPB QAM RF: 0 gabapentin 600 mg tablet 600 mg PO BID RF: 0 albuterol sulfate [Ventolin HFA] 90 mcg/actuation HFA aerosol inhaler 2 puffs INH Q4H PRN (Reason: increased cough, shortness of breath or wheezing) Qty: 18 RF: 5 Probiotic 3 billion cell Capsule 3,000 mmu cells PO QAM RF: 0 olanzapine [Zyprexa] 15 mg tablet 30 mg PO QPM RF: 0 Discharge Orders: Discharge Order (Routine); Ordered 09/29/19 Ordered By: Shari Garcia/Other Patient Handouts: Managing Type 2 Diabetes Admission Data Admit Date/Time: 09/18/19 00:40 Attending Provider: Shari Lehman Admit Provider: Chavez Brooks Primary Care Provider: Clau Batista Other Providers: [facility] ; [facility] ; [facility] ; [place] ; Chavez Brooks ; Víctor Reed ; Kalpesh Caal ; Marcus Harrington ; Geoffrey Bull ; Rudi Contreras ; Reji Posadas ; Amy Tatum ; Gabrielle Prabhakar ; Diaz Hernandez Other Interventions: Discharge Summary Assessment (RN) Last Done: 09/29/19 15:45
== END 2019-09-29 17:01 | DRG 177 ==
LOC: ED 22:31 → 2S 09-18 00:40 → SUATTDRO 09-18 00:40 → 2S 09-18 01:17 → 2N 09-25 16:40 → 3N 09-28 22:47

== ENCOUNTER 2019-11-07 08:55 | Observation (INO) ==
--- NOTE | 2019-10-31 09:18 | Anesthesiology Consultation ---
Date of Service October 31, 2019 Assessment & Plan Chart Review Chart Review: Acceptable Risk for Surgery and Patient NOT seen in Pre Admission Testing Consults Requested none ASA ASA4 History Surgery Operation Date: 11/07/19 12:45 Proposed Procedures p Left Total Knee Arthroplasty - Kaiser Chamorro DO Height/Weight Height: 5 ft 10 in Weight: 95.254 kg Allergies Allergy/AdvReac Type Severity Reaction Status Date / Time No Known Allergies Allergy Verified 10/30/19 15:48 Medications Home Medications Medication Instructions Recorded Confirmed Last Taken amlodipine 10 mg tablet 5 mg PO QAM tab 09/07/18 10/30/19 Unknown atorvastatin 80 mg tablet 80 mg PO QPM tab 09/07/18 10/30/19 Unknown fluoxetine 60 mg tablet 60 mg PO QAM tab 09/07/18 10/30/19 Unknown lamotrigine 200 mg tablet 200 mg PO QAM tab 09/07/18 10/30/19 Unknown losartan 50 mg tablet 25 mg PO QPM tab 09/07/18 10/30/19 Unknown magnesium oxide 400 mg (241.3 mg 400 mg PO BID tab 09/07/18 10/30/19 Unknown magnesium) tablet pantoprazole 40 mg tablet,delayed 40 mg PO QPM #30 tab 09/07/18 10/30/19 Unknown release timolol maleate 0.5 % once daily 1 drp OPB QAM ml 09/07/18 10/30/19 Unknown eye drops gabapentin 600 mg tablet 600 mg PO BID tab 12/20/18 10/30/19 Unknown albuterol sulfate 90 mcg/actuation 2 puffs INH Q4H PRN #18 gm 12/27/18 10/30/19 Unknown aerosol inhaler Probiotic 3,000 mmu cells PO QAM 01/02/19 10/30/19 Unknown finasteride 5 mg tablet 5 mg PO QAM #90 tab 01/17/19 10/30/19 Unknown tamsulosin 0.4 mg capsule 0.4 mg PO QPM #90 cap 01/17/19 10/30/19 Unknown olanzapine [Zyprexa] 30 mg PO QPM 01/26/19 10/30/19 Unknown Oxygen Home #1 ea 03/09/19 10/18/19 Unknown clopidogrel 75 mg tablet 75 mg PO QPM 08/02/19 10/30/19 Unknown tiotropium bromide 2.5 2 puff INHALATION QAM #1 inhaler 09/14/19 10/30/19 Unknown mcg/actuation mist for inhalation Past Medical History Medical History 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 - residual memory issues Anxiety BPH loc w urin obs/LUTS CAD (coronary artery disease) s/p cardiac stents (1997, 2000) Carotid aneurysm, right LEBRON 3mm aneurysm- follows with neurosurgery -- per pt's , recent CT at [facility] w/o evidence of aneurysm, says only evidence of carotid stenosis Chronic kidney disease follows with [facility] nephrology Chronic obstructive pulmonary disease + emphysema, O2 2-3L continuous History of recent hospitalization 09/2019 [facility] - pneumonia Hyperlipidemia Hypertension Osteoarthritis Schizo affective schizophrenia Sleep apnea BIPAP + 3L O2 HS Urinary incontinence Uses [place] catheter qHS Exercise / Class Metabolic Activity III < 4 Walking/Shop/Light housework Past Family History Family History Other No family history of adverse response to anesthesia No significant family history Past Surgical History Surgical History History of appendectomy History of cardiac cath 1 STENT EACH TIME [facility]-F/U DR [facility] History of cataract surgery History of colonoscopy History of dental surgery History of heart artery stent x 2 Status post placement of implantable loop recorder Past Anesthesia History No Hx of Anesthesia Complications and No Family Hx of Anesthesia Complications History of PONV No Hx of PONV and No Hx of Motion Sickness Social History Smoking Status: Former smoker Do You Dip or Chew Tobacco: No Smoking End Date: quit 14 years ago Hx Alcohol Use: No Hx Substance Use: No substance use type: does not use Testing Electrocardiogram Date: 09/26/19 Findings: + SB @ (@ 53 w/1st degree AVB; NSIVCD) Chest X-Ray Date: 09/17/19 Findings: + cardiomegaly near complete resolution of RLL pneumonia Echocardiogram Date: 09/07/19 EF: 50% LV Function: normal RWMA: + none Other Findings: + LVH (Moderate) Valvular Disease: + MR (Mild) Stress Test Date: 09/07/19 Type: DSE Findings: + WNL and + did not achieved max HR Resting EF: 50% Valvular Disease: MR (Mild)
--- NOTE | 2019-11-02 09:48 | History & Physical Report ---
Date of Service November 02, 2019 Assessment & Plan (1) Osteoarthritis of left knee: We will proceed with a left total knee arthroplasty. Postoperatively he will be started on aspirin and Plavix for DVT prophylaxis. He will be kept overnight in the hospital for postoperative medical management. He plans to go to [facility] upon discharge. Present on Admission?: Yes History of Present Illness Chief Complaint: Primary osteoarthritis of the left knee Primary Care Provider: Clau Batista DO Pj is a pleasant 74-year-old male who has severe arthritis and deformity of his left knee. He has a difficult time ambulating because of his left knee. He ambulates mostly with a walker, but needs a wheelchair to get around further distances. He has emphysema and has a history of coronary stents. He is on Plavix for that. 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 He has had a recent hospitalization for lung issues. He is already received medical clearance from his pantograph i engraver and his artificial snow making machine operator. Although he has multiple medical comorbidities, his left knee pain is severely affecting his quality of life. He understands he is a medical risk for knee replacement surgery but would like to proceed. Allergies Allergy/AdvReac Type Severity Reaction Status Date / Time No Known Allergies Allergy Verified 10/30/19 15:48 Home Medications Home Medications Medication Instructions Recorded Confirmed Type amlodipine 10 mg tablet 5 mg PO QAM tab 09/07/18 10/30/19 History atorvastatin 80 mg tablet 80 mg PO QPM tab 09/07/18 10/30/19 History fluoxetine 60 mg tablet 60 mg PO QAM tab 09/07/18 10/30/19 History lamotrigine 200 mg tablet 200 mg PO QAM tab 09/07/18 10/30/19 History losartan 50 mg tablet 25 mg PO QPM tab 09/07/18 10/30/19 History magnesium oxide 400 mg (241.3 mg 400 mg PO BID tab 09/07/18 10/30/19 History magnesium) tablet pantoprazole 40 mg tablet,delayed 40 mg PO QPM #30 tab 09/07/18 10/30/19 History release timolol maleate 0.5 % once daily 1 drp OPB QAM ml 09/07/18 10/30/19 History eye drops gabapentin 600 mg tablet 600 mg PO BID tab 12/20/18 10/30/19 History albuterol sulfate 90 mcg/actuation 2 puffs INH Q4H PRN #18 gm 12/27/18 10/30/19 Rx aerosol inhaler Probiotic 3,000 mmu cells PO QAM 01/02/19 10/30/19 History finasteride 5 mg tablet 5 mg PO QAM #90 tab 01/17/19 10/30/19 Rx tamsulosin 0.4 mg capsule 0.4 mg PO QPM #90 cap 01/17/19 10/30/19 Rx olanzapine [Zyprexa] 30 mg PO QPM 01/26/19 10/30/19 History Oxygen Home #1 ea 03/09/19 10/18/19 Rx clopidogrel 75 mg tablet 75 mg PO QPM 08/02/19 10/30/19 History tiotropium bromide 2.5 2 puff INHALATION QAM #1 inhaler 09/14/19 10/30/19 Rx mcg/actuation mist for inhalation Past Med/Surg History Medical History 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 - residual memory issues Anxiety BPH loc w urin obs/LUTS CAD (coronary artery disease) s/p cardiac stents (1997, 2000) Carotid aneurysm, right LEBRON 3mm aneurysm- follows with neurosurgery -- per pt's , recent CT at [facility] w/o evidence of aneurysm, says only evidence of carotid stenosis Chronic kidney disease follows with [facility] nephrology Chronic obstructive pulmonary disease + emphysema, O2 2-3L continuous History of recent hospitalization 09/2019 [facility] - pneumonia Hyperlipidemia Hypertension Osteoarthritis Schizo affective schizophrenia Sleep apnea BIPAP + 3L O2 HS Urinary incontinence Uses [place] catheter qHS Surgical History History of appendectomy History of cardiac cath 1 STENT EACH TIME [facility]F/U DR [facility] History of cataract surgery History of colonoscopy History of dental surgery History of heart artery stent x 2 Status post placement of implantable loop recorder Family History Other No family history of adverse response to anesthesia No significant family history Social History Smoking Status: Former smoker Tobacco Type: Cigarettes Second Hand Exposure: No; Hx Alcohol Use: No Hx Substance Use: No Preferred Language: British Communication Ability: Effective Visual Impairment: No Limitations 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 Beliefs That Will Affect Care: Zoroastrian Zoroastrian Beliefs: CAODAISM and Spiritual marital status: Current Living Situation: Spouse Feels Safe at Home: Yes Assistive Devices: Denture - Upper, Denture - Lower and Glasses Review of Systems Review of Systems: All systems reviewed & are unremarkable except as noted in HPI & below Physical Exam Constitutional: WD/WN, vitals as above Eyes: PERRL, conjunctivae normal, anicteric sclerae ENMT: external ear and nose normal, oropharynx normal Neck: trachea midline, no thyromegaly Respiratory: normal respiratory effort Cardiovascular: RRR, no murmur, no edema Gastrointestinal (Abdomen): normal bowel sounds, soft, nontender, no hepatosplenomegaly Musculoskeletal: On physical examination of the left knee there is a trace effusion. There is near full range of motion and no evidence of instability. There is significant tenderness palpation along the medial and lateral joint lines and over the distal femoral condyles. Psychiatric: A+Ox3, euthymic affect Results & Data Results & Data ([facility]) Diagnostic Findings Radiographs of the left knee demonstrate advanced osteoarthritis with joint space narrowing osteophyte formation and [id number] articulation. PG Care Time/CCT Total # of Minutes Spent Total Time Spent with Patient: Total time spent is greater than 50% in coordination of care (as documented) at patient's floor/unit and/or counseling patient: Coding Level of Care Code 50577 OBS Care - Level 2 Diagnoses Osteoarthritis of left knee M17.12
[~2019-11-07 08:55] MED LIST changes: +ACETAMINOPHEN 500 MG TAB PO SCH; -ALBU1NEB10 INH; -AMLO2.5T PO; -ASPI81TA28 PO; -ATOR-26 PO; -BISA10SU5 RE; +BUPIVACAINE 0.5 % 5 MG/1 ML PF 10ML VIAL ONE; +BUPIVACAINE/EPINEPHRINE 0.25% 1:200,000 30 ML VIAL ONE; +CEFAZOLIN 2000MG 2,000 MG/15 ML SYR IV SCH; -CHOL1TAB42 PO; -CLC6 PO; +DEXAMETHASONE SOD INJ 4 MG/ML VIAL ONE; -DOCU100C31 PO; +FAMOTIDINE 20 MG TAB PO SCH; -FIBE1CHW PO; -FLUO20CA35 PO; -FLUO40CA8 PO; -FLUV100T2 PO; +GABAPENTIN 300 MG CAP PO SCH; -GLIP2.5T11 PO; -HYDR-4716 PO; -LACT10CA3 PO; -LAMO200T35 PO; -LISI5TAB PO; +LR 500ML BOLUS, THEN 15ML/HR IV SCH; +LR 60ML/HR IV SCH; -MAGN250T3 PO; -METO-217 PO; -MULT-506 PO; -NRN600 PO; -OLAN1TAB64 PO; -OXGN; -PANT1TAB3 PO; +ROPIVACAINE 0.5% HCL/PF 150 MG, BUPIVACAINE 0.5% MPF 30 ML, EPINEPHrine 30MG/30ML (OR U... INSTIL SCH; -SULF800T23 PO; -TIMO1SOL6 OP; -TIOTCAP INH; +TRANEXAMIC ACID 1,000 MG **IV Intra-op IV SCH; +TRANEXAMIC ACID 1,000 MG **IV Pre-op IV SCH; +dexAMETHasone 4 MG TAB PO SCH
--- NOTE | 2019-11-07 10:44 | History & Physical Bridge Note ---
Date of Service November 07, 2019 History & Physical Bridge Note I have examined the patient, reviewed the History & Physical and in the interval since the performance of the History & Physical I have noted the following changes of clinical significance: no changes noted
[2019-11-07] MEDS ORDERED: ORTHO JOINT ANESTHETIC ONE (11:05)
[2019-11-07] MEDS ORDERED: DexMEDEtomidine HCL IV 100 MCG/ML VIAL ONE (11:06)
[2019-11-07] MEDS ORDERED: fentaNYL citrate 100 MCG/2 ML VIAL IV PRN (11:09)
[2019-11-07] MEDS ORDERED: ONDANSETRON INJ 2 MG/ML 2 ML VIAL IV PRN ×2 (11:09→14:30)
[2019-11-07] MEDS ORDERED: ATROPINE SULFATE 0.1 MG/ML 10ML SYR IV PRN (11:09)
[2019-11-07] MEDS ORDERED: ePHEDrine sulfate 50 MG/ML AMP IV PRN (11:09)
[2019-11-07] MEDS ORDERED: PROMETHAZINE HCL 6.25 MG in SODIUM CHLORIDE 0.9% 50 ML IV PRN (11:09)
[2019-11-07] MEDS ORDERED: MIDAZOLAM HCL 1 MG/ML 2ML VIAL ONE (11:12)
[2019-11-07] MEDS ORDERED: PROPOFOL IV EMULSION 10 MG/ML 20 ML VIAL IV ONE (11:43)
[2019-11-07] MEDS ORDERED: LIDOCAINE HCL 2% 2 ML VIAL/AMP(20MG/ML) INFIL ONE (11:43)
[2019-11-07] MEDS ORDERED: GLYCOPYRROLATE 0.2 MG/ML VIAL ONE (12:10)
--- NOTE | 2019-11-07 13:16 | Operative Report ---
PG Post Operative Report Pre & Post Diagnosis Operation Date: 11/07/19 10:55 Pre-Op Diagnosis: LEFT KNEE DEGENERATIVE JOINT DISEASE Post-Op Diagnosis: LEFT KNEE DEGENERATIVE JOINT DISEASE I identified the patient and participated in the time-out.: Yes Procedure Operation Date: 11/07/19 10:55 Actual Procedures p Left Total Knee Arthroplasty, Cemented(Left) - Kaiser Chamorro DO Surgeon Kaiser Chamorro DO Senior Technical Writer Kaiser Barry PAC Estimated Blood Loss 100 Findings Consistent with Post-Op Diagnosis Specimens Left femoral anterior bone Complications none Disposition Disposition: Recovery Room Indications Pj is a pleasant 74-year-old male who presented my office with severe increasing left knee pain. He was wheelchair-bound because of it. X-rays and clinical examination were diagnostic for advanced osteoarthritis of the left knee. After failing conservative treatment, he elected proceed with a left total knee arthroplasty. Description of Procedure Implants used: I used a Roddy Persona total knee arthroplasty system with a size 10 standard femur, size G tibia with a 30 mm stem tibia, 35 patella, and a size 10 CPS polyethylene bearing. All components were cemented in place with Palacos G cement. Pj arrived [facility] for the above procedure. He was seen in the preoperative holding area and the operative extremity was identified and signed. He was given a preoperative antibiotic, TXA, a spinal anesthetic and an adductor nerve block. He was taken back to the operating room and laid on the table in supine position. He was given basic sedation. The operative knee was then prepped and draped in sterile fashion. A timeout was done, and the patient and the operative extremity was properly identified. A midline incision was made directly over the patella. Dissection was taken down to the extensor mechanism. A subvastus arthrotomy was used. The medial retinaculum was released and the fat pad was mostly excised. The knee was flexed and the ACL, PCL, and meniscus were removed. A drill was sent down the center of the femoral canal followed by an intramedullary nidia. Off that nidia a distal femoral cutting block was placed. 9 mm was resected off the distal femur at 5 of valgus. A posterior referencing AP sizing guide was then placed on the distal femur. The femur measured to be a size 10. 2 drill holes were placed in 3 of external rotation. A 4-in-1 cutting block was then impacted into place. Anterior, posterior, and chamfer cuts were then made. The proximal tibia was then exposed. An external tibial alignment guide was placed. A tibial cut guide was then anchored in place and the proximal tibia was then resected. The posterior aspect of the knee was then opened up and any additional meniscus fragments and osteophytes were removed. The tibia measured to be a size G. The tibial plate was then placed in the appropriate rotation and the tibia was drilled and punched. Trial components were then placed. I used a size 10 CPS polyethylene insert. The knee was brought through a full range of motion and felt to be stable. The peg holes for the femoral component were then drilled. The patella was then everted and 9 mm was resected off the posterior aspect of the patella. The patella measured to be a size 35. 3 peg holes were then drilled. A trial patella was placed. The knee was once again brought through a full range of motion and felt to be stable. Trial components were then removed. The surrounding soft tissues were injected with 100 cc of an orthopedic pain control cocktail. All components were then cemented into place with Palacos G cement. The final polyethylene insert was then snapped into place. Once cement was dry the tourniquet was deflated. Hemostasis was obtained. A dilute betadyne lavage was then done for 3 minutes. The joint was then irrigated with normal saline solution. The subvastus arthrotomy was then closed with #1 Vicryl suture. The skin was closed with 2-0 Vicryl, 3-0V lock suture, and candy. A Silverlon and a soft compressive dressing were placed. He was then transferred to a hospital bed and taken to the postanesthesia care unit in stable condition. He tolerated the procedure well. Kaiser Barry PA-C, was present for the entire procedure. He was critical for patient positioning, prepping, draping, retraction exposure, wound closure and application of sterile dressing. I attest to the content of the Intraoperative Record and any orders documented therein. Any exceptions are noted below.
--- NOTE | 2019-11-07 13:49 | Anesthesiology Progress Note ---
Date of Service November 07, 2019 Anesthesia Post Procedure Vital Signs Vital Signs: Temp Pulse Pulse Resp BP Pulse Ox 11/07/19 13:40 55 L 15 134/77 92 11/07/19 13:34 36.2 C L 55 L 16 139/77 93 11/07/19 10:36 47 L 20 181/83 H 98 11/07/19 09:29 36.6 C 48 L 22 170/78 H 100 Transfer of Care Handoff Completed per policy Notes Mental Status: alert / awake / arousable Patient Amnestic to Procedure: Yes Nausea / Vomiting: adequately controlled Pain: adequately controlled Airway Patency, RR, SpO2: stable & adequate BP & HR: stable & adequate Hydration State: stable & adequate Neuraxial Anesthesia: was administered and sensory block is resolving Anesthetic Complications: no major complications apparent
--- NOTE | 2019-11-07 13:55 | XRay Report ---
LEFT KNEE 2 VIEWS History: Left total knee arthroplasty. Degenerative arthritis. Postop. FINDINGS: The patient is status post a left total knee arthroplasty. The hardware is intact. No fract ure or dislocation. Skin candy are in place. IMPRESSION: Left total knee arthroplasty. No evidence for hardware complication. ACT 112: Negative or not required by law. Electronically signed by: Reggie Rawls M.D. 11/07/2019 1:54 PM
[2019-11-07] MEDS ORDERED: bisacodyL 10 MG SUPP PR PRN (14:30)
[2019-11-07] MEDS ORDERED: OXYCODONE HCL IR 5 MG TAB (IMMEDIATE RELEASE) PO PRN (14:30)
[2019-11-07] MEDS ORDERED: ALBUTEROL HFA 8 GM INHALER INH PRN (14:30)
[2019-11-07] MEDS ORDERED: MAGNESIUM HYDROXIDE SUSP 30 ML UDC PO PRN (14:30)
[2019-11-07] MEDS ORDERED: HYDROmorphone INJ 0.5 MG/0.5 ML SYR IV PRN (14:30)
[2019-11-07] MEDS ORDERED: METOCLOPRAMIDE HCL INJ 5 MG/ML 2 ML VIAL IV PRN (14:30)
[2019-11-07] MEDS ORDERED: NALOXONE HCL 0.4 MG/1 ML VIAL/CARP IV PRN (14:30)
[2019-11-07] MEDS ORDERED: PHARMACY GLYCEMIC MGMT CONSULT PRN (14:57)
--- NOTE | 2019-11-07 15:01 | Pharmacy Report ---
Glycemic Control Consultation - Date of Service November 07, 2019 - Scope Scope: Glycemic Pharmacist consulted for glycemic control and to write orders per [facility] inpatient glycemic control protocol. - Objective Weight: 93.8 kg - Recent Pertinent Medications Outpatient Anti-diabetic Regimen: * N/A Risk Factors for Insulin Resistance: * Steroids: dexamethasone 8 mg PO preop + dexamethasone 4 mg IV intraop + dexamethasone 4 mg topically * Recent Surgery: L knee * Diet: T2DM - Assessment & Plan Assessment & Plan: ASSESSMENT: * Mr Medel is a 74 y/o M not on oral medications with pre-diabetes who presents for L knee surgery. * Patient received dexamethasone 8 mg PO preop + dexamethasone 4 mg IV intraop + dexamethasone 4 mg topically. * Due to steroid burden, given NPH 0.35 units/kg (~30 units) plus weight-based stress of 2/3 Novolog. Check glucose overnight. * ADA & AACE recommend a goal blood sugar range 140-180 mg/dl for the majority of critically ill & non-critically ill patients. However, more stringent targets may be selected in individual cases. Will utilize more stringent goal of 110-140mg/dl based on patient age & comorbidities. Additionally, tighter glycemic control is warranted to facilitate wound healing. PLAN FOR INPATIENT GLYCEMIC CONTROL: * Basal insulin * NPH 30 units SQ x 1 * Bolus insulin * NovoLog per scale ACHS or Q6hrs while NPO * Goal Range: Low 110 mg/dL - High 140 mg/dL * Correction Factor: 21 mg/dL/unit * Nutritional / Prandial insulin per carb ratio of 1 unit per 7 grams CHO consumed * Please note that the plan above was derived based on current level of insulin resistance and hospital stress. These recommendations are appropriate for inpatient admission only. Plan of care upon discharge will need to be reassessed to avoid potential outpatient hypo/hyperglycemia. Thank you.
[2019-11-07] MEDS ORDERED: NovoLIN-N (NPH) PER UNIT CHARGE SQ ONE ×2 (15:30→16:45)
[2019-11-07] MEDS: KETOROLAC TROMETHAMINE 15 MG/ML VIAL IV SCH ×2 (16:50→21:06)
[2019-11-07] MEDS: ACETAMINOPHEN 500 MG TAB PO SCH ×2 (16:52→23:38)
[2019-11-07] MEDS: INSULIN ASPART 100 UNITS/ML 3 ML PEN SC SCH ×3 (16:54→21:09)
[2019-11-07] MEDS: SODIUM CHLORIDE 0.9% 1000ML 1,000 ML IV SCH (16:59)
[2019-11-07] MEDS: CEFAZOLIN 2000MG 2,000 MG/15 ML SYR IV SCH (19:57)
[2019-11-07] MEDS: DOCUSATE SODIUM 100 MG CAP PO SCH (19:59)
[2019-11-07] MEDS: GABAPENTIN 600 MG TAB PO SCH (19:59)
[2019-11-07] MEDS: MAGNESIUM OXIDE 400 MG TAB PO SCH (20:00)
[2019-11-07] MEDS: TAMSULOSIN HCL 0.4 MG CAP PO SCH (20:00)
[2019-11-07] MEDS: ATORVASTATIN 40 MG TAB PO SCH (20:00)
[2019-11-07] MEDS: ASPIRIN 81 MG ECTAB PO SCH (20:00)
[2019-11-07] MEDS: PANTOprazole 40 MG TAB PO SCH (20:01)
[2019-11-07] MEDS: OLANZapine 10 MG TAB PO SCH (20:01)
[2019-11-07] MEDS: SENNA 8.6 MG TAB PO SCH (20:01)
[2019-11-07] MEDS: CLOPIDOGREL BISULFATE 75 MG TAB PO SCH (20:04)
[2019-11-08] MEDS: INSULIN ASPART 100 UNITS/ML 3 ML PEN SC SCH ×6 (00:33→21:26)
[2019-11-08] MEDS: KETOROLAC TROMETHAMINE 15 MG/ML VIAL IV SCH ×4 (03:52→21:35)
[2019-11-08] MEDS: CEFAZOLIN 2000MG 2,000 MG/15 ML SYR IV SCH (03:52)
[2019-11-08] MEDS: SODIUM CHLORIDE 0.9% 1000ML 1,000 ML IV SCH (04:04)
[2019-11-08] MEDS: ACETAMINOPHEN 500 MG TAB PO SCH ×3 (05:55→21:34)
[2019-11-08 06:04] LABS: Hematocrit (blood only) 34.1 % (42-52); Mean Corpuscular Hemoglobin 28.1 pg (25-34); Mean Corpuscular Hgb Conc 32.3 g/dL (32-36); Platelet Count 171 K/uL (130-400); RDW Coefficient of Variation 15.2 % (11.5-14.5); RDW Standard Deviation 48.5 fL (36.4-46.3); Red Blood Count 3.92 M/uL (4.7-6.1)
[2019-11-08 06:11] LABS: BUN Creatinine Ratio 19.3 (10-20); Calcium 9.4 mg/dl (8.5-10.1); Creatinine Clr Calc Pharmacy 61.2 ml/min; Est GFR (African American) 68.1; Est GFR (Non-African American) 58.8
--- NOTE | 2019-11-08 06:58 | Orthopedic Progress Note ---
Date of Service November 08, 2019 Assessment & Plan (1) Status post left knee replacement: Overall he is doing well. Is not having too much pain in the left knee. He will be seen by physical therapy this morning for ambulation and range of motion exercises. We will leave the condom catheter on for today until he feels more comfortable going to the bathroom on his own. He is on aspirin for DVT prophylaxis. We will plan to discharge him tomorrow. Present on Admission?: No Admission and Anticipated Discharge Date Admission Date: November 07, 2019 Clint Oliva was seen and examined at bedside this morning. Overall he is doing fairly well. He is not having too much pain in the left knee. He has not been ambulating on it quite yet. He was able to get some sleep last night. He has no complaints. Physical Exam Musculoskeletal: On physical examination of the left knee, the dressing is clean and dry. His legs out in full extension. He has active dorsiflexion and plantarflexion of his left ankle. Results & Data ([facility]) Vital Signs (Past 12 Hours) Vital Signs Temp Pulse Resp BP Pulse Ox 11/08/19 03:50 36.7 C 53 L 18 120/77 97 11/07/19 23:45 36.3 C L 51 L 18 119/72 96 11/07/19 19:30 36.3 C L 68 16 124/78 97 Laboratory Results H & H 11/08/19 Range/Units 05:32 Hgb 11.0 L (14.0-18.0) g/dL Hct 34.1 L (42-52) % Diagnostic Findings Postoperative x-rays of the left knee show the prosthesis to be in anatomic alignment without any evidence of fracture, dislocation, or loosening. PG Care Time/CCT Total # of Minutes Spent Total Time Spent with Patient: Total time spent is greater than 50% in coordination of care (as documented) at patient's floor/unit and/or counseling p atient: Coding Level of Care Code None Diagnoses Status post left knee replacement Z96.652
[2019-11-08] MEDS: UMECLIDINIUM BROMIDE 62.5MCG/BLISTER 7 PUFFS/INHALER INH SCH (08:38)
[2019-11-08] MEDS: TIMOLOL MALEATE 0.5% OP SOLN 5 ML BTL OPB SCH (08:39)
[2019-11-08] MEDS: AMLODIPINE BESYLATE 5 MG TAB PO SCH (08:41)
[2019-11-08] MEDS: DOCUSATE SODIUM 100 MG CAP PO SCH ×2 (08:41→20:24)
[2019-11-08] MEDS: GABAPENTIN 600 MG TAB PO SCH ×2 (08:41→20:25)
[2019-11-08] MEDS: FINASTERIDE 5 MG TAB PO SCH (08:41)
[2019-11-08] MEDS: MULTIVITAMIN TAB PO SCH (08:41)
[2019-11-08] MEDS: LOSARTAN POTASSIUM 25 MG TAB PO SCH (08:41)
[2019-11-08] MEDS: ASPIRIN 81 MG ECTAB PO SCH ×2 (08:41→20:24)
[2019-11-08] MEDS: MAGNESIUM OXIDE 400 MG TAB PO SCH ×2 (08:41→20:25)
[2019-11-08] MEDS: FLUOXETINE HCL 20 MG CAP PO SCH (08:41)
[2019-11-08] MEDS: lamoTRIgine 100 MG TAB PO SCH (08:41)
--- NOTE | 2019-11-08 12:11 | Pharmacy Report ---
Glycemic Control Progress Note - Date of Service November 08, 2019 - Scope Glycemic Pharmacist consulted for glycemic control to write orders per [facility] inpatient glycemic control protocol. - Objective Accuchecks BSG(last 24 hours):: 11/07/19 11/07/19 11/07/19 15:45 20:41 23:41 Glucose POC Glucose 168 H 169 H 114 H 11/08/19 11/08/19 11/08/19 03:49 05:32 08:15 Glucose 129 H POC Glucose 116 H 153 H - Recent Pertinent Medications The patient is currently receiving: * Basal insulin: NPH 15 units X 1 * Correctional Insulin: Novolog Correction per scale ACHS Goal Range: Low 110 mg/dL - High 140 mg/dL Correction Factor: 21 mg/dL/unit * Prandial insulin: Per carb ratio of 1 unit per 7 grams CHO consumed - Outpatient Anti-Diabetic Meds N/A - Assessment & Plan ASSESSMENT: * See progress note from 11/07/19 for more background info, in short: * Pt receiving SQ basal bolus insulin regimen for hyperglycemia secondary to baseline DM (outpatient regimen on hold) plus steroids received during knee surgery yesterday (dexamethasone 8 mg PO preop, dexamethasone 4 mg IV intraop, and dexamethasone 4 mg topically). * Patient is currently receiving an average of 33 units of insulin per day * 15 units of basal insulin * 18 units of prandial/correctional insulin * BSGs ranging 114 - 168 mg/dl over the past 24hrs * Changes needed to insulin regimen: * AM Fasting BSG = 153 mg/dl. This is slightly above goal range for patient based on inpatient targets and co-morbidities. Basal will be held for now. * Post-prandial BSGs were controlled yesterday. Since basal will be held, tighten carbohydrate ratio slightly. * Total daily dose = <20 units. Expected to decrease as steroid effects dissipate. PLAN FOR INPATIENT GLYCEMIC CONTROL: * Continuing correction factor of 21 mg/dl/unit * TIGHTENING carb ratio to 1 unit per 6 grams CHO consumed * Continuing goal range of Low 110 mg/dL - High 140 mg/dL RECOMMENDATIONS FOR DISCHARGE: * Patient's HbA1C indicates prediabetes. Continue to monitor as an outpatient with provider. Thank you.
[2019-11-08] MEDS: CLOPIDOGREL BISULFATE 75 MG TAB PO SCH (20:25)
[2019-11-08] MEDS: ATORVASTATIN 40 MG TAB PO SCH (20:25)
[2019-11-08] MEDS: TAMSULOSIN HCL 0.4 MG CAP PO SCH (20:25)
[2019-11-08] MEDS: SENNA 8.6 MG TAB PO SCH (20:26)
[2019-11-08] MEDS: PANTOprazole 40 MG TAB PO SCH (20:26)
[2019-11-08] MEDS: OLANZapine 10 MG TAB PO SCH (20:26)
[2019-11-09] MEDS: ACETAMINOPHEN 500 MG TAB PO SCH ×2 (05:45→13:52)
[2019-11-09] MEDS: KETOROLAC TROMETHAMINE 15 MG/ML VIAL IV SCH ×2 (05:45→09:57)
[2019-11-09] MEDS: UMECLIDINIUM BROMIDE 62.5MCG/BLISTER 7 PUFFS/INHALER INH SCH (08:25)
[2019-11-09] MEDS: FLUOXETINE HCL 20 MG CAP PO SCH (08:26)
[2019-11-09] MEDS: GABAPENTIN 600 MG TAB PO SCH (08:26)
[2019-11-09] MEDS: ASPIRIN 81 MG ECTAB PO SCH (08:26)
[2019-11-09] MEDS: lamoTRIgine 100 MG TAB PO SCH (08:26)
[2019-11-09] MEDS: DOCUSATE SODIUM 100 MG CAP PO SCH (08:26)
[2019-11-09] MEDS: MULTIVITAMIN TAB PO SCH (08:26)
[2019-11-09] MEDS: FINASTERIDE 5 MG TAB PO SCH (08:26)
[2019-11-09] MEDS: AMLODIPINE BESYLATE 5 MG TAB PO SCH (08:26)
[2019-11-09] MEDS: MAGNESIUM OXIDE 400 MG TAB PO SCH (08:26)
[2019-11-09] MEDS: LOSARTAN POTASSIUM 25 MG TAB PO SCH (08:26)
[2019-11-09] MEDS: TIMOLOL MALEATE 0.5% OP SOLN 5 ML BTL OPB SCH (08:27)
[2019-11-09] MEDS: INSULIN ASPART 100 UNITS/ML 3 ML PEN SC SCH ×2 (08:30→13:22)
--- NOTE | 2019-11-09 10:40 | Orthopedic Progress Note ---
Date of Service November 09, 2019 Assessment & Plan (1) Status post left knee replacement: Overall he is doing well. Is not having much pain in the left knee. He will be seen by physical therapy again this afternoon for ambulation and range of motion exercises. He is awaiting discharged to an inpatient rehab facility. He is orthopedically stable for discharge when a bed becomes available. He will follow-up with orthopedics in 2 weeks. Present on Admission?: No Admission and Anticipated Discharge Date Admission Date: November 07, 2019 Clint Oliva was seen and examined at bedside this morning. Overall he is doing fairly well. Is been ambulating with physical therapy. He is not having too much pain in his knee today. He has no complaints. Physical Exam Musculoskeletal: On physical examination of the left knee, there is a little bit of bloody discharge on his dressing. He has active dorsiflexion plantarflexion of his left ankle. His knee is out in full extension. Results & Data ([facility]) Vital Signs (Past 12 Hours) Vital Signs Temp Pulse Pulse Resp BP Pulse Ox 11/09/19 07:42 36.5 C 52 L 20 131/65 93 11/09/19 00:12 54 L 20 117/71 91 11/08/19 23:02 36.4 C L 52 L 16 135/76 93 PG Care Time/CCT Total # of Minutes Spent Total Time Spent with Patient: Total time spent is greater than 50% in coordination of care (as documented) at patient's floor/unit and/or counseling patient: Coding Level of Care Code None Diagnoses Status post left knee replacement Z96.652
--- NOTE | 2019-11-09 10:42 | Discharge Summary ---
Date of Service November 09, 2019 Admission HPI Per Admitting Provider Pj is a pleasant 74-year-old male who has severe arthritis and deformity of his left knee. He has a difficult time ambulating because of his left knee. He ambulates mostly with a walker, but needs a wheelchair to get around further distances. He has emphysema and has a history of coronary stents. He is on Plavix for that. 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 He has had a recent hospitalization for lung issues. He is already received medical clearance from his cotton candy maker and his environmental air specialist. Although he has multiple medical comorbidities, his left knee pain is severely affecting his quality of life. He understands he is a medical risk for knee replacement surgery but would like to proceed. Principal Diagnosis Left knee replacement Discharge Data Allergies Allergy/AdvReac Type Severity Reaction Status Date / Time No Known Allergies Allergy Verified 11/07/19 09:19 Consultations 11/07/19 14:30 Consult Case Management - Discharge Planning Routine Procedures Performed Operation Date: 11/07/19 10:55 Actual Procedures p Left Total Knee Arthroplasty, Cemented(Left) - Kaiser Chamorro DO Ordered Studies 11/07/19 05:00 US - OR guided needle placemen Routine Hospital Course (1) Status post left knee replacement: On November 07 2019 Pj arrived at [facility] and underwent a left knee replacement without complication. He had a spinal ane sthetic. Postoperatively he was started on aspirin and Plavix for DVT prophylaxis and transferred to the general orthopedic floors. His hospital course was uneventful. On postop day #1 his H&H was stable and his pain was well controlled. He was able to participate well with physical therapy doing ambulation and range of motion exercises. On postop day #2 he continued to work well with physical therapy. The dressing was changed. He was then discharged to an inpatient rehab facility. He will follow-up with orthopedics in 2 weeks. Total Time Total Time Spent Total Time Spent (In Minutes): 20 Discharge Plan Discharge Items Patient Disposition: Home - Home Health Services Reason For Visit: LEFT KNEE DEGENERATIVE JOINT DISEASE Discharge Diagnosis: Left knee replacement Activity: As commented below Non-emergency contact: Surgeon Call non-emergency contact if: your wound has increased redness and your wound has increased drainage Follow-up/Referrals: Clau Batista DO [Primary Care Provider] - Diet: Regular Addtl Attending Provider Instructions: Activity and Therapy Recommendations: * If you are using [facility] then therapy will be provided at your home until they feel you have accomplished all of your goals. * If you are using [facility] then Physical Therapy will be provided until they feel you are ready to start Outpatient Physical Therapy. * If you are not using home therapy then Outpatient Physical Therapy should start about 3-5 days from your day of surgery. Therapy will last about 6-10 weeks * It is important not to put a pillow under your knee when you are relaxing or sleeping. It is just as important to make sure you are getting your knee perfectly straight as it is to regain your knee bend. * You were shown a series of exercises in the hospital. Do these exercises three times each day including the exercises you were shown in physical therapy. * Get up and walk several times each day. For the first four weeks, try not to stand or walk for more than one hour at a time. If you do stand or walk for more than one hour, you will not hurt anything, but your leg will likely swell. * As you feel comfortable, you may change from the walker or crutches to a cane and then to independent walking. Medications: * Narcotic You will likely be sent home from the hospital with a prescription for the narcotic pain medication that worked best throughout your stay. * Aspirin Most patients will be required to take Aspirin 81mg twice a day for 6 weeks after surgery. This is obtained [id number] and a prescription is not necessary. * Other medications may be prescribed for specific circumstances. If you have any questions, please call the office at . * Resume previous home medications unless otherwise instructed TEDs/Elastic Stockings: The white elastic stockings help limit swelling and prevent blood clots from forming in your legs.~ The more you wear them, the more they work. Wear them for six weeks. Dressing Care: Leave the Silverlon dressing in place for 7 days. After 7 days you may remove the dressing. If the incision is not draining then you may leave the candy open to air. If there is a little bit of drainage or if the candy are getting stuck on your clothing then cover the incision with a dry dressing. The candy will be removed at your 2 week follow-up appointment. Showering: You may shower with the Silverlon dressing in place. Do not let the shower spray hit the dressing directly. Pat the Silverlon dressing dry. If the dressing becomes wet underneath, then simply remove the dressing. Keep the incision dry until you are 7 days out from the day of surgery. After 7 days you may remove the Silverlon dressing and shower with the candy exposed. Let soapy water run over the candy and pat them dry. Do not scrub or soak the incision. Things To Watch For: * Drainage from the incision site that occurs more than one week after your surgery. * Increased redness at the incision site. * Fever above 102 degrees Fahrenheit. * Unusual chest pain or shortness of breath. * Call [facility] at with any of the above problems Follow-Up Visit: Follow-up with Dr. Chamorro's PA (Kaiser Barry) 2-3 weeks after your day of surgery. He will remove your candy and answer any questions. If you have any additional questions or concerns, Dr Chamorro is usually in the office at the same time and will be available An appointment was probably scheduled when you signed-up for surgery in the office. If you have any questions call Office Instructions: More detailed instructions as well as Frequently Asked Questions were provided in a folder by our office when you signed-up for surgery. Please review these instructions when you get home. If you have any further questions or concerns, please feel free to call the office at [phone] Pending Studies at Discharge: No Stand-Alone Forms: My [facility] [employer], Smoking Cessation Medications and DC Order Prescriptions: New oxycodone 5 mg Tablet 5 mg PO Q4H PRN (Reason: pain) Qty: 30 RF: 0 Continued (DME) Oxygen Home Liters Per Minute See Rx Instructions .ROUTE .MEDSUPPLY Qty: 1 RF: 0 Spiriva Respimat 2.5 mcg/actuation mist 2 puff INHALATION QAM Qty: 1 RF: 5 clopidogrel [Plavix] 75 mg tablet 75 mg PO QPM RF: 0 finasteride 5 mg tablet 5 mg PO QAM Qty: 90 RF: 3 tamsulosin 0.4 mg capsule 0.4 mg PO QPM Qty: 90 RF: 3 losartan 50 mg tablet 25 mg PO QAM RF: 0 amlodipine 10 mg tablet 5 mg PO QAM RF: 0 atorvastatin 80 mg tablet 80 mg PO QPM RF: 0 fluoxetine 60 mg tablet 60 mg PO QAM RF: 0 lamotrigine 200 mg tablet 200 mg PO QAM RF: 0 magnesium oxide 400 mg (241.3 mg magnesium) tablet 400 mg PO BID RF: 0 pantoprazole 40 mg tablet,delayed release (DR/EC) 40 mg PO QPM Qty: 30 RF: 0 timolol maleate 0.5 % drops, once daily 1 drp OPB QAM RF: 0 gabapentin 600 mg tablet 600 mg PO BID RF: 0 albuterol sulfate [Ventolin HFA] 90 mcg/actuation HFA aerosol inhaler 2 puffs INH Q4H PRN (Reason: increased cough, shortness of breath or wheezing) Qty: 18 RF: 5 Probiotic 3 billion cell Capsule 3,000 mmu cells PO QAM RF: 0 olanzapine [Zyprexa] 15 mg tablet 30 mg PO QPM RF: 0 aspirin 81 mg 81 mg PO QPM RF: 0 Discharge Orders: Discharge Order (Routine); Ordered 11/09/19 Ordered By: Kaiser Chamorro Admission Data Admit Date/Time: 11/07/19 13:38 Attending Provider: Kaiser Chamorro Admit Provider: Kaiser Chamorro Primary Care Provider: Clau Batista Other Providers: [facility],Health Coding Level of Care Code D/C Day Management <30 mins Diagnoses Status post left knee replacement Z96.652
== END 2019-11-09 15:53 | disposition home health service (06) ==
LOC: ASU 08:55 → 3E 08:55

== ENCOUNTER 2020-09-06 06:21 | Observation (INO) ==
[2020-09-06 06:54] LABS: Basophils # (auto) 0.03 K/uL (0-0.2); Basophils % (auto) 0.4 %; Eosinophils # (auto) 0.15 K/uL (0-0.5); Hematocrit (blood only) 37.5 % (42-52); Hemoglobin 11.4 g/dL (14.0-18.0); Immature Granulocytes # (auto) 0.01 K/uL (0.00-0.02); Immature Granulocytes % (auto) 0.1 %; Lymphocytes # (auto) 0.87 K/uL (1.2-3.4); Lymphocytes % (auto) 11.9 %; Mean Corpuscular Hemoglobin 25.1 pg (25-34); Mean Corpuscular Hgb Conc 30.4 g/dL (32-36); Mean Corpuscular Volume 82.4 fL (80-100); Monocytes # (auto) 0.71 K/uL (0.11-0.59); Monocytes % (auto) 9.7 %; Neutrophils # (auto) 5.56 K/uL (1.4-6.5); Neutrophils % (auto) 75.9 %; Platelet Count 240 K/uL (130-400); RDW Coefficient of Variation 17.5 % (11.5-14.5); Red Blood Count 4.55 M/uL (4.7-6.1); White Blood Count 7.33 K/uL (4.8-10.8)
[2020-09-06 07:13] LABS: Albumin Level 3.5 gm/dl (3.4-5.0); BUN Creatinine Ratio 22.1 (10-20); Calcium 10.2 mg/dl (8.5-10.1); Creatinine Clr Calc Pharmacy 57.1 ml/min; Est GFR (African American) 63.2 ml/min; Est GFR (Non-African American) 54.5 ml/min
[2020-09-06 07:23] LABS: Albumin Globulin Ratio 0.6 (0.9-2); Bilirubin,Total 0.4 mg/dl (0.2-1); Globulin 5.6 gm/dl (2.5-4.0); Thyroid Stimulating Hormone 1.16 uIu/ml (0.300-4.500); Total Protein 9.1 gm/dl (6.4-8.2)
--- NOTE | 2020-09-06 07:50 | CT Scan Report ---
HEAD CT NONCONTRAST CT DOSE: 638.56 mGycm HISTORY: Altered mental status TECHNIQUE: Multiaxial CT images of the head were performed without the use of intravenous contrast. A utomated exposure control was utilized for this study. A dose lowering technique was utilized adheri ng to the principles of ALARA. Comparison: Head CT 08/11/2019. Findings: The paranasal sinuses and mastoid air cells are clear. The calvarium and skull base are int act. There is no mass, hematoma, midline shift, acute infarct. White matter hypodensity is nonspecifi c but suggestive of microvascular ischemic change. The ventricles and sulci demonstrate mild age-rela lucie involutional changes. Old left occipital lobe infarct, unchanged. Impression: No significant change compared to the prior study. No acute intracranial abnormality. Old left BUTCHER HEAD te rritory infarct is again noted. ACT 112: Negative or not required by law. Electronically signed by: Reggie Rawls M.D. 09/06/2020 7:48 AM
--- NOTE | 2020-09-06 08:04 | XRay Report ---
XR chest 1V portable CLINICAL HISTORY: weakness COMPARISON STUDY: October 18, 2019 FINDINGS: No pneumothorax. No pleural effusion. Small atelectasis/infiltrate is seen at the right base. Limited exam due to rotation and angulation. Cardiomediastinal silhouette is within upper limits of normal. Pulmonary vasculature is indistinct.. Osseous structures: Osteopenia. Degenerative changes of the spine. Interval placement of left-sided dual-lead pacemaker with battery pack partially obscuring left lung parenchyma. IMPRESSION: 1. Small atelectasis at the right base. Limited exam due to rotation. ACT 112: Negative or not required by law. The above report was generated using voice recognition software. It may contain grammatical, syntax o r spelling errors. Electronically signed by: Janis Hurtado DO 09/06/2020 8:03 AM
[2020-09-06 08:18] LABS: Appearance Urine Clear (Clear); Bacteria Urine Automated Negative (Negative); Bilirubin Urine Negative (Negative); Blood Urine Negative (Negative); Cast Urine Automated 0 /lpf (0-5); Color Urine Yellow; Glucose Urine UA Negative (Negative); Ketones Urine Trace (Negative); Leukocyte Esterase Urine Trace (Negative); Nitrite Urine Negative (Negative); Protein Urine Negative (Negative); RBC Urine Automated 0-4 /hpf (0-4); Specific Gravity Urine 1.019 (1.000-1.030); Urobilinogen Urine Negative (Negative)
--- NOTE | 2020-09-06 09:54 | Electrocardiogram Report ---
Test Reason : Blood Pressure : / mmHG Vent. Rate : 071 BPM Atrial Rate : 071 BPM P-R Int : 308 ms QRS Dur : 202 ms QT Int : 476 ms P-R-T Axes : 000 -66 095 degrees QTc Int : 517 ms AV dual-paced rhythm with prolonged AV conduction Abnormal ECG When compared with ECG of 26-SEP-2019 09:21, Electronic ventricular pacemaker has replaced Sinus rhythm Confirmed by Maurilio Bentley ([id number]) on 09/06/2020 9:54:17 AM Referred By: REFERRED SELF Confirmed By:Maurilio Bentley
[2020-09-06 11:20] LABS: Base Excess ABG 0.2 mEq/L (-9-1.8); HCO3 ABG 25 mmol/L (19-24); PCO2 ABG 42 mmHg (35-46); PO2 ABG 79 mmHg (80-95); pH ABG 7.39 (7.35-7.45)
[2020-09-06 11:21] LABS: Allen Test Pos (Pos)
--- NOTE | 2020-09-06 11:24 | History & Physical Report ---
Date of Service September 06, 2020 Assessment & Plan (1) AMS (altered mental status): (2) Shortness of breath: (3) Ambulatory dysfunction: Plan: -Admit to [facility] with telemetry -Patient presenting from home with reports of worsening generalized weakness, intermittent confusion, worsening shortness of breath -In the ED, patient saturating well on chronic 3 L of O2. Labs unremarkable. UA does not suggest infection. Head CT and CXR unremarkable. -ABG WNL -CTA chest negative for pulmonary embolism however showing bibasilar consolidations suggestive of pneumonia vs. aspiration -Start empiric Unasyn -Check brain MRI -pacemaker is MRI compatible -PT/OT (4) Pacemaker: (5) SSS (sick sinus syndrome): Plan: -No acute issues (6) Paroxysmal atrial fibrillation: Plan: -Rate controlled on metoprolol -Previously anticoagulated on Xarelto however discontinued in June during hospitalization in [place] due to bleeding issues (7) Chronic respiratory failure: (8) Chronic obstructive pulmonary disease: Plan: -Saturating well on chronic 3L O2 -Continue home inhalers (9) DMII (diabetes mellitus, type 2): Plan: -Hgb A1c 6.3 10/2019, update with a.m. labs -Currently diet controlled, monitor BSG (10) Pulmonary nodule seen on imaging study: Plan: -CTA chest shows A new 2 cm irregular nodule within the left upper lobe abutting the mediastinal border. This is indeterminate and could represent a focus of inflammatory/infectious change or possibly a neoplasm. [address] follow-up recommended to ensure resolution. -Outpatient follow-up with pulmonary (11) CKD (chronic kidney disease), stage III: Plan: -Baseline creatinine runs in the low 1's -Creatinine 1.2 today -Monitor renal functions (12) Schizoaffective disorder: Plan: -Continue home meds (13) CAD (coronary artery disease): Plan: -Appears stable, no reports of chest pain -Continue statin beta-tammy (14) History of CVA (cerebrovascular accident): Plan: -Continue statin (15) DVT prophylaxis: Plan: -SQ heparin History of Present Illness Chief Complaint: Altered mental status, generalized weakness Primary Care Provider: Clau Batista, 75-year-old male with PMH DM type II, CKD stage III, COPD, chronic hypoxic respiratory failure on 3 L of oxygen, chronic right heart failure, history of CVA, schizoaffective disorder, CAD, and other problems listed below who presents the ED for evaluation of generalized weakness and worsening shortness of breath. Symptoms have been going on for the past 3 days. Patient reports he typically can ambulate with a walker however was unable to get out of bed this morning. reports the patient was awake most of the night confused. Patient reports worsening shortness of breath with exertion. No chest pain or palpitations. Reports feeling lightheaded and dizzy at times however no syncopal event. No other recent illnesses, fevers, chills. Reports some intermittent nausea however no vomiting or abdominal pain. Has had some diarrhea. Denies bright red bleeding per rectum and dark tarry stools. No urinary symptoms. In the ED, head CT is negative for acute intracranial findings. CXR negative for acute cardiopulmonary disease. Labs unremarkable. Allergies Allergy/AdvReac Type Severity Reaction Status Date / Time No Known Allergies Allergy Verified 09/06/20 08:28 Home Medications Medication Instructions Recorded Confirmed Type atorvastatin 80 mg tablet (Lipitor) 80 mg PO HS tab 09/07/18 09/06/20 History lamotrigine 200 mg tablet 200 mg PO QAM tab 09/07/18 09/06/20 History (Lamictal) losartan 50 mg tablet (Cozaar) 25 mg PO QAM tab 09/07/18 09/06/20 History pantoprazole 40 mg tablet,delayed 40 mg PO HS #30 tab 09/07/18 09/06/20 History release (Protonix) timolol maleate 0.5 % once daily 1 drp OPB QAM ml 09/07/18 09/06/20 History eye drops (Istalol) gabapentin 600 mg tablet 600 mg PO BID tab 12/20/18 09/06/20 History (Neurontin) albuterol sulfate 90 mcg/actuation 2 puffs INH Q4H PRN #18 gm 12/27/18 09/06/20 Rx aerosol inhaler (Ventolin HFA) lactobacillus combination no.4 3 3,000 mmu cells PO QAM 01/02/19 09/06/20 History billion cell capsule (Probiotic) olanzapine 15 mg tablet (Zyprexa) 30 mg PO DAILY@199901/26/19 09/06/20 History Oxygen Home #1 ea 03/09/19 08/08/20 Rx tiotropium bromide 2.5 2 puff INHALATION QAM #1 inhaler 05/08/20 09/06/20 Rx mcg/actuation mist for inhalation (Spiriva Respimat) amlodipine 5 mg tablet (Norvasc) 5 mg PO QAM 09/06/20 09/06/20 History finasteride 5 mg tablet (Proscar) 5 mg PO QAM 09/06/20 09/06/20 History fluoxetine 20 mg capsule (Prozac) 20 mg PO QAM 09/06/20 09/06/20 History fluoxetine 40 mg capsule (Prozac) 40 mg PO QAM 09/06/20 09/06/20 History metoprolol succinate 50 mg 50 mg PO HS 09/06/20 09/06/20 History tablet,extended release 24 hr (Toprol XL) tamsulosin 0.4 mg capsule (Flomax) 0.4 mg PO HS 09/06/20 09/06/20 History Past Med/Surg History Medical History (Updated 09/06/20 @ 15:53 by BERNARDINO Frost) 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 difficile diarrhea CAD (coronary artery disease) s/p cardiac stents (1997, 2000) Carotid aneurysm, right LEBRON 3mm aneurysm- follows with neurosurgery -- per pt's , recent CT at [facility] w/o evidence of aneurysm, says only evidence of carotid stenosis Chronic kidney disease follows with [facility] nephrology Chronic obstructive pulmonary disease + emphysema, O2 2-3L continuous Chronic respiratory failure Chronic right heart failure CKD (chronic kidney disease), stage III COPD, severe Dependence on continuous supplemental oxygen DMII (diabetes mellitus, type 2) Dyslipidemia GERD (gastroesophageal reflux disease) Gout History of CVA (cerebrovascular accident) History of recent hospitalization 09/2019 [facility] - pneumonia Hyperlipidemia Hypertension Neurogenic bladder Osteoarthritis Pacemaker Paroxysmal atrial fibrillation Schizo affective schizophrenia Sleep apnea BIPAP + 3L O2 HS SSS (sick sinus syndrome) Urinary incontinence Uses [place] catheter qHS Surgical History History of appendectomy History of cardiac cath 1 STENT EACH TIME [facility]-F/U DR [facility] History of cataract surgery History of colonoscopy History of dental surgery History of heart artery stent x 2 Status post left knee replacement (~10/2019) Status post placement of implantable loop recorder Family History Mother Stroke Other No family history of adverse response to anesthesia Social History Smoking Status: Former smoker Tobacco Type: Cigarettes Second Hand Exposure: No; Hx Alcohol Use: No Hx Substance Use: No Preferred Language: Icelandic Communication Ability: Effective Visual Impairment: No Limitations Missile Control Pilot Required: No Beliefs That Will Affect Care: Yazidi Yazidi Beliefs: LATTER DAY and Spiritual marital status: Current Living Situation: Spouse Feels Safe at Home: Yes Assistive Devices: Oxygen - Continuous and Walker Review of Systems Review of Systems: ROS per HPI, all other systems reviewed and negative Physical Exam Constitutional: WD/WN, vitals as above Eyes: PERRL, conjunctivae normal, anicteric sclerae ENMT: external ear and nose normal, oropharynx normal Respiratory: normal respiratory effort and + respiratory distress Auscultation: + diminished lung sounds (Bilateral) Cardiovascular: Rate/Rhythm: regular rate and regular rhythm Vessels: normal peripheral pulses Extremities: no edema Gastrointestinal (Abdomen): normal bowel sounds, soft, nontender, no hepatosplenomegaly Musculoskeletal: no cyanosis or clubbing, extremities motor strength 5/5 Skin: no rashes, warm and dry Neurologic: PERRL, EOMI, accommodation nl, no face palsy, no dysarthria no focal motor deficits Psychiatric: A+Ox3, euthymic affect Insight: + limited insight Forgetful Results & Data Results & Data ([facility]) Vital Signs (Past 12 Hours) Vital Signs Temp Pulse Resp BP Pulse Ox 09/06/20 10:00 68 20 158/86 H 09/06/20 09:30 69 19 152/86 H 09/06/20 09:00 66 146/71 H 97 09/06/20 08:31 69 21 140/78 95 09/06/20 08:00 75 22 157/85 H 96 09/06/20 07:30 70 24 143/79 H 09/06/20 07:00 66 21 154/79 H 09/06/20 06:32 36.9 C 67 18 145/81 H 96 09/06/20 06:30 71 23 145/81 H 96 Laboratory Results Short CBC 09/06/20 Range/Units 06:40 WBC 7.33 (4.8-10.8) K/uL Hgb 11.4 L (14.0-18.0) g/dL Hct 37.5 L (42-52) % Plt Count 240 (130-400) K/uL BMP 09/06/20 06:40 Sodium 141 Potassium 4.0 Chloride 110 H Carbon Dioxide 26 BUN 28 H Creatinine 1.27 Glucose 95 Calcium 10.2 H Liver Function 09/06/20 Range/Units 06:40 Total Bilirubin 0.4 (0.2-1) mg/dl AST 25 (15-37) U/L ALT 28 (12-78) U/L Alkaline Phosphatase 133 H (45-117) U/L Albumin 3.5 (3.4-5.0) gm/dl Urine 09/06/20 Range/Units 08:00 Urine Color Yellow Urine Appearance Clear (Clear) Urine pH 5.0 (4.5-7.5) Ur Specific [place]ling 1.019 (1.000-1.030) Urine Protein Negative (Negative) Urine Glucose (UA) Negative (Negative) Diagnostic Findings Chest X-Ray 09/06/20 06:42 XR chest 1V portable CLINICAL HISTORY: weakness COMPARISON STUDY: October 18, 2019 FINDINGS: No pneumothorax. No pleural effusion. Small atelectasis/infiltrate is seen at the right base. Limited exam due to rotation and angulation. Cardiomediastinal silhouette is within upper limits of normal. Pulmonary vasculature is indistinct.. Osseous structures: Osteopenia. Degenerative changes of the spine. Interval placement of left-sided dual-lead pacemaker with battery pack partially obscuring left lung parenchyma. IMPRESSION: 1. Small atelectasis at the right base. Limited exam due to rotation. ACT 112: Negative or not required by law. The above report was generated using voice recognition software. It may contain grammatical, syntax or spelling errors. Electronically signed by: Janis Hurtado DO 09/06/2020 8:[address] 09/06/20 06:[address] DOSE: 638.56 mGycm HISTORY: Altered mental status TECHNIQUE: Multiaxial CT images of the head were performed without the use of intravenous contrast. Automated exposure control was utilized for this study. A dose lowering technique was utilized adhering to the principles of ALARA. Comparison: Head CT 08/11/2019. Findings: The paranasal sinuses and mastoid air cells are clear. The calvarium and skull base are intact. There is no mass, hematoma, midline shift, acute infarct. White matter hypodensity is nonspecific but suggestive of microvascular ischemic change. The ventricles and sulci demonstrate mild age-related involutional changes. Old left occipital lobe infarct, unchanged. Impression: No significant change compared to the prior study. No acute intracranial abnormality. Old left [employer]ENTICE territory infarct is again noted. ACT 112: Negative or not required by law. Electronically signed by: Reggie Rawls M.D. 09/06/2020 7:48 AM Code Status & VTE Plan Code Status Patient is a full code as per my discussion with him and his who is the bedside. VTE Prophylaxis Plan VTE Prophylaxis will be ordered: Yes
[2020-09-06] MEDS ORDERED: OPTIRAY 320 125ml IV ONE (12:55)
--- NOTE | 2020-09-06 13:34 | CT Scan Report ---
CHEST CTA for PULMONARY ARTERIES CT DOSE: 784.05 mGy.cm HISTORY: Pulmonary embolus, shortness of breath TECHNIQUE: Multiaxial CT images of the chest were performed following the intravenous administration of contrast to evaluate the pulmonary arteries. Maximal intensity projection images were also obtaine d. A dose lowering technique was utilized adhering to the principles of ALARA. COMPARISON STUDY: Chest CT 09/18/2019. FINDINGS: Mild calcified plaque within the normal caliber thoracic aorta. No evidence for an aortic d issection. The heart remains mildly enlarged. Left-sided pacemaker. No pericardial effusions. There i s a trace left pleural effusion. No filling defects within the pulmonary arteries to suggest a pulmon kell embolus. Limited views of the upper abdomen demonstrate a normal liver, spleen, and adrenal gland s. Normal esophagus. No mediastinal or hilar lymphadenopathy. No fractures within the visualized osse ous structures. No pneumothorax. There is mild respiratory motion artifact. There is mild diffuse bro nchial wall thickening most pronounced within the lower lobes. The central airways are patent. Modera te emphysema. There is a new 2 cm focal irregular density within the left upper lobe abutting the med iastinal border on image 165. There are few biapical linear densities suggestive of scarring. There a re patchy bibasilar groundglass and consolidative densities. These have improved within the right low er lobe. IMPRESSION: 1. No evidence for pulmonary embolus. 2. A new 2 cm irregular nodule within the left upper lobe abutting the mediastinal border. This is in determinate and could represent a focus of inflammatory/infectious change or possibly a neoplasm. [address] [facility] chest CT follow-up recommended to ensure resolution. Pulmonary consultation can also be performe d for further evaluation. 3. Patchy groundglass and consolidative airspace opacities within the lung bases. This is improved wi thin the right lower lobe. This likely represents a combination of atelectasis and pneumonia and coul d be due to aspiration. 4. Emphysema. 5. Stable cardiomegaly. ACT 112: Positive. There are findings on this exam that require communication between the performing entity and the patient following Patient Test Result Information Act ([place] Act 112) guidelines. Electronically signed by: Reggie Rawls M.D. 09/06/2020 1:32 PM
[2020-09-06] MEDS ORDERED: ACETAMINOPHEN 325 MG TAB PO PRN (15:17)
--- NOTE | 2020-09-06 15:26 | Emergency Department Note ---
History of Present Illness General Chief complaint: Weakness Stated complaint: ILL/WEAKNESS, AMBULATION DIFF,CONFUSION Source: patient, family () and EMS Mode of arrival: EMS Limitations: altered mental status History of Present Illness Provider complaint: AMS This patient is a 75-year-old male who presents to the emergency department with complaints of altered mental status per his . The patient states he feels weak and "can no longer trust himself driving (his) car." He denies any chest pain, shortness of breath or headache. He states he did fall several days ago. He knows it is 2020 and states it is September. 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 Most of the history is obtained per nursing records and EMS. Home Medications Medication Instructions Recorded Confirmed Type atorvastatin 80 mg tablet (Lipitor) 80 mg PO HS tab 09/07/18 09/06/20 History lamotrigine 200 mg tablet 200 mg PO QAM tab 09/07/18 09/06/20 History (Lamictal) losartan 50 mg tablet (Cozaar) 25 mg PO QAM tab 09/07/18 09/06/20 History pantoprazole 40 mg tablet,delayed 40 mg PO HS #30 tab 09/07/18 09/06/20 History release (Protonix) timolol maleate 0.5 % once daily 1 drp OPB QAM ml 09/07/18 09/06/20 History eye drops (Istalol) gabapentin 600 mg tablet 600 mg PO BID tab 12/20/18 09/06/20 History (Neurontin) albuterol sulfate 90 mcg/actuation 2 puffs INH Q4H PRN #18 gm 12/27/18 09/06/20 Rx aerosol inhaler (Ventolin HFA) lactobacillus combination no.4 3 3,000 mmu cells PO QAM 01/02/19 09/06/20 History billion cell capsule (Probiotic) olanzapine 15 mg tablet (Zyprexa) 30 mg PO DAILY@199901/26/19 09/06/20 History Oxygen Home #1 ea 03/09/19 08/08/20 Rx tiotropium bromide 2.5 2 puff INHALATION QAM #1 inhaler 05/08/20 09/06/20 Rx mcg/actuation mist for inhalation (Spiriva Respimat) amlodipine 5 mg tablet (Norvasc) 5 mg PO QAM 09/06/20 09/06/20 History finasteride 5 mg tablet (Proscar) 5 mg PO QAM 09/06/20 09/06/20 History fluoxetine 20 mg capsule (Prozac) 20 mg PO QAM 09/06/20 09/06/20 History fluoxetine 40 mg capsule (Prozac) 40 mg PO QAM 09/06/20 09/06/20 History metoprolol succinate 50 mg 50 mg PO HS 09/06/20 09/06/20 History tablet,extended release 24 hr (Toprol XL) tamsulosin 0.4 mg capsule (Flomax) 0.4 mg PO HS 09/06/20 09/06/20 History Allergies Allergy/AdvReac Type Severity Reaction Status Date / Time No Known Allergies Allergy Verified 09/06/20 08:28 Past Med/Surg History Medical History 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 difficile diarrhea CAD (coronary artery disease) s/p cardiac stents (1997, 2000) Carotid aneurysm, right LEBRON 3mm aneurysm- follows with neurosurgery -- per pt's , recent CT at [facility] w/o evidence of aneurysm, says only evidence of carotid stenosis Chronic kidney disease follows with [facility] nephrology Chronic obstructive pulmonary disease + emphysema, O2 2-3L continuous Chronic respiratory failure Chronic right heart failure CKD (chronic kidney disease), stage III COPD, severe Dependence on continuous supplemental oxygen DMII (diabetes mellitus, type 2) Dyslipidemia GERD (gastroesophageal reflux disease) Gout History of CVA (cerebrovascular accident) History of recent hospitalization 09/2019 [facility] - pneumonia Hyperlipidemia Hypertension Neurogenic bladder Osteoarthritis Pacemaker Paroxysmal atrial fibrillation Schizo affective schizophrenia Sleep apnea BIPAP + 3L O2 HS SSS (sick sinus syndrome) Urinary incontinence Uses [place] catheter [facility] Surgical History History of appendectomy History of cardiac cath 1 STENT EACH TIME [facility]F/U DR [facility] History of cataract surgery History of colonoscopy History of dental surgery History of heart artery stent x 2 Status post left knee replacement (~10/2019) Status post placement of implantable loop recorder Family History Mother Stroke Other No family history of adverse response to anesthesia Social History Smoking Status: Former smoker Tobacco Type: Cigarettes Second Hand Exposure: No; Hx Alcohol Use: No Hx Substance Use: No Preferred Language: Maori Communication Ability: Effective Visual Impairment: No Limitations 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 and A total of 10 systems reviewed and were otherwise negative Physical Exam Vital Signs Vital Signs - 24 hr 09/06/20 06:30 09/06/20 06:32 09/06/20 07:00 Temperature 36.9 C Temperature Source Oral Pulse Rate 71 67 66 Pulse Rate from SpO2 Sensor 71 Respiratory Rate 23 18 21 Respiratory Effort / Characteristics Non-Labored Spontaneous Respiratory Depth Normal Respiratory Pattern Regular Blood Pressure 145/81 H 145/81 H 154/79 H Blood Pressure Mean 102 102 104 Blood Pressure Position Lying Pulse Oximetry 96 96 Oxygen Delivery Method Nasal Cannula Oxygen Flow Rate 3 Sepsis Recent Fever Within 48 Hours No Sepsis New/Unexplained Change in Mental Status N/A Sepsis Action Taken by Nursing No Action Required 09/06/20 07:30 09/06/20 08:00 09/06/20 08:31 Temperature Temperature Source Pulse Rate 70 75 69 Pulse Rate from SpO2 Sensor 74 69 Respiratory Rate 24 22 21 Respiratory Effort / Characteristics Respiratory Depth Respiratory Pattern Blood Pressure 143/79 H 157/85 H 140/78 Blood Pressure Mean 100 109 98 Blood Pressure Position Pulse Oximetry 96 95 Oxygen Delivery Method Oxygen Flow Rate Sepsis Recent Fever Within 48 Hours Sepsis New/Unexplained Change in Mental Status Sepsis Action Taken by Nursing 09/06/20 09:00 09/06/20 09:30 09/06/20 10:00 Temperature Temperature Source Pulse Rate 66 69 68 Pulse Rate from SpO2 Sensor 66 Respiratory Rate 19 20 Respiratory Effort / Characteristics Respiratory Depth Respiratory Pattern Blood Pressure 146/71 H 152/86 H 158/86 H Blood Pressure Mean 96 108 110 Blood Pressure Position Pulse Oximetry 97 Oxygen Delivery Method Oxygen Flow Rate Sepsis Recent Fever Within 48 Hours Sepsis New/Unexplained Change in Mental Status Sepsis Action Taken by Nursing 09/06/20 10:30 Temperature Temperature Source Pulse Rate 68 Pulse Rate from SpO2 Sensor Respiratory Rate 21 Respiratory Effort / Characteristics Respiratory Depth Respiratory Pattern Blood Pressure 155/79 H Blood Pressure Mean 104 Blood Pressure Position Pulse Oximetry Oxygen Delivery Method Oxygen Flow Rate Sepsis Recent Fever Within 48 Hours Sepsis New/Unexplained Change in Mental Status Sepsis Action Taken by Nursing Vital signs reviewed. General: Elderly, chronically ill-appearing 75yo male, in no significant distress. HEENT: No scleral icterus, PERRLA, neck supple. DMM, Atraumatic. Cardiovascular: Regular rate and rhythm, no extra sounds. Pulmonary: Clear to auscultation bilaterally, normal work of breathing. Abdomen: Soft, nontender, nondistended, positive bowel sounds. Musculoskeletal: Atraumatic, no peripheral edema. Neurologic: Patient awake alert and intermittently lucid however unaware of current time. Seems to be aware of recent events but intermittently then is confused. Skin: Warm, dry, no rash Course Administered Medications Amlodipine Besylate (Amlodipine Besylate 5 Mg Tab) [facility] [place] Stop: 10/07/20 00:44 Last Admin: 09/07/20 01:11 Dose: 5 mg Documented by: [id number] Atorvastatin Calcium (Atorvastatin 40 Mg Tab) 80 mg PO HS [facility] Stop: 10/06/20 20:59 Last Admin: 09/06/20 20:31 Dose: 80 mg Documented by: [id number] Finasteride (Finasteride 5 Mg Tab) 5 mg PO QAM [facility] Stop: 10/07/20 08:59 Last Admin: 09/07/20 08:24 Dose: 5 mg Documented by: [id number] Fluoxetine HCl (Fluoxetine Hcl 20 Mg Cap) 40 mg PO QAM [facility] Stop: 10/07/20 08:59 Last Admin: 09/07/20 08:23 Dose: 40 mg Documented by: [id number] Fluoxetine HCl (Fluoxetine Hcl 20 Mg Cap) 20 mg PO QAM [facility] Stop: 10/07/20 08:59 Last Admin: 09/07/20 08:24 Dose: 20 mg Documented by: [id number] Gabapentin (Gabapentin 600 Mg Tab) 600 mg PO BID [facility] Stop: 10/06/20 20:59 Last Admin: 09/07/20 08:24 Dose: 600 mg Documented by: [id number] Admin: 09/06/20 20:31 Dose: 600 mg Documented by: [id number] Heparin Sodium (Porcine) (Heparin Sod 5,000 Unit/0.5 Ml Vial) 5,000 units SQ Q8 [facility] Stop: 10/06/20 15:59 Last Admin: 09/07/20 05:30 Dose: 5,000 units Documented by: [id number] Admin: 09/06/20 21:43 Dose: 5,000 units Documented by: [id number] Admin: 09/06/20 16:34 Dose: 5,000 units Documented by: [id number] Lamotrigine (Lamotrigine 100 Mg Tab) 200 mg PO [facility] Stop: 10/07/20 08:59 Last Admin: 09/07/20 08:23 Dose: 200 mg Documented by: [id number] Losartan Potassium (Losartan Potassium 25 Mg Tab) 25 mg PO [facility] Stop: 10/07/20 08:59 Last Admin: 09/07/20 08:23 Dose: 25 mg Documented by: [id number] Metoprolol Succinate (Metoprolol Succ 50mg Ext Rel Tab) 50 mg PO [facility] Stop: 10/06/20 20:59 Last Admin: 09/06/20 20:34 Dose: 50 mg Documented by: [id number] Olanzapine (Olanzapine 10 Mg Tab) 30 mg PO DAILY@1999 [facility] Stop: 10/06/20 19:59 Last Admin: 09/06/20 20:30 Dose: 30 mg Documented by: [id number] Pantoprazole Sodium (Pantoprazole 40 Mg Tab) 40 mg PO [facility] Stop: 10/06/20 20:59 Last Admin: 09/06/20 20:33 Dose: 40 mg Documented by: [id number] Tamsulosin HCl (Tamsulosin Hcl 0.4 Mg Cap) 0.4 mg PO [facility] Stop: 10/06/20 20:59 Last Admin: 09/06/20 20:33 Dose: 0.4 mg Documented by: [id number] Timolol Maleate (Timolol Maleate 0.5% Op Soln 5 Ml Btl) 1 drops OPB [facility] Stop: 10/07/20 08:59 Last Admin: 09/07/20 08:24 Dose: 1 drops Documented by: [id number] Umeclidinium Vesta (Umeclidinium Vesta 62.5mcg/Blister 7 Puffs/Inhaler) 1 puffs INH [facility] Stop: 10/07/20 08:59 Last Admin: 09/07/20 08:24 Dose: 1 puffs Documented by: [id number] Discontinued Medications Ampicillin Sodium/Sulbactam Sodium 3,000 mg/ Sodium Chloride 108 mls @ 200 mls/hr IV Q6H [facility]; Protocol Stop: 09/13/20 15:59 Last Infusion: 09/07/20 04:40 Dose: 0 mls/hr Documented by: [id number] Admin: 09/07/20 03:31 Dose: 200 mls/hr Documented by: [id number] Infusion: 09/06/20 23:39 Dose: 0 mls/hr Documented by: [id number] Admin: 09/06/20 21:41 Dose: 200 mls/hr Documented by: [id number] Infusion: 09/06/20 17:48 Dose: 0 mls/hr Documented by: [id number] Admin: 09/06/20 16:38 Dose: 200 mls/hr Documented by: [id number] Ioversol (Optiray 320 125ml) 121 ml IV ONCE ONE Stop: 09/06/20 12:56 Last Admin: 09/06/20 12:55 Dose: 121 ml Documented by: [id number] Medical Decision Making Differential Diagnosis Infection, dehydration, metabolic abnormality, hypo/hyperglycemia, electrolyte disturbance, anemia, hypoxia, cardiac sources, intracerebral event, toxicologic, neurologic, as well as other pathologies. Medical Records Attestation: I reviewed the patient's medical records. Home Medications Current Medication List: was personally reviewed by me Laboratory Data Attestation: I reviewed the patient's lab results. Result diagrams: 09/07/20 06:17 09/07/20 06:17 Lab Results 09/06/20 09/06/20 09/06/20 Range/Units 06:40 06:40 07:09 WBC 7.33 (4.8-10.8) K/uL RBC 4.55 L (4.7-6.1) M/uL Hgb 11.4 L (14.0-18.0) g/dL Hct 37.5 L (42-52) % MCV 82.4 (80-100) fL MCH 25.1 (25-34) pg MCHC 30.4 L (32-36) g/dL RDW Std Deviation 53.0 H (36.4-46.3) fL RDW Coeff of Hermes 17.5 H (11.5-14.5) % Plt Count 240 (130-400) K/uL MPV 10.0 (7.4-10.4) fL Immature Gran % (Auto) 0.1 % Neut % (Auto) 75.9 % Lymph % (Auto) 11.9 % [place] % (Auto) 9.7 % Eos % (Auto) 2.0 % Baso % (Auto) 0.4 % Neut # (Auto) 5.56 (1.4-6.5) K/uL Lymph # (Auto) 0.87 L (1.2-3.4) K/uL [place] # (Auto) 0.71 H (0.11-0.59) K/uL Eos # (Auto) 0.15 (0-0.5) K/uL Baso # (Auto) 0.03 (0-0.2) K/uL Immature Gran # (Auto) 0.01 (0.00-0.02) K/uL Sodium 141 (136-145) mmol/L Potassium 4.0 (3.5-5.1) mmol/L Chloride 110 H (98-107) mmol/L Carbon Dioxide 26 (21-32) mmol/L Anion Gap 5.0 (3-11) BUN 28 H (7-18) mg/dl Creatinine 1.27 (0.6-1.4) mg/dl Est Cr Clr Drug Dosing 57.1 ml/min Est GFR ( Amer) 63.2 ml/min Est GFR (Non-Af Amer) 54.5 ml/min BUN/Creatinine Ratio 22.1 H (10-20) Glucose 95 (70-99) mg/dl Calcium 10.2 H (8.5-10.1) mg/dl Total Bilirubin 0.4 (0.2-1) mg/dl AST 25 (15-37) U/L ALT 28 (12-78) U/L Alkaline Phosphatase 133 H (45-117) U/L Total Protein 9.1 H (6.4-8.2) gm/dl Albumin 3.5 (3.4-5.0) gm/dl Globulin 5.6 H (2.5-4.0) gm/dl Albumin/Globulin Ratio 0.6 L (0.9-2) TSH 1.160 (0.300-4.500) uIu/ml Urine Color Urine Appearance (Clear) Urine pH (4.5-7.5) Ur Specific [place] (1.000-1.030) Urine Protein (Negative) Urine Glucose (UA) (Negative) Urine Ketones (Negative) Urine Blood (Negative) Urine Nitrite (Negative) Urine Bilirubin (Negative) Urine Urobilinogen (Negative) Ur Leukocyte Esterase (Negative) Urine WBC (Auto) (0-5) /hpf Urine RBC (Auto) (0-4) /hpf U Hyaline Cast (Auto) (0-5) /lpf U Epithel Cells (Auto) (0-5) /lpf Urine Bacteria (Auto) (Negative) COVID-19 Eval Order Covid19 at [facility] SARS-CoV-2 (PCR) (Negative) 09/06/20 09/06/20 Range/Units 07:09 08:00 WBC (4.8-10.8) K/uL RBC (4.7-6.1) M/uL Hgb (14.0-18.0) g/dL Hct (42-52) % MCV (80-100) fL MCH (25-34) pg MCHC (32-36) g/dL RDW Std Deviation (36.4-46.3) fL RDW Coeff of Hermes (11.5-14.5) % Plt Count (130-400) K/uL MPV (7.4-10.4) fL Immature Gran % (Auto) % Neut % (Auto) % Lymph % (Auto) % [place] % (Auto) % Eos % (Auto) % Baso % (Auto) % Neut # (Auto) (1.4-6.5) K/uL Lymph # (Auto) (1.2-3.4) K/uL [place] # (Auto) (0.11-0.59) K/uL Eos # (Auto) (0-0.5) K/uL Baso # (Auto) (0-0.2) K/uL Immature Gran # (Auto) (0.00-0.02) K/uL Sodium (136-145) mmol/L Potassium (3.5-5.1) mmol/L Chloride (98-107) mmol/L Carbon Dioxide (21-32) mmol/L Anion Gap (3-11) BUN (7-18) mg/dl Creatinine (0.6-1.4) mg/dl Est Cr Clr Drug Dosing ml/min Est GFR ( Amer) ml/min Est GFR (Non-Af Amer) ml/min BUN/Creatinine Ratio (10-20) Glucose (70-99) mg/dl Calcium (8.5-10.1) mg/dl Total Bilirubin (0.2-1) mg/dl AST (15-37) U/L ALT (12-78) U/L Alkaline Phosphatase (45-117) U/L Total Protein (6.4-8.2) gm/dl Albumin (3.4-5.0) gm/dl Globulin (2.5-4.0) gm/dl Albumin/Globulin Ratio (0.9-2) TSH (0.300-4.500) uIu/ml Urine Color Yellow Urine Appearance Clear (Clear) Urine pH 5.0 (4.5-7.5) Ur Specific [place] 1.019 (1.000-1.030) Urine Protein Negative (Negative) Urine Glucose (UA) Negative (Negative) Urine Ketones Trace H (Negative) Urine Blood Negative (Negative) Urine Nitrite Negative (Negative) Urine Bilirubin Negative (Negative) Urine Urobilinogen Negative (Negative) Ur Leukocyte Esterase Trace H (Negative) Urine WBC (Auto) 1-5 (0-5) /hpf Urine RBC (Auto) 0-4 (0-4) /hpf U Hyaline Cast (Auto) 0 (0-5) /lpf U Epithel Cells (Auto) 5-10 H (0-5) /lpf Urine Bacteria (Auto) Negative (Negative) COVID-19 Eval Order SARS-CoV-2 (PCR) NEGATIVE (Negative) Imaging Data Radiologist's Impression: Chest X-Ray 09/06/20 06:42 XR chest 1V portable CLINICAL HISTORY: weakness COMPARISON STUDY: October 18, 2019 FINDINGS: No pneumothorax. No pleural effusion. Small atelectasis/infiltrate is seen at the right base. Limited exam due to rotation and angulation. Cardiomediastinal silhouette is within upper limits of normal. Pulmonary vasculature is indistinct.. Osseous structures: Osteopenia. Degenerative changes of the spine. Interval placement of left-sided dual-lead pacemaker with battery pack partially obscuring left lung parenchyma. IMPRESSION: 1. Small atelectasis at the right base. Limited exam due to rotation. ACT 112: Negative or not required by law. The above report was generated using voice recognition software. It may contain grammatical, syntax or spelling errors. Electronically signed by: Janis Hurtado DO 09/06/2020 8:[address] 09/06/20 06:[address] DOSE: 638.56 mGycm HISTORY: Altered mental status TECHNIQUE: Multiaxial CT images of the head were performed without the use of intravenous contrast. Automated exposure control was utilized for this study. A dose lowering technique was utilized adhering to the principles of ALARA. Comparison: Head CT 08/11/2019. Findings: The paranasal sinuses and mastoid air cells are clear. The calvarium and skull base are intact. There is no mass, hematoma, midline shift, acute infarct. White matter hypodensity is nonspecific but suggestive of microvascular ischemic change. The ventricles and sulci demonstrate mild age-related involutional changes. Old left occipital lobe infarct, unchanged. Impression: No significant change compared to the prior study. No acute intracranial a bnormality. Old left BOOK ILLUSTRATOR territory infarct is again noted. ACT 112: Negative or not required by law. Electronically signed by: Reggie Rawls M.D. 09/06/2020 7:48 AM ECG Data Attestation: I personally reviewed and interpreted this ECG as follows: Indication: + altered mental status Rate (beats per minute): 71 Rhythm: + other (AV sequential pacer) ECG Intervals/blocks: + Prolonged QT ECG Findings: + Other (Prolonged AV conduction); no PACs or no PVCs Comparison ECG Date: from (09/26/19) Change: the following changes noted (Ventricular paced rhythm has replaced sinus rhythm) Blood Pressure Blood Pressure Findings: Normal blood pressure Blood Pressure Disposition: did not require urgent referral MDM Narrative This patient was evaluated and appeared to be in no significant distress. IV access was obtained and laboratory work was drawn. An order for cardiac monitoring was placed and the patient is noted to be in a ventricularly paced rhythm at 67 bpm. Patient's laboratory work is fairly reassuring. WBC is wi thin normal limits. Hemoglobin is 11 which is stable. UA is negative for infection. Chest x-ray is clear. Head CT reveals old infarct without evidence of intracranial hemorrhage or acute infarct. The etiology of the patient's AMS is unclear. It may be related to his psychiatric history and/or dementia/sundowning or medication related. Nonetheless further evaluation is necessary and the hospital service was contacted. Patient and his were made aware of the findings and plan and agreed. Impression & Plan Acute alteration in mental status Discharge Plan Visit Data Chief Complaint: Weakness Stated Complaint: ILL/WEAKNESS, AMBULATION DIFF,CONFUSION ED Provider: Priscila Lima Discharge Problem: Acute alteration in mental status Patient Disposition: Admitted As Inpatient Discharge Instructions Interventions: ED Discharge Assessment Last Done: 09/06/20 15:05
[2020-09-06] MEDS: HEPARIN SOD 5,000 UNIT/0.5 ML VIAL SQ SCH ×2 (16:34→21:43)
[2020-09-06] MEDS: AMPICILLIN/SULBACTAM SOD 3,000 MG in 0.9 % SODIUM CHLORIDE 100 ML IV SCH ×2 (16:38→21:41)
[2020-09-06] MEDS: OLANZapine 10 MG TAB PO SCH (20:30)
[2020-09-06] MEDS: ATORVASTATIN 40 MG TAB PO SCH (20:31)
[2020-09-06] MEDS: GABAPENTIN 600 MG TAB PO SCH (20:31)
[2020-09-06] MEDS: PANTOprazole 40 MG TAB PO SCH (20:33)
[2020-09-06] MEDS: TAMSULOSIN HCL 0.4 MG CAP PO SCH (20:33)
[2020-09-06] MEDS: METOPROLOL SUCC 50MG EXT REL TAB PO SCH (20:34)
[2020-09-07] MEDS: amLODIPine BESYLATE 5 MG TAB PO SCH (01:11)
[2020-09-07] MEDS: AMPICILLIN/SULBACTAM SOD 3,000 MG in 0.9 % SODIUM CHLORIDE 100 ML IV SCH (03:31)
[2020-09-07] MEDS: HEPARIN SOD 5,000 UNIT/0.5 ML VIAL SQ SCH ×3 (05:30→21:45)
[2020-09-07 06:45] LABS: Hematocrit (blood only) 31.2 % (42-52); Hemoglobin 9.8 g/dL (14.0-18.0); Mean Corpuscular Hemoglobin 25.3 pg (25-34); Mean Corpuscular Hgb Conc 31.4 g/dL (32-36); Mean Corpuscular Volume 80.6 fL (80-100); Mean Platelet Volume 9.6 fL (7.4-10.4); Platelet Count 217 K/uL (130-400); RDW Coefficient of Variation 17.3 % (11.5-14.5); RDW Standard Deviation 51.3 fL (36.4-46.3); Red Blood Count 3.87 M/uL (4.7-6.1); White Blood Count 7.79 K/uL (4.8-10.8)
[2020-09-07 07:35] LABS: BUN Creatinine Ratio 22.7 (10-20); Calcium 9.3 mg/dl (8.5-10.1); Creatinine Clr Calc Pharmacy 71.2 ml/min; Est GFR (African American) 90.9 ml/min; Est GFR (Non-African American) 78.4 ml/min; Potassium 3.8 mmol/L (3.5-5.1)
[2020-09-07] MEDS: LOSARTAN POTASSIUM 25 MG TAB PO SCH (08:23)
[2020-09-07] MEDS: lamoTRIgine 100 MG TAB PO SCH (08:23)
[2020-09-07] MEDS: FLUoxetine HCL 20 MG CAP PO SCH ×2 (08:23→08:24)
[2020-09-07] MEDS: TIMOLOL MALEATE 0.5% OP SOLN 5 ML BTL OPB SCH (08:24)
[2020-09-07] MEDS: UMECLIDINIUM BROMIDE 62.5MCG/BLISTER 7 PUFFS/INHALER INH SCH (08:24)
[2020-09-07] MEDS: GABAPENTIN 600 MG TAB PO SCH ×2 (08:24→21:44)
[2020-09-07] MEDS: FINASTERIDE 5 MG TAB PO SCH (08:24)
[2020-09-07] MEDS ORDERED: amLODIPine BESYLATE 5 MG TAB PO SCH (09:00)
[2020-09-07] MEDS: AMOXICILLIN/CLAVULANATE 875 MG TAB PO SCH ×2 (11:38→18:00)
--- NOTE | 2020-09-07 18:33 | Hospitalist Progress Note ---
Date of Service September 07, 2020 Assessment & Plan (1) AMS (altered mental status): Plan: Presented on admission with worsening generalized weakness, intermittent confusion and shortness of breath Mostly related to acute illness due to pneumonia CT head showed no acute intracranial abnormality UA does not showed any sign of infection ABG showed normal pH and pCO2 Unable to get an MRI head done due to pacemaker (-pacemaker is MRI compatible as per son who is a book retailer) If worsening, will consider 1 to 1 sitter Continue monitor closely (2) Chronic respiratory failure: (3) Chronic obstructive pulmonary disease: (4) Shortness of breath: Plan: CTA chest negative for pulmonary embolism however showing bibasilar consolidations suggestive of pneumonia Continue chronic 3L oxygen supplement Unasyn IV was starting on admission, will continue Continue neb treatment Speech therapy on board Pt had a Video swallow done last 09/27 that suggested silent aspiration with thin liquid Speech during last visit recommended sip of water Continue aspiration precaution Continue monitor closely (5) Ambulatory dysfunction: Plan: Mostly due to acute illness CT head showed no acute finding MRI head pending Continue PT/OT eval Fall precaution (6) Pacemaker: (7) SSS (sick sinus syndrome): Plan: MRI compatible No acute issues (8) Paroxysmal atrial fibrillation: Plan: Rate controlled on metoprolol Previously anticoagulated on Xarelto however discontinued in June during hospitalization in [place] due to bleeding issues (9) DMII (diabetes mellitus, type 2): Plan: Hgb A1c 6.3 10/2019 Check A1c in am Currently diet controlled, monitor BSG (10) Pulmonary nodule seen on imaging study: Plan: CTA chest shows A new 2 cm irregular nodule within the left upper lobe abutting the mediastinal border. This is indeterminate and could represent a focus of inflammatory/infectious change or possibly a neoplasm. [address] follow- up recommended to ensure resolution. CT Finding discussed with said pt had an imaging done back in May and the nodule was there and she believes no change in the size Outpatient follow-up to continue monitor (11) CKD (chronic kidney disease), stage III: Plan: Baseline creatinine runs in the low 1's Stable (12) Schizoaffective disorder: Plan: Continue home meds (13) CAD (coronary artery disease): Plan: Denies any chest pain Continue statin and beta-tammy (14) History of CVA (cerebrovascular accident): Plan: Continue statin (15) DVT prophylaxis: Plan: -SQ heparin Admission and Anticipated Discharge Date Admission Date: September 06, 2020 Subjective Pt was seen and examined for follow up of worsening generalized weakness, intermittent confusion and shortness of breath Sitting in chair calm, but early today the nurse said that he was agitated He said that he was feeling fine and very pleasant He was able to know that he was in the hospital, [place] president and why we are wearing the mask He said that his breathing at baseline Denies any chest pain, palpitation, dizziness and SOB Physical Exam Physical Exam: General- No acute distress Head- atraumatic Eyes- PERRL, EOMI, ENT- oropharynx clear Neck- supple, no JVD Lungs- Diminished BS Heart- regular rhythm; no murmur Abdomen- normal bowel sounds, soft, nontender Extremities- no calf tenderness Neuro- alert, oriented x 3; PERRL, EOMI; no facial palsy; no dysarthria Skin- warm & dry Results & Data Results & Data ([facility]) Vital Signs (Past 12 Hours) Vital Signs Temp Pulse Pulse Resp BP Pulse Ox 09/07/20 16:49 97 H 09/07/20 11:00 36.8 C 62 18 115/71 94 09/07/20 08:00 37.0 C 74 20 147/80 H 93 09/07/20 07:00 79
[2020-09-07] MEDS: METOPROLOL SUCC 50MG EXT REL TAB PO SCH (21:44)
[2020-09-07] MEDS: ATORVASTATIN 40 MG TAB PO SCH (21:45)
[2020-09-07] MEDS: OLANZapine 10 MG TAB PO SCH (21:45)
[2020-09-07] MEDS: TAMSULOSIN HCL 0.4 MG CAP PO SCH (21:45)
[2020-09-07] MEDS: PANTOprazole 40 MG TAB PO SCH (21:45)
[2020-09-08] MEDS: HEPARIN SOD 5,000 UNIT/0.5 ML VIAL SQ SCH ×3 (05:58→22:00)
[2020-09-08] MEDS: LOSARTAN POTASSIUM 25 MG TAB PO SCH (09:11)
[2020-09-08] MEDS: FLUoxetine HCL 20 MG CAP PO SCH ×2 (09:12→09:13)
[2020-09-08] MEDS: AMOXICILLIN/CLAVULANATE 875 MG TAB PO SCH ×2 (09:12→15:13)
[2020-09-08] MEDS: lamoTRIgine 100 MG TAB PO SCH (09:12)
[2020-09-08] MEDS: amLODIPine BESYLATE 5 MG TAB PO SCH (09:12)
[2020-09-08] MEDS: GABAPENTIN 600 MG TAB PO SCH ×2 (09:12→21:59)
[2020-09-08] MEDS: UMECLIDINIUM BROMIDE 62.5MCG/BLISTER 7 PUFFS/INHALER INH SCH (09:13)
[2020-09-08] MEDS: TIMOLOL MALEATE 0.5% OP SOLN 5 ML BTL OPB SCH (09:13)
[2020-09-08] MEDS: FINASTERIDE 5 MG TAB PO SCH (09:13)
[2020-09-08 11:35] LABS: Hematocrit (blood only) 36.5 % (42-52); Mean Corpuscular Hemoglobin 25.1 pg (25-34); Mean Corpuscular Hgb Conc 30.1 g/dL (32-36); Mean Corpuscular Volume 83.3 fL (80-100); Platelet Count 270 K/uL (130-400); RDW Coefficient of Variation 17.7 % (11.5-14.5); RDW Standard Deviation 54.5 fL (36.4-46.3); Red Blood Count 4.38 M/uL (4.7-6.1); White Blood Count 6.31 K/uL (4.8-10.8)
[2020-09-08 11:55] LABS: BUN Creatinine Ratio 25.4 (10-20); Calcium 9.4 mg/dl (8.5-10.1); Creatinine Clr Calc Pharmacy 56.7 ml/min; Est GFR (African American) 69.1 ml/min; Est GFR (Non-African American) 59.6 ml/min; Potassium 4.1 mmol/L (3.5-5.1)
[2020-09-08] MEDS: OLANZapine 10 MG TAB PO SCH (21:58)
[2020-09-08] MEDS: METOPROLOL SUCC 50MG EXT REL TAB PO SCH (21:59)
[2020-09-08] MEDS: TAMSULOSIN HCL 0.4 MG CAP PO SCH (21:59)
[2020-09-08] MEDS: ATORVASTATIN 40 MG TAB PO SCH (21:59)
[2020-09-08] MEDS: PANTOprazole 40 MG TAB PO SCH (22:00)
--- NOTE | 2020-09-08 23:51 | Hospitalist Progress Note ---
Date of Service September 08, 2020 Assessment & Plan (1) AMS (altered mental status): Plan: Presented on admission with worsening generalized weakness, intermittent confusion and shortness of breath Mostly related to acute illness due to pneumonia CT head showed no acute intracranial abnormality UA does not showed any sign of infection ABG showed normal pH and pCO2 Unable to get an MRI head done due to pacemaker (-pacemaker is MRI compatible as per son who is a dictionary editor) If worsening, will consider 1 to 1 sitter Clinically improves significantly (2) Chronic respiratory failure: (3) Chronic obstructive pulmonary disease: (4) Shortness of breath: Plan: CTA chest negative for pulmonary embolism however showing bibasilar consolidations suggestive of pneumonia Continue chronic 3L oxygen supplement Unasyn IV was starting on admission, will continue Continue neb treatment Speech therapy on board Pt had a Video swallow done last 09/27 that suggested silent aspiration with thin liquid Speech during last visit recommended sip of water Continue aspiration precaution Continue monitor closely (5) Ambulatory dysfunction: Plan: Mostly due to acute illness CT head showed no acute finding MRI head pending Continue PT/OT eval Fall precaution (6) Pacemaker: (7) SSS (sick sinus syndrome): Plan: MRI compatible No acute issues (8) Paroxysmal atrial fibrillation: Plan: Rate controlled on metoprolol Previously anticoagulated on Xarelto however discontinued in June during hospitalization in [place] due to bleeding issues (9) DMII (diabetes mellitus, type 2): Plan: Hgb A1c 6.3 10/2019 Check A1c in am Currently diet controlled, monitor BSG (10) Pulmonary nodule seen on imaging study: Plan: CTA chest shows A new 2 cm irregular nodule within the left upper lobe abutting the mediastinal border. This is indeterminate and could represent a focus of inflammatory/infectious change or possibly a neoplasm. [address] follow- up recommended to ensure resolution. CT Finding discussed with said pt had an imaging done back in May and the nodule was there and she believes no change in the size Outpatient follow-up to continue monitor (11) CKD (chronic kidney disease), stage III: Plan: Baseline creatinine runs in the low 1's Stable (12) Schizoaffective disorder: Plan: Continue home meds (13) CAD (coronary artery disease): Plan: Denies any chest pain Continue statin and beta-tammy (14) History of CVA (cerebrovascular accident): Plan: Continue statin (15) DVT prophylaxis: Plan: -SQ heparin Admission and Anticipated Discharge Date Admission Date: September 07, 2020 Subjective Pt was seen and examined for follow up of worsening generalized weakness, intermittent confusion and shortness of breath Sitting in chair calm with at bedside He said that he was feeling fine was able to call the son during the encounter and son was on speaker Son said that early today, he spoke to his dad for about 9 minutes and he was back to his baseline mental status Denies any chest pain, palpitation, dizziness and SOB Physical Exam Physical Exam: General- No acute distress Head- atraumatic Eyes- PERRL, EOMI, ENT- oropharynx clear Neck- supple, no JVD Lungs- Diminished BS Heart- regular rhythm; no murmur Abdomen- normal bowel sounds, soft, nontender Extremities- no calf tenderness Neuro- alert, oriented x 3; PERRL, EOMI; no facial palsy; no dysarthria Skin- warm & dry Results & Data Results & Data ([facility]) Vital Signs (Past 12 Hours) Vital Signs Temp Pulse Pulse Resp BP Pulse Ox 09/08/20 22:36 70 18 91 09/08/20 21:57 70 154/81 H 98 09/08/20 15:48 36.6 C 80 16 136/83 95
[2020-09-09] MEDS: HEPARIN SOD 5,000 UNIT/0.5 ML VIAL SQ SCH ×3 (05:30→20:58)
[2020-09-09] MEDS: GABAPENTIN 600 MG TAB PO SCH ×2 (08:41→20:57)
[2020-09-09] MEDS: FLUoxetine HCL 20 MG CAP PO SCH ×2 (08:41→08:42)
[2020-09-09] MEDS: LOSARTAN POTASSIUM 25 MG TAB PO SCH (08:42)
[2020-09-09] MEDS: FINASTERIDE 5 MG TAB PO SCH (08:42)
[2020-09-09] MEDS: lamoTRIgine 100 MG TAB PO SCH (08:42)
[2020-09-09] MEDS: amLODIPine BESYLATE 5 MG TAB PO SCH (08:42)
[2020-09-09] MEDS: UMECLIDINIUM BROMIDE 62.5MCG/BLISTER 7 PUFFS/INHALER INH SCH (08:43)
[2020-09-09] MEDS: TIMOLOL MALEATE 0.5% OP SOLN 5 ML BTL OPB SCH (08:43)
[2020-09-09] MEDS: AMOXICILLIN/CLAVULANATE 875 MG TAB PO SCH ×2 (09:11→16:51)
[2020-09-09 09:45] LABS: Estimated Average Glucose 134 mg/dl; Hemoglobin A1C 6.3 % (4.5-5.6)
[2020-09-09] MEDS: PANTOprazole 40 MG TAB PO SCH (20:56)
[2020-09-09] MEDS: OLANZapine 10 MG TAB PO SCH (20:56)
[2020-09-09] MEDS: ATORVASTATIN 40 MG TAB PO SCH (20:56)
[2020-09-09] MEDS: METOPROLOL SUCC 50MG EXT REL TAB PO SCH (20:57)
[2020-09-09] MEDS: TAMSULOSIN HCL 0.4 MG CAP PO SCH (20:57)
--- NOTE | 2020-09-09 22:51 | Hospitalist Progress Note ---
Date of Service September 09, 2020 Assessment & Plan (1) AMS (altered mental status): Plan: Presented on admission with worsening generalized weakness, intermittent confusion and shortness of breath Mostly related to acute illness due to pneumonia CT head showed no acute intracranial abnormality UA does not showed any sign of infection ABG showed normal pH and pCO2 Unable to get an MRI head done due to pacemaker (-pacemaker is MRI compatible as per son who is a hospital technician) If worsening, will consider 1 to 1 sitter Clinically improves significantly (2) Chronic respiratory failure: (3) Chronic obstructive pulmonary disease: (4) Shortness of breath: Plan: CTA chest negative for pulmonary embolism however showing bibasilar consolidations suggestive of pneumonia Continue chronic 3L oxygen supplement Unasyn IV was starting on admission, will continue Continue neb treatment Speech therapy on board Pt had a Video swallow done last 09/27 that suggested silent aspiration with thin liquid Speech during last visit recommended sip of water Continue aspiration precaution Continue monitor closely (5) Ambulatory dysfunction: Plan: Mostly due to acute illness CT head showed no acute finding MRI head pending Continue PT/OT eval Fall precaution Pt not interested on inpatient rehab (6) Pacemaker: (7) SSS (sick sinus syndrome): Plan: MRI compatible No acute issues (8) Paroxysmal atrial fibrillation: Plan: Rate controlled on metoprolol Previously anticoagulated on Xarelto however discontinued in June during hospitalization in [place] due to bleeding issues (9) DMII (diabetes mellitus, type 2): Plan: Hgb A1c 6.3 10/2019 Check A1c in am Currently diet controlled, monitor BSG (10) Pulmonary nodule seen on imaging study: Plan: CTA chest shows A new 2 cm irregular nodule within the left upper lobe abutting the mediastinal border. This is indeterminate and could represent a focus of inflammatory/infectious change or possibly a neoplasm. [address] follow- up recommended to ensure resolution. CT Finding discussed with said pt had an imaging done back in May and the nodule was there and she believes no change in the size Outpatient follow-up to continue monitor (11) CKD (chronic kidney disease), stage III: Plan: Baseline creatinine runs in the low 1's Stable (12) Schizoaffective disorder: Plan: Continue home meds (13) CAD (coronary artery disease): Plan: Denies any chest pain Continue statin and beta-tammy (14) History of CVA (cerebrovascular accident): Plan: Continue statin (15) DVT prophylaxis: Plan: -SQ heparin Admission and Anticipated Discharge Date Admission Date: September 07, 2020 Subjective Pt was seen and examined for follow up of worsening generalized weakness, intermittent confusion and shortness of breath Sitting in chair comfortable with no distress Pt said that cough improves Denies any chest pain, palpitation, dizziness and SOB Physical Exam Physical Exam: General- No acute distress Head- atraumatic Eyes- PERRL, EOMI, ENT- oropharynx clear Neck- supple, no JVD Lungs- Diminished BS Heart- regular rhythm; no murmur Abdomen- normal bowel sounds, soft, nontender Extremities- no calf tenderness Neuro- alert, oriented x 3; PERRL, EOMI; no facial palsy; no dysarthria Skin- warm & dry Results & Data Results & Data ([facility]) Vital Signs (Past 12 Hours) Vital Signs Temp Pulse Resp BP BP Pulse Ox 09/09/20 22:37 36.4 C L 68 17 153/89 H 97 09/09/20 20:55 67 146/83 H 09/09/20 17:08 98 09/09/20 15:43 36.8 C 67 18 108/71 97
[2020-09-10] MEDS: HEPARIN SOD 5,000 UNIT/0.5 ML VIAL SQ SCH ×2 (06:02→14:56)
[2020-09-10] MEDS: AMOXICILLIN/CLAVULANATE 875 MG TAB PO SCH ×2 (08:56→17:39)
[2020-09-10] MEDS: amLODIPine BESYLATE 5 MG TAB PO SCH (08:56)
[2020-09-10] MEDS: FINASTERIDE 5 MG TAB PO SCH (08:58)
[2020-09-10] MEDS: lamoTRIgine 100 MG TAB PO SCH (08:59)
[2020-09-10] MEDS: FLUoxetine HCL 20 MG CAP PO SCH ×2 (09:00→09:01)
[2020-09-10] MEDS: GABAPENTIN 600 MG TAB PO SCH (09:01)
[2020-09-10] MEDS: LOSARTAN POTASSIUM 25 MG TAB PO SCH (09:02)
[2020-09-10] MEDS: UMECLIDINIUM BROMIDE 62.5MCG/BLISTER 7 PUFFS/INHALER INH SCH (09:03)
[2020-09-10] MEDS: TIMOLOL MALEATE 0.5% OP SOLN 5 ML BTL OPB SCH (09:03)
--- NOTE | 2020-09-10 15:48 | CT Scan Report ---
CT head/brain wo con CLINICAL HISTORY: 75 years-old Male with f/u. Acutely altered mental status TECHNIQUE: Multiple axial CT images of the head were obtained without contrast. A dose lowering tech nique was utilized adhering to the principles of ALARA. CT DOSE: 729.78 mGycm COMPARISON: 09/06/2020 FINDINGS: No acute intracranial hemorrhage, midline shift, intracranial mass, hydrocephalus, territorial ischem ia or abnormal extra-axial collection. Chronic infarct of the left posterior cerebral artery territor y. Age-related involutional changes with ex vacuo ventriculomegaly. White matter hypodensities sugges tive of chronic microvascular ischemic disease. The calvarium is intact. Mastoid air cells on the left are clear. Trace right mastoid effusion. Mild polypoid mucosal thickening of the right sphenoid and maxillary sinuses. Unremarkable soft tissues. Prior bilateral lens repair. IMPRESSION: 1. No acute intracranial abnormality. 2. Chronic left BELT CUTTER territorial infarct. ACT 112: Negative or not required by law. The above report was generated using voice recognition software. It may contain grammatical, syntax o r spelling errors. Electronically signed by: Tushar Sequeira M.D. 09/10/2020 3:47 PM
--- NOTE | 2020-09-10 16:42 | Discharge Summary ---
Date of Service September 10, 2020 Admission HPI Per Admitting Provider 75-year-old male with PMH DM type II, CKD stage III, COPD, chronic hypoxic respiratory failure on 3 L of oxygen, chronic right heart failure, history of CVA, schizoaffective disorder, CAD, and other problems listed below who presents the ED for evaluation of generalized weakness and worsening shortness of breath. Symptoms have been going on for the past 3 days. Patient reports he typically can ambulate with a walker however was unable to get out of bed this morning. reports the patient was awake most of the night confused. Patient reports worsening shortness of breath with exertion. No chest pain or palpitations. Reports feeling lightheaded and dizzy at times however no syncopal event. No other recent illnesses, fevers, chills. Reports some intermittent nausea however no vomiting or abdominal pain. Has had some diarrhea. Denies bright red bleeding per rectum and dark tarry stools. No urinary symptoms. In the ED, head CT is negative for acute intracranial findings. CXR negative for acute cardiopulmonary disease. Labs unremarkable. Discharge Data Allergies Allergy/AdvReac Type Severity Reaction Status Date / Time No Known Allergies Allergy Verified 09/06/20 08:28 Consultations 09/06/20 09:57 ED Decision to Admit Stat Ordered Studies 09/06/20 06:42 CT head/brain wo con Stat 09/06/20 11:40 CT angio chest PE protocol Routine 09/10/20 15:04 CT head/brain wo con Routine Hospital Course (1) AMS (altered mental status): Presented on admission with worsening generalized weakness, intermittent confusion and shortness of breath Mostly related to acute illness due to pneumonia CT head showed no acute intracranial abnormality UA does not showed any sign of infection ABG showed normal pH and pCO2 Unable to get an MRI head done today due to pacemaker (-pacemaker is MRI compatible as per son who is a cmo & president) No focal deficit on exam Spoke to Son and agreed with the plan since pt mental status and weakness improve, it is less likely related to an acute CVA Will will repeat the CT head for reassurance and if negative will discharge home later and cancel the MRI head since we have to wait for the promotional representative Repeat CT head showed no acute intracranial abnormality Clinically improves significantly (2) Chronic respiratory failure: (3) Chronic obstructive pulmonary disease: (4) Shortness of breath: CTA chest negative for pulmonary embolism however showing bibasilar consolidations suggestive of pneumonia Continue chronic 3L oxygen supplement Unasyn IV was starting on admission, will continue Continue neb treatment Speech therapy on board Pt had a Video swallow done last 09/27 that suggested silent aspiration with thin liquid Speech during last visit recommended sip of water Continue aspiration precaution Continue monitor closely (5) Ambulatory dysfunction: Mostly due to acute illness CT head showed no acute finding MRI head pending Continue PT/OT eval Fall precaution Pt not interested on inpatient rehab (6) Pacemaker: (7) SSS (sick sinus syndrome): MRI compatible No acute issues (8) Paroxysmal atrial fibrillation: Rate controlled on metoprolol Previously anticoagulated on Xarelto however discontinued in June during hospitalization in [place] due to bleeding issues (9) DMII (diabetes mellitus, type 2): Hgb A1c 6.3 10/2019 Check A1c in am Currently diet controlled, monitor BSG (10) Pulmonary nodule seen on imaging study: CTA chest shows A new 2 cm irregular nodule within the left upper lobe abutting the mediastinal border. This is indeterminate and could represent a focus of inflammatory/infectious change or possibly a neoplasm. [address] follow-up recommended to ensure resolution. CT Finding discussed with said pt had an imaging done back in May and the nodule was there and she believes no change in the size Outpatient follow-up to continue monitor (11) CKD (chronic kidney disease), stage III: Baseline creatinine runs in the low 1's Stable (12) Schizoaffective disorder: Continue home meds (13) CAD (coronary artery disease): Denies any chest pain Continue statin and beta-tammy (14) History of CVA (cerebrovascular accident): Continue statin (15) DVT prophylaxis: -SQ heparin Discharge Plan Discharge Items Reason For Visit: AMS Follow-up/Referrals: Clau Batista DO [Primary Care Provider] - Medications and DC Order Prescriptions: No Action (DME) Oxygen Home Liters Per Minute See Rx Instructions .ROUTE .MEDSUPPLY Qty: 1 RF: 0 Spiriva Respimat 2.5 mcg/actuation mist 2 puff INHALATION QAM Qty: 1 RF: 5 losartan [Cozaar] 50 mg tablet 25 mg PO QAM RF: 0 atorvastatin [Lipitor] 80 mg tablet 80 mg PO HS RF: 0 lamotrigine [Lamictal] 200 mg tablet 200 mg PO QAM RF: 0 pantoprazole [Protonix] 40 mg tablet,delayed release (DR/EC) 40 mg PO HS Qty: 30 RF: 0 timolol maleate [Istalol] 0.5 % drops, once daily 1 drp OPB QAM RF: 0 gabapentin [Neurontin] 600 mg tablet 600 mg PO BID RF: 0 albuterol sulfate [Ventolin HFA] 90 mcg/actuation HFA aerosol inhaler 2 puffs INH Q4H PRN (Reason: increased cough, shortness of breath or wheezing) Qty: 18 RF: 5 Probiotic 3 billion cell Capsule 3,000 mmu cells PO QAM RF: 0 olanzapine [Zyprexa] 15 mg tablet 30 mg PO DAILY@1999 RF: 0 fluoxetine [Prozac] 40 mg capsule 40 mg PO QAM RF: 0 metoprolol succinate [Toprol XL] 50 mg tablet extended release 24 hr 50 mg PO HS RF: 0 amlodipine [Norvasc] 5 mg tablet 5 mg PO QAM RF: 0 fluoxetine [Prozac] 20 mg capsule 20 mg PO QAM RF: 0 tamsulosin [Flomax] 0.4 mg capsule 0.4 mg PO HS RF: 0 finasteride [Proscar] 5 mg tablet 5 mg PO QAM RF: 0 Admission Data Admit Date/Time: 09/07/20 18:31 Attending Provider: Yanick Gaffney Admit Provider: Yanick Gaffney Primary Care Provider: Clau Batista Other Providers: Yanick Gaffney Other Interventions: Discharge Summary Assessment (RN) Last Done: 09/10/20 16:19
== END 2020-09-10 18:49 | disposition home or self-care (01) ==
LOC: ED 06:21 → 2N 06:21 → 3N 09-07 22:15

== ENCOUNTER 2020-12-22 15:07 | Inpatient (IN) ==
[2020-12-22] MEDS ORDERED: SODIUM CHLORIDE 0.9% 500 ML IV STA (15:20)
--- NOTE | 2020-12-22 15:24 | Emergency Department Note ---
Impression & Plan Weakness, Fall, Breathlessness, Chronic respiratory disease ED Provider Note Provider: Kash Perry MD DATE OF SERVICE: 12/22/2020 CHIEF COMPLAINT: Weakness, shortness of breath, fall 1971 5-year-old gentleman HISTORY OF PRESENT ILLNESS: Patient is a 75-year-old gentleman history of type 2 diabetes, COPD chronically on 3 L of oxygen, CKD, right heart failure, CVA, schizoaffective sorter, CAD, history of aspiration pneumonia last hospitalized the beginning of September presenting here today via ambulance from home with report of maybe a bit of confusion today and a fall at home and some hypoxia at home. Reports the patient was in his 80s on his home oxygen. Evidently about 3 weeks ago it is a positive for Covid and had some congestion and cough with this this was improving until the last several days. Patient denies significant abdominal pain currently or chest pain. Patient denies significant headache at this time. Patient dorsal generalized weakness. No Tylenol today. REVIEW OF SYSTEMS: A total of 10 review of systems was obtained and negative except as stated above in the HPI. PAST MEDICAL HISTORY: As noted above MEDICATIONS: Reviewed home medications SOCIAL HISTORY:Former smoker, lives at home with PHYSICAL EXAM: GENERAL: alert and oriented in no acute distress on stretcher fatigued and appears Head: normocephalic and atraumatic EYES: No injection, discharge or icterus. PERRL NECK: Trachea midline. Supple. ENT: Mucous membranes pink and moist. LUNGS: Airway patent. No retractions. Breath sounds clear with diminished bases HEART: Regular rate and rhythm. No chest wall tenderness ABDOMEN: Soft and non-tender, without guarding or rebound. SKIN: Acyanotic, warm, dry, without rashes EXTREMITIES: Without swelling, tenderness or deformity NEUROLOGICAL: No focal deficits. No aphasia. No facial droop or slurred speech. EK bpm AV paced rhythm without PVC. QTC 493 with significant paced interventricular conduction delay. Compared to previous from September 06 of this year similar. CONTINUOUS CARDIAC MONITORING: was ordered and showed a heart rate of bpm in AV paced rhythm Patient's laboratory studies and imaging reviewed. Differential includes Infection, dehydration, metabolic abnormality, hypo/hyperglycemia, electrolyte disturbance, anemia, hypoxia, cardiac sources, intracerebral event, toxicologic, neurologic, as well as other pathologies. IMPRESSION/MEDICAL DECISION MAKING: Reviewed prior medical record. Patient seems stable on home 3 L oxygen here. Given the questionable fall CT of the head, cervical spine, chest will be obtained. Radiology reports reviewed. Chest x-ray does not show significant lung pathology but hopefully the CT of the chest will provide further elucidation of any occult findings here. Does have a borderline fever here upon arrival. Continues to test Covid positive. Leukocytosis of 14 is noted. No hypercarbia on VBG. Mild lactate elevation at 2.1. Negative Valenza testing. TSH normal. Procalcitonin not significantly elevated. Troponin is not elevated and EKG is reviewed with chronic pacing. No severe electrolyte abnormality noted. Lower suspicion for sepsis at this time as the procalcitonin is not elevated but given a small amount of IV fluids given the lactate elevation. Patient is feeling quite thirsty and given some oral hydration after reassuring CTs. Cannot enti rely exclude pneumonia and intermittently on just a slightly elevated oxygen of 4 to 5 L at some points. No believe this is CHF. Trying to wait to obtain a urine sample for likely empiric antibiotics at this time pending cultures. Given his significant weakness discussion with the patient and his will discuss with hospitalist further observation here in the hospital. Given some Tylenol here. Catheter urine does not appear infected. Covered empirically given history of pulmonary issues with leukocytosis and fever with ceftriaxone in discussion with the hospitalist. Discussion with them given a additional dose of dexamethasone just in case this is related to recent Covid infection. DIAGNOSIS: Weakness, shortness of breath, fall, chronic respiratory failure DISPOSITION: Hospitalist will evaluate Patient was agreeable with this plan. Past Med/Surg History Medical History Acute alteration in mental status Acute left [employer]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 - residual memory issues Anxiety BPH loc w urin obs/LUTS C. difficile diarrhea Carotid aneurysm, right LEBRON 3mm aneurysm- follows with neurosurgery -- per pt's , recent CT at [facility] w/o evidence of aneurysm, says only evidence of carotid stenosis Chronic kidney disease follows with [facility] nephrology Chronic obstructive pulmonary disease + emphysema, O2 2-3L continuous Chronic right heart failure COPD, severe Dependence on continuous supplemental oxygen DMII (diabetes mellitus, type 2) Dyslipidemia GERD (gastroesophageal reflux disease) Gout History of recent hospitalization 09/2019 [facility] - pneumonia Hyperlipidemia Hypertension Neurogenic bladder Osteoarthritis Schizo affective schizophrenia Schizoaffective disorder Sleep apnea BIPAP + 3L O2 HS SSS (sick sinus syndrome) Urinary incontinence Uses [place] catheter [facility] Surgical History History of appendectomy History of cardiac cath 1 STENT EACH TIME [facility]-F/U DR IVLLA History of cataract surgery History of colonoscopy History of dental surgery History of heart artery stent x 2 Status post left knee replacement (~10/2019) Status post placement of implantable loop recorder Family History Mother Stroke Sister Heart disease Sister Stroke Other No family history of adverse response to anesthesia Social History Smoking Status: Former smoker Tobacco Type: Cigarettes Number of Years Since Quit: 15; Second Hand Exposure: No; Hx Alcohol Use: No Hx Substance Use: No Preferred Language: Sierra Leonean Communication Ability: Effective Visual Impairment: No Limitations Human Factors Specialist Required: No Beliefs That Will Affect Care: None marital status: Current Living Situation: Spouse Feels Safe at Home: Yes Assistive Devices: Walker Allergies Allergies Allergy/AdvReac Type Severity Reaction Status Date / Time No Known Allergies Allergy Verified 12/22/20 16:20 Home Meds Home Medications Medication Instructions Recorded Confirmed atorvastatin 80 mg tablet (Lipitor) 80 mg PO HS tab 09/07/18 12/22/20 lamotrigine 200 mg tablet 200 mg PO QAM tab 09/07/18 12/22/20 (Lamictal) losartan 50 mg tablet (Cozaar) 25 mg PO QAM tab 09/07/18 12/22/20 pantoprazole 40 mg tablet,delayed 40 mg PO HS #30 tab 09/07/18 12/22/20 release (Protonix) timolol maleate 0.5 % once daily 1 drp OPB QAM ml 09/07/18 12/22/20 eye drops (Istalol) gabapentin 600 mg tablet 600 mg PO BID tab 12/20/18 12/22/20 (Neurontin) lactobacillus combination no.4 3 3,000 mmu cells PO QAM 01/02/19 12/22/20 billion cell capsule (Probiotic) olanzapine 15 mg tablet (Zyprexa) 30 mg PO DAILY@199901/26/19 12/22/20 amlodipine 5 mg tablet (Norvasc) 5 mg PO QA 09/06/20 12/22/20 finasteride 5 mg tablet (Proscar) 5 mg PO QAM 09/06/20 12/22/20 fluoxetine 20 mg capsule (Prozac) 20 mg PO QAM 09/06/20 12/22/20 fluoxetine 40 mg capsule (Prozac) 40 mg PO QAM 09/06/20 12/22/20 metoprolol succinate 50 mg 50 mg PO 09/06/20 12/22/20 tablet,extended release 24 hr (Toprol XL) tamsulosin 0.4 mg capsule (Flomax) 0.4 mg PO 09/06/20 12/22/20 Previous Rx's Medication Instructions Recorded albuterol sulfate 90 mcg/actuation 2 puffs INH Q4H PRN #18 gm 12/27/18 aerosol inhaler (Ventolin HFA) Oxygen Home #1 ea 10/22/20 tiotropium bromide 2.5 2 puff INHALATION QA #1 inhaler 11/18/20 mcg/actuation mist for inhalation (Spiriva Respimat) Results & Data (ED) Vital Signs Vital Signs - 24 hr 12/22/20 15:18 12/22/20 15:23 12/22/20 18:13 Temperature 37.9 C H 37.9 C H Temperature Source Oral Oral Pulse Rate 73 Pulse Rate [Apical] 66 Pulse Rhythm Regular Pulse Rhythm [Apical] Regular Pulse Strength Normal Pulse Strength [Apical] Normal Respiratory Rate 22 22 20 Respiratory Depth Normal Respiratory Pattern Regular Blood Pressure 167/89 H Blood Pressure [Right Arm] 134/68 Blood Pressure Mean 115 Blood Pressure Mean [Right Arm] 90 Blood Pressure Position Lying Blood Pressure Position [Right Arm] Lying Pulse Oximetry 89 L 94 93 Oxygen Delivery Method Room Air Nasal Cannula Nasal Cannula Oxygen Flow Rate 3 5 Sepsis Recent Fever Within 48 Hours Yes Sepsis New/Unexplained Change in Mental Status No Sepsis Action Taken by Nursing No Action Required 12/22/20 18:38 Temperature 37.1 C Temperature Source Oral Pulse Rate Pulse Rate [Apical] 70 Pulse Rhythm Pulse Rhythm [Apical] Pulse Strength Pulse Strength [Apical] Respiratory Rate 16 Respiratory Depth Respiratory Pattern Blood Pressure Blood Pressure [Right Arm] Blood Pressure Mean Blood Pressure Mean [Right Arm] Blood Pressure Position Blood Pressure Position [Right Arm] Pulse Oximetry 95 Oxygen Delivery Method Nasal Cannula Oxygen Flow Rate 5 Sepsis Recent Fever Within 48 Hours Sepsis New/Unexplained Change in Mental Status Sepsis Action Taken by Nursing Laboratory Data Result diagrams: 12/22/20 15:39 12/22/20 15:39 Lab Results 12/22/20 12/22/20 12/22/20 Range/Units 15:39 15:39 15:39 WBC 14.02 H (4.8-10.8) K/uL RBC 4.29 L (4.7-6.1) M/uL Hgb 10.7 L (14.0-18.0) g/dL Hct 34.7 L (42-52) % MCV 80.9 (80-100) fL MCH 24.9 L (25-34) pg MCHC 30.8 L (32-36) g/dL RDW Std Deviation 54.4 H (36.4-46.3) fL RDW Coeff of Hermes 18.4 H (11.5-14.5) % Plt Count 260 (130-400) K/uL MPV 9.7 (7.4-10.4) fL Immature Gran % (Auto) 0.1 % Neut % (Auto) 87.7 % Lymph % (Auto) 3.6 % Converse % (Auto) 8.1 % Eos % (Auto) 0.4 % Baso % (Auto) 0.1 % Neut # (Auto) 12.30 H (1.4-6.5) K/uL Lymph # (Auto) 0.51 L (1.2-3.4) K/uL Converse # (Auto) 1.13 H (0.11-0.59) K/uL Eos # (Auto) 0.05 (0-0.5) K/uL Baso # (Auto) 0.01 (0-0.2) K/uL Immature Gran # (Auto) 0.02 (0.00-0.02) K/uL VBG pH (7.36-7.41) VBG pCO2 (38-50) mmHg VBG pO2 mmHg VBG HCO3 mmol/L VBG O2 Saturation % VBG Base Excess mEq/L Barometric Pressure mm/Hg Sodium 141 (136-145) mmol/L Potassium 4.3 (3.5-5.1) mmol/L Chloride 108 H (98-107) mmol/L Carbon Dioxide 26 (21-32) mmol/L Anion Gap 7.0 (3-11) BUN 29 H (7-18) mg/dl Creatinine 1.37 (0.6-1.4) mg/dl Est Cr Clr Drug Dosing 54.2 ml/min Est GFR ( Amer) 57.7 ml/min Est GFR (Non-Af Amer) 49.7 ml/min BUN/Creatinine Ratio 21.1 H (10-20) Glucose 184 H (70-99) mg/dl Lactate (0.4-2.0) mmol/L Calcium 9.7 (8.5-10.1) mg/dl Magnesium 2.2 (1.8-2.4) mg/dl Total Bilirubin 0.4 (0.2-1) mg/dl AST 18 (15-37) U/L ALT 22 (12-78) U/L Alkaline Phosphatase 114 (45-117) U/L Troponin I < 0.015 (0-0.045) ng/ml Total Protein 8.2 (6.4-8.2) gm/dl Albumin 3.0 L (3.4-5.0) gm/dl Globulin 5.2 H (2.5-4.0) gm/dl Albumin/Globulin Ratio 0.6 L (0.9-2) Procalcitonin 0.13 (0-0.5) ng/ml TSH 0.485 (0.300-4.500) uIu/ml COVID-19 Eval Order SARS-CoV-2 (PCR) (Negative) Influenza Type A Ag (Neg) Influenza Type B Ag (Neg) 12/22/20 12/22/20 12/22/20 Range/Units 15:39 15:42 15:42 WBC (4.8-10.8) K/uL RBC (4.7-6.1) M/uL Hgb (14.0-18.0) g/dL Hct (42-52) % MCV (80-100) fL MCH (25-34) pg MCHC (32-36) g/dL RDW Std Deviation (36.4-46.3) fL RDW Coeff of Hermes (11.5-14.5) % Plt Count (130-400) K/uL MPV (7.4-10.4) fL Immature Gran % (Auto) % Neut % (Auto) % Lymph % (Auto) % Converse % (Auto) % Eos % (Auto) % Baso % (Auto) % Neut # (Auto) (1.4-6.5) K/uL Lymph # (Auto) (1.2-3.4) K/uL Converse # (Auto) (0.11-0.59) K/uL Eos # (Auto) (0-0.5) K/uL Baso # (Auto) (0-0.2) K/uL Immature Gran # (Auto) (0.00-0.02) K/uL VBG pH (7.36-7.41) VBG pCO2 (38-50) mmHg VBG pO2 mmHg VBG HCO3 mmol/L VBG O2 Saturation % VBG Base Excess mEq/L Barometric Pressure mm/Hg Sodium (136-145) mmol/L Potassium (3.5-5.1) mmol/L Chloride (98-107) mmol/L Carbon Dioxide (21-32) mmol/L Anion Gap (3-11) BUN (7-18) mg/dl Creatinine (0.6-1.4) mg/dl Est Cr Clr Drug Dosing ml/min Est GFR ( Amer) ml/min Est GFR (Non-Af Amer) ml/min BUN/Creatinine Ratio (10-20) Glucose (70-99) mg/dl Lactate 2.1 H* (0.4-2.0) mmol/L Calcium (8.5-10.1) mg/dl Magnesium (1.8-2.4) mg/dl Total Bilirubin (0.2-1) mg/dl AST (15-37) U/L ALT (12-78) U/L Alkaline Phosphatase (45-117) U/L Troponin I (0-0.045) ng/ml Total Protein (6.4-8.2) gm/dl Albumin (3.4-5.0) gm/dl Globulin (2.5-4.0) gm/dl Albumin/Globulin Ratio (0.9-2) Procalcitonin (0-0.5) ng/ml TSH (0.300-4.500) uIu/ml COVID-19 Eval Order Covid19 at [facility] SARS-CoV-2 (PCR) (Negative) Influenza Type A Ag Neg for Influ A (Neg) Influenza Type B Ag Neg for Influ B (Neg) 12/22/20 12/22/20 12/22/20 Range/Units 15:42 16:23 17:24 WBC (4.8-10.8) K/uL RBC (4.7-6.1) M/uL Hgb (14.0-18.0) g/dL Hct (42-52) % MCV (80-100) fL MCH (25-34) pg MCHC (32-36) g/dL RDW Std Deviation (36.4-46.3) fL RDW Coeff of Hermes (11.5-14.5) % Plt Count (130-400) K/uL MPV (7.4-10.4) fL Immature Gran % (Auto) % Neut % (Auto) % Lymph % (Auto) % Converse % (Auto) % Eos % (Auto) % Baso % (Auto) % Neut # (Auto) (1.4-6.5) K/uL Lymph # (Auto) (1.2-3.4) K/uL Converse # (Auto) (0.11-0.59) K/uL Eos # (Auto) (0-0.5) K/uL Baso # (Auto) (0-0.2) K/uL Immature Gran # (Auto) (0.00-0.02) K/uL VBG pH 7.43 H (7.36-7.41) VBG pCO2 41 (38-50) mmHg VBG pO2 34 mmHg VBG HCO3 27 mmol/L VBG O2 Saturation 64.2 % VBG Base Excess 2.2 mEq/L Barometric Pressure 725.9 mm/Hg Sodium (136-145) mmol/L Potassium (3.5-5.1) mmol/L Chloride (98-107) mmol/L Carbon Dioxide (21-32) mmol/L Anion Gap (3-11) BUN (7-18) mg/dl Creatinine (0.6-1.4) mg/dl Est Cr Clr Drug Dosing ml/min Est GFR ( Amer) ml/min Est GFR (Non-Af Amer) ml/min BUN/Creatinine Ratio (10-20) Glucose (70-99) mg/dl Lactate 1.6 (0.4-2.0) mmol/L Calcium (8.5-10.1) mg/dl Magnesium (1.8-2.4) mg/dl Total Bilirubin (0.2-1) mg/dl AST (15-37) U/L ALT (12-78) U/L Alkaline Phosphatase (45-117) U/L Troponin I (0-0.045) ng/ml Total Protein (6.4-8.2) gm/dl Albumin (3.4-5.0) gm/dl Globulin (2.5-4.0) gm/dl Albumin/Globulin Ratio (0.9-2) Procalcitonin (0-0.5) ng/ml TSH (0.300-4.500) uIu/ml COVID-19 Eval Order SARS-CoV-2 (PCR) POSITIVE A* (Negative) Influenza Type A Ag (Neg) Influenza Type B Ag (Neg) Administered Medications Atorvastatin Calcium (Atorvastatin 40 Mg Tab) 80 mg PO HS CIPRIANO Stop: 01/21/21 21:41 Last Admin: 12/22/20 22:09 Dose: Not Given Documented by: [id number] Gabapentin (Gabapentin 600 Mg Tab) 600 mg PO BID CIPRIANO Stop: 01/21/21 21:41 Last Admin: 12/22/20 22:09 Dose: Not Given Documented by: [id number] Guaifenesin (Guaifenesin 600 Mg Tabcr) 600 mg PO Q12 CIPRIANO Stop: 01/21/21 21:41 Last Admin: 12/22/20 22:09 Dose: Not Given Documented by: [id number] Doxycycline Hyclate 100 mg/ (Dextrose) 110 mls @ 50 mls/hr IV Q12 CIPRIANO; Protocol Stop: 12/29/20 20:59 Last Admin: 12/22/20 22:09 Dose: 50 mls/hr Documented by: [id number] Metoprolol Succinate (Metoprolol Succ 50mg Ext Rel Tab) 50 mg PO HS CIPRIANO Stop: 01/21/21 21:41 Last Admin: 12/22/20 22:09 Dose: Not Given Documented by: [id number] Olanzapine (Olanzapine 10 Mg Tab) 30 mg PO DAILY@1999 [facility] Stop: 01/21/21 21:41 Last Admin: 12/22/20 22:09 Dose: Not Given Documented by: [id number] Pantoprazole Sodium (Pantoprazole 40 Mg Tab) 40 mg PO HS CIPRIANO Stop: 01/21/21 21:41 Last Admin: 12/22/20 22:09 Dose: Not Given Documented by: [id number] Tamsulosin HCl (Tamsulosin Hcl 0.4 Mg Cap) 0.4 mg PO HS CIPRIANO Stop: 01/21/21 21:41 Last Admin: 12/22/20 22:09 Dose: Not Given Documented by: [id number] Discontinued Medications Acetaminophen (Acetaminophen 500 Mg Tab) 1,000 mg PO NOW STA Stop: 12/22/20 18:19 Last Admin: 12/22/20 18:43 Dose: 1,000 mg Documented by: [id number] Dexamethasone Sodium Phosphate (DexamethasonePf 10 Mg/Ml Vial) 6 mg IV NOW ONE Stop: 12/22/20 18:39 Last Admin: 12/22/20 19:08 Dose: 6 mg Documented by: [id number] Sodium Chloride (Nss) 500 mls @ 999 mls/hr IV .Q31M STA Stop: 12/22/20 15:50 Last Infusion: 12/22/20 18:43 Dose: 0 mls/hr Documented by: [id number] Admin: 12/22/20 18:13 Dose: 999 mls/hr Documented by: [id number] Ceftriaxone Sodium (Rocephin) 2,000 mg in 70 mls @ 140 mls/hr IV NOW STA Stop: 12/22/20 19:07 Last Infusion: 12/22/20 20:03 Dose: 0 mls/hr Documented by: [id number] Admin: 12/22/20 19:08 Dose: 140 mls/hr Documented by: [id number] Imaging Data Radiologist's Impression: Cervical Spine CT 12/22/20 15:20 CT cervical spine wo con CLINICAL HISTORY: fall TECHNIQUE: Multidetector row helical CT of the cervical spine was performed without administration of intravenous contrast. Coronal and sagittal reformations were obtained. Automated dose lowering techniques and/or adjustment according to patient size were utilized for this exam. Comparison: None available at the time of this dictation. FINDINGS: No acute fractures or subluxations are identified. The alignment is normal. Degenerative changes are seen in the visualized spine. Opacities are seen in the right greater than left lung apex. Subcentimeter thyroid nodules are seen which now, followed by ACR criteria. IMPRESSION: 1. Degenerative changes evidence of acute injury. 2. Please see CT chest performed same day for findings of pulmonary opacities. ACT 112: Negative or not required by law. Electronically signed by: Omar De La Cruz M.D. 12/22/2020 6:20 PM Chest X-Ray 12/22/20 15:21 XR chest 1V portable CLINICAL HISTORY: Fever, sob, fall TECHNIQUE: Single frontal radiograph of the chest was obtained. Comparison: Comparison is made to chest one view 09/06/2020 FINDINGS: Dual lead pacemaker is stable. Cardiomegaly is noted. Calcified aortic arch is seen. The lungs are clear. No evidence of pleural effusion or pneumothorax. IMPRESSION: No acute chest disease. ACT 112: Negative or not required by law. Electronically signed by: Omar De La Cruz M.D. 12/22/2020 3:[address] 12/22/20 15:21 CT head/brain wo con CLINICAL HISTORY: fall Technique: Contiguous axial CT images of the head were acquired from the base of the skull to the vertex without intravenous contrast administration. Images were viewed in brain, subdural and bone windows. Automated dose lowering techniques and/or adjustment according to patient size were utilized for this exam. Comparison: Comparison is made to CT head 09/10/2020 Findings: Areas of decreased attenuation are present in the periventricular and subcortical white matter bilaterally consistent with small vessel ischemic disease. Generalized cerebral atrophy with commensurate enlargement of the ventricles, sulci, and cisterns is also present. There is no acute intracranial hemorrhage or evidence of acute territorial infarction. No shift of the midline structures, mass effect, or extra-axial abnormalities are shown. Atherosclerotic calcifications are present in the intracranial segments of the internal carotid arteries. Bilateral mucous retention cysts are seen in the maxillary sinuses. There is diffuse thickening of the ethmoid sinus soft tissues. The orbits appear normal. There are no acute fractures of the calvaria or scalp swelling. Impression: No acute intracranial hemorrhage, no evidence of acute territorial infarction or other acute intracranial disease process. ACT 112: Negative or not required by law. Electronically signed by: Omar De La Cruz M.D. 12/22/2020 5:[address] 12/22/20 16:42 CT chest diagnostic wo con CLINICAL HISTORY: sob, fever, confusion TECHNIQUE: Multidetector row helical CT of the chest was performed. Coronal and sagittal reformations were obtained. Automated dose lowering techniques and/or adjustment according to patient size were utilized for this exam. Comparison: Comparison is made to CT chest 09/06/2020 FINDINGS: Exam is limited by patient motion. Lungs and pleura: Interstitial opacities and likely microcyst formation is seen, right greater than left. Atelectasis versus scarring is also seen in the left lung base. Heart and pericardium: There is cardiomegaly without evidence of pericardial effusion. Vessels: The pulmonary trunk is enlarged measuring 33 mm. Extensive atherosclerotic disease is seen in the coronary arteries and aorta. Mediastinum and zo: Unremarkable. Chest wall and lower neck: Unremarkable. Abdomen: A hiatal hernia is seen. Bones: Unremarkable. IMPRESSION: 1. Redemonstration of interstitial opacities and pulmonary hypertension. Evaluation is limited by patient motion, however there is no definite consolidation to suggest pneumonia. 2. Stable cardiomegaly. ACT 112: Negative or not required by law. Electronically signed by: Omar De La Cruz M.D. 12/22/2020 5:39 PM Discharge Plan Visit Data Chief Complaint: Illness Stated Complaint: Weakness, AMS ED Provider: Kash Perry Discharge Problem: Weakness, Fall, Breathlessness, Chronic respiratory disease Patient Disposition: Admitted As Inpatient Discharge Instructions Interventions: ED Discharge Assessment Last Done: 12/22/20 21:04 Discharge Problem: Fall Qualifiers: Encounter type: initial encounter Qualified Code(s): W19.XXXA - Unspecified fall, initial encounter
--- NOTE | 2020-12-22 15:54 | XRay Report ---
XR chest 1V portable CLINICAL HISTORY: Fever, sob, fall TECHNIQUE: Single frontal radiograph of the chest was obtained. Comparison: Comparison is made to chest one view 09/06/2020 FINDINGS: Dual lead pacemaker is stable. Cardiomegaly is noted. Calcified aortic arch is seen. The lungs are cl ear. No evidence of pleural effusion or pneumothorax. IMPRESSION: No acute chest disease. ACT 112: Negative or not required by law. Electronically signed by: Omar De La Cruz M.D. 12/22/2020 3:53 PM
[2020-12-22 16:02] LABS: Basophils # (auto) 0.01 K/uL (0-0.2); Basophils % (auto) 0.1 %; Eosinophils # (auto) 0.05 K/uL (0-0.5); Eosinophils % (auto) 0.4 %; Hematocrit (blood only) 34.7 % (42-52); Hemoglobin 10.7 g/dL (14.0-18.0); Immature Granulocytes # (auto) 0.02 K/uL (0.00-0.02); Immature Granulocytes % (auto) 0.1 %; Lymphocytes # (auto) 0.51 K/uL (1.2-3.4); Lymphocytes % (auto) 3.6 %; Mean Corpuscular Hemoglobin 24.9 pg (25-34); Mean Corpuscular Hgb Conc 30.8 g/dL (32-36); Mean Corpuscular Volume 80.9 fL (80-100); Mean Platelet Volume 9.7 fL (7.4-10.4); Monocytes # (auto) 1.13 K/uL (0.11-0.59); Monocytes % (auto) 8.1 %; Neutrophils % (auto) 87.7 %; Platelet Count 260 K/uL (130-400); RDW Coefficient of Variation 18.4 % (11.5-14.5); RDW Standard Deviation 54.4 fL (36.4-46.3); Red Blood Count 4.29 M/uL (4.7-6.1); White Blood Count 14.02 K/uL (4.8-10.8)
[2020-12-22 16:32] LABS: Alanine Aminotransferase 22 U/L (12-78); Albumin Globulin Ratio 0.6 (0.9-2); Alkaline Phosphatase 114 U/L (45-117); Aspartate Aminotransferase 18 U/L (15-37); BUN Creatinine Ratio 21.1 (10-20); Bilirubin,Total 0.4 mg/dl (0.2-1); Blood Urea Nitrogen 29 mg/dl (7-18); Calcium 9.7 mg/dl (8.5-10.1); Carbon Dioxide 26 mmol/L (21-32); Chloride 108 mmol/L (98-107); Creatinine Clr Calc Pharmacy 54.2 ml/min; Est GFR (African American) 57.7 ml/min; Est GFR (Non-African American) 49.7 ml/min; Globulin 5.2 gm/dl (2.5-4.0); Glucose 184 mg/dl (70-99); Magnesium 2.2 mg/dl (1.8-2.4); Potassium 4.3 mmol/L (3.5-5.1); Sodium 141 mmol/L (136-145); Thyroid Stimulating Hormone 0.485 uIu/ml (0.300-4.500); Total Protein 8.2 gm/dl (6.4-8.2); Troponin I < 0.015 ng/ml (0-0.045)
[2020-12-22 16:36] LABS: Base Excess VBG 2.2 mEq/L; Oxygen Saturation VBG 64.2 %; pH VBG 7.43 (7.36-7.41)
--- NOTE | 2020-12-22 17:32 | CT Scan Report ---
CT head/brain wo con CLINICAL HISTORY: fall Technique: Contiguous axial CT images of the head were acquired from the base of the skull to the sneha matilde without intravenous contrast administration. Images were viewed in brain, subdural and bone [facility]. Automated dose lowering techniques and/or adjustment according to patient size were utilized for this exam. Comparison: Comparison is made to CT head 09/10/2020 Findings: Areas of decreased attenuation are present in the periventricular and subcortical white matter bilate rally consistent with small vessel ischemic disease. Generalized cerebral atrophy with commensurate e nlargement of the ventricles, sulci, and cisterns is also present. There is no acute intracranial hem orrhage or evidence of acute territorial infarction. No shift of the midline structures, mass effect, or extra-axial abnormalities are shown. Atherosclerotic calcifications are present in the intracran ial segments of the internal carotid arteries. Bilateral mucous retention cysts are seen in the maxillary sinuses. There is diffuse thickening of th e ethmoid sinus soft tissues. The orbits appear normal. There are no acute fractures of the calvaria or scalp swelling. Impression: No acute intracranial hemorrhage, no evidence of acute territorial infarction or other acute intracra nial disease process. ACT 112: Negative or not required by law. Electronically signed by: Omar De La Cruz M.D. 12/22/2020 5:31 PM
--- NOTE | 2020-12-22 17:41 | CT Scan Report ---
CT chest diagnostic wo con CLINICAL HISTORY: sob, fever, confusion TECHNIQUE: Multidetector row helical CT of the chest was performed. Coronal and sagittal reformations were obtained. Automated dose lowering techniques and/or adjustment according to patient size were u tilized for this exam. Comparison: Comparison is made to CT chest 09/06/2020 FINDINGS: Exam is limited by patient motion. Lungs and pleura: Interstitial opacities and likely microcyst formation is seen, right greater than l eft. Atelectasis versus scarring is also seen in the left lung base. Heart and pericardium: There is cardiomegaly without evidence of pericardial effusion. Vessels: The pulmonary trunk is enlarged measuring 33 mm. Extensive atherosclerotic disease is seen i n the coronary arteries and aorta. Mediastinum and zo: Unremarkable. Chest wall and lower neck: Unremarkable. Abdomen: A hiatal hernia is seen. Bones: Unremarkable. IMPRESSION: 1. Redemonstration of interstitial opacities and pulmonary hypertension. Evaluation is limited by pa tient motion, however there is no definite consolidation to suggest pneumonia. 2. Stable cardiomegaly. ACT 112: Negative or not required by law. Electronically signed by: Omar De La Cruz M.D. 12/22/2020 5:39 PM
[2020-12-22] MEDS ORDERED: ACETAMINOPHEN 500 MG TAB PO STA (18:18)
--- NOTE | 2020-12-22 18:21 | CT Scan Report ---
CT cervical spine wo con CLINICAL HISTORY: fall TECHNIQUE: Multidetector row helical CT of the cervical spine was performed without administration of intravenous contrast. Coronal and sagittal reformations were obtained. Automated dose lowering techn iques and/or adjustment according to patient size were utilized for this exam. Comparison: None available at the time of this dictation. FINDINGS: No acute fractures or subluxations are identified. The alignment is normal. Degenerative changes are seen in the visualized spine. Opacities are seen in the right greater than left lung apex. Subcentime ter thyroid nodules are seen which now, followed by ACR criteria. IMPRESSION: 1. Degenerative changes evidence of acute injury. 2. Please see CT chest performed same day for findings of pulmonary opacities. ACT 112: Negative or not required by law. Electronically signed by: Omar De La Cruz M.D. 12/22/2020 6:20 PM
[2020-12-22] MEDS ORDERED: cefTRIAXone SODIUM 2,000 MG/70 ML BAG IV STA (18:38)
[2020-12-22] MEDS ORDERED: dexAMETHasone**PF** 10 MG/ML VIAL IV ONE (18:38)
--- NOTE | 2020-12-22 18:48 | History & Physical Report ---
Date of Service December 22, 2020 Assessment & Plan (1) Pneumonia: (2) COVID-19: Plan: Weakness and fall likely secondary to COVID-19 in setting of multiple comorbidities. Recently found to be positive and underwent subsequent Regeneron infusion 12/10. In the last 4 days he has been more affected by a respiratory issue including junky cough and shortness of breath with weakness and fatigue. He is out of the window for remdesivir and will start Decadron empirically. Chest CT reveals interstitial opacities possibly consistent with a Covid pneumonia picture. He has underlying shortness of breath with chronic oxygen needs on 4 L/min continuously. He does have an elevated white blood cell count and initially came in with an elevated lactate although patient is not septic. Chest pains with exertion have also been reported recently. Known underlying chronic ischemic heart disease with stent placement in 2000. He also has known severe pulmonary emphysema and obstructive sleep apnea on BiPAP therapy. History of right heart failure, cor pulmonale, diastolic dysfunction. He also has type 2 diabetes CKD stage III and is status post stroke. Continue Decadron and supportive care measures. Adding Rocephin and doxycycline as he has had this same clinical pcture having pneumonia in the past per , and because he had a period of feeling better and then acutely worse again 4 days ago. Urine is negative for infection. (3) Weakness: (4) Fall: Plan: PT/OT to evaluate. (5) Chronic respiratory failure with hypoxia, on home O2 therapy: Plan: around baseline oxygen needs 4LPM continuously (6) COPD, severe: Plan: chronic, not in exacerbation at this time. (7) Sleep apnea: Plan: BIPAP with oxygen qHS (8) BPH loc w urin obs/LUTS: Plan: cont finasteride and tamsulosin per home regimen. (9) Schizoaffective disorder: Plan: alert and oriented. (10) DVT prophylaxis: Plan: Lovenox Full Code Dispo-to telemetry Gypsy Gutiérrez DO [facility] Hospitalist History of Present Illness Chief Complaint: Weakness, shortness of breath, fall Primary Care Provider: Clau Batista DO Patient is a 75-year-old man with diabetes and COPD on chronic 4 L/min of oxygen who presents with worsening weakness, coughing and shortness of breath over the last 4 days. He was positive for Covid approximately 3 weeks ago and underwent Regeneron infusion on 12/10, reportedly feeling better. In the last 4 days he has noted feeling poorly and also reports chest pain with exertion frequently. This morning, patient was noted by to be more weak, confused and very unsteady on his feet. He fell while walking into the bathroom and was unable to get up off the floor prompting EMS. reports some confusion but that he is clear now. Patient is not currently confused and is able to reiterate this history perfectly. He also reports chest pain with exertion which he feels is more intense than usual. He has had chest pain before with history noteworthy for stent in 2000. He also has intermittent bradycardia and has an indwelling loop recorder device that was interrogated this evening. He reports some chills. He otherwise denies any fevers, change in chronic urinary urgency, abdominal pain, no current chest pain, headache, stool changes, blood per rectum or other issues. Allergies Allergy/AdvReac Type Severity Reaction Status Date / Time No Known Allergies Allergy Verified 12/22/20 16:20 Home Medications Medication Instructions Recorded Confirmed Type atorvastatin 80 mg tablet (Lipitor) 80 mg PO HS tab 09/07/18 12/22/20 History lamotrigine 200 mg tablet 200 mg PO QAM tab 09/07/18 12/22/20 History (Lamictal) losartan 50 mg tablet (Cozaar) 25 mg PO QAM tab 09/07/18 12/22/20 History pantoprazole 40 mg tablet,delayed 40 mg PO HS #30 tab 09/07/18 12/22/20 History release (Protonix) timolol maleate 0.5 % once daily 1 drp OPB QAM ml 09/07/18 12/22/20 History eye drops (Istalol) gabapentin 600 mg tablet 600 mg PO BID tab 12/20/18 12/22/20 History (Neurontin) albuterol sulfate 90 mcg/actuation 2 puffs INH Q4H PRN #18 gm 12/27/18 12/22/20 Rx aerosol inhaler (Ventolin HFA) lactobacillus combination no.4 3 3,000 mmu cells PO QAM 01/02/19 12/22/20 History billion cell capsule (Probiotic) olanzapine 15 mg tablet (Zyprexa) 30 mg PO DAILY@199901/26/19 12/22/20 History amlodipine 5 mg tablet (Norvasc) 5 mg PO QAM 09/06/20 12/22/20 History finasteride 5 mg tablet (Proscar) 5 mg PO QAM 09/06/20 12/22/20 History fluoxetine 20 mg capsule (Prozac) 20 mg PO QAM 09/06/20 12/22/20 History fluoxetine 40 mg capsule (Prozac) 40 mg PO QAM 09/06/20 12/22/20 History metoprolol succinate 50 mg 50 mg PO HS 09/06/20 12/22/20 History tablet,extended release 24 hr (Toprol XL) tamsulosin 0.4 mg capsule (Flomax) 0.4 mg PO HS 09/06/20 12/22/20 History Oxygen Home #1 ea 10/22/20 12/22/20 Rx tiotropium bromide 2.5 2 puff INHALATION QAM #1 inhaler 11/18/20 12/22/20 Rx mcg/actuation mist for inhalation (Spiriva Respimat) Past Med/Surg History Medical History Acute alteration in mental status 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 difficile diarrhea Carotid aneurysm, right LEBRON 3mm aneurysm- follows with neurosurgery -- per pt's , recent CT at [facility] w/o evidence of aneurysm, says only evidence of carotid stenosis Chronic kidney disease follows with [facility] nephrology Chronic obstructive pulmonary disease + emphysema, O2 2-3L continuous Chronic right heart failure COPD, severe Dependence on continuous supplemental oxygen DMII (diabetes mellitus, type 2) Dyslipidemia GERD (gastroesophageal reflux disease) Gout History of recent hospitalization 09/2019 [facility] - pneumonia Hyperlipidemia Hypertension Neurogenic bladder Osteoarthritis Schizo affective schizophrenia Schizoaffective disorder Sleep apnea BIPAP + 3L O2 HS SSS (sick sinus syndrome) Urinary incontinence Uses [place] catheter qHS Surgical History History of appendectomy History of cardiac cath 1 STENT EACH TIME [facility]U [facility] History of cataract surgery History of colonoscopy History of dental surgery History of heart artery stent x 2 Status post left knee replacement (~10/2019) Status post placement of implantable loop recorder Family History Mother Stroke Sister Heart disease Sister Stroke Other No family history of adverse response to anesthesia Social History Smoking Status: Former smoker Tobacco Type: Cigarettes Number of Years Since Quit: 15; Second Hand Exposure: No; Hx Alcohol Use: No Hx Substance Use: No Preferred Language: Hebrew Communication Ability: Effective Visual Impairment: No Limitations 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 Physical Exam Physical Exam: CONSTITUTIONAL: WNWD, vitals as above, generally well- appearing, NAD EYES: normal conjunctivae, no scleral icterus ENT: external ear and nose normal, oropharynx clear, no TM abnormality, no maxillary or ethmoid sinus tenderness NECK: trachea midline RESPIRATORY: clear to auscultation bilaterally, no crackles, rales or wheezes, normal respiratory effort CARDIOVASCULAR: regular rate and rhythm, S1 and 2 heard without murmurs, gallops or rubs, no JVD, no peripheral edema CHEST: +pacemaker in left chest. GASTROINTESTINAL: soft, nontender, no guarding MUSCULOSKELETAL: strength 5/5 throughout, head is normocephalic and atraumatic SKIN: warm and dry NEUROLOGIC: patellar DTRs 2+ bilat. PERRL, EOMI, no facial palsy, no dysarthria. Touch, pain and proprioception normal. CN 2-12 grossly intact, no sensory deficit, normal cognition, normal speech, no tremor PSYCHIATRIC: alert cooperative and oriented to person, place and time. Euthymic mood, makes good eye contact, language grossly intact, recent and remote memory grossly intact. LYMPHATIC: no LAD Results & Data Results & Data ([facility]) Vital Signs (Past 12 Hours) Vital Signs Temp Pulse Pulse Resp BP BP Pulse Ox 12/22/20 18:38 37.1 C 70 16 95 12/22/20 18:13 66 20 134/68 93 12/22/20 15:23 37.9 C H 22 94 12/22/20 15:18 37.9 C H 73 22 167/89 H 89 L Laboratory Results Short CBC 12/22/20 Range/Units 15:39 WBC 14.02 H (4.8-10.8) K/uL Hgb 10.7 L (14.0-18.0) g/dL Hct 34.7 L (42-52) % Plt Count 260 (130-400) K/uL BMP 12/22/20 15:39 Sodium 141 Potassium 4.3 Chloride 108 H Carbon Dioxide 26 BUN 29 H Creatinine 1.37 Glucose 184 H Calcium 9.7 Cardiac Enzymes 12/22/20 Range/Units 15:39 Troponin I < 0.015 (0-0.045) ng/ml Liver Function 12/22/20 Range/Units 15:39 Total Bilirubin 0.4 (0.2-1) mg/dl AST 18 (15-37) U/L ALT 22 (12-78) U/L Alkaline Phosphatase 114 (45-117) U/L Albumin 3.0 L (3.4-5.0) gm/dl Urine 12/22/20 Range/Units 18:57 Urine Color Yellow Urine Appearance Clear (Clear) Urine pH 5.5 (4.5-7.5) Ur Specific [place] 1.018 (1.000-1.030) Urine Protein 1+ H (Negative) Urine Glucose (UA) Negative (Negative) Diagnostic Findings Cervical Spine CT 12/22/20 15:20 CT cervical spine wo con CLINICAL HISTORY: fall TECHNIQUE: Multidetector row helical CT of the cervical spine was performed without administration of intravenous contrast. Coronal and sagittal reformations were obtained. Automated dose lowering techniques and/or adjustment according to patient size were utilized for this exam. Comparison: None available at the time of this dictation. FINDINGS: No acute fractures or subluxations are identified. The alignment is normal. Degenerative changes are seen in the visualized spine. Opacities are seen in the right greater than left lung apex. Subcentimeter thyroid nodules are seen which now, followed by ACR criteria. IMPRESSION: 1. Degenerative changes evidence of acute injury. 2. Please see CT chest performed same day for findings of pulmonary opacities. ACT 112: Negative or not required by law. Electronically signed by: Omar De La Cruz M.D. 12/22/2020 6:20 PM Chest X-Ray 12/22/20 15:21 XR chest 1V portable CLINICAL HISTORY: Fever, sob, fall TECHNIQUE: Single frontal radiograph of the chest was obtained. Comparison: Comparison is made to chest one view 09/06/2020 FINDINGS: Dual lead pacemaker is stable. Cardiomegaly is noted. Calcified aortic arch is seen. The lungs are clear. No evidence of pleural effusion or pneumothorax. IMPRESSION: No acute chest disease. ACT 112: Negative or not required by law. Electronically signed by: Omar De La Cruz M.D. 12/22/2020 3:[address] 12/22/20 15:21 CT head/brain wo con CLINICAL HISTORY: fall Technique: Contiguous axial CT images of the head were acquired from the base of the skull to the vertex without intravenous contrast administration. Images were viewed in brain, subdural and bone windows. Automated dose lowering techniques and/or adjustment according to patient size were utilized for this exam. Comparison: Comparison is made to CT head 09/10/2020 Findings: Areas of decreased attenuation are present in the periventricular and subcortical white matter bilaterally consistent with small vessel ischemic disease. Generalized cerebral atrophy with commensurate enlargement of the ventricles, sulci, and cisterns is also present. There is no acute intracranial hemorrhage or evidence of acute territorial infarction. No shift of the midline structures, mass effect, or extra-axial abnormalities are shown. Atherosclerotic calcifications are present in the intracranial segments of the internal carotid arteries. Bilateral mucous retention cysts are seen in the maxillary sinuses. There is diffuse thickening of the ethmoid sinus soft tissues. The orbits appear normal. There are no acute fractures of the calvaria or scalp swelling. Impression: No acute intracranial hemorrhage, no evidence of acute territorial infarction or other acute intracranial disease process. ACT 112: Negative or not required by law. Electronically signed by: Omar De La Cruz M.D. 12/22/2020 5:[address] 12/22/20 16:42 CT chest diagnostic wo con CLINICAL HISTORY: sob, fever, confusion TECHNIQUE: Multidetector row helical CT of the chest was performed. Coronal and sagittal reformations were obtained. Automated dose lowering techniques and/or adjustment according to patient size were utilized for this exam. Comparison: Comparison is made to CT chest 09/06/2020 FINDINGS: Exam is limited by patient motion. Lungs and pleura: Interstitial opacities and likely microcyst formation is seen, right greater than left. Atelectasis versus scarring is also seen in the left lung base. Heart and pericardium: There is cardiomegaly without evidence of pericardial effusion. Vessels: The pulmonary trunk is enlarged measuring 33 mm. Extensive atherosclerotic disease is seen in the coronary arteries and aorta. Mediastinum and zo: Unremarkable. Chest wall and lower neck: Unremarkable. Abdomen: A hiatal hernia is seen. Bones: Unremarkable. IMPRESSION: 1. Redemonstration of interstitial opacities and pulmonary hypertension. Evaluation is limited by patient motion, however there is no definite consolid ation to suggest pneumonia. 2. Stable cardiomegaly. ACT 112: Negative or not required by law. Electronically signed by: Omar De La Cruz M.D. 12/22/2020 5:39 PM Code Status & VTE Plan VTE Prophylaxis Plan VTE Prophylaxis will be ordered: Yes (1) Fall Encounter type: initial encounter Qualified Code(s): W19.XXXA - Unspecified fall, initial encounter
[2020-12-22 19:41] LABS: Appearance Urine Clear (Clear); Bacteria Urine Automated Negative (Negative); Bilirubin Urine Negative (Negative); Blood Urine Negative (Negative); Cast Urine Automated 0 /lpf (0-5); Color Urine Yellow; Glucose Urine UA Negative (Negative); Ketones Urine Negative (Negative); Leukocyte Esterase Urine Negative (Negative); Nitrite Urine Negative (Negative); Protein Urine 1+ (Negative); RBC Urine Automated 0-4 /hpf (0-4); Specific Gravity Urine 1.018 (1.000-1.030); Urobilinogen Urine Negative (Negative); WBC Urine Automated 0 /hpf (0-5); pH Urine 5.5 (4.5-7.5)
[2020-12-22] MEDS ORDERED: cefTRIAXone SODIUM 2,000 MG in DEXTROSE 5% 50 ML IV SCH (20:45)
[2020-12-22] MEDS ORDERED: ONDANSETRON INJ 2 MG/ML 2 ML VIAL IV PRN (21:42)
[2020-12-22] MEDS ORDERED: POLYETHYLENE (MIRALAX) 17 GM PACK PO PRN (21:42)
[2020-12-22] MEDS ORDERED: ACETAMINOPHEN 325 MG TAB PO PRN (21:42)
[2020-12-22] MEDS ORDERED: ALBUTEROL HFA 8 GM INHALER INH PRN (21:42)
[2020-12-22] MEDS ORDERED: BENZONATATE 100 MG CAPSULE PO PRN (21:42)
[2020-12-22] MEDS: guaiFENesin 600 MG TABCR PO SCH (22:09)
[2020-12-22] MEDS: TAMSULOSIN HCL 0.4 MG CAP PO SCH (22:09)
[2020-12-22] MEDS: PANTOprazole 40 MG TAB PO SCH (22:09)
[2020-12-22] MEDS: METOPROLOL SUCC 50MG EXT REL TAB PO SCH (22:09)
[2020-12-22] MEDS: ATORVASTATIN 40 MG TAB PO SCH (22:09)
[2020-12-22] MEDS: GABAPENTIN 600 MG TAB PO SCH (22:09)
[2020-12-22] MEDS: DOXYCYCLINE HYCLATE 100 MG in DEXTROSE 5% 100 ML IV SCH (22:09)
[2020-12-22] MEDS: OLANZapine 10 MG TAB PO SCH (22:09)
[2020-12-22 22:59] LABS: Allen Test Pos (Pos); Base Excess ABG -0.9 mEq/L (-9-1.8); HCO3 ABG 24 mmol/L (19-24); Oxygen Saturation ABG 90.7 % (90-95); PCO2 ABG 39 mmHg (35-46); PO2 ABG 61 mmHg (80-95)
--- NOTE | 2020-12-23 05:54 | Electrocardiogram Report ---
Test Reason : Blood Pressure : / mmHG Vent. Rate : 071 BPM Atrial Rate : 071 BPM P-R Int : 300 ms QRS Dur : 256 ms QT Int : 454 ms P-R-T Axes : -09 -21 074 degrees QTc Int : 493 ms Poor data quality, interpretation may be adversely affected AV dual-paced rhythm with prolonged AV conduction Abnormal ECG When compared with ECG of 06-SEP-2020 06:32, No significant change was found Confirmed by Darius Hdez ([id number]) on 12/23/2020 5:54:06 AM Referred By: Confirmed By:Darius Hdez
--- NOTE | 2020-12-23 07:29 | CT Scan Report ---
HEAD CT NONCONTRAST CT DOSE: 663.41 mGy.cm HISTORY: Altered mental status. TECHNIQUE: Multiaxial CT images of the head were performed without the use of intravenous contrast. A utomated exposure control was utilized for this study. A dose lowering technique was utilized adheri ng to the principles of ALARA. Comparison: Head CT 12/22/2020. Findings: Mild to moderate mucosal thickening within the paranasal sinuses. The calvarium and skull b ase are intact. There is no mass, hematoma, midline shift, acute infarct. White matter hypodensity is nonspecific but suggestive of microvascular ischemic change. The ventricles and sulci demonstrate mi ld age-related involutional changes. There is an old left PROJECTION PRINTER territory infarct, unchanged. Impression: No significant change compared to the prior study. No acute intracranial abnormality. ACT 112: Negative or not required by law. Electronically signed by: Reggie Rawls M.D. 12/23/2020 7:27 AM
[2020-12-23] MEDS: TIMOLOL MALEATE 0.5% OP SOLN 5 ML BTL OPB SCH (08:20)
[2020-12-23] MEDS: ENOXAPARIN INJ 40 MG/0.4 ML SYR SQ SCH (08:20)
[2020-12-23 08:21] LABS: Hematocrit (blood only) 32.8 % (42-52); Hemoglobin 10.1 g/dL (14.0-18.0); Mean Corpuscular Hemoglobin 24.6 pg (25-34); Mean Corpuscular Hgb Conc 30.8 g/dL (32-36); Mean Platelet Volume 9.7 fL (7.4-10.4); Platelet Count 227 K/uL (130-400); RDW Coefficient of Variation 18.4 % (11.5-14.5); White Blood Count 10.59 K/uL (4.8-10.8)
[2020-12-23] MEDS: UMECLIDINIUM BROMIDE 62.5MCG/BLISTER 7 PUFFS/INHALER INH SCH (08:21)
[2020-12-23] MEDS: LOSARTAN POTASSIUM 25 MG TAB PO SCH (08:21)
[2020-12-23] MEDS: FLUoxetine HCL 20 MG CAP PO SCH (08:22)
[2020-12-23] MEDS: lamoTRIgine 100 MG TAB PO SCH (08:22)
[2020-12-23] MEDS: guaiFENesin 600 MG TABCR PO SCH ×2 (08:22→20:20)
[2020-12-23] MEDS: ADVANCED PROBIOTIC 1250 MG CAPSULE PO SCH (08:23)
[2020-12-23] MEDS: amLODIPine BESYLATE 5 MG TAB PO SCH (08:23)
[2020-12-23] MEDS: FINASTERIDE 5 MG TAB PO SCH (08:23)
[2020-12-23] MEDS: GABAPENTIN 600 MG TAB PO SCH ×2 (08:23→20:21)
[2020-12-23] MEDS: DOXYCYCLINE HYCLATE 100 MG in DEXTROSE 5% 100 ML IV SCH ×2 (08:28→21:16)
[2020-12-23 08:51] LABS: Alanine Aminotransferase 19 U/L (12-78); Albumin Level 2.6 gm/dl (3.4-5.0); Aspartate Aminotransferase 9 U/L (15-37); Blood Urea Nitrogen 28 mg/dl (7-18); Calcium 9.5 mg/dl (8.5-10.1); Carbon Dioxide 22 mmol/L (21-32); Chloride 111 mmol/L (98-107); Creatinine Clr Calc Pharmacy 59.8 ml/min; Est GFR (Non-African American) 57.8 ml/min; Glucose 147 mg/dl (70-99); Magnesium 2.3 mg/dl (1.8-2.4); Sodium 140 mmol/L (136-145)
[2020-12-23 08:54] LABS: Albumin Globulin Ratio 0.5 (0.9-2); Alkaline Phosphatase 94 U/L (45-117); Bilirubin,Total 0.3 mg/dl (0.2-1); Creatine Kinase 32 U/L (39-308); Globulin 5.1 gm/dl (2.5-4.0); Phosphorus 2.8 mg/dl (2.5-4.9); Total Protein 7.7 gm/dl (6.4-8.2); Troponin I < 0.015 ng/ml (0-0.045)
[2020-12-23] MEDS ORDERED: dexAMETHasone 6 MG in SYRINGE 0 ML IV SCH (09:00)
[2020-12-23] MEDS ORDERED: dexAMETHasone**PF** 10 MG/ML VIAL IV SCH (09:00)
[2020-12-23] MEDS ORDERED: FLUoxetine HCL 20 MG CAP PO SCH (09:00)
--- NOTE | 2020-12-23 16:12 | Hospitalist Progress Note ---
Date of Service December 23, 2020 Assessment & Plan (1) Pneumonia: (2) COVID-19: Plan: Weakness and fall likely secondary to COVID-19 in setting of multiple comorbidities. Recently found to be positive and underwent subsequent Regeneron infusion 12/10. In the last few days he has been more affected by a respiratory issue including junky cough and shortness of breath with weakness and fatigue. He is out of the window for remdesivir and continues on Decadron empirically. Chest CT reveals interstitial opacities possibly consistent with a Covid pneumonia picture. He has underlying shortness of breath with chronic oxygen needs on 4 L/min continuously and is improved since starting therapy overnight. No sepsis. Continue Decadron and supportive care measures. Cont Rocephin and doxycycline. (3) Weakness: (4) Fall: Plan: PT/OT to evaluate. (5) Chronic respiratory failure with hypoxia, on home O2 therapy: Plan: around baseline oxygen needs 4LPM continuously (6) COPD, severe: Plan: chronic, not in exacerbation at this time. (7) Sleep apnea: Plan: BIPAP with oxygen qHS (8) BPH loc w urin obs/LUTS: Plan: cont finasteride and tamsulosin per home regimen. (9) Schizoaffective disorder: Plan: alert and oriented. (10) DVT prophylaxis: Plan: Lovenox Full Code Dispo- telemetry DO [facility] Admission and Anticipated Discharge Date Admission Date: December 22, 2020 Subjective 75-year-old man admitted for worsening weakness in setting of pneumonia with a history of COVID-19. Patient is vaccinated with a history of Regeneron infusion on 12/10. He is feeling well overall, afebrile and reports an improvement in cough and overall mental status. Still somewhat pekid but improved. +cough, no fevers or chills Denies any chest pain, currently tolerating p.o. No acute issues. Review of Systems Review of Systems: All systems reviewed and negative except as indicated above. 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 GASTROINTESTINAL: soft, nontender, no guarding MUSCULOSKELETAL: strength 5/5 throughout, head is normocephalic and atraumatic SKIN: warm and dry NEUROLOGIC: CN 2-12 grossly intact, no sensory deficit, normal cognition, normal speech, no tremor PSYCHIATRIC: alert cooperative and oriented to person, place and time. Results & Data Results & Data ([facility]) Vital Signs (Past 12 Hours) Vital Signs Temp Pulse Pulse Pulse Resp BP BP 12/23/20 12:15 36.4 C L 78 18 146/83 H 12/23/20 09:43 12/23/20 09:36 36.3 C L 74 74 15 173/95 H 12/23/20 07:18 74 12/23/20 04:24 36.4 C L 76 14 150/83 H Pulse Ox Pulse Ox Pulse Ox 12/23/20 12:15 92 12/23/20 09:43 92 94 12/23/20 09:36 97 12/23/20 07:18 12/23/20 04:24 96 Laboratory Results Short CBC 12/23/20 Range/Units 07:50 WBC 10.59 (4.8-10.8) K/uL Hgb 10.1 L (14.0-18.0) g/dL Hct 32.8 L (42-52) % Plt Count 227 (130-400) K/uL BMP 12/22/20 12/23/20 15:39 07:50 Sodium 141 140 Potassium 4.3 4.0 Chloride 108 H 111 H Carbon Dioxide 26 22 BUN 29 H 28 H Creatinine 1.37 1.21 Glucose 184 H 147 H Calcium 9.7 9.5 Cardiac Enzymes 12/22/20 12/22/20 12/23/20 Range/Units 15:39 22:48 07:50 Total Creatine Kinase 32 L (39-308) U/L Troponin I < 0.015 < 0.015 < 0.015 (0-0.045) ng/ml Liver Function 12/22/20 12/23/20 Range/Units 15:39 07:50 Total Bilirubin 0.4 0.3 (0.2-1) mg/dl AST 18 9 L (15-37) U/L ALT 22 19 (12-78) U/L Alkaline Phosphatase 114 94 (45-117) U/L Albumin 3.0 L 2.6 L (3.4-5.0) gm/dl Urine 12/22/20 Range/Units 18:57 Urine Color Yellow Urine Appearance Clear (Clear) Urine pH 5.5 (4.5-7.5) Ur Specific [place] 1.018 (1.000-1.030) Urine Protein 1+ H (Negative) Urine Glucose (UA) Negative (Negative) Diagnostic Findings Head CT 12/22/20 23:[address] DOSE: 663.41 mGy.cm HISTORY: Altered mental status. TECHNIQUE: Multiaxial CT images of the head were performed without the use of intravenous contrast. Automated exposure control was utilized for this study. A dose lowering technique was utilized adhering to the principles of ALARA. Comparison: Head CT 12/22/2020. Findings: Mild to moderate mucosal thickening within the paranasal sinuses. The calvarium and skull base are intact. There is no mass, hematoma, midline shift, acute infarct. White matter hypodensity is nonspecific but suggestive of microvascular ischemic change. The ventricles and sulci demonstrate mild age- related involutional changes. 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 Impression: No significant change compared to the prior study. No acute intracranial abnormality. ACT 112: Negative or not required by law. Electronically signed by: Reggie Rawls M.D. 12/23/2020 7:27 AM Medications Administered Current Inpatient Medications Acetaminophen (Acetaminophen 325 Mg Tab) 650 mg PO Q4H PRN PRN Reason: Pain or Fever Stop: 01/21/21 21:41 Albuterol (Albuterol Hfa 8 Gm Inhaler) 2 puffs INH Q4H PRN PRN Reason: increased cough, shortness of breath or wheezing Stop: 01/21/21 21:41 Amlodipine Besylate (Amlodipine Besylate 5 Mg Tab) 5 mg PO QAM [facility] Stop: 01/22/21 08:59 Last Admin: 12/23/20 08:23 Dose: 5 mg Documented by: Atorvastatin Calcium (Atorvastatin 40 Mg Tab) 80 mg PO HS [facility] Stop: 01/21/21 21:41 Last Admin: 12/22/20 22:09 Dose: Not Given Documented by: Benzonatate (Benzonatate 100 Mg Capsule) 100 mg PO TID PRN PRN Reason: cough Stop: 01/21/21 21:41 Enoxaparin Sodium (Enoxaparin Inj 40 Mg/0.4 Ml Syr) [facility] Stop: 01/22/21 08:59 Last Admin: 12/23/20 08:20 Dose: 40 mg Documented by: Finasteride (Finasteride 5 Mg Tab) 5 mg PO QAM [facility] Stop: 01/22/21 08:59 Last Admin: 12/23/20 08:23 Dose: 5 mg Documented by: Fluoxetine HCl (Fluoxetine Hcl 20 Mg Cap) 60 mg PO QAM [facility] Stop: 01/22/21 08:59 Last Admin: 12/23/20 08:22 Dose: 60 mg Documented by: Gabapentin (Gabapentin 600 Mg Tab) 600 mg PO BID [facility] Stop: 01/21/21 21:41 Last Admin: 12/23/20 08:23 Dose: 600 mg Documented by: Guaifenesin (Guaifenesin 600 Mg Tabcr) 600 mg PO Q12 [facility] Stop: 01/21/21 21:41 Last Admin: 12/23/20 08:22 Dose: 600 mg Documented by: Doxycycline Hyclate 100 mg/ (Dextrose) 110 mls @ 50 mls/hr IV Q12 [facility]; Protocol Stop: 12/29/20 20:59 Last Infusion: 12/23/20 11:07 Dose: Infused Documented by: Ceftriaxone Sodium 2,000 mg/ (Dextrose) 50 mls @ 100 mls/hr IV Q24H [facility]; Protocol Stop: 12/30/20 17:59 Dexamethasone 6 mg/ Syringe 1.5 mls @ 1 mls/min IV Q24H [facility] Stop: 01/22/21 08:59 Last Admin: 12/23/20 08:19 Dose: 1 mls/min Documented by: Lactobacillus Acidoph/Casei/Rhamnos (Advanced Probiotic 1250 Mg Capsule) 2 cap [facility] Stop: 01/22/21 08:59 Last Admin: 12/23/20 08:23 Dose: 2 cap Documented by: Lamotrigine (Lamotrigine 100 Mg Tab) 200 mg PO QAM [facility] Stop: 01/22/21 08:59 Last Admin: 12/23/20 08:22 Dose: 200 mg Documented by: Losartan Potassium (Losartan Potassium 25 Mg Tab) 25 [facility] Stop: 01/22/21 08:59 Last Admin: 12/23/20 08:21 Dose: 25 mg Documented by: Metoprolol Succinate (Metoprolol Succ 50mg Ext Rel Tab) 50 mg PO [facility] Stop: 01/21/21 21:41 Last Admin: 12/22/20 22:09 Dose: Not Given Documented by: Olanzapine (Olanzapine 10 Mg Tab) 30 mg PO DAILY@1999 [facility] Stop: 01/21/21 21:41 Last Admin: 12/22/20 22:09 Dose: Not Given Documented by: Ondansetron HCl (Ondansetron Inj 2 Mg/Ml 2 Ml Vial) 4 mg IV Q6H PRN PRN Reason: Nausea Stop: 01/21/21 21:41 Pantoprazole Sodium (Pantoprazole 40 Mg Tab) 40 mg PO [facility] Stop: 01/21/21 21:41 Last Admin: 12/22/20 22:09 Dose: Not Given Documented by: Polyethylene Glycol (Polyethylene (Miralax) 17 Gm Pack) 17 gm PO DAILY PRN PRN Reason: Constipation Stop: 01/21/21 21:41 Tamsulosin HCl (Tamsulosin Hcl 0.4 Mg Cap) 0.4 mg PO [facility] Stop: 01/21/21 21:41 Last Admin: 12/22/20 22:09 Dose: Not Given Documented by: Timolol Maleate (Timolol Maleate 0.5% Op Soln 5 Ml Btl) 1 drops OPB [facility] Stop: 01/22/21 08:59 Last Admin: 12/23/20 08:20 Dose: 1 drops Documented by: Umeclidinium [place] (Umeclidinium [place] 62.5mcg/Blister 7 Puffs/Inhaler) 1 puffs INH [facility] Stop: 01/22/21 08:59 Last Admin: 12/23/20 08:21 Dose: 1 puffs Documented by: (1) Fall Encounter type: initial encounter Qualified Code(s): W19.XXXA - Unspecified fall, initial encounter
[2020-12-23] MEDS ORDERED: cefTRIAXone SODIUM 2,000 MG in DEXTROSE 5% 50 ML IV SCH (18:00)
[2020-12-23] MEDS: OLANZapine 10 MG TAB PO SCH (20:20)
[2020-12-23] MEDS: PANTOprazole 40 MG TAB PO SCH (20:20)
[2020-12-23] MEDS: TAMSULOSIN HCL 0.4 MG CAP PO SCH (20:21)
[2020-12-23] MEDS: ATORVASTATIN 40 MG TAB PO SCH (20:21)
[2020-12-23] MEDS: METOPROLOL SUCC 50MG EXT REL TAB PO SCH (21:15)
[2020-12-24] MEDS: ENOXAPARIN INJ 40 MG/0.4 ML SYR SQ SCH (08:45)
[2020-12-24] MEDS: guaiFENesin 600 MG TABCR PO SCH ×2 (08:46→20:18)
[2020-12-24] MEDS: TIMOLOL MALEATE 0.5% OP SOLN 5 ML BTL OPB SCH (08:46)
[2020-12-24] MEDS: FLUoxetine HCL 20 MG CAP PO SCH (08:47)
[2020-12-24] MEDS: GABAPENTIN 600 MG TAB PO SCH ×2 (08:47→20:18)
[2020-12-24] MEDS: UMECLIDINIUM BROMIDE 62.5MCG/BLISTER 7 PUFFS/INHALER INH SCH (08:47)
[2020-12-24] MEDS: ADVANCED PROBIOTIC 1250 MG CAPSULE PO SCH (08:48)
[2020-12-24] MEDS: FINASTERIDE 5 MG TAB PO SCH (08:48)
[2020-12-24] MEDS: LOSARTAN POTASSIUM 25 MG TAB PO SCH (08:48)
[2020-12-24] MEDS: lamoTRIgine 100 MG TAB PO SCH (08:48)
[2020-12-24] MEDS: amLODIPine BESYLATE 5 MG TAB PO SCH (08:49)
[2020-12-24] MEDS: DOXYCYCLINE HYCLATE 100 MG in DEXTROSE 5% 100 ML IV SCH (08:51)
[2020-12-24 09:14] LABS: Hemoglobin 11.1 g/dL (14.0-18.0); Mean Corpuscular Hemoglobin 24.9 pg (25-34); Mean Corpuscular Hgb Conc 30.8 g/dL (32-36); Mean Corpuscular Volume 80.7 fL (80-100); Mean Platelet Volume 10.2 fL (7.4-10.4); Platelet Count 286 K/uL (130-400); RDW Coefficient of Variation 18.3 % (11.5-14.5); RDW Standard Deviation 54.1 fL (36.4-46.3); Red Blood Count 4.46 M/uL (4.7-6.1)
[2020-12-24 09:42] LABS: Calcium 9.7 mg/dl (8.5-10.1); Creatinine Clr Calc Pharmacy 51.9 ml/min; Est GFR (Non-African American) 53.5 ml/min; Potassium 3.8 mmol/L (3.5-5.1)
[2020-12-24] MEDS: AMOXICILLIN/CLAVULANATE 875 MG TAB PO SCH (17:05)
--- NOTE | 2020-12-24 19:40 | Hospitalist Progress Note ---
Date of Service December 24, 2020 Assessment & Plan (1) Pneumonia: (2) COVID-19: Plan: Overall improved with antibiotic therapy and steroids. He is out of the window for remdesivir and continues on Decadron empirically. Shortness of breath and weakness is improved and he appears clinically well today. After working with physical therapy as recommended he is safe to return home. Urine is negative for infection. Continue current therapies. Transition to oral antibiotics tonight. (3) Weakness: Plan: Safe to return home per PT OT, overall clinically improved with current therapies. (4) Fall: Plan: Continue home PT which is already in place per his report. (5) Chronic respiratory failure with hypoxia, on home O2 therapy: Plan: around baseline oxygen needs 4LPM continuously, he is oxygenating around his baseline. (6) COPD, severe: Plan: chronic, not in exacerbation at this time. (7) Sleep apnea: Plan: BIPAP with oxygen qHS (8) BPH loc w urin obs/LUTS: Plan: cont finasteride and tamsulosin per home regimen. (9) Schizoaffective disorder: Plan: alert and oriented. (10) DVT prophylaxis: Plan: Lovenox Full Code Dispo-continue to monitor for one additional day, likely to home in am. Gypsy Gutiérrez DO [facility] Hospitalist Admission and Anticipated Discharge Date Admission Date: December 22, 2020 Subjective 75-year-old man admitted for worsening weakness in setting of pneumonia with a history of COVID-19. Patient is vaccinated with a history of Regeneron infusion on 12/10. He is feeling well overall, afebrile and reports an improvement in cough and overall mental status. Feels like his energy has returned and weakness is improved. Denies any chest pain, currently tolerating p.o. No acute issues. Review of Systems Review of Systems: All systems reviewed and negative except as indicated above. 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 GASTROINTESTINAL: soft, nontender, no guarding MUSCULOSKELETAL: strength 5/5 throughout, head is normocephalic and atraumatic SKIN: warm and dry NEUROLOGIC: CN 2-12 grossly intact, normal cognition, normal speech, no tremor, no gross focal deficits. PSYCHIATRIC: alert cooperative and oriented to person, place and time. Euthymic mood, makes good eye contact, language grossly intact, recent and remote memory grossly intact. Results & Data Results & Data ([facility]) Vital Signs (Past 12 Hours) Vital Signs Temp Pulse Resp BP BP Pulse Ox 12/24/20 12:18 36.5 C 62 18 117/73 92 12/24/20 07:49 36 C L 83 22 123/88 94 Laboratory Results Short CBC 12/24/20 Range/Units 08:59 WBC 12.20 H (4.8-10.8) K/uL Hgb 11.1 L (14.0-18.0) g/dL Hct 36.0 L (42-52) % Plt Count 286 (130-400) K/uL [facility] 12/24/20 08:59 Sodium 140 Potassium 3.8 Chloride 108 H Carbon Dioxide 24 BUN 30 H Creatinine 1.29 Glucose 160 H Calcium 9.7 Medications Administered Current Inpatient Medications Acetaminophen (Acetaminophen 325 Mg Tab) 650 mg PO Q4H PRN PRN Reason: Pain or Fever Stop: 01/21/21 21:41 Albuterol (Albuterol Hfa 8 Gm Inhaler) 2 puffs INH Q4H PRN PRN Reason: increased cough, shortness of breath or wheezing Stop: 01/21/21 21:41 Amlodipine Besylate (Amlodipine Besylate 5 Mg Tab) 5 mg PO QAM [facility] Stop: 01/22/21 08:59 Last Admin: 12/24/20 08:49 Dose: 5 mg Documented by: Amoxicillin/Clavulanate Potassium (Amoxicillin/Clavulanate 875 Mg Tab) 1 tab PO BIDM [facility] Stop: 12/31/20 16:59 Last Admin: 12/24/20 17:05 Dose: 1 tab Documented by: Atorvastatin Calcium (Atorvastatin 40 Mg Tab) 80 mg PO [facility] Stop: 01/21/21 21:41 Last Admin: 12/23/20 20:21 Dose: 80 mg Documented by: Benzonatate (Benzonatate 100 Mg Capsule) 100 mg PO TID PRN PRN Reason: cough Stop: 01/21/21 21:41 Doxycycline Hyclate (Doxycycline Hyclate 100 Mg Cap) 100 mg PO BID [facility] Stop: 12/31/20 20:59 Enoxaparin Sodium (Enoxaparin Inj 40 Mg/0.4 Ml Syr) 40 [facility] Stop: 01/22/21 08:59 Last Admin: 12/24/20 08:45 Dose: 40 mg Documented by: Finasteride (Finasteride 5 Mg Tab) 5 mg PO [facility] Stop: 01/22/21 08:59 Last Admin: 12/24/20 08:48 Dose: 5 mg Documented by: Fluoxetine HCl (Fluoxetine Hcl 20 Mg Cap) 60 mg PO [facility] Stop: 01/22/21 08:59 Last Admin: 12/24/20 08:47 Dose: 60 mg Documented by: Gabapentin (Gabapentin 600 Mg Tab) 600 mg PO BID [facility] Stop: 01/21/21 21:41 Last Admin: 12/24/20 08:47 Dose: 600 mg Documented by: Guaifenesin (Guaifenesin 600 Mg Tabcr) 600 mg PO Q12 [facility] Stop: 01/21/21 21:41 Last Admin: 12/24/20 08:46 Dose: 600 mg Documented by: Lactobacillus Acidoph/Casei/Rhamnos (Advanced Probiotic 1250 Mg Capsule) 2 cap [facility] Stop: 01/22/21 08:59 Last Admin: 12/24/20 08:48 Dose: 2 cap Documented by: Lamotrigine (Lamotrigine 100 Mg Tab) 200 mg PO [facility] Stop: 01/22/21 08:59 Last Admin: 12/24/20 08:48 Dose: 200 mg Documented by: Losartan Potassium (Losartan Potassium 25 Mg Tab) 25 mg PO [facility] Stop: 01/22/21 08:59 Last Admin: 12/24/20 08:48 Dose: 25 mg Documented by: Metoprolol Succinate (Metoprolol Succ 50mg Ext Rel Tab) 50 mg PO [facility] Stop: 01/21/21 21:41 Last Admin: 12/23/20 21:15 Dose: 50 mg Documented by: Olanzapine (Olanzapine 10 Mg Tab) 30 mg PO DAILY@1999 [facility] Stop: 01/21/21 21:41 Last Admin: 12/23/20 20:20 Dose: 30 mg Documented by: Ondansetron HCl (Ondansetron Inj 2 Mg/Ml 2 Ml Vial) 4 mg IV Q6H PRN PRN Reason: Nausea Stop: 01/21/21 21:41 Pantoprazole Sodium (Pantoprazole 40 Mg Tab) 40 mg PO HS [facility] Stop: 01/21/21 21:41 Last Admin: 12/23/20 20:20 Dose: 40 mg Documented by: Polyethylene Glycol (Polyethylene (Miralax) 17 Gm Pack) 17 gm PO DAILY PRN PRN Reason: Constipation Stop: 01/21/21 21:41 Tamsulosin HCl (Tamsulosin Hcl 0.4 Mg Cap) 0.4 mg PO HS [facility] Stop: 01/21/21 21:41 Last Admin: 12/23/20 20:21 Dose: 0.4 mg Documented by: Timolol Maleate (Timolol Maleate 0.5% Op Soln 5 Ml Btl) 1 drops OPB QAM [facility] Stop: 01/22/21 08:59 Last Admin: 12/24/20 08:46 Dose: 1 drops Documented by: Umeclidinium [place] (Umeclidinium [place] 62.5mcg/Blister 7 Puffs/Inhaler) 1 puffs INH QAM [facility] Stop: 01/22/21 08:59 Last Admin: 12/24/20 08:47 Dose: 1 puffs Documented by: (1) Fall Encounter type: initial encounter Qualified Code(s): W19.XXXA - Unspecified fall, initial encounter
[2020-12-24] MEDS: ATORVASTATIN 40 MG TAB PO SCH (20:17)
[2020-12-24] MEDS: PANTOprazole 40 MG TAB PO SCH (20:17)
[2020-12-24] MEDS: OLANZapine 10 MG TAB PO SCH (20:18)
[2020-12-24] MEDS: TAMSULOSIN HCL 0.4 MG CAP PO SCH (20:18)
[2020-12-24] MEDS: DOXYCYCLINE HYCLATE 100 MG CAP PO SCH (20:18)
[2020-12-24] MEDS: METOPROLOL SUCC 50MG EXT REL TAB PO SCH (20:18)
[2020-12-25 08:46] LABS: Base Excess VBG 0.3 mEq/L; HCO3 VBG 27 mmol/L; Oxygen Saturation VBG < 60.0 %; PCO2 VBG 52 mmHg (38-50); PO2 VBG 28 mmHg; pH VBG 7.33 (7.36-7.41)
[2020-12-25] MEDS: ENOXAPARIN INJ 40 MG/0.4 ML SYR SQ SCH (09:06)
[2020-12-25] MEDS: TIMOLOL MALEATE 0.5% OP SOLN 5 ML BTL OPB SCH (09:06)
[2020-12-25] MEDS: UMECLIDINIUM BROMIDE 62.5MCG/BLISTER 7 PUFFS/INHALER INH SCH (09:07)
[2020-12-25] MEDS: AMOXICILLIN/CLAVULANATE 875 MG TAB PO SCH ×2 (09:07→16:31)
[2020-12-25] MEDS: FLUoxetine HCL 20 MG CAP PO SCH (09:07)
[2020-12-25] MEDS: ADVANCED PROBIOTIC 1250 MG CAPSULE PO SCH (09:07)
[2020-12-25] MEDS: LOSARTAN POTASSIUM 25 MG TAB PO SCH (09:07)
[2020-12-25] MEDS: guaiFENesin 600 MG TABCR PO SCH ×2 (09:07→20:16)
[2020-12-25] MEDS: DOXYCYCLINE HYCLATE 100 MG CAP PO SCH ×2 (09:07→20:15)
[2020-12-25] MEDS: GABAPENTIN 600 MG TAB PO SCH ×2 (09:07→20:16)
[2020-12-25] MEDS: amLODIPine BESYLATE 5 MG TAB PO SCH (09:08)
[2020-12-25] MEDS: FINASTERIDE 5 MG TAB PO SCH (09:08)
[2020-12-25] MEDS: lamoTRIgine 100 MG TAB PO SCH (09:08)
[2020-12-25 10:52] LABS: BUN Creatinine Ratio 24.4 (10-20); Calcium 10.2 mg/dl (8.5-10.1); Creatinine Clr Calc Pharmacy 42.1 ml/min; Est GFR (African American) 48.2 ml/min; Est GFR (Non-African American) 41.6 ml/min; Magnesium 2.4 mg/dl (1.8-2.4); Potassium 4.1 mmol/L (3.5-5.1)
[2020-12-25 11:00] LABS: Hematocrit (blood only) 35.6 % (42-52); Hemoglobin 10.8 g/dL (14.0-18.0); Mean Corpuscular Hemoglobin 24.4 pg (25-34); Mean Corpuscular Hgb Conc 30.3 g/dL (32-36); Mean Corpuscular Volume 80.5 fL (80-100); Mean Platelet Volume 10.1 fL (7.4-10.4); Platelet Count 270 K/uL (130-400); RDW Coefficient of Variation 18.7 % (11.5-14.5); RDW Standard Deviation 55.2 fL (36.4-46.3); Red Blood Count 4.42 M/uL (4.7-6.1); White Blood Count 6.55 K/uL (4.8-10.8)
[2020-12-25 11:01] LABS: Phosphorus 3.9 mg/dl (2.5-4.9)
--- NOTE | 2020-12-25 19:55 | Hospitalist Progress Note ---
Date of Service December 25, 2020 Assessment & Plan (1) Pneumonia due to COVID-19 virus: Plan: This is a vaccinated patient who also underwent Regeneron infusion 12/10. He had no acute chest disease on initial chest x-ray this admission. He was empirically started on Decadron and broad-spectrum antibiotics and the Decadron was stopped. Subsequent imaging with chest CT overnight reveals an image more consistent with a viral pneumonia. He is overall improved on antibiotics and is currently oxygenating at his baseline supplementation needs. Continue to monitor for another 24 hours. (2) Weakness: Plan: Resolved, PT OT deemed him safe to go home. Plan to DC to home when medically stable. (3) Fall: Plan: PT/OT to evaluate. (4) Chronic respiratory failure with hypoxia, on home O2 therapy: Plan: around baseline oxygen needs 4LPM continuously (5) COPD, severe: Plan: chronic, not in exacerbation at this time. (6) Sleep apnea: Plan: BIPAP with oxygen qHS (7) BPH loc w urin obs/LUTS: Plan: cont finasteride and tamsulosin per home regimen. (8) Schizoaffective disorder: Plan: alert and oriented. (9) DVT prophylaxis: Plan: Lovenox Full Code Dispo- telemetry DO [facility] Hospitalist Admission and Anticipated Discharge Date Admission Date: December 22, 2020 Subjective 75-year-old man admitted for worsening weakness in setting of pneumonia with a history of COVID-19. Patient is vaccinated with a history of Regeneron infusion on 12/10. Patient feeling well overall Described as lethargic this morning and was hypothermic with a rectal temp of 35 requiring a Nereyda hugger Patient describes this as "I slept too long" We both agree that conservatively keeping him here for an additional 24 hours would be the best idea. He is up moving around and feeling well today. I mproved cough and no fevers or chills. Review of Systems Review of Systems: All systems reviewed and negative except as indicated above. 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 GASTROINTESTINAL: soft, nontender, no guarding MUSCULOSKELETAL: strength 5/5 throughout, head is normocephalic and atraumatic SKIN: warm and dry NEUROLOGIC: CN 2-12 grossly intact, no sensory deficit, normal cognition, normal speech, no tremor PSYCHIATRIC: alert cooperative and oriented to person, place and time. Results & Data Results & Data ([facility]) Vital Signs (Past 12 Hours) Vital Signs Temp Pulse Resp BP BP Pulse Ox 12/25/20 15:33 36.5 C 69 18 109/60 98 12/25/20 11:33 36.5 C 77 20 125/84 99 12/25/20 10:21 36.0 C L 12/25/20 08:59 36.2 C L 160/100 H 96 Laboratory Results Short CBC 12/25/20 Range/Units 08:29 WBC 6.55 (4.8-10.8) K/uL Hgb 10.8 L (14.0-18.0) g/dL Hct 35.6 L (42-52) % Plt Count 270 (130-400) K/uL BMP 12/25/20 07:01 Sodium 140 Potassium 4.1 Chloride 110 H Carbon Dioxide 25 BUN 39 H Creatinine 1.59 H D Glucose 93 Calcium 10.2 H Medications Administered Current Inpatient Medications Acetaminophen (Acetaminophen 325 Mg Tab) 650 mg PO Q4H PRN PRN Reason: Pain or Fever Stop: 01/21/21 21:41 Albuterol (Albuterol Hfa 8 Gm Inhaler) 2 puffs INH Q4H PRN PRN Reason: increased cough, shortness of breath or wheezing Stop: 01/21/21 21:41 Amlodipine Besylate (Amlodipine Besylate 5 Mg Tab) 5 mg PO QAM [facility] Stop: 01/22/21 08:59 Last Admin: 12/25/20 09:08 Dose: 5 mg Documented by: Amoxicillin/Clavulanate Potassium (Amoxicillin/Clavulanate 875 Mg Tab) 1 tab PO BIDM [facility] Stop: 12/31/20 16:59 Last Admin: 12/25/20 16:31 Dose: 1 tab Documented by: Atorvastatin Calcium (Atorvastatin 40 Mg Tab) 80 mg PO HS [facility] Stop: 01/21/21 21:41 Last Admin: 12/24/20 20:17 Dose: 80 mg Documented by: Benzonatate (Benzonatate 100 Mg Capsule) 100 mg PO TID PRN PRN Reason: cough Stop: 01/21/21 21:41 Doxycycline Hyclate (Doxycycline Hyclate 100 Mg Cap) 100 mg PO BID [facility] Stop: 12/31/20 20:59 Last Admin: 12/25/20 09:07 Dose: 100 mg Documented by: Enoxaparin Sodium (Enoxaparin Inj 40 Mg/0.4 Ml Syr) 40 mg SQ QAM [facility] Stop: 01/22/21 08:59 Last Admin: 12/25/20 09:06 Dose: 40 mg Documented by: Finasteride (Finasteride 5 Mg Tab) 5 mg PO QAM [facility] Stop: 01/22/21 08:59 Last Admin: 12/25/20 09:08 Dose: 5 mg Documented by: Fluoxetine HCl (Fluoxetine Hcl 20 Mg Cap) 60 mg [facility] Stop: 01/22/21 08:59 Last Admin: 12/25/20 09:07 Dose: 60 mg Documented by: Gabapentin (Gabapentin 600 Mg Tab) 600 mg PO BID [facility] Stop: 01/21/21 21:41 Last Admin: 12/25/20 09:07 Dose: 600 mg Documented by: Guaifenesin (Guaifenesin 600 Mg Tabcr) 600 mg PO Q12 [facility] Stop: 01/21/21 21:41 Last Admin: 12/25/20 09:07 Dose: 600 mg Documented by: Lactobacillus Acidoph/Casei/Rhamnos (Advanced Probiotic 1250 Mg Capsule) 2 cap PO QAM [facility] Stop: 01/22/21 08:59 Last Admin: 12/25/20 09:07 Dose: 2 cap Documented by: Lamotrigine (Lamotrigine 100 Mg Tab) 200 mg PO QAM [facility] Stop: 01/22/21 08:59 Last Admin: 12/25/20 09:08 Dose: 200 mg Documented by: Losartan Potassium (Losartan Potassium 25 Mg Tab) 25 mg PO QAM [facility] Stop: 01/22/21 08:59 Last Admin: 12/25/20 09:07 Dose: 25 mg Documented by: Metoprolol Succinate (Metoprolol Succ 50mg Ext Rel Tab) 50 mg PO [facility] Stop: 01/21/21 21:41 Last Admin: 12/24/20 20:18 Dose: 50 mg Documented by: Olanzapine (Olanzapine 10 Mg Tab) 30 mg PO DAILY@1999 [facility] Stop: 01/21/21 21:41 Last Admin: 12/24/20 20:18 Dose: 30 mg Documented by: Ondansetron HCl (Ondansetron Inj 2 Mg/Ml 2 Ml Vial) 4 mg IV Q6H PRN PRN Reason: Nausea Stop: 01/21/21 21:41 Pantoprazole Sodium (Pantoprazole 40 Mg Tab) 40 mg PO [facility] Stop: 01/21/21 21:41 Last Admin: 12/24/20 20:17 Dose: 40 mg Documented by: Polyethylene Glycol (Polyethylene (Miralax) 17 Gm Pack) 17 gm PO DAILY PRN PRN Reason: Constipation Stop: 01/21/21 21:41 Tamsulosin HCl (Tamsulosin Hcl 0.4 Mg Cap) 0.4 mg PO [facility] Stop: 01/21/21 21:41 Last Admin: 12/24/20 20:18 Dose: 0.4 mg Documented by: Timolol Maleate (Timolol Maleate 0.5% Op Soln 5 Ml Btl) 1 drops OPB QAM [facility] Stop: 01/22/21 08:59 Last Admin: 12/25/20 09:06 Dose: 1 drops Documented by: Umeclidinium [place] (Umeclidinium [place] 62.5mcg/Blister 7 Puffs/Inhaler) 1 puffs INH QAM [facility] Stop: 01/22/21 08:59 Last Admin: 12/25/20 09:07 Dose: 1 puffs Documented by: (1) Fall Encounter type: initial encounter Qualified Code(s): W19.XXXA - Unspecified fall, initial encounter
[2020-12-25] MEDS: TAMSULOSIN HCL 0.4 MG CAP PO SCH (20:15)
[2020-12-25] MEDS: METOPROLOL SUCC 50MG EXT REL TAB PO SCH (20:15)
[2020-12-25] MEDS: OLANZapine 10 MG TAB PO SCH (20:16)
[2020-12-25] MEDS: PANTOprazole 40 MG TAB PO SCH (20:16)
[2020-12-25] MEDS: ATORVASTATIN 40 MG TAB PO SCH (20:16)
[2020-12-26 07:34] LABS: Hematocrit (blood only) 31.8 % (42-52); Hemoglobin 9.8 g/dL (14.0-18.0); Mean Corpuscular Hemoglobin 24.6 pg (25-34); Mean Corpuscular Hgb Conc 30.8 g/dL (32-36); Mean Corpuscular Volume 79.9 fL (80-100); Mean Platelet Volume 9.5 fL (7.4-10.4); Platelet Count 227 K/uL (130-400); RDW Coefficient of Variation 18.5 % (11.5-14.5); RDW Standard Deviation 54.4 fL (36.4-46.3); Red Blood Count 3.98 M/uL (4.7-6.1); White Blood Count 4.93 K/uL (4.8-10.8)
[2020-12-26] MEDS: UMECLIDINIUM BROMIDE 62.5MCG/BLISTER 7 PUFFS/INHALER INH SCH (08:00)
[2020-12-26] MEDS: ENOXAPARIN INJ 40 MG/0.4 ML SYR SQ SCH (08:00)
[2020-12-26] MEDS: TIMOLOL MALEATE 0.5% OP SOLN 5 ML BTL OPB SCH (08:00)
[2020-12-26] MEDS: ADVANCED PROBIOTIC 1250 MG CAPSULE PO SCH (08:00)
[2020-12-26] MEDS: guaiFENesin 600 MG TABCR PO SCH (08:01)
[2020-12-26] MEDS: LOSARTAN POTASSIUM 25 MG TAB PO SCH (08:01)
[2020-12-26] MEDS: FLUoxetine HCL 20 MG CAP PO SCH (08:01)
[2020-12-26] MEDS: FINASTERIDE 5 MG TAB PO SCH (08:01)
[2020-12-26] MEDS: amLODIPine BESYLATE 5 MG TAB PO SCH (08:01)
[2020-12-26] MEDS: lamoTRIgine 100 MG TAB PO SCH (08:01)
[2020-12-26] MEDS: DOXYCYCLINE HYCLATE 100 MG CAP PO SCH (08:01)
[2020-12-26] MEDS: GABAPENTIN 600 MG TAB PO SCH (08:01)
[2020-12-26] MEDS: AMOXICILLIN/CLAVULANATE 875 MG TAB PO SCH (08:01)
[2020-12-26 08:07] LABS: BUN Creatinine Ratio 30.3 (10-20); Calcium 9.4 mg/dl (8.5-10.1); Creatinine Clr Calc Pharmacy 49.7 ml/min; Est GFR (African American) 53.4 ml/min; Est GFR (Non-African American) 46.1 ml/min; Potassium 4.2 mmol/L (3.5-5.1)
[2020-12-26] MEDS ORDERED: dexAMETHasone 1 MG TAB PO ONE (12:50)
--- NOTE | 2020-12-26 12:54 | Discharge Summary ---
Date of Service December 26, 2020 Admission HPI Per Admitting Provider Patient is a 75-year-old man with diabetes and COPD on chronic 4 L/min of oxygen who presents with worsening weakness, coughing and shortness of breath over the last 4 days. He was positive for Covid approximately 3 weeks ago and underwent Regeneron infusion on 12/10, reportedly feeling better. In the last 4 days he has noted feeling poorly and also reports chest pain with exertion frequently. This morning, patient was noted by to be more weak, confused and very unsteady on his feet. He fell while walking into the bathroom and was unable to get up off the floor prompting EMS. reports some confusion but that he is clear now. Patient is not currently confused and is able to reiterate this history perfectly. He also reports chest pain with exertion which he feels is more intense than usual. He has had chest pain before with history noteworthy for stent in 2000. He also has intermittent bradycardia and has an indwelling loop recorder device that was interrogated this evening. He reports some chills. He otherwise denies any fevers, change in chronic urinary urgency, abdominal pain, no current chest pain, headache, stool changes, blood per rectum or other issues. Admission Exam Per Admitting Provider CONSTITUTIONAL: WNWD, vitals as above, generally well-appearing, NAD EYES: normal conjunctivae, no scleral icterus ENT: external ear and nose normal, oropharynx clear, no TM abnormality, no maxillary or ethmoid sinus tenderness NECK: trachea midline RESPIRATORY: clear to auscultation bilaterally, no crackles, rales or wheezes, normal respiratory effort CARDIOVASCULAR: regular rate and rhythm, S1 and 2 heard without murmurs, gallops or rubs, no JVD, no peripheral edema CHEST: +pacemaker in left chest. GASTROINTESTINAL: soft, nontender, no guarding MUSCULOSKELETAL: strength 5/5 throughout, head is normocephalic and atraumatic SKIN: warm and dry NEUROLOGIC: patellar DTRs 2+ bilat. PERRL, EOMI, no facial palsy, no dysarthria. Touch, pain and proprioception normal. CN 2-12 grossly intact, no sensory deficit, normal cognition, normal speech, no tremor PSYCHIATRIC: alert cooperative and oriented to person, place and time. Euthymic mood, makes good eye contact, language grossly intact, recent and remote memory grossly intact. LYMPHATIC: no LAD Principal Diagnosis Pneumonia due to covid-19 with possible superimposed bacterial infection weakness s/p fall chronic respiratory failure with hypoxia due to underlying COPD, on continuous home oxygen. Discharge Exam CONSTITUTIONAL: WNWD, vitals as above, NAD EYES: normal conjunctivae, no scleral icterus ENT: external ear and nose normal, oropharynx clear NECK: trachea midline RESPIRATORY: clear to auscultation bilaterally, no crackles, rales or wheezes, normal respiratory effort CARDIOVASCULAR: regular rate and rhythm, S1 and 2 heard without murmurs, gallops or rubs, no JVD, no peripheral edema CHEST: +pacemaker in left chest. GASTROINTESTINAL: soft, nontender, no guarding MUSCULOSKELETAL: strength 5/5 throughout, head is normocephalic and atraumatic SKIN: warm and dry NEUROLOGIC: CN 2-12 grossly intact, no sensory deficit, normal cognition, normal speech, no tremor PSYCHIATRIC: alert cooperative and oriented to person, place and time. Discharge Data Allergies Allergy/AdvReac Type Severity Reaction Status Date / Time No Known Allergies Allergy Verified 12/22/20 16:20 Consultations 12/22/20 18:42 ED Decision to Admit Stat Ordered Studies Laboratory Results WBC 4.93 K/uL (4.8-10.8) 12/26/20 07:11 RBC 3.98 M/uL (4.7-6.1) L 12/26/20 07:11 Hgb 9.8 g/dL (14.0-18.0) L 12/26/20 07:11 Hct 31.8 % (42-52) L 12/26/20 07:11 MCV 79.9 fL (80-100) L 12/26/20 07:11 MCH 24.6 pg (25-34) L 12/26/20 07:11 MCHC 30.8 g/dL (32-36) L 12/26/20 07:11 RDW Std Deviation 54.4 fL (36.4-46.3) H 12/26/20 07:11 RDW Coeff of Hermes 18.5 % (11.5-14.5) H 12/26/20 07:11 Plt Count 227 K/uL (130-400) 12/26/20 07:11 MPV 9.5 fL (7.4-10.4) 12/26/20 07:11 Immature Gran % (Auto) 0.1 % 12/22/20 15:39 Neut % (Auto) 87.7 % 12/22/20 15:39 Lymph % (Auto) 3.6 % 12/22/20 15:39 [place] % (Auto) 8.1 % 12/22/20 15:39 Eos % (Auto) 0.4 % 12/22/20 15:39 Baso % (Auto) 0.1 % 12/22/20 15:39 Neut # (Auto) 12.30 K/uL (1.4-6.5) H 12/22/20 15:39 Lymph # (Auto) 0.51 K/uL (1.2-3.4) L 12/22/20 15:39 [place] # (Auto) 1.13 K/uL (0.11-0.59) H 12/22/20 15:39 Eos # (Auto) 0.05 K/uL (0-0.5) 12/22/20 15:39 Baso # (Auto) 0.01 K/uL (0-0.2) 12/22/20 15:39 Immature Gran # (Auto) 0.02 K/uL (0.00-0.02) 12/22/20 15:39 ABG pH 7.40 (7.35-7.45) 12/22/20 22:48 ABG pCO2 39 mmHg (35-46) 12/22/20 22:48 ABG pO2 61 mmHg (80-95) L 12/22/20 22:48 ABG HCO3 24 mmol/L (19-24) 12/22/20 22:48 ABG O2 Saturation 90.7 % (90-95) 12/22/20 22:48 ABG Base Excess -0.9 mEq/L (-9-1.8) 12/22/20 22:48 Gurjit Test Pos (Pos) 12/22/20 22:48 VBG pH 7.33 (7.36-7.41) L 12/25/20 08:27 VBG pCO2 52 mmHg (38-50) H 12/25/20 08:27 VBG pO2 28 mmHg 12/25/20 08:27 VBG HCO3 27 mmol/L 12/25/20 08:27 VBG O2 Saturation < 60.0 % 12/25/20 08:27 VBG Base Excess 0.3 mEq/L 12/25/20 08:27 Barometric Pressure 737.4 mm/Hg 12/25/20 08:27 Oxygen Given 4L 12/22/20 22:48 Sodium 143 mmol/L (136-145) 12/26/20 07:11 Potassium 4.2 mmol/L (3.5-5.1) 12/26/20 07:11 Chloride 112 mmol/L (98-107) H 12/26/20 07:11 Carbon Dioxide 23 mmol/L (21-32) 12/26/20 07:11 Anion Gap 7.0 (3-11) 12/26/20 07:11 BUN 44 mg/dl (7-18) H 12/26/20 07:11 Creatinine 1.46 mg/dl (0.6-1.4) H 12/26/20 07:11 Est Cr Clr Drug Dosing 49.7 ml/min 12/26/20 07:11 Est GFR ( Amer) 53.4 ml/min 12/26/20 07:11 Est GFR (Non-Af Amer) 46.1 ml/min 12/26/20 07:11 BUN/Creatinine Ratio 30.3 (10-20) H 12/26/20 07:11 Glucose 92 mg/dl (70-99) 12/26/20 07:11 POC Glucose 95 mg/dl (70-99) 12/25/20 06:30 Lactate 1.6 mmol/L (0.4-2.0) 12/22/20 17:24 Calcium 9.4 mg/dl (8.5-10.1) 12/26/20 07:11 Phosphorus 3.9 mg/dl (2.5-4.9) D 12/25/20 07:01 Magnesium 2.4 mg/dl (1.8-2.4) 12/25/20 07:01 Total Bilirubin 0.3 mg/dl (0.2-1) 12/23/20 07:50 AST 9 U/L (15-37) L 12/23/20 07:50 ALT 19 U/L (12-78) 12/23/20 07:50 Alkaline Phosphatase 94 U/L (45-117) 12/23/20 07:50 Total Creatine Kinase 32 U/L (39-308) L 12/23/20 07:50 Troponin I < 0.015 ng/ml (0-0.045) 12/23/20 07:50 C-Reactive Protein 11.00 mg/dl (0-0.29) H 12/23/20 07:50 Total Protein 7.7 gm/dl (6.4-8.2) 12/23/20 07:50 Albumin 2.6 gm/dl (3.4-5.0) L 12/23/20 07:50 Globulin 5.1 gm/dl (2.5-4.0) H 12/23/20 07:50 Albumin/Globulin Ratio 0.5 (0.9-2) L 12/23/20 07:50 Procalcitonin 0.13 ng/ml (0-0.5) 12/22/20 15:39 TSH 0.485 uIu/ml (0.300-4.500) 12/22/20 15:39 Urine Color Yellow 12/22/20 18:57 Urine Appearance Clear (Clear) 12/22/20 18:57 Urine pH 5.5 (4.5-7.5) 12/22/20 18:57 Ur Specific [place] 1.018 (1.000-1.030) 12/22/20 18:57 Urine Protein 1+ (Negative) H 12/22/20 18:57 Urine Glucose (UA) Negative (Negative) 12/22/20 18:57 Urine Ketones Negative (Negative) 12/22/20 18:57 Urine Blood Negative (Negative) 12/22/20 18:57 Urine Nitrite Negative (Negative) 12/22/20 18:57 Urine Bilirubin Negative (Negative) 12/22/20 18:57 Urine Urobilinogen Negative (Negative) 12/22/20 18:57 Ur Leukocyte Esterase Negative (Negative) 12/22/20 18:57 Urine WBC (Auto) 0 /hpf (0-5) 12/22/20 18:57 Urine RBC (Auto) 0-4 /hpf (0-4) 12/22/20 18:57 U Hyaline Cast (Auto) 0 /lpf (0-5) 12/22/20 18:57 U Epithel Cells (Auto) 5-10 /lpf (0-5) H 12/22/20 18:57 Urine Bacteria (Auto) Negative (Negative) 12/22/20 18:57 COVID-19 Eval Order Covid19 at [facility] 12/22/20 15:42 SARS-CoV-2 (PCR) POSITIVE (Negative) A* 12/22/20 15:42 Influenza Type A Ag Neg for Influ A (Neg) 12/22/20 15:42 Influenza Type B Ag Neg for Influ B (Neg) 12/22/20 15:[address] 12/22/20 15:20 CT cervical spine wo con CLINICAL HISTORY: fall TECHNIQUE: Multidetector row helical CT of the cervical spine was performed without administration of intravenous contrast. Coronal and sagittal reformations were obtained. Automated dose lowering techniques and/or adjustment according to patient size were utilized for this exam. Comparison: None available at the time of this dictation. FINDINGS: No acute fractures or subluxations are identified. The alignment is normal. Degenerative changes are seen in the visualized spine. Opacities are seen in the right greater than left lung apex. Subcentimeter thyroid nodules are seen which now, followed by ACR criteria. IMPRESSION: 1. Degenerative changes evidence of acute injury. 2. Please see CT chest performed same day for findings of pulmonary opacities. ACT 112: Negative or not required by law. Electronically signed by: Omar De La Cruz M.D. 12/22/2020 6:20 PM Chest X-Ray 12/22/20 15:21 XR chest 1V portable CLINICAL HISTORY: Fever, sob, fall TECHNIQUE: Single frontal radiograph of the chest was obtained. Comparison: Comparison is made to chest one view 09/06/2020 FINDINGS: Dual lead pacemaker is stable. Cardiomegaly is noted. Calcified aortic arch is seen. The lungs are clear. No evidence of pleural effusion or pneumothorax. IMPRESSION: No acute chest disease. ACT 112: Negative or not required by law. Electronically signed by: Omar De La Cruz M.D. 12/22/2020 3:[address] 12/22/20 16:42 CT chest diagnostic wo con CLINICAL HISTORY: sob, fever, confusion TECHNIQUE: Multidetector row helical CT of the chest was performed. Coronal and sagittal reformations were obtained. Automated dose lowering techniques and/or adjustment according to patient size were utilized for this exam. Comparison: Comparison is made to CT chest 09/06/2020 FINDINGS: Exam is limited by patient motion. Lungs and pleura: Interstitial opacities and likely microcyst formation is seen, right greater than left. Atelectasis versus scarring is also seen in the left lung base. Heart and pericardium: There is cardiomegaly without evidence of pericardial effusion. Vessels: The pulmonary trunk is enlarged measuring 33 mm. Extensive atherosclerotic disease is seen in the coronary arteries and aorta. Mediastinum and zo: Unremarkable. Chest wall and lower neck: Unremarkable. Abdomen: A hiatal hernia is seen. Bones: Unremarkable. IMPRESSION: 1. Redemonstration of interstitial opacities and pulmonary hypertension. Evaluation is limited by patient motion, however there is no definite consolidation to suggest pneumonia. 2. Stable cardiomegaly. ACT 112: Negative or not required by law. Electronically signed by: Omar De La Cruz M.D. 12/22/2020 5:[address] 12/22/20 23:[address] DOSE: 663.41 mGy.cm HISTORY: Altered mental status. TECHNIQUE: Multiaxial CT images of the head were performed without the use of intravenous contrast. Automated exposure control was utilized for this study. A dose lowering technique was utilized adhering to the principles of ALARA. Comparison: Head CT 12/22/2020. Findings: Mild to moderate mucosal thickening within the paranasal sinuses. The calvarium and skull base are intact. There is no mass, hematoma, midline shift, acute infarct. White matter hypodensity is nonspecific but suggestive of microvascular ischemic change. The ventricles and sulci demonstrate mild age- related involutional changes. 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 Impression: No significant change compared to the prior study. No acute intracranial abnormality. ACT 112: Negative or not required by law. Electronically signed by: Reggie Rawls M.D. 12/23/2020 7:27 AM [facility] Hospital Course (1) Pneumonia due to COVID-19 virus: This is a vaccinated patient who also underwent Regeneron infusion 12/10. He had no acute chest disease on initial chest x-ray this admission. He was empirically started on Decadron and broad-spectrum antibiotics and the Decadron was stopped. Subsequent imaging with chest CT overnight reveals an image more consistent with a viral pneumonia. He is overall improved on antibiotics and is currently oxygenating at his baseline supplementation needs. He was monitored an additional 24 hours after an episode of lethargy and hypothermia requiring a zachary hugger. Shortly after the episode, he was Continue to monitor for another 24 hours. (2) Weakness: Resolved, PT OT deemed him safe to go home. Plan to DC to home when medically stable. (3) Fall: PT/OT to evaluate. (4) Chronic respiratory failure with hypoxia, on home O2 therapy: around baseline oxygen needs 4LPM continuously (5) COPD, severe: chronic, not in exacerbation at this time. (6) Sleep apnea: BIPAP with oxygen qHS (7) BPH loc w urin obs/LUTS: cont finasteride and tamsulosin per home regimen. (8) Schizoaffective disorder: alert and oriented. Absolutely no issues during this admission. Mentating clearly. At time of discharge he was mentating and ambulating at baseline and was tolerating PO. He wsa oxygenating at his baseline needs and was discharged to home in stable condiiton with close primary care followup recommended to ensure complete resolution of pneumonia and ensure he is continuing to recover without issues. Of note, as his reported his initial presentation was similar to episodes of pneumonia she had seen in him earlier, he was continued on a short course of antibiotics and improved. Total Time Total Time Spent Total Time Spent (In Minutes): 60 Discharge Plan Discharge Items Patient Disposition: Home - Home Health Services Reason For Visit: HYPOXIA, WEAKNESS, COVID+ Discharge Diagnosis: Pneumonia due to covid-19 with possible superimposed bacterial infection weakness s/p fall chronic respiratory failure with hypoxia due to underlying COPD, on continuous home oxygen. Activity: Resume your previous activity Non-emergency contact: Primary Care Provider Call non-emergency contact if: you have any medication questions and your symptoms worsen Follow-up/Referrals: Clau Batista DO [Primary Care Provider] - (Date & Time 12/31/2020 11:00 AM Provider Clau Batista DO Department [facility] ) Diet: Carb Consistent or DM2 Addtl Attending Provider Instructions: Please take all medications as instructed on discharge list below. You are being given a short course of steroids and antibiotics to continue at home. It is recommended that you follow-up with your primary care provider within one week to ensure you are still doing well after returning home. Repeat chest imaging is recommended in 4-6 weeks to ensure complete resolution of pneumonia. It was a pleasure taking care of you! Please call if you have any questions or problems. You can reach a [facility] hospitalist on duty at [facility] 24 hours a day by calling [phone]. Take care of yourself. Gypsy Gutiérrez, [facility] Hospitalist Pending Studies at Discharge: No Stand-Alone Forms: My [facility] Medications and DC Order Prescriptions: New amoxicillin-pot clavulanate [Augmentin] 875-125 mg Tablet 1 tab PO BIDM Qty: 6 RF: 0 doxycycline hyclate 100 mg Capsule 100 mg PO BID Qty: 6 RF: 0 dexamethasone [Decadron] 6 mg tablet 6 mg PO DAILY Qty: 6 RF: 0 Continued (DME) Oxygen Home Liters Per Minute See Rx Instructions .ROUTE .MEDSUPPLY Qty: 1 RF: 0 Spiriva Respimat 2.5 mcg/actuation mist 2 puff INHALATION QAM Qty: 1 RF: 5 losartan [Cozaar] 50 mg tablet 25 mg PO QAM RF: 0 atorvastatin [Lipitor] 80 mg tablet 80 mg PO HS RF: 0 lamotrigine [Lamictal] 200 mg tablet 200 mg PO QAM RF: 0 pantoprazole [Protonix] 40 mg tablet,delayed release (DR/EC) 40 mg PO HS Qty: 30 RF: 0 timolol maleate [Istalol] 0.5 % drops, once daily 1 drp OPB QAM RF: 0 gabapentin [Neurontin] 600 mg tablet 600 mg PO BID RF: 0 albuterol sulfate [Ventolin HFA] 90 mcg/actuation HFA aerosol inhaler 2 puffs INH Q4H PRN (Reason: increased cough, shortness of breath or wheezing) Qty: 18 RF: 5 Probiotic 3 billion cell Capsule 3,000 mmu cells PO QAM RF: 0 olanzapine [Zyprexa] 15 mg tablet 30 mg PO DAILY@1999 RF: 0 fluoxetine [Prozac] 40 mg capsule 40 mg PO QAM RF: 0 metoprolol succinate [Toprol XL] 50 mg tablet extended release 24 hr 50 mg PO HS RF: 0 amlodipine [Norvasc] 5 mg tablet 5 mg PO QAM RF: 0 fluoxetine [Prozac] 20 mg capsule 20 mg PO QAM RF: 0 tamsulosin [Flomax] 0.4 mg capsule 0.4 mg PO HS RF: 0 finasteride [Proscar] 5 mg tablet 5 mg PO QAM RF: 0 Discharge Orders: Discharge Order (Routine); Ordered 12/26/20 Ordered By: Gypsy Gutiérrez Admission Data Admit Date/Time: 12/22/20 18:47 Attending Provider: Gypsy Gutiérrez Admit Provider: Gypsy Gutiérrez Primary Care Provider: Clau Batista Other Providers: Gypsy Gutiérrez Other Interventions: Discharge Summary Assessment (RN) Last Done: 12/26/20 13:46
== END 2020-12-26 14:40 | disposition home health service (06) | DRG 177 ==
LOC: ED 15:07 → 2N 18:47

== ENCOUNTER 2021-10-05 23:51 | Observation (INO) ==
--- NOTE | 2021-10-06 00:10 | Emergency Department Note ---
History of Present Illness General Chief complaint: Fall Time Seen by Provider: 10/05/21 23:58 History of Present Illness 76-year-old male presents emergency department reportedly has a history of lightheadedness he was at home trying to walk he does use a walker he states he felt lightheaded and then fell to the floor. Patient denies hitting his head denies neck pain denies numbness or tingling states general weakness. States he was unable to get off the floor. Patient states he has had a prior history of the same which was attributed to generalized weakness. Patient denies nausea vomiting diarrhea denies fever denies cough. There are no other mitigating or alleviating factors Home Medications Medication Instructions Recorded Confirmed Type atorvastatin 80 mg tablet (Lipitor) 80 mg PO HS 09/07/18 10/06/21 History lamotrigine 200 mg tablet 200 mg PO QAM 09/07/18 10/06/21 History (Lamictal) losartan 50 mg tablet (Cozaar) 25 mg PO QAM 09/07/18 10/06/21 History pantoprazole 40 mg tablet,delayed 40 mg PO BID #30 tabs 09/07/18 10/06/21 History release (Protonix) timolol maleate 0.5 % once daily 1 drp OPB QA 09/07/18 10/06/21 History eye drops (Istalol) gabapentin 600 mg tablet 600 mg PO BID 12/20/18 10/06/21 History (Neurontin) lactobacillus combination no.4 3 3,000 mmu cells PO QAM 01/02/19 10/06/21 History billion cell capsule (Probiotic) amlodipine 5 mg tablet (Norvasc) 5 mg PO QAM 09/06/20 10/06/21 History fluoxetine 20 mg capsule (Prozac) 20 mg PO QAM 09/06/20 10/06/21 History fluoxetine 40 mg capsule (Prozac) 40 mg PO QAM 09/06/20 10/06/21 History metoprolol succinate 50 mg 50 mg PO 09/06/20 10/06/21 History tablet,extended release 24 hr (Toprol XL) Oxygen Home #1 ea 10/22/20 10/06/21 Rx cholecalciferol (vitamin D3) 125 125 mcg PO QAM 08/12/21 10/06/21 History mcg (5,000 unit) capsule ferrous sulfate 325 mg (65 mg 325 mg PO QAM 08/12/21 10/06/21 History iron) tablet finasteride 5 mg tablet (Proscar) 5 mg PO QAM 08/14/21 10/06/21 History polyethylene glycol 3350 17 gram 17 g PO QAM 08/14/21 10/06/21 History oral powder packet (Miralax) tamsulosin 0.4 mg capsule (Flomax) 0.4 mg PO QAM 08/14/21 10/06/21 History albuterol sulfate 90 mcg/actuation 2 puff inhalation Q6H PRN 08/19/21 10/06/21 Rx aerosol inhaler (Ventolin HFA) increased cough, shortness of breath or wheezing #8.5 grams budesonide-formoterol HFA 80 2 puff inhalation BID #10.2 grams 08/19/21 10/06/21 Rx mcg-4.5 mcg/actuation aerosol inhaler (Symbicort) tiotropium bromide 2.5 2 puff inhalation QAM #4 grams 08/19/21 10/06/21 Rx mcg/actuation mist for inhalation (Spiriva Respimat) olanzapine 15 mg tablet 30 mg PO QPM 10/06/21 10/06/21 History Allergies Allergy/AdvReac Type Severity Reaction Status Date / Time No Known Allergies Allergy Verified 10/06/21 00:20 Past Med/Surg History Medical History 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 difficile diarrhea HX Carotid aneurysm, right LEBRON 3mm aneurysm- HX follow with neurosurgery and since cleared -- per pt's , recent CT at [facility] w/o evidence of aneurysm, says only evidence of carotid stenosis Chronic hypoxemic respiratory failure Chronic kidney disease follows with [facility] nephrology Chronic obstructive pulmonary disease + emphysema, O2 2-3L continuous PT NOT SURE DETAILS ON DX LUNG ISSUES, REPORTS CONTINUOUS O2 2-3 L Chronic obstructive pulmonary disease Chronic respiratory disease Dependence on continuous supplemental oxygen 02 2-3L CONTINUOUS DMII (diabetes mellitus, type 2) PT DENIES -NO MEDS OR DIETARY MANAGEMENT Dyslipidemia Fall HX Glaucoma Gout HX History of COVID-19 POS TEST 12/22/20 [place] History of pacemaker BRADYCHARDIA, BIOTRONIK , PLACED APRIL 2020 - "AUTOMATIC CHECKS" History of pneumonia SEP 2019 - [facility] History of sepsis 2013 Hyperlipidemia Hypertension Low hemoglobin R/O SUSPECTED GI BLEED, REASON FOR UPCOMING PROCEDURE Neurogenic bladder PT REPORTS OVERACTIVE BLADDER MUKUL (obstructive sleep apnea) SLEEP APNEA, BIPAP MUKUL (obstructive sleep apnea) Osteoarthritis Restless leg syndrome SSS (sick sinus syndrome) PT REPORTS SLOW HEART RATE REASON FOR PACEMAKER Uses [place] catheter qHS Weakness GENERAL/MOBILITY ISSUES Surgical History History of appendectomy History of cardiac cath 1 STENT EACH TIME [facility]-F/U DR [facility] History of cataract surgery BILAT History of colonoscopy History of dental surgery History of endoscopy JUNE 2021 - NO FINDINGS History of heart artery stent x 2 History of pacemaker Status post left knee replacement (~10/2019) HX Status post placement of implantable loop recorder Family History Mother Stroke Dementia Sister Heart disease Sister Stroke Brother No problems noted. 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 Beliefs That Will Affect Care: None marital status: Current Living Situation: Spouse current occupational status: retired Feels Safe at Home: Yes Assistive Devices: BiPap, Cane, Denture - Upper, Denture - Lower, Glasses, Oxygen - Continuous and Walker Physical Exam Vital Signs Vital Signs - 24 hr 10/05/21 23:56 10/06/21 00:01 10/06/21 00:30 Temperature 36.9 C Temperature Source Oral Pulse Rate 73 74 70 Pulse Rate from SpO2 Sensor 74 70 Pulse Rhythm Regular Pulse Strength Normal Respiratory Rate 16 17 13 Respiratory Effort / Characteristics Non-Labored Spontaneous Respiratory Depth Normal Blood Pressure 112/64 Blood Pressure Mean 80 Blood Pressure Position Lying Pulse Oximetry 96 95 96 Oxygen Delivery Method Nasal Cannula Oxygen Flow Rate 3 Sepsis Recent Fever Within 48 Hours No Sepsis New/Unexplained Change in Mental Status N/A Sepsis Action Taken by Nursing No Action Required 10/06/21 00:49 10/06/21 00:49 10/06/21 01:00 Temperature Temperature Source Pulse Rate 71 Pulse Rate from SpO2 Sensor 72 Pulse Rhythm Pulse Strength Respiratory Rate 14 Respiratory Effort / Characteristics Respiratory Depth Blood Pressure 110/64 97/59 L Blood Pressure Mean 79 71 Blood Pressure Position Pulse Oximetry 92 Oxygen Delivery Method Oxygen Flow Rate Sepsis Recent Fever Within 48 Hours Sepsis New/Unexplained Change in Mental Status Sepsis Action Taken by Nursing 10/06/21 01:00 10/06/21 01:30 10/06/21 01:30 Temperature Temperature Source Pulse Rate 71 69 Pulse Rate from SpO2 Sensor 71 Pulse Rhythm Pulse Strength Respiratory Rate 14 15 Respiratory Effort / Characteristics Respiratory Depth Blood Pressure 107/57 L Blood Pressure Mean 73 Blood Pressure Position Pulse Oximetry 93 Oxygen Delivery Method Oxygen Flow Rate Sepsis Recent Fever Within 48 Hours Sepsis New/Unexplained Change in Mental Status Sepsis Action Taken by Nursing 10/06/21 02:00 10/06/21 02:00 10/05/21 23:46 Temperature Temperature Source Pulse Rate 70 72 Pulse Rate from SpO2 Sensor Pulse Rhythm Regular Pulse Strength Respiratory Rate 16 16 Respiratory Effort / Characteristics Respiratory Depth Blood Pressure 116/60 Blood Pressure Mean 78 Blood Pressure Position Pulse Oximetry 98 Oxygen Delivery Method Nasal Cannula Oxygen Flow Rate Sepsis Recent Fever Within 48 Hours Sepsis New/Unexplained Change in Mental Status Sepsis Action Taken by Nursing 10/06/21 02:30 10/06/21 02:30 Temperature Temperature Source Pulse Rate 66 Pulse Rate from SpO2 Sensor Pulse Rhythm Pulse Strength Respiratory Rate 13 Respiratory Effort / Characteristics Respiratory Depth Blood Pressure 104/58 L Blood Pressure Mean 73 Blood Pressure Position Pulse Oximetry Oxygen Delivery Method Oxygen Flow Rate Sepsis Recent Fever Within 48 Hours Sepsis New/Unexplained Change in Mental Status Sepsis Action Taken by Nursing VITAL SIGNS - Vital signs and nursing notes were reviewed. GENERAL - no acute distress. Communicates well with provider and answers questions appropriately. SKIN - Without rashes. HEAD - NC/AT. EYES - PERRL with EOMI bilaterally. Sclera anicteric. Palpebral conjunctiva pink and moist with no injection noted. EARS - No deformities of external structures noted on gross examination bilaterally. NOSE - Midline and without cyanosis. No epistaxis or purulent drainage noted. Septum midline without deviation or septal hematoma noted. MOUTH/OROPHARYNX - Without perioral cyanosis. Buccal mucosa pink and moist NECK - Neck with FROM. Supple to palpation. . No nuchal rigidity. LUNGS - Chest wall symmetric without accessory muscle use, intercostals retrac tions, or central cyanosis. Normal vesicular breath sounds CTA B/L. No wheezes, rales, or rhonchi appreciated. CARDIAC - RRR with S1/S2. No murmur, rubs, or gallops appreciated. ABDOMEN - Abdominal contour soft without pulsations or visible masses. BS normoactive all four quadrants. No tenderness, palpable masses, hepatosplenomegaly, or ascites noted. EXTREMITIES - No clubbing or peripheral cyanosis. No pretibial edema present. 4-5 upper extremity, 4 out of 5 lower extremity strength. NEUROLOGIC - Cranial nerves II through XII grossly intact. PSYCH - A&Ox3 and cooperates fully with examiner. Pt is very pleasant and interacts well with examiner. Course Reevaluation(s) Reevaluation #1: Patient was started on IV fluids, patient has an elevated creatinine that is way above baseline for this patient. Patient's is extremely weak. The case was discussed with the [facility] hospitalist for admission for KELLEN weakness and fall. Time: 02:13 Administered Medications Discontinued Medications Sodium Chloride (Nss 1000ml) 1,000 mls @ 999 mls/hr IV .Q1H1M ONE Stop: 10/06/21 02:34 Last Admin: 10/06/21 02:22 Dose: 999 mls/hr Documented By: MERLE Sodium Chloride (Nss 1000ml) 1,000 mls @ 999 mls/hr IV .Q1H1M ONE Stop: 10/06/21 02:49 Last Admin: 10/06/21 02:22 Dose: 999 mls/hr Documented By: MERLE Critical Care Time Critical Care Time: Yes Total Critical Care Time: 35 I have personally spent greater than 35 minutes of critical care time in the direct management of this patient. This includes bedside care, interpretation of diagnostic studies, and testing, discussion with consultants, patient, and family members, and other required patient management activities. These minutes are in excess of all separately billable procedures. Medical Decision Making Medical Records Attestation: I reviewed the patient's medical records. Home Medications Current Medication List: was personally reviewed by me Laboratory Data Attestation: I reviewed the patient's lab results. Result diagrams: 10/05/21 23:58 10/05/21 23:58 Lab Results 10/05/21 10/05/21 10/05/21 Range/Units 23:58 23:58 23:58 WBC 7.66 (4.8-10.8) K/ul RBC 4.15 L (4.63-6.08) M/uL Hgb 11.2 L (14.0-18.0) g/dl Hct 36.0 L (40.1-51.0) % MCV 86.7 (80.0-100.0) fL MCH 27.0 (25.0-34.0) pg MCHC 31.1 L (32.0-36.0) g/dL RDW Std Deviation 58.8 H (36.4-46.3) fL RDW Coeff of Hermes 18.6 H (11.5-14.5) % Plt Count 155 (130-400) K/uL MPV 10.2 (9.4-12.4) fL Immature Gran % (Auto) 0.1 % Neut % (Auto) 76.4 % Lymph % (Auto) 11.5 % Maries % (Auto) 10.3 % Eos % (Auto) 1.4 % Baso % (Auto) 0.3 % Neut # (Auto) 5.85 (1.4-6.5) K/uL Lymph # (Auto) 0.88 L (1.2-3.4) K/uL Maries # (Auto) 0.79 (0.24-0.82) K/uL Eos # (Auto) 0.11 (0-0.50) K/uL Baso # (Auto) 0.02 (0-0.2) K/uL Immature Gran # (Auto) 0.01 (0.00-0.02) K/uL PT Cancelled INR Cancelled Sodium 140 (136-145) mmol/L Potassium 4.2 (3.5-5.1) mmol/L Chloride 106 (98-107) mmol/L Carbon Dioxide 23 (21-32) mmol/L Anion Gap 11 (3-11) BUN 48 H (6-23) mg/dl Creatinine 2.53 H (0.6-1.4) mg/dl Est Cr Clr Drug Dosing 28.1 ml/min Est GFR ( Amer) 27.3 ml/min Est GFR (Non-Af Amer) 23.5 ml/min BUN/Creatinine Ratio 19.0 (10-20) Glucose 89 (70-99(Fasting)) mg/dl Calcium 9.6 (8.5-10.1) mg/dl Magnesium 2.2 (1.7-2.4) mg/dl Total Bilirubin 0.6 (0.2-1.0) mg/dl AST 23 (13-39) U/L ALT 25 (7-52) U/L Alkaline Phosphatase 94 (34-104) U/L Troponin I High Sens 16.1 (0-20) pg/ml Total Protein 7.0 (6.0-8.3) gm/dl Albumin 3.7 (3.4-5.0) gm/dl Globulin 3.3 (2.5-4.0) gm/dl Albumin/Globulin Ratio 1.1 (0.9-2) SARS-CoV-2, RNA, NAAT (NEGATIVE) 10/06/21 10/06/21 Range/Units 00:20 01:14 WBC (4.8-10.8) K/ul RBC (4.63-6.08) M/uL Hgb (14.0-18.0) g/dl Hct (40.1-51.0) % MCV (80.0-100.0) fL MCH (25.0-34.0) pg MCHC (32.0-36.0) g/dL RDW Std Deviation (36.4-46.3) fL RDW Coeff of Hermes (11.5-14.5) % Plt Count (130-400) K/uL MPV (9.4-12.4) fL Immature Gran % (Auto) % Neut % (Auto) % Lymph % (Auto) % Maries % (Auto) % Eos % (Auto) % Baso % (Auto) % Neut # (Auto) (1.4-6.5) K/uL Lymph # (Auto) (1.2-3.4) K/uL Maries # (Auto) (0.24-0.82) K/uL Eos # (Auto) (0-0.50) K/uL Baso # (Auto) (0-0.2) K/uL Immature Gran # (Auto) (0.00-0.02) K/uL PT 11.9 INR 1.1 Sodium (136-145) mmol/L Potassium (3.5-5.1) mmol/L Chloride (98-107) mmol/L Carbon Dioxide (21-32) mmol/L Anion Gap (3-11) BUN (6-23) mg/dl Creatinine (0.6-1.4) mg/dl Est Cr Clr Drug Dosing ml/min Est GFR ( Amer) ml/min Est GFR (Non-Af Amer) ml/min BUN/Creatinine Ratio (10-20) Glucose (70-99(Fasting)) mg/dl Calcium (8.5-10.1) mg/dl Magnesium (1.7-2.4) mg/dl Total Bilirubin (0.2-1.0) mg/dl AST (13-39) U/L ALT (7-52) U/L Alkaline Phosphatase (34-104) U/L Troponin I High Sens (0-20) pg/ml Total Protein (6.0-8.3) gm/dl Albumin (3.4-5.0) gm/dl Globulin (2.5-4.0) gm/dl Albumin/Globulin Ratio (0.9-2) SARS-CoV-2, RNA, NAAT NEGATIVE (NEGATIVE) Imaging Data Attestation: I personally reviewed and interpreted this imaging study as follows: My Impression: Chest x-ray interpreted by me poor inspiratory effort cardiomegaly pacemaker is present no obvious significant infiltrate Radiologist's Impression: Preliminary Findings Only See Final Report For Complete Findings CT HEAD: No intracranial hemorrhage, mass-effect or midline shift. There is no abnormal extra axial fluid corrosion. No evidence of acute infarct. Mild periventricular white matter hypodensities are most consistent with chronic microangiopathy. Minimal because of thickening of the ethmoid, sphenoid and maxillary sinuses. No mastoid effusion. No fracture. Radiologist: Valentina Kapoor MD Phone: Study ready at 00:56 and initial results transmitted at 01:21 ECG Data Attestation: I personally reviewed and interpreted this ECG as follows: Additional Comments: EKG interpreted by me paced rhythm rate of [address] segment elevation or depression left axis deviation is present MDM Narrative Medical decision making differential diagnosis includes near syncope, syncope, dizziness, metabolic derangement, urinary tract infection. Plan is to check labs EKG, CT, observe Impression & Plan KELLEN (acute kidney injury), Weakness, Fall Discharge Plan Visit Data Chief Complaint: Fall ED Provider: Víctor Suarez Discharge Problem: KELLEN (acute kidney injury), Weakness, Fall Patient Disposition: Being Evaluated by Hospitalist Forms Stand Alone Forms: My [facility] Prescriptions Prescriptions: No Action (DME) Oxygen Home Liters Per Minute See Rx Instructions .ROUTE .MEDSUPPLY Qty: 1 0RF Rx Instructions: Patient requires oxygen at 3 l/m via n/c continuously. Please provide light weight portable oygen concentrator. Lifetime need. ferrous sulfate 325 mg (65 mg iron) tablet 325 mg PO QAM cholecalciferol (vitamin D3) 125 mcg (5,000 unit) capsule 125 mcg PO QAM Spiriva Respimat 2.5 mcg/actuation mist 2 puff inhalation QAM Qty: 4 5RF Rx Instructions: INHALE 2 SPRAY(S) BY MOUTH IN THE MORNING albuterol sulfate [Ventolin HFA] 90 mcg/actuation HFA aerosol inhaler 2 puff INH Q6H PRN (Reason: increased cough, shortness of breath or wheezing) Qty: 8.5 5RF budesonide-formoterol [Symbicort] 80-4.5 mcg/actuation HFA aerosol inhaler 2 puff inhalation BID Qty: 10.2 3RF losartan [Cozaar] 50 mg tablet 25 mg PO QAM atorvastatin [Lipitor] 80 mg tablet 80 mg PO HS lamotrigine [Lamictal] 200 mg tablet 200 mg PO QAM pantoprazole [Protonix] 40 mg tablet,delayed release (DR/EC) 40 mg PO BID Qty: 30 timolol maleate [Istalol] 0.5 % drops, once daily 1 drp OPB QAM gabapentin [Neurontin] 600 mg tablet 600 mg PO BID Probiotic 3 billion cell Capsule 3,000 mmu cells PO QAM fluoxetine [Prozac] 40 mg capsule 40 mg PO QAM Rx Instructions: Take with 20mg capsule metoprolol succinate [Toprol XL] 50 mg tablet extended release 24 hr 50 mg PO HS amlodipine [Norvasc] 5 mg tablet 5 mg PO QAM fluoxetine [Prozac] 20 mg capsule 20 mg PO QAM Rx Instructions: Take with 40mg capsule tamsulosin [Flomax] 0.4 mg capsule 0.4 mg PO QAM finasteride [Proscar] 5 mg tablet 5 mg PO QAM polyethylene glycol 3350 [Miralax] 17 gram Powder In Packet 17 g PO QAM olanzapine 15 mg tablet 30 mg PO QPM Rx Instructions: take 2 tablets at 8pm Referrals Referrals: Clau Batista, [Primary Care Provider] -
[2021-10-06 00:42] LABS: Basophils # (auto) 0.02 K/uL (0-0.2); Basophils % (auto) 0.3 %; Eosinophils # (auto) 0.11 K/uL (0-0.50); Eosinophils % (auto) 1.4 %; Hemoglobin 11.2 g/dl (14.0-18.0); Immature Granulocytes # (auto) 0.01 K/uL (0.00-0.02); Immature Granulocytes % (auto) 0.1 %; Lymphocytes # (auto) 0.88 K/uL (1.2-3.4); Lymphocytes % (auto) 11.5 %; Mean Corpuscular Hgb Conc 31.1 g/dL (32.0-36.0); Mean Corpuscular Volume 86.7 fL (80.0-100.0); Mean Platelet Volume 10.2 fL (9.4-12.4); Monocytes # (auto) 0.79 K/uL (0.24-0.82); Monocytes % (auto) 10.3 %; Neutrophils # (auto) 5.85 K/uL (1.4-6.5); Neutrophils % (auto) 76.4 %; Platelet Count 155 K/uL (130-400); RDW Coefficient of Variation 18.6 % (11.5-14.5); RDW Standard Deviation 58.8 fL (36.4-46.3); Red Blood Count 4.15 M/uL (4.63-6.08); White Blood Count 7.66 K/ul (4.8-10.8)
[2021-10-06 01:09] LABS: Troponin I High Sensitivity 16.1 pg/ml (0-20)
[2021-10-06 01:28] LABS: Albumin Globulin Ratio 1.1 (0.9-2); Albumin Level 3.7 gm/dl (3.4-5.0); Bilirubin,Total 0.6 mg/dl (0.2-1.0); Calcium 9.6 mg/dl (8.5-10.1); Creatinine Clr Calc Pharmacy 28.1 ml/min; Est GFR (African American) 27.3 ml/min; Est GFR (Non-African American) 23.5 ml/min; Globulin 3.3 gm/dl (2.5-4.0); Magnesium 2.2 mg/dl (1.7-2.4); Potassium 4.2 mmol/L (3.5-5.1)
[2021-10-06] MEDS ORDERED: SODIUM CHLORIDE 0.9% 1000ML 1,000 ML IV ONE ×2 (01:34→01:49)
[2021-10-06 01:40] LABS: INR 1.1 (0.9-1.1); Prothrombin Time 11.9 Seconds (9.0-12.0)
--- NOTE | 2021-10-06 03:18 | History & Physical Report ---
Date of Service October 06, 2021 Assessment & Plan (1) Encephalopathy: Plan: Multifactorial : ARF on CKD rule out obstruction, history BPH/neurogenic bladder Neuropsychotropic meds possibly contributory given decreased renal function Rule out hypercapnia, given history of chronic resp failure 2 to COPD on home O2, MUKUL on BiPAP chronic right-sided heart failure as per records (50%, TTE 2019), equivocal volume status with recent kidney function and minimal congestion on CXR hx CAD status post stent SSS status post PPM hypertension, EP on the lower side upon arrival at the ER hyperlipidemia on statin Rx, chronic resp failure 2 to COPD on home O2, DM2 on oral meds, well-controlled as above recent hemoglobin A1c of 6.4 last October 2020 chronic anemia, hemoglobin at baseline past tobacco abuse OBS Medical telemetry Baseline UA, monitor creatinine response to IVF Hold losartan until creatinine back to baseline Renal ultrasound, Nephrology consult if kidney function does not improve after initial fluid bolus at the ER Hold home neuropsychotropic meds until patient more awake, dose may be adjusted for renal function Check ABG BiPAP as needed Basal bolus insulin, ISS BG goal 1 10-1 40, carb count coverage, update hemoglobin A1c PT OT eval DVT prophylaxis. Heparin subcu Full code as per patient's , Ms. Christal Medel. She requests for updates from providers thru contact #[phone]. Text document was generated using tic voice recognition software. It may contain grammatical or spelling errors. Kindly contact undersigned for clarification of any documentation item in question. History of Present Illness Chief Complaint: Fall, lightheadedness as per records Primary Care Provider: Clau Batista, History obtained from patient, family, and records. Limited history from patient secondary to obtunded state. Medical history significant for chronic right-sided heart failure as per records (50%, TTE 2019), CAD status post stent, SSS status post PPM, hypertension, hyperlipidemia, chronic resp failure 2 to COPD on home O2, MUKUL on BiPAP, DM2 on oral meds, CRI (baseline creatinine 1.5 ), schizoaffective disorder, BPH/hx neurogenic bladder, chronic anemia (baseline hemoglobin 11), past tobacco abuse Last confinement March 2020 for severe COVID-19 pneumonia. Yesterday patient noted to be weak with chills as per . Patient with lightheadedness causing him to fall down. Unable to get up from the floor. Patient denies chest pain, SOB, headache, abdominal pain, dysuria symptoms. No unusual weight gain as per . No head trauma as per . No new medications except for inhalers as per . Patient brought to the ER for evaluation. Currently snoring soundly and minimally arousable. MEDICAL HISTORY: As above. SURGERIES: PPM, appendectomy, cataract surgery, dental surgery, left knee replacement FAMILY HISTORY: heart disease, stroke, dementia PERSONAL AND SOCIAL HISTORY: Remote tobacco use. 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 Allergies Allergy/AdvReac Type Severity Reaction Status Date / Time No Known Allergies Allergy Verified 10/06/21 00:20 Home Medications Medication Instructions Recorded Confirmed Type atorvastatin 80 mg tablet (Lipitor) 80 mg PO HS 09/07/18 10/06/21 History lamotrigine 200 mg tablet 200 mg PO QAM 09/07/18 10/06/21 History (Lamictal) losartan 50 mg tablet (Cozaar) 25 mg PO QAM 09/07/18 10/06/21 History pantoprazole 40 mg tablet,delayed 40 mg PO BID #30 tabs 09/07/18 10/06/21 History release (Protonix) timolol maleate 0.5 % once daily 1 drp OPB QA 09/07/18 10/06/21 History eye drops (Istalol) gabapentin 600 mg tablet 600 mg PO BID 12/20/18 10/06/21 History (Neurontin) lactobacillus combination no.4 3 3,000 mmu cells PO QAM 01/02/19 10/06/21 History billion cell capsule (Probiotic) amlodipine 5 mg tablet (Norvasc) 5 mg PO QAM 09/06/20 10/06/21 History fluoxetine 20 mg capsule (Prozac) 20 mg PO QAM 09/06/20 10/06/21 History fluoxetine 40 mg capsule (Prozac) 40 mg PO QAM 09/06/20 10/06/21 History metoprolol succinate 50 mg 50 mg PO HS 09/06/20 10/06/21 History tablet,extended release 24 hr (Toprol XL) Oxygen Home #1 ea 10/22/20 10/06/21 Rx cholecalciferol (vitamin D3) 125 125 mcg PO QAM 08/12/21 10/06/21 History mcg (5,000 unit) capsule ferrous sulfate 325 mg (65 mg 325 mg PO QAM 08/12/21 10/06/21 History iron) tablet finasteride 5 mg tablet (Proscar) 5 mg PO QAM 08/14/21 10/06/21 History polyethylene glycol 3350 17 gram 17 g PO QAM 08/14/21 10/06/21 History oral powder packet (Miralax) tamsulosin 0.4 mg capsule (Flomax) 0.4 mg PO QAM 08/14/21 10/06/21 History albuterol sulfate 90 mcg/actuation 2 puff inhalation Q6H PRN 08/19/21 10/06/21 Rx aerosol inhaler (Ventolin HFA) increased cough, shortness of breath or wheezing #8.5 grams budesonide-formoterol HFA 80 2 puff inhalation BID #10.2 grams 08/19/21 10/06/21 Rx mcg-4.5 mcg/actuation aerosol inhaler (Symbicort) tiotropium bromide 2.5 2 puff inhalation QAM #4 grams 08/19/21 10/06/21 Rx mcg/actuation mist for inhalation (Spiriva Respimat) olanzapine 15 mg tablet 30 mg PO QPM 10/06/21 10/06/21 History Past Med/Surg History Medical History 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 difficile diarrhea HX Carotid aneurysm, right LEBRON 3mm aneurysm- HX follow with neurosurgery and since cleared -- per pt's , recent CT at [facility] w/o evidence of aneurysm, says only evidence of carotid stenosis Chronic hypoxemic respiratory failure Chronic kidney disease follows with [facility] nephrology Chronic obstructive pulmonary disease + emphysema, O2 2-3L continuous PT NOT SURE DETAILS ON DX LUNG ISSUES, REPORTS CONTINUOUS O2 2-3 L Chronic obstructive pulmonary disease Chronic respiratory disease Dependence on continuous supplemental oxygen 02 2-3L CONTINUOUS DMII (diabetes mellitus, type 2) PT DENIES -NO MEDS OR DIETARY MANAGEMENT Dyslipidemia Fall HX Glaucoma Gout HX History of COVID-19 POS TEST 12/22/20 DC History of pacemaker BRADYCHARDIA, BIOTRONIK , PLACED APRIL 2020 - "AUTOMATIC CHECKS" History of pneumonia SEP 2019 - [facility] History of sepsis 2013 Hyperlipidemia Hypertension Low hemoglobin R/O SUSPECTED GI BLEED, REASON FOR UPCOMING PROCEDURE Neurogenic bladder PT REPORTS OVERACTIVE BLADDER MUKUL (obstructive sleep apnea) SLEEP APNEA, BIPAP MUKUL (obstructive sleep apnea) Osteoarthritis Restless leg syndrome SSS (sick sinus syndrome) PT REPORTS SLOW HEART RATE REASON FOR PACEMAKER Uses [place] catheter qHS Weakness GENERAL/MOBILITY ISSUES Surgical History History of appendectomy History of cardiac cath 1 STENT EACH TIME [facility]-F/U DR [facility] History of cataract surgery BILAT History of colonoscopy History of dental surgery History of endoscopy JUNE 2021 - NO FINDINGS History of heart artery stent x 2 History of pacemaker Status post left knee replacement (~10/2019) HX Status post placement of implantable loop recorder Family History Mother Stroke Dementia Sister Heart disease Sister Stroke Brother No problems noted. Father Black lung disease Other No family history of adverse response to anesthesia Social History Smoking Status: Former smoker Tobacco Type: Cigarettes Cigarettes Per Day: HX HEAVY SMOKING; Number of Years Since Quit: 15; Second Hand Exposure: No; Hx Alcohol Use: No Hx Substance Use: No Preferred Language: Mongolian Communication Ability: Effective Visual Impairment: No Limitations Developmental Mathematics Professor Required: No Beliefs That Will Affect Care: Judaism Judaism Beliefs: sabianist marital status: Current Living Situation: Spouse Current Living Situation Comment: lives w/ current occupational status: retired Feels Safe at Home: Yes Safety Concerns: Feels Safe At This Time Assistive Devices: Oxygen - Continuous and Walker Review of Systems 2 Review of Systems: Could not be reliably obtained secondary to obtunded state Physical Exam Physical Exam: GENERAL: Obtunded, snoring, obese, no respiratory distress SKIN: Pallor, warm HEENT: Pale palpebral conjunctivae, no ptosis, dry buccal mucosa, nasal cannula in place NECK : Supple, short neck, no tenderness CHEST : Decreased breath sounds, no tenderness HEART : RRR, no obvious murmurs ABDOMEN: Some distention, nontender EXTREMITIES : Minimal LE swelling, no LE tenderness, no other conspicuous deformities noted NEUROLOGIC : Obtunded, no facial asymmetry, gait and stance not assessed Results & Data Results & Data ([facility]) Vital Signs (Past 12 Hours) Vital Signs Temp Pulse Resp BP Pulse Ox O2 Del Method O2 Flow Rate 10/06/21 02:30 66 13 10/06/21 02:30 104/58 L 10/05/21 23:46 72 16 98 Nasal Cannula 10/06/21 02:00 70 16 10/06/21 02:00 116/60 10/06/21 01:30 69 15 10/06/21 01:30 107/57 L 10/06/21 01:00 71 14 93 10/06/21 01:00 97/59 L 10/06/21 00:49 71 14 92 10/06/21 00:49 110/64 10/06/21 00:30 70 13 96 10/06/21 00:01 74 17 95 10/05/21 23:56 36.9 C 73 16 112/64 96 Nasal Cannula 3 Laboratory Results Laboratory Results WBC 7.66 K/ul (4.8-10.8) 10/05/21 23:58 RBC 4.15 M/uL (4.63-6.08) L 10/05/21 23:58 Hgb 11.2 g/dl (14.0-18.0) L 10/05/21 23:58 Hct 36.0 % (40.1-51.0) L 10/05/21 23:58 MCV 86.7 fL (80.0-100.0) 10/05/21 23:58 MCH 27.0 pg (25.0-34.0) 10/05/21 23:58 MCHC 31.1 g/dL (32.0-36.0) L 10/05/21 23:58 RDW Std Deviation 58.8 fL (36.4-46.3) H 10/05/21 23:58 RDW Coeff of Hermes 18.6 % (11.5-14.5) H 10/05/21 23:58 Plt Count 155 K/uL (130-400) 10/05/21 23:58 MPV 10.2 fL (9.4-12.4) 10/05/21 23:58 Immature Gran % (Auto) 0.1 % 10/05/21 23:58 Neut % (Auto) 76.4 % 10/05/21 23:58 Lymph % (Auto) 11.5 % 10/05/21 23:58 Clinch % (Auto) 10.3 % 10/05/21 23:58 Eos % (Auto) 1.4 % 10/05/21 23:58 Baso % (Auto) 0.3 % 10/05/21 23:58 Neut # (Auto) 5.85 K/uL (1.4-6.5) 10/05/21 23:58 Lymph # (Auto) 0.88 K/uL (1.2-3.4) L 10/05/21 23:58 Clinch # (Auto) 0.79 K/uL (0.24-0.82) 10/05/21 23:58 Eos # (Auto) 0.11 K/uL (0-0.50) 10/05/21 23:58 Baso # (Auto) 0.02 K/uL (0-0.2) 10/05/21 23:58 Immature Gran # (Auto) 0.01 K/uL (0.00-0.02) 10/05/21 23:58 PT 11.9 Seconds (9.0-12.0) 10/06/21 01:14 INR 1.1 (0.9-1.1) 10/06/21 01:14 Sodium 140 mmol/L (136-145) 10/05/21 23:58 Potassium 4.2 mmol/L (3.5-5.1) 10/05/21 23:58 Chloride 106 mmol/L (98-107) 10/05/21 23:58 Carbon Dioxide 23 mmol/L (21-32) 10/05/21 23:58 Anion Gap 11 (3-11) 10/05/21 23:58 BUN 48 mg/dl (6-23) H 10/05/21 23:58 Creatinine 2.53 mg/dl (0.6-1.4) H 10/05/21 23:58 Est Cr Clr Drug Dosing 28.1 ml/min 10/05/21 23:58 Est GFR ( Amer) 27.3 ml/min 10/05/21 23:58 Est GFR (Non-Af Amer) 23.5 ml/min 10/05/21 23:58 BUN/Creatinine Ratio 19.0 (10-20) 10/05/21 23:58 Glucose 89 mg/dl (70-99(Fasting)) 10/05/21 23:58 Calcium 9.6 mg/dl (8.5-10.1) 10/05/21 23:58 Magnesium 2.2 mg/dl (1.7-2.4) 10/05/21 23:58 Total Bilirubin 0.6 mg/dl (0.2-1.0) 10/05/21 23:58 AST 23 U/L (13-39) 10/05/21 23:58 ALT 25 U/L (7-52) 10/05/21 23:58 Alkaline Phosphatase 94 U/L (34-104) 10/05/21 23:58 Troponin I High Sens 16.1 pg/ml (0-20) 10/05/21 23:58 Total Protein 7.0 gm/dl (6.0-8.3) 10/05/21 23:58 Albumin 3.7 gm/dl (3.4-5.0) 10/05/21 23:58 Globulin 3.3 gm/dl (2.5-4.0) 10/05/21 23:58 Albumin/Globulin Ratio 1.1 (0.9-2) 10/05/21 23:58 SARS-CoV-2, RNA, NAAT NEGATIVE (NEGATIVE) 10/06/21 00:[address] head initial read: No intracranial hemorrhage, mass-effect or midline shift. There is no abnormal extra axial fluid corrosion. No evidence of acute infarct. Mild periventricular white matter hypodensities are most consistent with chronic microangiopathy. Minimal because of thickening of the ethmoid, sphenoid and maxillarysinuses. No mastoid effusion. No fracture Chest x-ray as per my interpretation cardiomegaly, minimal congestion EKG as per my interpretation : rate 75, paced rhythm
[2021-10-06 03:49] LABS: Basophils # (auto) 0.02 K/uL (0-0.2); Basophils % (auto) 0.3 %; Eosinophils # (auto) 0.09 K/uL (0-0.50); Eosinophils % (auto) 1.3 %; Hematocrit (blood only) 37.1 % (40.1-51.0); Hemoglobin 11.5 g/dl (14.0-18.0); Immature Granulocytes # (auto) 0.01 K/uL (0.00-0.02); Immature Granulocytes % (auto) 0.1 %; Lymphocytes # (auto) 0.78 K/uL (1.2-3.4); Lymphocytes % (auto) 11.7 %; Mean Corpuscular Hemoglobin 27.4 pg (25.0-34.0); Mean Corpuscular Volume 88.3 fL (80.0-100.0); Mean Platelet Volume 9.8 fL (9.4-12.4); Monocytes # (auto) 0.68 K/uL (0.24-0.82); Monocytes % (auto) 10.2 %; Neutrophils # (auto) 5.11 K/uL (1.4-6.5); Neutrophils % (auto) 76.4 %; Platelet Count 121 K/uL (130-400); RDW Coefficient of Variation 18.6 % (11.5-14.5); RDW Standard Deviation 60.2 fL (36.4-46.3); White Blood Count 6.69 K/ul (4.8-10.8)
[2021-10-06 03:52] LABS: Base Excess ABG -2.6 mEq/L (-9-1.8); HCO3 ABG 25 mmol/L (19-24); Oxygen Saturation ABG 82.9 % (90-95); PCO2 ABG 53 mmHg (35-46); PO2 ABG 47 mmHg (80-95); pH ABG 7.28 (7.35-7.45)
[2021-10-06 04:34] LABS: BUN Creatinine Ratio 18.4 (10-20); Calcium 8.9 mg/dl (8.5-10.1); Creatinine Clr Calc Pharmacy 28.4 ml/min; Est GFR (African American) 27.7 ml/min; Est GFR (Non-African American) 23.9 ml/min; Potassium 4.1 mmol/L (3.5-5.1)
[2021-10-06] MEDS ORDERED: PROMETHAZINE HCL 12.5 MG in SODIUM CHLORIDE 0.9% 50 ML IV PRN (04:50)
[2021-10-06] MEDS ORDERED: ACETAMINOPHEN 325 MG TAB PO PRN (04:50)
[2021-10-06] MEDS ORDERED: NON-FORMULARY MEDICATION (Oxygen Home Liters per Minute) SCH (04:50)
[2021-10-06 05:00] LABS: Allen Test POS (Pos)
[2021-10-06] MEDS ORDERED: SODIUM CHLORIDE 0.45 % 1,000 ML IV ONE (05:01)
[2021-10-06 05:26] LABS: Appearance Urine Clear (Clear); Bilirubin Urine Negative (Negative); Blood Urine Negative (Negative); Color Urine Yellow; Glucose Urine UA Negative (Negative); Ketones Urine Negative (Negative); Leukocyte Esterase Urine Negative (Negative); Nitrite Urine Negative (Negative); Protein Urine Negative (Negative); Specific Gravity Urine 1.007 (1.000-1.030); Urobilinogen Urine Negative (Negative); pH Urine 6.5 (4.5-7.5)
[2021-10-06] MEDS: HEPARIN SOD 5,000 UNIT/0.5 ML VIAL SQ SCH ×3 (05:28→20:43)
[2021-10-06 06:37] LABS: Base Excess ABG -1.3 mEq/L (-9-1.8); HCO3 ABG 25 mmol/L (19-24); Oxygen Saturation ABG 94.8 % (90-95); PCO2 ABG 46 mmHg (35-46); PO2 ABG 67 mmHg (80-95); pH ABG 7.34 (7.35-7.45)
[2021-10-06 06:45] LABS: Allen Test POS (Pos)
--- NOTE | 2021-10-06 07:23 | CT Scan Report ---
HEAD CT NONCONTRAST CT DOSE: 1228.53 mGy.cm HISTORY: syncope TECHNIQUE: Multiaxial CT images of the head were performed without the use of intravenous contrast. A utomated exposure control was utilized for this study. A dose lowering technique was utilized adheri ng to the principles of ALARA. Comparison: Head CT 12/22/2020. Findings: The paranasal sinuses and mastoid air cells are clear. The calvarium and skull base are int act. There is no mass, hematoma, midline shift, acute infarct. White matter hypodensity is nonspecifi c but suggestive of microvascular ischemic change. The ventricles and sulci demonstrate mild age-rela lucie involutional changes. Old left occipital lobe infarct, unchanged. Mild motion artifact. Impression: No acute intracranial abnormality. ACT 112: Negative or not required by law. Electronically signed by: Reggie Rawls M.D. 10/06/2021 7:22 AM
[2021-10-06] MEDS: amLODIPine BESYLATE 5 MG TAB PO SCH (07:49)
[2021-10-06] MEDS: FINASTERIDE 5 MG TAB PO SCH (07:49)
[2021-10-06] MEDS: TIMOLOL MALEATE 0.5% OP SOLN 5 ML BTL OPB SCH (07:50)
[2021-10-06] MEDS: TAMSULOSIN HCL 0.4 MG CAP PO SCH (07:50)
[2021-10-06] MEDS: FERROUS SULFATE 325 MG TAB PO SCH (07:50)
[2021-10-06] MEDS: PANTOprazole 40 MG TAB PO SCH ×2 (07:50→20:42)
[2021-10-06] MEDS: ADVANCED PROBIOTIC 1250 MG CAPSULE PO SCH (07:50)
[2021-10-06] MEDS: POLYETHYLENE (MIRALAX) 17 GM PACK PO SCH (07:51)
[2021-10-06] MEDS: UMECLIDINIUM BROMIDE 62.5MCG/BLISTER 7 PUFFS/INHALER INH SCH (07:51)
[2021-10-06] MEDS: FLUTICASONE/VILANTEROL 100/25MCG 14 PUFFS/INHALER INH SCH (07:51)
--- NOTE | 2021-10-06 08:06 | XRay Report ---
SINGLE VIEW CHEST CLINICAL HISTORY: Generalized weakness. Change in mental status. FINDINGS: 2 AP, portable, upright chest radiographs are compared to study dated 12/22/2020 and correl ated with chest CT dated 09/29/2021. The examination is degraded by portable technique and patient rot ation. A 2-lead cardiac pacemaker is unchanged in position and partially obscures the left mid chest. The heart is enlarged noting atherosclerotic calcification of the thoracic ureter. There is pulmonar y vascular congestion. Emphysema and chronic interstitial thickening is similar to previous. Scarring /atelectasis is noted at the lung bases. No airspace consolidation or large pleural effusion is ident ified. There are scattered calcified granulomas. Small pulmonary nodules seen by CT are not visualize d on x-ray. No pneumothorax is seen. The skeletal structures are osteopenic. The bony thorax is gross ly intact. IMPRESSION: 1. Cardiomegaly and cardiac pacemaker with mild pulmonary vascular congestion. 2. Emphysema. 3. No airspace consolidation or large pleural effusion is identified. ACT 112: Negative or not required by law. Electronically signed by: Benedict Helton M.D. 10/06/2021 8:04 AM
--- NOTE | 2021-10-06 09:09 | Ultrasound Report ---
ULTRASOUND KIDNEYS AND BLADDER CLINICAL HISTORY: Renal insufficiency. COMPARISON STUDY: Renal ultrasound dated 09/28/2014. TECHNIQUE: Real-time, grayscale, and color flow sonography of the kidneys and bladder is performed. I mages are reviewed in the transverse and longitudinal planes. FINDINGS: Kidneys: The kidneys demonstrate mild cortical atrophy and increased cortical echotexture. The right kidney measures 11.2 x 5.9 x 5.2 cm and the left kidney measures 11.4 x 6.3 x 4.5 cm. There is no hy dronephrosis. No shadowing renal calculi are identified. A 3.7 cm cyst is noted in the interpolar rig ht kidney. There is no sonographic evidence of contour deforming renal mass lesion. No perinephric fl uid is identified. Bladder: The bladder is decompressed around a Black catheter and could not be assessed. IMPRESSION: 1. There is evidence of medical renal disease. 2. No hydronephrosis. 3. The bladder was decompressed around a Black catheter and could not be assessed. ACT 112: Negative or not required by law. Electronically signed by: Benedict Helton M.D. 10/06/2021 9:08 AM
[2021-10-06 10:30] LABS: Estimated Average Glucose 140 mg/dl; Hemoglobin A1C 6.5 % (4.5-5.6)
[2021-10-06 12:24] LABS: BUN Creatinine Ratio 19.5 (10-20); Calcium 9.2 mg/dl (8.5-10.1); Creatinine Clr Calc Pharmacy 33.8 ml/min; Est GFR (African American) 34.2 ml/min; Est GFR (Non-African American) 29.5 ml/min; Potassium 3.9 mmol/L (3.5-5.1)
--- NOTE | 2021-10-06 15:50 | Electrocardiogram Report ---
Test Reason : Blood Pressure : / mmHG Vent. Rate : 074 BPM Atrial Rate : 074 BPM P-R Int : 306 ms QRS Dur : 218 ms QT Int : 516 ms P-R-T Axes : -16 -66 096 degrees QTc Int : 572 ms AV dual-paced rhythm with prolonged AV conduction Abnormal ECG When compared with ECG of 22-DEC-2020 15:16, Vent. rate has increased BY 3 BPM Confirmed by Darius Hdez ([id number]) on 10/06/2021 3:49:42 PM Referred By: REFERRED SELF Confirmed By:Darius Hdez
[2021-10-06] MEDS ORDERED: ALBUT/IPRATROP 3MG/0.5MG NEB 3 ML VIAL NEB PRN (15:58)
--- NOTE | 2021-10-06 16:11 | Hospitalist Progress Note ---
Date of Service October 06, 2021 Assessment & Plan (1) Encephalopathy: Plan: Acute Metabolic Encephalopathy Likely multifactorial:Secondary to Medications, Hypercarbia, Uremia Given H/O Presumed Lung Cancer Rule out Metastatic Lung Cancer --CT Head: No acute intracranial abnormality. Will Obtain MRI Brain to rule out mets BiPAP as needed and HS Hold sedative meds for today Monitor KELLEN on CKD III H/O BPH/neurogenic bladder --Renal USD:There is evidence of medical renal disease. No hydronephrosis. -- Bladder scan as needed --Cr:2.53>>2.10 Continue IV fluids Avoid nephrotoxic agents as able Consider nephrology evaluation if needed Acute on chronic respiratory failure with hypoxia, hypercarbia Chronic oxygen dependency--3 L at baseline Mild COPD exacerbation H/O MUKUL on BiPAP Currently saturating well on baseline supplemental oxygen Started on doxycycline Nebs as needed Check procalcitonin Chronic right-sided heart failure as per records CXR:mild pulmonary vascular congestion No overt signs of decompensation Monitor volume status closely CAD S/P stent SSS S/P PPM Continue metoprolol Resume statin as able Pulmonary Nodules H/O Smoking Presumptive lung cancer S/P radiation Increased in nodular size when compared to prior imaging Follows with [facility] pulmonology Will need further follow-up with oncology as outpatient Updated patient's son over the phone Hypertension Losartan KELLEN Continue metoprolol Monitor Hyperlipidemia Resume statin as able DM II HbA1C:6.5 Insulin sliding Scale while hospitalized Monitor BGs Code Status Full Code DVT Px: Heparin SQ Disposition PT/OT prior to discharge Family: Dr.Matt Medel [phone] (Pt's Son) Patient's , Ms. Christal Medel:[phone]. Admission and Anticipated Discharge Date Admission Date: October 06, 2021 Subjective Patient is seen and examined at bedside Usually drowsy during morning hours as per patient's son Discussed with patient and son over the phone Patient reports having cough with intermittent brownish expectoration Also reports dyspnea on exertion and feels tired Offers no other complaints Review of Systems Review of Systems: All systems reviewed & are unremarkable except as noted in Subjective Physical Exam Physical Exam: Physical Exam: Vitals signs as noted above General Appearance:Moderately built and nourished, no apparent distress Head: normocephalic, Atraumatic Eyes: normal inspection, EOMI Neck: supple, Trachea midline Respiratory/Chest: Decreased breath sounds, CTA, No accessory muscle use Cardiovascular: S1, S2, No murmur Abdomen/GI:Soft, Non tender, Bowel sounds present Extremities/Musculoskeletal:normal inspection, Trace pedal edema Neurologic/Psych:AAO, grossly no focal neurological deficits, drowsy intermittently Skin: normal color, warm Results & Data Results & [facility] ([facility]) Vital Signs (Past 12 Hours) Vital Signs Temp Pulse Pulse Resp BP Pulse Ox Pulse Ox 10/06/21 15:46 36.6 C 69 19 145/77 H 96 10/06/21 11:16 36.5 C 67 19 147/81 H 96 10/06/21 08:00 70 10/06/21 08:00 10/06/21 07:23 36.7 C 71 20 150/83 H 95 10/06/21 05:39 10/06/21 05:39 36.4 C L 81 18 134/80 94 10/06/21 04:50 36.4 C L 81 18 134/80 94 10/06/21 04:50 94 O2 Del Method O2 Del Method O2 Flow Rate O2 Flow Rate 10/06/21 15:46 Nasal Cannula 3 10/06/21 11:16 Nasal Cannula 3 10/06/21 08:00 10/06/21 08:00 Room Air 10/06/21 07:23 Nasal Cannula 3 10/06/21 05:39 Nasal Cannula 3 10/06/21 05:39 Nasal Cannula 2 10/06/21 04:50 Nasal Cannula 3 10/06/21 04:50 Nasal Cannula 3 Laboratory Results Short CBC 10/05/21 10/06/21 Range/Units 23:58 03:37 WBC 7.66 6.69 (4.8-10.8) K/ul Hgb 11.2 L 11.5 L (14.0-18.0) g/dl Hct 36.0 L 37.1 L (40.1-51.0) % Plt Count 155 121 L (130-400) K/uL BMP 10/05/21 10/06/21 10/06/21 23:58 03:40 11:45 Sodium 140 141 141 Potassium 4.2 4.1 3.9 Chloride 106 110 H 110 H Carbon Dioxide 23 23 27 BUN 48 H 46 H 41 H Creatinine 2.53 H 2.50 H 2.10 H D Glucose 89 105 H 121 H Calcium 9.6 8.9 9.2 Cardiac Enzymes 10/06/21 Range/Units 03:40 Total Creatine Kinase 27 L (30-223) U/L Liver Function 10/05/21 Range/Units 23:58 Total Bilirubin 0.6 (0.2-1.0) mg/dl AST 23 (13-39) U/L ALT 25 (7-52) U/L Alkaline Phosphatase 94 (34-104) U/L Albumin 3.7 (3.4-5.0) gm/dl Urine 10/06/21 Range/Units 05:00 Urine Color Yellow Urine Appearance Clear (Clear) Urine pH 6.5 (4.5-7.5) Ur Specific [place] 1.007 (1.000-1.030) Urine Protein Negative (Negative) Urine Glucose (UA) Negative (Negative)
[2021-10-06] MEDS ORDERED: DEXTROSE 50% 50 ML SYRINGE IV PRN (16:38)
[2021-10-06] MEDS ORDERED: GLUCAGON FOR INJ 1 MG VIAL SQ PRN (16:38)
[2021-10-06] MEDS ORDERED: GLUCOSE 40% GEL 15 GM TUBE PO PRN (16:38)
[2021-10-06] MEDS ORDERED: GLUCOSE 10 TAB/TUBE PO PRN (16:38)
[2021-10-06] MEDS ORDERED: CARBOHYDRATES FOR HYPOGLYCEMIA PO PRN (16:38)
[2021-10-06] MEDS: DOXYCYCLINE HYCLATE 100 MG CAP PO SCH (20:42)
[2021-10-06] MEDS: METOPROLOL SUCC 25MG EXT REL TAB PO SCH (20:42)
[2021-10-06] MEDS: INSULIN ASPART PER UNIT SC SCH (20:43)
[2021-10-06] MEDS ORDERED: OLANZapine 10 MG TAB PO SCH (21:00)
[2021-10-07] MEDS: HEPARIN SOD 5,000 UNIT/0.5 ML VIAL SQ SCH ×3 (05:47→21:09)
[2021-10-07 06:56] LABS: Basophils # (auto) 0.02 K/uL (0-0.2); Basophils % (auto) 0.3 %; Eosinophils # (auto) 0.11 K/uL (0-0.50); Eosinophils % (auto) 1.8 %; Hematocrit (blood only) 33.7 % (40.1-51.0); Hemoglobin 10.7 g/dl (14.0-18.0); Immature Granulocytes # (auto) 0.02 K/uL (0.00-0.02); Immature Granulocytes % (auto) 0.3 %; Lymphocytes # (auto) 0.49 K/uL (1.2-3.4); Lymphocytes % (auto) 7.8 %; Mean Corpuscular Hemoglobin 27.1 pg (25.0-34.0); Mean Corpuscular Hgb Conc 31.8 g/dL (32.0-36.0); Mean Corpuscular Volume 85.3 fL (80.0-100.0); Mean Platelet Volume 9.6 fL (9.4-12.4); Monocytes # (auto) 0.64 K/uL (0.24-0.82); Monocytes % (auto) 10.2 %; Neutrophils # (auto) 4.97 K/uL (1.4-6.5); Neutrophils % (auto) 79.6 %; Platelet Count 130 K/uL (130-400); RDW Coefficient of Variation 18.4 % (11.5-14.5); Red Blood Count 3.95 M/uL (4.63-6.08); White Blood Count 6.25 K/ul (4.8-10.8)
[2021-10-07 07:01] LABS: Base Excess VBG -0.5 mEq/L; HCO3 VBG 24 mmol/L; PCO2 VBG 39 mmHg (38-50); PO2 VBG 65 mmHg
[2021-10-07 07:17] LABS: BUN Creatinine Ratio 22.3 (10-20); Calcium 9.7 mg/dl (8.5-10.1); Est GFR (African American) 39.1 ml/min; Est GFR (Non-African American) 33.7 ml/min; Potassium 4.2 mmol/L (3.5-5.1)
[2021-10-07] MEDS: TAMSULOSIN HCL 0.4 MG CAP PO SCH (08:42)
[2021-10-07] MEDS: FERROUS SULFATE 325 MG TAB PO SCH (08:42)
[2021-10-07] MEDS: FINASTERIDE 5 MG TAB PO SCH (08:42)
[2021-10-07] MEDS: lamoTRIgine 100 MG TAB PO SCH (08:42)
[2021-10-07] MEDS: amLODIPine BESYLATE 5 MG TAB PO SCH (08:42)
[2021-10-07] MEDS: PANTOprazole 40 MG TAB PO SCH ×2 (08:42→21:08)
[2021-10-07] MEDS: ADVANCED PROBIOTIC 1250 MG CAPSULE PO SCH (08:42)
[2021-10-07] MEDS: DOXYCYCLINE HYCLATE 100 MG CAP PO SCH ×2 (08:42→21:09)
[2021-10-07] MEDS: TIMOLOL MALEATE 0.5% OP SOLN 5 ML BTL OPB SCH (08:43)
[2021-10-07] MEDS: FLUTICASONE/VILANTEROL 100/25MCG 14 PUFFS/INHALER INH SCH (08:43)
[2021-10-07] MEDS: POLYETHYLENE (MIRALAX) 17 GM PACK PO SCH (08:52)
[2021-10-07] MEDS: UMECLIDINIUM BROMIDE 62.5MCG/BLISTER 7 PUFFS/INHALER INH SCH (08:52)
[2021-10-07] MEDS: INSULIN ASPART PER UNIT SC SCH ×4 (09:01→21:15)
[2021-10-07] MEDS ORDERED: GADOBUTROL 65ML VIAL IV ONE (12:28)
[2021-10-07] MEDS ORDERED: FLUoxetine HCL 20 MG CAP PO SCH (12:30)
--- NOTE | 2021-10-07 12:54 | Magnetic Resonance Report ---
MR brain wo/w con CLINICAL HISTORY: Altered mental status H/O presumptive lung cancer TECHNIQUE: Multiplanar and multisequence MR images of the brain were obtained prior to and following administration of gadolinium contrast. Comparison: Comparison is made to MRI brain 01/27/[address] head 10/06/2021 FINDINGS: No abnormal restricted diffusion is identified. Foci of T2 and FLAIR hyperintensity are noted in the paraventricular areas consistent with chronic small vessel ischemic disease. Ex vacuo ventriculomegal y and sulcal enlargement is noted compatible with diffuse encephalomalacia. Focal encephalomalacia in the left [employer] SERV[employer] territory compatible with previously noted infarct in 2019. A small amount of enhanceme nt is seen at the region of the previous infarct. No abnormal enhancing mass is noted. There is no ma ss effect or midline shift. There is no evidence of acute intraparenchymal hemorrhage. No extra axial fluid collections are seen. The corpus callosum, pituitary gland, and cerebellar tonsils appear micaela sly unremarkable. Flow voids of the major intracranial arterial vessels are identified. The imaged portions of the para nasal sinuses, mastoid air cells, and orbits are unremarkable. IMPRESSION: No acute abnormality, in particular no evidence of infarct or metastatic lesion. 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 ACT 112: Negative or not required by law. Electronically signed by: Omar De La Cruz M.D. 10/07/2021 12:52 PM
[2021-10-07] MEDS: GABAPENTIN 600 MG TAB PO SCH ×2 (13:41→21:08)
[2021-10-07] MEDS: FLUoxetine HCL 20 MG CAP PO SCH (13:41)
--- NOTE | 2021-10-07 16:14 | Hospitalist Progress Note ---
Date of Service October 07, 2021 Assessment & Plan (1) Encephalopathy: Plan: Acute Metabolic Encephalopathy Likely multifactorial:Secondary to Medications, Hypercarbia, Uremia Given H/O Presumed Lung Cancer Rule out Metastatic Lung Cancer --CT Head: No acute intracranial abnormality. MRI Brain: No acute abnormality, in particular no evidence of infarct or metastatic lesion. 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 BiPAP as needed and HS Mental status seemed to be back to baseline Monitor KELLEN on CKD III H/O BPH/neurogenic bladder --Renal USD:There is evidence of medical renal disease. No hydronephrosis. -- Bladder scan as needed --Cr:2.53>>2.10> 1.8 Received IV fluids Avoid nephrotoxic agents as able Consider nephrology evaluation if needed Acute on chronic respiratory failure with hypoxia, hypercarbia Chronic oxygen dependency--3 L at baseline Mild COPD exacerbation H/O MUKUL on BiPAP Procalcitonin 0.7 Currently saturating well on baseline supplemental oxygen Continue doxycycline Day #2 Nebs as needed Chronic right-sided heart failure as per records CXR:mild pulmonary vascular congestion No overt signs of decompensation Monitor volume status closely CAD S/P stent SSS S/P PPM Continue metoprolol Resume statin Pulmonary Nodules H/O Smoking Presumptive lung cancer S/P radiation Increased in nodular size when compared to prior imaging Follows with Tyra García pulmonology Will need further follow-up with oncology as outpatient Updated patient's son over the phone on 10/06 Hypertension Losartan KELLEN Continue metoprolol Monitor Hyperlipidemia On statin DM II HbA1C:6.5 Insulin sliding Scale while hospitalized Monitor BGs Code Status Full Code DVT Px: Heparin SQ Disposition PT/OT prior to discharge Family: Dr.Matt Medel [phone] (Pt's Son) Patient's , Ms. Christal Medel:[phone]. Admission and Anticipated Discharge Date Admission Date: October 07, 2021 Subjective Patient is seen and examined at bedside States feeling much better today Mental status been seem to be back to baseline Discussed with patient's over the phone Reports poor sleep overnight Less cough today Denies any chest pain, dyspnea, dizziness Review of Systems Review of Systems: All systems reviewed & are unremarkable except as noted in Subjective Physical Exam Physical Exam: Physical Exam: Vitals signs as noted above General Appearance:Moderately built and nourished, no apparent distress Head: normocephalic, Atraumatic Eyes: normal inspection, EOMI Neck: supple, Trachea midline Respiratory/Chest: Decreased breath sounds, CTA, No accessory muscle use Cardiovascular: S1, S2, No murmur Abdomen/GI:Soft, Non tender, Bowel sounds present Extremities/Musculoskeletal:normal inspection, Trace pedal edema Neurologic/Psych:AAO, grossly no focal neurological deficits, drowsy intermittently Skin: normal color, warm Results & Data Results & Data ([facility]) Vital Signs (Past 12 Hours) Vital Signs Temp Pulse Resp BP Pulse Ox Pulse Ox O2 Del Method 10/07/21 15:00 36.9 C 75 20 148/79 H 95 Nasal Cannula 10/07/21 14:45 93 10/07/21 11:00 Nasal Cannula 10/07/21 11:35 37.0 C 68 18 138/80 94 Nasal Cannula 10/07/21 07:49 37.0 C 74 18 176/97 H 95 Nasal Cannula 10/07/21 04:50 92 O2 Del Method O2 Flow Rate O2 Flow Rate 10/07/21 15:00 3 10/07/21 14:45 10/07/21 11:00 3 10/07/21 11:35 3 10/07/21 07:49 3 10/07/21 04:50 CPAP 4 Laboratory Results Short CBC 10/07/21 Range/Units 06:40 WBC 6.25 (4.8-10.8) K/ul Hgb 10.7 L (14.0-18.0) g/dl Hct 33.7 L (40.1-51.0) % Plt Count 130 (130-400) K/uL BMP 10/07/21 06:40 Sodium 140 Potassium 4.2 Chloride 109 H Carbon Dioxide 23 BUN 42 H Creatinine 1.88 H Glucose 97 Calcium 9.7
[2021-10-07] MEDS: ATORVASTATIN 40 MG TAB PO SCH (21:07)
[2021-10-07] MEDS: METOPROLOL SUCC 25MG EXT REL TAB PO SCH (21:08)
[2021-10-08] MEDS: HEPARIN SOD 5,000 UNIT/0.5 ML VIAL SQ SCH ×3 (06:22→21:35)
[2021-10-08 06:48] LABS: BUN Creatinine Ratio 23.2 (10-20); Calcium 9.7 mg/dl (8.5-10.1); Creatinine Clr Calc Pharmacy 39.9 ml/min; Est GFR (Non-African American) 36.2 ml/min
[2021-10-08] MEDS: amLODIPine BESYLATE 5 MG TAB PO SCH (08:44)
[2021-10-08] MEDS: ADVANCED PROBIOTIC 1250 MG CAPSULE PO SCH (08:45)
[2021-10-08] MEDS: UMECLIDINIUM BROMIDE 62.5MCG/BLISTER 7 PUFFS/INHALER INH SCH (08:45)
[2021-10-08] MEDS: FLUoxetine HCL 20 MG CAP PO SCH (08:45)
[2021-10-08] MEDS: TIMOLOL MALEATE 0.5% OP SOLN 5 ML BTL OPB SCH (08:45)
[2021-10-08] MEDS: DOXYCYCLINE HYCLATE 100 MG CAP PO SCH ×2 (08:45→20:20)
[2021-10-08] MEDS: FINASTERIDE 5 MG TAB PO SCH (08:45)
[2021-10-08] MEDS: FERROUS SULFATE 325 MG TAB PO SCH (08:45)
[2021-10-08] MEDS: PANTOprazole 40 MG TAB PO SCH ×2 (08:45→20:19)
[2021-10-08] MEDS: GABAPENTIN 600 MG TAB PO SCH ×2 (08:45→20:20)
[2021-10-08] MEDS: TAMSULOSIN HCL 0.4 MG CAP PO SCH (08:45)
[2021-10-08] MEDS: lamoTRIgine 100 MG TAB PO SCH (08:45)
[2021-10-08] MEDS: POLYETHYLENE (MIRALAX) 17 GM PACK PO SCH (08:46)
[2021-10-08] MEDS: INSULIN ASPART PER UNIT SC SCH ×4 (08:56→20:31)
[2021-10-08] MEDS: FLUTICASONE/VILANTEROL 100/25MCG 14 PUFFS/INHALER INH SCH (08:58)
[2021-10-08] MEDS ORDERED: SODIUM CHLORIDE 0.9% 500 ML IV ONE (10:01)
--- NOTE | 2021-10-08 15:37 | Hospitalist Progress Note ---
Date of Service October 08, 2021 Assessment & Plan (1) Encephalopathy: Plan: Acute Metabolic Encephalopathy Likely multifactorial:Secondary to Medications, Hypercarbia, Uremia Given H/O Presumed Lung Cancer Rule out Metastatic Lung Cancer --CT Head: No acute intracranial abnormality. MRI Brain: No acute abnormality, in particular no evidence of infarct or metastatic lesion. Old findings of left CLOTH DOFFER infarct are noted. BiPAP as needed and HS Confusion resolved Tolerating home meds KELLEN on CKD III H/O BPH/neurogenic bladder --Renal USD:There is evidence of medical renal disease. No hydronephrosis. -- Bladder scan as needed --Cr:2.53>>2.10> 1.8>1.7 Gentle IV fluids Avoid nephrotoxic agents as able Consider nephrology evaluation if needed Acute on chronic respiratory failure with hypoxia, hypercarbia Chronic oxygen dependency--3 L at baseline Mild COPD exacerbation H/O MUKUL on BiPAP Procalcitonin 0.7 Currently saturating well on baseline supplemental oxygen Continue doxycycline Day #3 Nebs as needed Chronic right sided heart failure with preserved EF CXR:mild pulmonary vascular congestion No overt signs of decompensation Monitor volume status closely CAD S/P stent SSS S/P PPM Continue metoprolol, statin Pulmonary Nodules H/O Smoking Presumptive lung cancer S/P radiation Increased in nodular size when compared to prior imaging Follows with Tyra García pulmonology Will need further follow-up with oncology as outpatient Updated patient's son over the phone on 10/06 Hypertension Losartan KELLEN Continue metoprolol Monitor Hyperlipidemia On statin DM II HbA1C:6.5 Insulin sliding Scale while hospitalized Monitor BGs Code Status Full Code DVT Px: Heparin SQ Disposition Refused Rehab Plan to discharge home with HH as able Family: Dr.Matt Medel [phone] (Pt's Son) Patient's , Ms. Christal Medel:[phone]. Admission and Anticipated Discharge Date Admission Date: October 07, 2021 Subjective Patient is seen and examined at bedside Doing well today Less cough No new complaints Mental status at baseline Denies any chest pain, dyspnea, dizziness Renal function improving Review of Systems Review of Systems: All systems reviewed & are unremarkable except as noted in Subjective Physical Exam Physical Exam: Physical Exam: Vitals signs as noted above General Appearance:Moderately built and nourished, no apparent distress Head: normocephalic, Atraumatic Eyes: normal inspection, EOMI Neck: supple, Trachea midline Respiratory/Chest: Decreased breath sounds, CTA, No accessory muscle use Cardiovascular: S1, S2, No murmur Abdomen/GI:Soft, Non tender, Bowel sounds present Extremities/Musculoskeletal:normal inspection, Trace pedal edema Neurologic/Psych:AAO, grossly no focal neurological deficits, drowsy intermittently Skin: normal color, warm Results & Data Results & Data ([facility]) Vital Signs (Past 12 Hours) Vital Signs Temp Pulse Pulse Resp BP Pulse Ox O2 Del Method 10/08/21 15:23 36.4 C L 81 20 157/83 H 94 Nasal Cannula 10/08/21 10:49 36.6 C 82 18 135/78 94 Nasal Cannula 10/08/21 08:30 79 10/08/21 08:30 Nasal Cannula 10/08/21 07:02 36.6 C 82 18 168/80 H 91 Nasal Cannula 10/08/21 03:52 36.6 C 70 16 152/79 H 92 Nasal Cannula O2 Flow Rate 10/08/21 15:23 3 10/08/21 10:49 3 10/08/21 08:30 10/08/21 08:30 2.5 10/08/21 07:02 2.5 10/08/21 03:52 2 Laboratory Results BMP 10/08/21 05:30 Sodium 140 Potassium 4.0 Chloride 109 H Carbon Dioxide 25 BUN 41 H Creatinine 1.77 H Glucose 90 Calcium 9.7
[2021-10-08] MEDS: METOPROLOL SUCC 25MG EXT REL TAB PO SCH (20:19)
[2021-10-08] MEDS: ATORVASTATIN 40 MG TAB PO SCH (20:20)
[2021-10-09] MEDS: HEPARIN SOD 5,000 UNIT/0.5 ML VIAL SQ SCH (06:32)
[2021-10-09 06:34] LABS: Hematocrit (blood only) 34.3 % (40.1-51.0); Hemoglobin 11.1 g/dl (14.0-18.0); Mean Corpuscular Hemoglobin 27.5 pg (25.0-34.0); Mean Corpuscular Hgb Conc 32.4 g/dL (32.0-36.0); Mean Corpuscular Volume 84.9 fL (80.0-100.0); Mean Platelet Volume 9.8 fL (9.4-12.4); Platelet Count 146 K/uL (130-400); RDW Coefficient of Variation 17.4 % (11.5-14.5); RDW Standard Deviation 54.8 fL (36.4-46.3); Red Blood Count 4.04 M/uL (4.63-6.08); White Blood Count 4.73 K/ul (4.8-10.8)
[2021-10-09 07:02] LABS: BUN Creatinine Ratio 26.8 (10-20); Calcium 9.7 mg/dl (8.5-10.1); Est GFR (African American) 54.8 ml/min; Est GFR (Non-African American) 47.3 ml/min; Potassium 4.3 mmol/L (3.5-5.1)
[2021-10-09] MEDS: FLUoxetine HCL 20 MG CAP PO SCH (09:01)
[2021-10-09] MEDS: lamoTRIgine 100 MG TAB PO SCH (09:01)
[2021-10-09] MEDS: FINASTERIDE 5 MG TAB PO SCH (09:01)
[2021-10-09] MEDS: GABAPENTIN 600 MG TAB PO SCH (09:01)
[2021-10-09] MEDS: amLODIPine BESYLATE 5 MG TAB PO SCH (09:01)
[2021-10-09] MEDS: PANTOprazole 40 MG TAB PO SCH (09:01)
[2021-10-09] MEDS: DOXYCYCLINE HYCLATE 100 MG CAP PO SCH (09:01)
[2021-10-09] MEDS: ADVANCED PROBIOTIC 1250 MG CAPSULE PO SCH (09:02)
[2021-10-09] MEDS: TAMSULOSIN HCL 0.4 MG CAP PO SCH (09:02)
[2021-10-09] MEDS: TIMOLOL MALEATE 0.5% OP SOLN 5 ML BTL OPB SCH (09:02)
[2021-10-09] MEDS: FERROUS SULFATE 325 MG TAB PO SCH (09:02)
[2021-10-09] MEDS: POLYETHYLENE (MIRALAX) 17 GM PACK PO SCH (09:02)
[2021-10-09] MEDS: FLUTICASONE/VILANTEROL 100/25MCG 14 PUFFS/INHALER INH SCH (09:02)
[2021-10-09] MEDS: UMECLIDINIUM BROMIDE 62.5MCG/BLISTER 7 PUFFS/INHALER INH SCH (09:02)
[2021-10-09] MEDS: INSULIN ASPART PER UNIT SC SCH ×2 (09:04→13:01)
--- NOTE | 2021-10-09 12:34 | Hospitalist Progress Note ---
Date of Service October 09, 2021 Assessment & Plan (1) Encephalopathy: Plan: Acute Metabolic Encephalopathy Likely multifactorial:Secondary to Medications, Hypercarbia, Uremia Given H/O Presumed Lung Cancer Rule out Metastatic Lung Cancer --CT Head: No acute intracranial abnormality. MRI Brain: No acute abnormality, in particular no evidence of infarct or metastatic lesion. 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 BiPAP as needed and HS Confusion resolved Tolerating home meds Mental status at baseline KELLEN on CKD III H/O BPH/neurogenic bladder --Renal USD:There is evidence of medical renal disease. No hydronephrosis. -- Bladder scan as needed --Cr:2.53>>2.10> 1.8>1.7>1.42 Gentle IV fluids Avoid nephrotoxic agents as able Consider nephrology evaluation if needed Advised to get repeat blood test in 1 week Acute on chronic respiratory failure with hypoxia, hypercarbia Chronic oxygen dependency--3 L at baseline Mild COPD exacerbation H/O MUKUL on BiPAP Procalcitonin 0.7 Currently saturating well on baseline supplemental oxygen Continue doxycycline Day #4 Nebs as needed Chronic right sided heart failure with preserved EF CXR:mild pulmonary vascular congestion No overt signs of decompensation Monitor volume status closely CAD S/P stent SSS S/P PPM Continue metoprolol, statin Pulmonary Nodules H/O Smoking Presumptive lung cancer S/P radiation Increased in nodular size when compared to prior imaging Follows with Tyra García pulmonology Will need further follow-up with oncology as outpatient Updated patient's son over the phone on 10/06 Hypertension Losartan KELLEN Continue metoprolol Monitor Hyperlipidemia On statin DM II HbA1C:6.5 Insulin sliding Scale while hospitalized Monitor BGs Code Status Full Code DVT Px: Heparin SQ Disposition Refused Rehab Plan to discharge home with HH as able Family: Dr.Matt Medel [phone] (Pt's Son) Patient's , Ms. Siegel Gianfranco:[phone]. Admission and Anticipated Discharge Date Admission Date: October 07, 2021 Subjective Patient is seen and examined at bedside cough continues to improve No events overnight Mental status at baseline Offers no complaints Denies any chest pain, dyspnea, dizziness Cr levels much improved Review of Systems Review of Systems: All systems reviewed & are unremarkable except as noted in Subjective Physical Exam Physical Exam: Physical Exam: Vitals signs as noted above General Appearance:Moderately built and nourished, no apparent distress Head: normocephalic, Atraumatic Eyes: normal inspection, EOMI Neck: supple, Trachea midline Respiratory/Chest: Decreased breath sounds, CTA, No accessory muscle use Cardiovascular: S1, S2, No murmur Abdomen/GI:Soft, Non tender, Bowel sounds present Extremities/Musculoskeletal:normal inspection, Trace pedal edema Neurologic/Psych:AAO, grossly no focal neurological deficits, drowsy intermittently Skin: normal color, warm Results & Data Results & Data ([facility]) Vital Signs (Past 12 Hours) Vital Signs Temp Pulse Resp BP BP Pulse Ox O2 Del Method 10/09/21 11:06 36.4 C L 70 18 136/87 93 Nasal Cannula 10/09/21 07:36 36.4 C L 73 18 137/79 91 Nasal Cannula 10/09/21 04:00 37.0 C 69 16 150/82 H 93 Nasal Cannula O2 Flow Rate 10/09/21 11:06 2 10/09/21 07:36 2 10/09/21 04:00 2 Laboratory Results Short CBC 10/09/21 Range/Units 05:52 WBC 4.73 L (4.8-10.8) K/ul Hgb 11.1 L (14.0-18.0) g/dl Hct 34.3 L (40.1-51.0) % Plt Count 146 (130-400) K/uL BMP 10/09/21 05:52 Sodium 138 Potassium 4.3 Chloride 107 Carbon Dioxide 24 BUN 38 H Creatinine 1.42 H D Glucose 92 Calcium 9.7
--- NOTE | 2021-10-09 12:50 | Discharge Summary ---
Date of Service October 09, 2021 Admission HPI Per Admitting Provider History obtained from patient, family, and records. Limited history from patient secondary to obtunded state. Medical history significant for chronic right-sided heart failure as per records (50%, TTE 2019), CAD status post stent, SSS status post PPM, hypertension, hyperlipidemia, chronic resp failure 2 to COPD on home O2, MUKUL on BiPAP, DM2 on oral meds, CRI (baseline creatinine 1.5 ), schizoaffective disorder, BPH/hx neurogenic bladder, chronic anemia (baseline hemoglobin 11), past tobacco abuse Last confinement March 2020 for severe COVID-19 pneumonia. Yesterday patient noted to be weak with chills as per . Patient with lightheadedness causing him to fall down. Unable to get up from the floor. Patient denies chest pain, SOB, headache, abdominal pain, dysuria symptoms. No unusual weight gain as per . No head trauma as per . No new medications except for inhalers as per . Patient brought to the ER for evaluation. Currently snoring soundly and minimally arousable. MEDICAL HISTORY: As above. SURGERIES: PPM, appendectomy, cataract surgery, dental surgery, left knee replacement FAMILY HISTORY: heart disease, stroke, dementia PERSONAL AND SOCIAL HISTORY: Remote tobacco use. 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 Admission Exam Per Admitting Provider Physical Exam Physical Exam: GENERAL: Obtunded, snoring, obese, no respiratory distress SKIN: Pallor, warm HEENT: Pale palpebral conjunctivae, no ptosis, dry buccal mucosa, nasal cannula in place NECK : Supple, short neck, no tenderness CHEST : Decreased breath sounds, no tenderness HEART : RRR, no obvious murmurs ABDOMEN: Some distention, nontender EXTREMITIES : Minimal LE swelling, no LE tenderness, no other conspicuous deformities noted NEUROLOGIC : Obtunded, no facial asymmetry, gait and stance not assessed Principal Diagnosis Acute Metabolic Encephalopathy Acute Kidney Injury Acute on chronic respiratory failure with hypoxia, hypercarbia Pulmonary Nodules Discharge Data Allergies Allergy/AdvReac Type Severity Reaction Status Date / Time No Known Allergies Allergy Verified 10/06/21 00:20 Consultations 10/06/21 01:51 ED Decision to Admit Stat Procedures Performed MRI BRAIN: FINDINGS: No abnormal restricted diffusion is identified. Foci of T2 and FLAIR hyperintensity are noted in the paraventricular areas consistent with chronic small vessel ischemic disease. Ex vacuo ventriculomegaly and sulcal enlargement is noted compatible with diffuse encephalomalacia. Focal encephalomalacia in the left [employer] territory compatible with previously noted infarct in 2019. A small amount of enhancement is seen at the region of the previous infarct. No abnormal enhancing mass is noted. There is no mass effect or midline shift. There is no evidence of acute intraparenchymal hemorrhage. No extra axial fluid collections are seen. The corpus callosum, pituitary gland, and cerebellar tonsils appear grossly unremarkable. Flow voids of the major intracranial arterial vessels are identified. The imaged portions of the paranasal sinuses, mastoid air cells, and orbits are unremarkable. IMPRESSION: No acute abnormality, in particular no evidence of infarct or metastatic lesion. 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 Renal USD: FINDINGS: Kidneys: The kidneys demonstrate mild cortical atrophy and increased cortical echotexture. The right kidney measures 11.2 x 5.9 x 5.2 cm and the left kidney measures 11.4 x 6.3 x 4.5 cm. There is no hydronephrosis. No shadowing renal calculi are identified. A 3.7 cm cyst is noted in the interpolar right kidney. There is no sonographic evidence of contour deforming renal mass lesion. No perinephric fluid is identified. Bladder: The bladder is decompressed around a Black catheter and could not be assessed. IMPRESSION: 1. There is evidence of medical renal disease. 2. No hydronephrosis. 3. The bladder was decompressed around a Black catheter and could not be assessed. Head CT: FINDINGS: Kidneys: The kidneys demonstrate mild cortical atrophy and increased cortical echotexture. The right kidney measures 11.2 x 5.9 x 5.2 cm and the left kidney measures 11.4 x 6.3 x 4.5 cm. There is no hydronephrosis. No shadowing renal calculi are identified. A 3.7 cm cyst is noted in the interpolar right kidney. There is no sonographic evidence of contour deforming renal mass lesion. No perinephric fluid is identified. Bladder: The bladder is decompressed around a Black catheter and could not be assessed. IMPRESSION: 1. There is evidence of medical renal disease. 2. No hydronephrosis. 3. The bladder was decompressed around a Black catheter and could not be assessed. LUNG CT: IMPRESSION: 1. Emphysema with numerous irregular bilateral solid pulmonary nodules, several of which are new or enlarged from the 05/15/2021 PET/CT. This includes a 3 cm nodular opacity of the basal left lower lobe. A one month follow-up chest CT is recommended. 2. Irregular subpleural indeterminate 2.7 cm nodule of the left upper lobe which demonstrated hypermetabolic activity on the prior PET/CT has mildly decreased in size. Attention at follow-up is needed. 3. Cardiomegaly with unchanged fusiform dilation of the ascending thoracic aorta, 4.1 cm. 4. Additional findings as above. Overall Lung RADS Category: 4B - Very Suspicious - Findings for which additional diagnostic testing and/or tissue sampling is recommended. Return with chest CT with or without contrast, PET CT and/or tissue sampling depending on the probability of malignancy and comorbidities. PET CT may be used when there is a greater than or equal to 8 mm solid component. For new large nodules that develop on an annual repeat screening CT, a one month CT lung follow-up (low dose) may be recommended to address potentially infectious or inflammatory conditions. Ordered Studies 10/06/21 00:12 CT head/brain wo con Urgent 10/06/21 04:59 US renal/blad retro comp Urgent 10/07/21 00:00 MR brain wo/w con Routine Hospital Course (1) Encephalopathy: Acute Metabolic Encephalopathy Likely multifactorial:Secondary to Medications, Hypercarbia, Uremia Given H/O Presumed Lung Cancer Rule out Metastatic Lung Cancer --CT Head: No acute intracranial abnormality. MRI Brain: No acute abnormality, in particular no evidence of infarct or metastatic lesion. 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 BiPAP as needed and HS Confusion resolved Tolerating home meds Mental status at baseline KELLEN on CKD III H/O BPH/neurogenic bladder --Renal USD:There is evidence of medical renal disease. No hydronephrosis. -- Bladder scan as needed --Cr:2.53>>2.10> 1.8>1.7>1.42 Gentle IV fluids Avoid nephrotoxic agents as able Consider nephrology evaluation if needed Advised to get repeat blood test in 1 week Acute on chronic respiratory failure with hypoxia, hypercarbia Chronic oxygen dependency--3 L at baseline Mild COPD exacerbation H/O MUKUL on BiPAP Procalcitonin 0.7 Currently saturating well on baseline supplemental oxygen Continue doxycycline Day #4 Nebs as needed Chronic right sided heart failure with preserved EF CXR:mild pulmonary vascular congestion No overt signs of decompensation Monitor volume status closely CAD S/P stent SSS S/P PPM Continue metoprolol, statin Pulmonary Nodules H/O Smoking Presumptive lung cancer S/P radiation Increased in nodular size when compared to prior imaging Follows with Tyra García pulmonology Will need further follow-up with oncology as outpatient Updated patient's son over the phone on 10/06 Hypertension Losartan KELLEN Continue metoprolol Monitor Hyperlipidemia On statin DM II HbA1C:6.5 Insulin sliding Scale while hospitalized Monitor BGs Code Status Full Code DVT Px: Heparin SQ Disposition Refused Rehab Plan to discharge home with HH as able Family: Dr.Matt Medel [phone] (Pt's Son) Patient's , Ms. Christal Medel:[phone]. Total Time Total Time Spent Total Time Spent (In Minutes): 49 minutes Discharge Plan Discharge Items Patient Disposition: Home - Home Health Services Reason For Visit: ARF, LETHARGY Discharge Diagnosis: Acute Metabolic Encephalopathy Acute Kidney Injury Acute on chronic respiratory failure with hypoxia, hypercarbia Pulmonary Nodules Activity: Per Instructions section Exercise/Sports: Gradually increase as tolerated Non-emergency contact: Primary Care Provider, Spouting Installer and Hair Colorist Call non-emergency contact if: you have any medication questions, your symptoms worsen, your pain is concerning for you and you have a fever Follow-up/Referrals: Clau Batisat DO [Primary Care Provider] - (Date & Time 10/15/2021 11:20 AM Provider Clau Batista DO Department [facility] ) Diet: Carb Consistent or DM2 and Heart Healthy Addtl Attending Provider Instructions: Follow up with your primary care physician on 10/15/2021 11:20 AM Follow-up with your keypunch operator in 2 weeks as advised Follow up with your curriculum consultant/oncologist for further management of your Pulmonary Nodules as advised --Complete the antibiotic course doxycycline for 2 more days as prescribed ---Get Blood test (Basic Metabolic Panel) in 1 week and follow up with your physician with results --HOLD taking your Losartan until follow up with your primary care physician Seek immediate medical attention if your symptoms reoccur or worsen Please take all medications as instructed on discharge list below. Please call if you have any questions or problems. You can reach a [facility] hospitalist on duty at [facility] 24 hours a day by calling [phone] Pending Studies at Discharge: No Stand-Alone Forms: My [facility], Smoking Cessation Medications and DC Order Prescriptions: New doxycycline hyclate 100 mg Capsule 100 mg PO BID Qty: 4 0RF Continued (DME) Oxygen Home Liters Per Minute See Rx Instructions .ROUTE .MEDSUPPLY Qty: 1 0RF Rx Instructions: Patient requires oxygen at 3 l/m via n/c continuously. Please provide light weight portable oygen concentrator. Lifetime need. ferrous sulfate 325 mg (65 mg iron) tablet 325 mg PO QAM cholecalciferol (vitamin D3) 125 mcg (5,000 unit) capsule 125 mcg PO QAM Spiriva Respimat 2.5 mcg/actuation mist 2 puff inhalation QAM Qty: 4 5RF Rx Instructions: INHALE 2 SPRAY(S) BY MOUTH IN THE MORNING albuterol sulfate [Ventolin HFA] 90 mcg/actuation HFA aerosol inhaler 2 puff INH Q6H PRN (Reason: increased cough, shortness of breath or wheezing) Qty: 8.5 5RF budesonide-formoterol [Symbicort] 80-4.5 mcg/actuation HFA aerosol inhaler 2 puff inhalation BID Qty: 10.2 3RF losartan [Cozaar] 50 mg tablet 25 mg PO QAM atorvastatin [Lipitor] 80 mg tablet 80 mg PO HS lamotrigine [Lamictal] 200 mg tablet 200 mg PO QAM pantoprazole [Protonix] 40 mg tablet,delayed release (DR/EC) 40 mg PO BID Qty: 30 timolol maleate [Istalol] 0.5 % drops, once daily 1 drp OPB QAM gabapentin [Neurontin] 600 mg tablet 600 mg PO BID Probiotic 3 billion cell Capsule 3,000 mmu cells PO QAM fluoxetine [Prozac] 40 mg capsule 40 mg PO QAM Rx Instructions: Take with 20mg capsule metoprolol succinate [Toprol XL] 50 mg tablet extended release 24 hr 50 mg PO HS amlodipine [Norvasc] 5 mg tablet 5 mg PO QAM fluoxetine [Prozac] 20 mg capsule 20 mg PO QAM Rx Instructions: Take with 40mg capsule tamsulosin [Flomax] 0.4 mg capsule 0.4 mg PO QAM finasteride [Proscar] 5 mg tablet 5 mg PO QAM polyethylene glycol 3350 [Miralax] 17 gram Powder In Packet 17 g PO QAM olanzapine 15 mg tablet 30 mg PO QPM Rx Instructions: take 2 tablets at 8pm Discharge Orders: Discharge Order (Routine); Ordered 10/09/21 Ordered By: Benton Garcia/Other Patient Handouts: Managing Type 2 Diabetes Admission Data Admit Date/Time: 10/07/21 09:47 Attending Provider: Benton Howell Admit Provider: Johnny Flower Primary Care Provider: Clau Batista Other Providers: Johnny Flower ; [facility] ; [place] ; [facility]
== END 2021-10-09 14:41 | disposition home health service (06) ==
LOC: ED 23:51 → 2S 23:51 → SUATTDRO 10-06 03:21 → 2S 10-06 04:11